=== PATIENT | female | born 1940 | race Caucasian/White ===

== ENCOUNTER 2023-12-11 07:24 | Day surgery (SDC) | payer OTHER, SELFPAY ==
[2023-12-11] MEDS: ELIQUIS 2.5 MG PO (08:00)
--- NOTE | 2023-12-11 17:43 | ITS.CL.CARDI ---
Dry Ice Machine Operator - Cardioversion
Cardioversion
Procedure Report:
Date of Procedure: 12/11/23
Procedure: Cardioversion
Indication: Symptomatic atrial fibrillation
Performing Physician: Marlena Thapa DO [facility]
Anticoagulation: Eliquis
Antiarrhythmic: Amiodarone
Technique: The patient was brought to the holding area. Signed informed consent was obtained. A time out was called and performed. The patient was anesthetized by the anesthesia service. Anticoagulation status was reviewed and appropriate. R2 pads
were placed anteriorly and posteriorly. A 200J synchronized biphasic shock restored normal sinus rhythm without significant bradycardia. There were no complications. Post cardioversion twelve-lead EKG sinus bradycardia with occasional PVCs
otherwise normal. QTc interval 465 ms.
Conclusion: Uncomplicated cardioversion from atrial fibrillation to sinus rhythm.
Recommendation: Routine post cardioversion care. Continue meterman anticoagulation. Updated patient's daughter Mile as well has her outpatient assistant grocery store manager Dr. Duran.
== END 2023-12-11 09:00 | disposition home or self-care (01) ==
LOC: CATH 07:24
PROVIDERS: ATTENDING PHYSICIAN Internal Medicine Cardiovascular Disease; FAMILY PHYSICIAN Internal Medicine; OTHER PHYSICIAN Internal Medicine Cardiovascular Disease
DX: I48.91 Unspecified atrial fibrillation (principal); I25.10 Atherosclerotic heart disease of native coronary artery without angina pectoris; I10 Essential (primary) hypertension; J44.9 Chronic obstructive pulmonary disease, unspecified; R06.02 Shortness of breath; F17.210 Nicotine dependence, cigarettes, uncomplicated; Z79.01 Long term (current) use of anticoagulants; Z79.82 Long term (current) use of aspirin
CPT/HCPCS: 92960; 93005

== ENCOUNTER → 2024-01-25 16:01 | Outpatient (REF) | payer OTHER, SELFPAY | LOC: DHCBS HW 16:01 | PROVIDERS: ATTENDING PHYSICIAN Physician Assistant Medical; FAMILY PHYSICIAN Internal Medicine | DX: I48.0 Paroxysmal atrial fibrillation (principal) | CPT/HCPCS: 93306 ==

== ENCOUNTER 2024-03-02 19:21 | Emergency (ER) | payer OTHER, SELFPAY ==
[2024-03-02 19:22] VITALS: BP 90/56; BMI 19.8
--- NOTE | 2024-03-02 20:30 | ED.GENMED ---
History of Present Illness
General
Chief Complaint: Skin Problem
Time Seen by Provider: 03/02/24 20:22
Travel History
Have you had any contact with someone who has COVID-19?: No
Do you have any symptoms of coronavirus? Fever > 100 degrees, chills, cough, shortness of breath, sore throat, loss of taste or smell, muscle aches, or headache?: No
History of Present Illness
History of Present Illness:
84-year-old female with history of A-fib, COPD, hypertension, and hyperlipidemia as well as chronic tobacco abuse and peripheral arterial disease presents to the emergency department for evaluation of left heel pain. She states that just over a
month ago she had a fall out of bed and suffered a wound to the left heel that has not improved. She has noted some discomfort to it over the past several days. She notes that she has peripheral arterial disease and has previously seen Dr. Aaron.
Denies any associated fevers or chills. Typically ambulates with walker assistance and feels as though she can ambulate however has increased pain to the foot makes this challenging
Past History
Past History
ED Past Medical History: Arrthythmia, CAD, COPD and HTN
ED Past Surgical History: None
Social History
Tobacco: Non-smoker
Alcohol: None
Review of Systems
Review of Systems
Allergies reviewed?: Yes
All Other Systems: ROS reviewed and negative except as documented in HPI and ROS
Phy Exam
Physical Exam
Physical Exam:
GEN: Thin and cachectic appearing, disheveled
HEENT: Oral mucosa moist, no scleral icterus
Cardiac: Regular rate. Left dorsalis pedis pulse is thready and monophasic by Doppler, left posterior tibialis pulse is thready and monophasic by Doppler
Lung: No respiratory distress, no tachypnea
MSK: No gross deformity or injuries
Skin: mild diffuse erythema to the left foot without swelling or tenderness, no hyperemia. There is a superficial ulceration to the left heel overlying the Achilles tendon with overlying eschar, no severe erythema or purulent discharge, minimally
tender to palpation, no crepitus
Neuro: AO x3, moves all extremities freely
Psych: Calm, cooperative
Course
Orders/Labs/Results
Orders:
Orders
03/02/24 20:29
CR Foot - Left Min 3 Views Urgent
Comment:
Reason For Exam: calcaneal ulcer
03/02/24 23:26
CRP [C-Reactive Protein] Urgent
Complete Blood Count/With Diff Urgent
Comprehensive Metabolic Panel Urgent
ESR [Erythrocyte Sed Rate] Urgent
Abnormal Lab Results
03/02/24
23:26
RBC 3.57 L 10^6/uL
(4.20-5.40)
Hgb 9.5 L g/dL
(12.0-16.0)
Hct 28.0 L %
(37.0-47.0)
MCV 78.4 L fL
(81.0-99.0)
MCH 26.6 L pg
(27.0-31.0)
RDW 18.8 H %
(11.5-14.5)
Absolute Monos (auto) 0.7 H 10^3/uL
(0.1-0.6)
Lymphocytes % 19.3 L %
(20.5-51.1)
ESR 93 H mm/hour
(0-20)
Carbon Dioxide 21 L mmol/L
(22-30)
BUN 24 H mg/dl
(7-17)
AST 41 H U/L
(14-36)
03/02/24 23:26
03/02/24 23:26
Vital Signs
Initial and Last Documented VS:
Initial Vital Signs
Temp Pulse Resp BP Pulse Ox
98.1 F 53 20 90/56 98
03/02/24 19:22 03/02/24 19:22 03/02/24 19:22 03/02/24 19:22 03/02/24 19:22
Last Documented Vital Signs
Temp Pulse Resp BP Pulse Ox
98.1 F 52 16 108/66 95
03/02/24 19:22 03/02/24 23:02 03/02/24 23:02 03/02/24 23:02 03/02/24 23:02
MDM/Problems Addressed
MDM/Problems Addressed:
Patient's wound shows no signs of active infection, x-ray without signs of osteomyelitis, reassuring inflammatory markers. Do not feel that there is any need for antibiotics. The patient ultimately would benefit from outpatient vascular surgery
evaluation given her diminished left foot pulses however there is no evidence for acute arterial occlusion. She will also benefit from outpatient wound care. Patient's family requested that we consider hospitalization for given her poor functional
status at home, I discussed this with hospitalist service however they declined admission the patient does not meet medical criteria. I did attempt to discharge the patient into the care of the daughter however the patient's daughter left and did
not answer the phone. She will be marked as discharged with anticipated disposition in the morning, will consult PT and case management for morning evaluation should the patient remain in the ER
*Critical Care Note
Total Time (30-74mins, 75-104mins- exclusive of procedures): Not Applicable
ED Attending Note
-
Portions of this chart may have been created with voice recognition software.� Occasional wrong word or��sound alike� substitutions may have occurred due to the inherent limitations of voice recognition software.
Discharge Plan
Departure
Patient Disposition: Home (Routine Discharge)
Date of Disposition: 03/03/24
Time of Disposition: 00:50
Patient with high blood pressure during this ER visit?: No
Discharge Problem:
Ulcer of left heel, Peripheral arterial disease
Instructions: Wound Care (DC)
Prescriptions:
No Action
pravastatin 40 mg Tablet
40 mg PO QPM
levothyroxine [Synthroid] 125 mcg Tablet
125 mcg PO DAILY
lisinopril 10 mg Tablet
10 mg PO HS
aripiprazole [Abilify] 5 mg Tablet
5 mg PO HS
Eliquis 2.5 mg Tablet
2.5 mg PO BID
calcium carbonate-vitamin D3 [Calcium 600 + D(3)] 600 mg-5 mcg (200 unit) Tablet
1 tab PO DAILY
ferrous sulfate [iron] 325 mg (65 mg iron) Tablet
325 mg PO DAILY
tiotropium bromide [Spiriva with HandiHaler] 18 mcg Capsule, W/Inhalation Device
1 cap INHALATION R DAILY
Centrum Silver Women 8 mg iron-400 mcg-50 mcg Tablet
1 tab PO DAILY
sertraline 100 mg tablet
100 mg PO DAILY
diltiazem HCl 240 mg Capsule,Extended Release 24 Hr
240 mg PO DAILY
diltiazem HCl 120 mg capsule,extended release 24hr
120 mg PO QPM
Referrals:
Louann Kemp MD [Family Provider] -
Activity Restrictions/Additional Instructions:
Follow up with wound care clinic as we discussed
Follow up with Dr Aaron regarding further testing of your vascular disease of your left leg
If you develop increased foot redness, swelling or pain, return to the ER
Interventions
Interventions:
*Risk Screen - Suicide Last Done: 03/02/24 19:22
*Neglect/Abuse Screening Last Done: 03/02/24 19:22
ED- Fall Risk Assessment Last Done: 03/02/24 20:31
*ED COVID-19 Vaccine History Last Done: 03/02/24 19:22
ED-Skin Assessment Last Done: 03/02/24 20:29
Discharge Date and Time
Print Language: CYPRIOT
[2024-03-02 23:02] VITALS: BP 108/66
[2024-03-02 23:36] LABS: % Basophils 0.3 % (0-2); % Eosinophils 0.6 % (0-6); % Immature Granulocytes 0.3 % (0-0.5); % Lymphocytes 19.3 % (20.5-51.1); % Monocytes 7.8 % (1.7-9.3); % Neutrophils 71.7 % (42.2-75.2); Absolute Eosinophils 0.1 10^3/uL (0-0.7); Absolute Lymphocytes 1.7 10^3/uL (1.2-3.4); Absolute Monocytes 0.7 10^3/uL (0.1-0.6); Absolute Neutrophils 6.4 10^3/uL (1.4-6.5); Hemoglobin 9.5 g/dL (12.0-16.0); Mean Corp Hgb Conc. 33.9 g/dL (33.0-37.0); Mean Corpuscular Hgb 26.6 pg (27.0-31.0); Mean Corpuscular Volume 78.4 fL (81.0-99.0); Mean Platelet Volume 9.5 fL (7.4-10.4); Nucleated Red Blood Cells % 0 %; Platelet Count 356 10^3/uL (130-400); Red Blood Cell Count 3.57 10^6/uL (4.20-5.40); Red Cell Dist. Width 18.8 % (11.5-14.5)
[2024-03-02 23:50] LABS: ALT (SGPT) 28 U/L (0-35); AST (SGOT) 41 U/L (14-36); Albumin 3.6 g/dl (3.5-5.0); Alkaline Phosphatase 105 U/L (38-126); Blood Urea Nitrogen 24 mg/dl (7-17); Calcium 9.2 mg/dl (8.4-10.2); Carbon Dioxide 21 mmol/L (22-30); Chloride 103 mmol/L (98-107); Estimated Creatinine Clearance 47 ml/min; Glucose 94 mg/dl (70-99); Potassium 3.7 mmol/L (3.5-5.1); Sodium 135 mmol/L (135-145); Total Bilirubin 0.4 mg/dl (0.2-1.3); Total Protein 6.8 g/dl (6.3-8.2); eGFR > 60.00
[2024-03-03 01:29] LABS: Erythrocyte Sed Rate 93 mm/hour (0-20)
[2024-03-03 06:51] VITALS: BP 133/72
--- NOTE | 2024-03-03 09:18 | CM ---
Addendum entered by Rolando Graham 03/03/24 10:23:
Per [facility] liaison, pt is accepted for admission today and an auth for SNF level of care requested.
[facility]
Accepting Physician: Shannan
CM requested an auth by calling [facility], spoke to patient representative Cori and based on pt's clinical provided, pt is approved for SNF level of care at [facility] for 5 initial days from today 03/03/24 till 03/07/25 with NRD 03/07/24, Auth:
[id number]. Verbal review phone: [phone]
Auth information provided to [facility] liaison and she confirmed that pt is accepted for admission today.
[facility] nursing report: [phone]
Discharge instructions fax: [phone]
D/C palnL [facility]. Daughter to transport.
Addendum entered by Rolando Graham 03/03/24 09:57:
PT evaluation noted - SNF level of care recommended.
A referral to [facility] made. Awaiting for determination.
Original Note:
CM following re: discharge planning.
CM consult to assist the pt with discharge plan.
Reviewed pt's chart, met with pt in ED and spoke to pt's daughter Mile
Pt is an 84 year old female, arrived to ED with primary concerns of weakness
Pt reports she lives alone in a split level home, 2 steps to enter, has supportive daughter Mile who lives 2 blocks away and helps as needed. Pt reports she ambulates with a walker and has been experiencing difficulties with walking in the past
week. Pt reports she was before at [facility] and she is requested to go to [facility] for a short term rehab.
PT to evaluate the pt to determine a level of care at discharge.
PCP: Louann Kemp
Pharmacy: [facility]
D/C plan: [facility] if recommended by PT. Pt will need [facility] insurance auth. Daughter Mile stated she will transport the pt to [facility].
CM to follow with discharge plan updates.
[2024-03-03 09:19] VITALS: BP 120/74
[2024-03-03 12:15] VITALS: BP 140/93
== END 2024-03-03 12:43 ==
LOC: EMR 19:21
PROVIDERS: Physician Assistant; EMERGENCY PHYSICIAN Emergency Medicine; FAMILY PHYSICIAN Internal Medicine
DX: M79.672 Pain in left foot (principal)
CPT/HCPCS: 99283; 73630; 80053; 85025; 85652; 86140

== ENCOUNTER → 2024-03-10 09:12 | Outpatient (REF) | payer OTHER, SELFPAY | LOC: RAD 09:12 | PROVIDERS: ATTENDING PHYSICIAN Registered Nurse; FAMILY PHYSICIAN Internal Medicine | DX: I77.9 Disorder of arteries and arterioles, unspecified (principal) | CPT/HCPCS: 93922; 93925 ==

== ENCOUNTER 2024-03-16 06:08 | Day surgery (SDC) | payer OTHER, SELFPAY ==
--- NOTE | 2024-03-15 15:20 | PTCARENOTE ---
ABN ECG, Anesthesia notified, states 'OK if stable' no requests received.
[2024-03-16] VITALS (20 sets, daily range): BP systolic 109–169; BP diastolic 79–110; BMI 19.7
[2024-03-16 06:51] LABS: Hematocrit 35.2 % (37.0-47.0); Hemoglobin 11.5 g/dL (12.0-16.0); Mean Corp Hgb Conc. 32.7 g/dL (33.0-37.0); Mean Corpuscular Hgb 27.4 pg (27.0-31.0); Mean Platelet Volume 9.5 fL (7.4-10.4); Platelet Count 441 10^3/uL (130-400); Red Blood Cell Count 4.19 10^6/uL (4.20-5.40); Red Cell Dist. Width 18.6 % (11.5-14.5); White Blood Cell Count 9.7 10^3/uL (4.8-10.8)
--- NOTE | 2024-03-16 06:59 | W.SUR.PREOP ---
Pre-Operative Surgical Note
-
I have examined this patient prior to the performance of the scheduled procedure.
The patient's condition is unchanged from the time of the current History and
Physical and the patient is able to undergo the scheduled procedure.
Discussed procedure at length with patient and daughter. Discussed potential scenarios/outcomes. Discussed some limitations given mulit-level disease. Risks fully discussed. She understands all and wishes to proceed.
[2024-03-16 07:02] LABS: INR 1.11; PT 14.2 Sec (11.4-14.6)
[2024-03-16 07:03] LABS: APTT 33.2 Sec (23.4-35.0)
[2024-03-16 07:08] LABS: Blood Urea Nitrogen 18 mg/dl (7-17); Calcium 9.2 mg/dl (8.4-10.2); Carbon Dioxide 22 mmol/L (22-30); Chloride 104 mmol/L (98-107); Estimated Creatinine Clearance 54 ml/min; Glucose 96 mg/dl (70-99); Potassium 4.7 mmol/L (3.5-5.1); Sodium 135 mmol/L (135-145); eGFR > 60.00
--- NOTE | 2024-03-16 09:34 | W.SUR.POST ---
Surgical Immediate Post Op
Note
Pre Op Diagnosis: PAD
Post Op Diagnosis: Same
Procedure Performed: Left lower extremity angiogram, INSIDE SALES ACCOUNT REPRESENTATIVE common iliac, external iliac, SFA, above-knee popliteal, behind knee popliteal, below-knee popliteal. Stent placement to common iliac, external iliac, SFA, and above-knee popliteal.
Primary Surgeon: Galen
Anesthesia: Local and sedation
Estimated Blood Loss: <2cc
Fluids: See anesthesia flowsheet
Drains/Shunts: None
Specimens/Cultures: None
Doppler/Duplex/Angio (Y/N): Y
Complications: None
Operative Findings: Palpable [id number]
--- NOTE | 2024-03-16 09:35 | W.PV.INTER ---
VPI Note
Pre Admission Note
Functional Status: Self Care
Ambulation: Ambulate with Assistance
Pre Op Medications
Pre Op ASA: No
Pre Op Statin: Yes
Pre Op RHINA Inhibitor/ARB: Yes
Pre Op P2y12 Antagonist: None
Pre Op Beta Blockers: No
Pre Op Chronic Anticoagulant: Apixaban
Pre Op Cilostazol: No
Post Op Medications
Post Op ASA: Yes
Post Op Statin: Yes
Post Op RHINA Inhibitor/ARB: Yes
Post Op P2y12 Antagonist: Clopidogrel
Post Op Beta Blockers: No
Post Op Chronic Anticoagulant: Apixaban
Post Op Cilostazol: No
[2024-03-16] MEDS: PLAVIX 300 MG PO (10:56)
--- NOTE | 2024-03-16 11:05 | OR.RPT ---
Operative Report
Operative Report
PROCEDURE DATE: 03/16/2024
Preoperative diagnosis:
1. Chronic limb threatening ischemia left lower extremity (severe rest pain as well as heel ulceration).
2. COPD.
3. History of coronary artery disease.
Postoperative diagnosis: Same
Procedure:
1. Duplex assisted right common femoral artery cannulation.
2. Aortogram and pelvic angiogram.
3. Left lower extremity arteriogram with third order vessel catheterization of left peroneal artery via right common femoral artery puncture.
4. Balloon angioplasty left external iliac and common iliac artery and stent placement with Zilver PTX overlapping 7 mm x 4 cm, 6 mm x 4 cm stents.
5. Recanalization of long segment occlusion left superficial femoral artery and above-knee popliteal artery with angioplasty long segment.
6. Placement of overlapping Zilver PTX stents left above-knee popliteal artery back to origin of superficial femoral artery with 6 mm x 14 cm, 6 mm x 14 cm, 6 mm x 12 cm, 6 mm x 4 cm stents.
7. Balloon angioplasty of below-knee popliteal artery with 4 mm angioplasty balloon.
8. Right femoral angiogram.
9. Supervision interpretation.
Surgeon: Galen
Returned Case Inspector: None
Complications: None
Anesthesia: Local, sedation
Fluoroscopy:
27.4 min
93 mGy
14.5 to Gy.cm2
Indications for procedure:
84-year-old female with extensive medical history including significant risk factors of CAD and COPD. Extensive peripheral arterial disease with multilevel inflow and outflow occlusive disease noted on prior CT scan imaging as well as noninvasive
arterial imaging. Now with ischemic left foot rest pain as well as ulceration. Risk/benefits/alternatives of angiography were fully discussed. Patient understood all wish to proceed.
Description of procedure:
Patient was identified, brought to the operating room. Placed on the table in the supine position. After the adequate administration of anesthesia, the patient was prepped and draped in the standard surgical fashion. A standard preoperative
timeout was undertaken and everybody was in agreement with the plan.
The right common femoral artery was accessed with a micropuncture kit under direct duplex ultrasound guidance. A 5-Luxembourger sheath was then advanced over a 0.035 inch wire, and a good's hook catheter was advanced into the abdominal aorta.
Aortogram and pelvic angiogram was obtained. Findings as follows:
Infrarenal aorta: Extensive atherosclerosis but no significant stenosis.
Right common iliac artery: Patent with moderate bulky plaque about a centimeter beyond the origin. Resulted in likely about 50% stenosis.
Right external iliac artery:Possible moderate stenosis, somewhat challenging due to overlying bowel gas to fully assess that extended from common iliac into the external iliac for about 3 to 4 cm.
Left common iliac artery:Patent with focal moderate bulky plaque that resulted in likely 60 or 70% stenosis in the midsegment of common iliac.
Left external iliac artery:Severe stenosis at the origin of the external iliac artery (string-like).
Using a floppy angled hydrophilic wire, the left common femoral artery was cannulated and the catheter was advanced with some difficulty. Left lower extremity arteriogram was obtained. Findings as follows:
Common femoral artery:Patent with moderate opacity suggesting bulky plaque, but no hourglass like stenosis. Difficult to quantify if any significant stenosis.
Profunda femoris artery:Patent with no significant stenosis
Superficial femoral artery:Flush occluded, but trickle noted on delayed imaging for about 1-2cm. Reconstituted flow in mid to distal SFA, moderately diseased. Above-knee popliteal artery more robustly reconstituted. In the distal above-knee
popliteal artery there was a focal bulky plaque that resulted in likely severe stenosis. Below-knee popliteal artery then patent. Gave rise to two-vessel runoff proximally (peroneal and anterior tibial arteries). The peroneal artery essentially
occluded in the mid calf, the anterior tibial artery was a dominant runoff vessel to the foot. However due to significant patient movement throughout the case (restless leg) as well as poor flow due to stenoses more proximally, could not exactly
see filling onto the foot as well.
At this point I then selectively cannulated the profunda femoris artery and then exchanged for a Storq wire. Up and over 6 Luxembourger sheath access was obtained into the left common iliac artery. Patient was given 4000 units of intravenous heparin. I
then used a 4 mm angioplasty balloon to balloon the severe proximal external iliac artery stenosis. Next I used a 7 mm x 4 cm Zilver PTX stent which I extended from the external iliac artery stenosis to the common iliac artery at the area of bulky
plaque (just proximal edge of the plaque). I post angioplastied this with a 6 mm angioplasty balloon distally and a 7 mm angioplasty balloon proximally. Completion angiogram demonstrated good result but at the distal edge of the stent in the
external iliac artery there was what appeared to be luminal irregularity and likely severe stenosis. I therefore then extended with an additional 6 mm x 4 cm stent which I then post angioplastied with a 6 mm balloon. Completion angiogram now
demonstrated excellent result with no residual stenosis. At this point I then reinserted the dilator for the sheath and then advanced the sheath to the left common femoral artery. Now under roadmap assisted guidance I was able to (though difficult
to do so) cannulate the left superficial femoral artery proximally. I then was able to traverse the entirety of the occlusion and then gain wire access into the popliteal artery. I was able advance my catheter and angiogram confirmed I was within
the true lumen. I therefore then advanced my catheter and wire to the below-knee popliteal artery and then the wire into the peroneal artery. Now I used a long 4 mm angioplasty balloon to angioplasty the entirety of the SFA and the proximal
above-knee popliteal artery. My initial plan was to use shockwave lithotripsy angioplasty for the distal above-knee popliteal artery stenosis. However the patient was moving tremendously in this complicated the case and I felt that this would add
time and difficulty for accuracy. Therefore I elected to primarily stent the entirety of the stenotic segments extending from the above-knee popliteal artery to the proximal superficial femoral artery using 6 mm overlapping Zilver PTX stents. I
used a 6 mm x 14 cm, 6 mm x 14 cm, 6 mm x 12 cm. These were post angioplastied with a 5 mm balloons. However, I could not pass my 5 mm balloon through the stented distal segment (distal above-knee popliteal artery bulky plaque). The stent had
deployed, but I was unable to pass the balloon out. I tried multiple times. I therefore then used a quick cross catheter which I was able to pass through it, and then exchanged for a 0.018 inch wire. I then used a 0.018 inch platform 5 mm balloon
and was able to postangioplasty that segment successfully. Completion angiogram demonstrated much improved flow now with flow through the SFA. There was however a proximal segment and the stents in the SFA with residual severe stenosis where the
stent did not fully expand. In addition distally at the bulky area of popliteal plaque, there is still some residual stenosis despite the stent having expanded. And in addition, the proximal stent was just short of the femoral bifurcation. I was
initially hesitant to stent back to the origin. (Ideally this would all be treated surgically with a femoral endarterectomy, but the patient was a high risk for surgical reconstruction as noted earlier). Therefore I then under magnification
extended the stent with a 6 mm x 4 cm Zilver PTX to include the very origin of the SFA and just sort of flare onto the profunda though not cover it. I then post angioplastied this as well as the proximal severe stenosis in the stented SFA with a 6
mm angioplasty balloon. I also post angioplastied the distal above-knee popliteal recalcitrant segment with a 6 mm balloon to full profile. I was able to profile the balloon and although sites. Completion angiogram now demonstrated good result
throughout the stented SFA and above-knee popliteal artery. However the flow and filling distally was slow. I advanced a quick cross catheter all the way down to the below-knee popliteal artery and performed imaging from there. This demonstrated
patency of the below-knee popliteal artery and anterior tibial artery all the way down to the foot but very slow filling. I noted just proximal to the catheter edge that there was a stenosis now (possible vasospasm) in the below-knee popliteal
artery. I therefore then exchanged back for a 0.035 inch wire and perform gentle angioplasty with a 4 mm balloon. Completion angiogram demonstrated now complete resolution of that stenosis and now brisk flow through into the runoff. At this point
is very satisfied. I withdrew my sheath to the right distal external iliac artery. Right femoral angiography demonstrated good puncture in the right common femoral artery. Possible plaque disease in the common femoral artery. Profunda patent.
SFA with diffuse plaque but moderate to significant stenosis focally in 1 segment in the proximal third but otherwise no severe stenosis. I elected not to image further down the leg as I use a fair amount of contrast at this point. At this point
the wires and catheters were withdrawn. The sheath was withdrawn and manual pressure was applied to the puncture site. Full hemostasis was achieved. The patient tolerated the procedure well. Upon completion she had a palpable left dorsalis pedis
pulse.
The patient tolerated procedure well.
[2024-03-16] MEDS: LOW STRENGTH ASPIRIN 81 MG PO (11:06)
[2024-03-16] MEDS: NSS 1000 IV (12:56)
== END 2024-03-16 16:00 | disposition home or self-care (01) ==
LOC: CATH 06:08
PROVIDERS: ATTENDING PHYSICIAN Surgery Vascular Surgery; FAMILY PHYSICIAN Internal Medicine
DX: I70.244 Atherosclerosis of native arteries of left leg with ulceration of heel and midfoot (principal); L97.429 Non-pressure chronic ulcer of left heel and midfoot with unspecified severity; J44.9 Chronic obstructive pulmonary disease, unspecified; I25.10 Atherosclerotic heart disease of native coronary artery without angina pectoris; Z88.1 Allergy status to other antibiotic agents; Z79.01 Long term (current) use of anticoagulants; I48.0 Paroxysmal atrial fibrillation; I10 Essential (primary) hypertension
CPT/HCPCS: 37221; 37226; 75625; 75716; 76937; 80048; 85027; 85610; 85730; 86850; 86900; 86901; C1725; C1769; C1874; C1894; Q9967

== ENCOUNTER → 2024-04-27 14:41 | Outpatient (REF) | payer OTHER, SELFPAY | LOC: RAD 14:41 | PROVIDERS: ATTENDING PHYSICIAN Surgery Vascular Surgery; FAMILY PHYSICIAN Family Medicine | DX: I73.9 Peripheral vascular disease, unspecified (principal) | CPT/HCPCS: 93922; 93925; 93978 ==

== ENCOUNTER → 2024-05-12 12:38 | Outpatient (REF) | payer OTHER, SELFPAY | LOC: WOUND 12:38 | PROVIDERS: ATTENDING PHYSICIAN Surgery; FAMILY PHYSICIAN Family Medicine | DX: L97.323 Non-pressure chronic ulcer of left ankle with necrosis of muscle (principal); I10 Essential (primary) hypertension; I73.9 Peripheral vascular disease, unspecified | CPT/HCPCS: 11043; 99203 ==

== ENCOUNTER → 2024-05-17 08:59 | Outpatient (REF) | payer OTHER, SELFPAY | LOC: WOUND 08:59 | PROVIDERS: ATTENDING PHYSICIAN Surgery | DX: L97.323 Non-pressure chronic ulcer of left ankle with necrosis of muscle (principal); I10 Essential (primary) hypertension; I73.9 Peripheral vascular disease, unspecified | CPT/HCPCS: 11043 ==

== ENCOUNTER → 2024-05-26 09:38 | Outpatient (REF) | payer OTHER, SELFPAY | LOC: WOUND 09:38 | PROVIDERS: ATTENDING PHYSICIAN Surgery; FAMILY PHYSICIAN Family Medicine | DX: L97.323 Non-pressure chronic ulcer of left ankle with necrosis of muscle (principal); I10 Essential (primary) hypertension; I73.9 Peripheral vascular disease, unspecified | CPT/HCPCS: 11043 ==

== ENCOUNTER → 2024-06-02 09:19 | Outpatient (REF) | payer OTHER, SELFPAY | LOC: WOUND 09:19 | PROVIDERS: ATTENDING PHYSICIAN Surgery; FAMILY PHYSICIAN Family Medicine | DX: L97.323 Non-pressure chronic ulcer of left ankle with necrosis of muscle (principal); I73.9 Peripheral vascular disease, unspecified | CPT/HCPCS: 11043 ==

== ENCOUNTER → 2024-06-16 09:17 | Outpatient (REF) | payer OTHER, SELFPAY | LOC: WOUND 09:17 | PROVIDERS: ATTENDING PHYSICIAN Surgery; FAMILY PHYSICIAN Family Medicine | DX: L97.323 Non-pressure chronic ulcer of left ankle with necrosis of muscle (principal); I10 Essential (primary) hypertension; I73.9 Peripheral vascular disease, unspecified | CPT/HCPCS: 11043 ==

== ENCOUNTER → 2024-06-24 14:55 | Outpatient (REF) | payer OTHER, SELFPAY | LOC: WOUND 14:55 | PROVIDERS: ATTENDING PHYSICIAN Surgery; FAMILY PHYSICIAN Family Medicine | DX: L97.323 Non-pressure chronic ulcer of left ankle with necrosis of muscle (principal); I73.9 Peripheral vascular disease, unspecified; I10 Essential (primary) hypertension; F17.200 Nicotine dependence, unspecified, uncomplicated | CPT/HCPCS: 11043 ==

== ENCOUNTER → 2024-07-07 14:07 | Outpatient (REF) | payer OTHER, SELFPAY | LOC: WOUND 14:07 | PROVIDERS: ATTENDING PHYSICIAN Surgery; FAMILY PHYSICIAN Family Medicine | DX: L97.323 Non-pressure chronic ulcer of left ankle with necrosis of muscle (principal); I73.9 Peripheral vascular disease, unspecified; I10 Essential (primary) hypertension; F17.200 Nicotine dependence, unspecified, uncomplicated | CPT/HCPCS: 11043 ==

== ENCOUNTER → 2024-07-25 09:51 | Outpatient (REF) | payer OTHER, SELFPAY | LOC: WOUND 09:51 | PROVIDERS: ATTENDING PHYSICIAN Surgery; FAMILY PHYSICIAN Family Medicine | DX: L97.323 Non-pressure chronic ulcer of left ankle with necrosis of muscle (principal); I73.9 Peripheral vascular disease, unspecified; I10 Essential (primary) hypertension; F17.200 Nicotine dependence, unspecified, uncomplicated | CPT/HCPCS: 11042 ==

== ENCOUNTER → 2024-08-15 14:49 | Outpatient (REF) | payer OTHER, SELFPAY | LOC: WOUND 14:49 | PROVIDERS: ATTENDING PHYSICIAN Surgery; FAMILY PHYSICIAN Family Medicine | DX: L97.323 Non-pressure chronic ulcer of left ankle with necrosis of muscle (principal); I73.9 Peripheral vascular disease, unspecified; F17.200 Nicotine dependence, unspecified, uncomplicated; I10 Essential (primary) hypertension | CPT/HCPCS: 11042; 11043 ==

== ENCOUNTER → 2024-08-23 11:05 | Outpatient (REF) | payer OTHER, SELFPAY | LOC: WOUND 11:05 | PROVIDERS: ATTENDING PHYSICIAN Surgery; FAMILY PHYSICIAN Family Medicine | DX: L97.323 Non-pressure chronic ulcer of left ankle with necrosis of muscle (principal); I73.9 Peripheral vascular disease, unspecified; F17.200 Nicotine dependence, unspecified, uncomplicated; I10 Essential (primary) hypertension | CPT/HCPCS: 11042 ==

== ENCOUNTER 2024-08-31 15:32 | Emergency (ER) | payer OTHER, SELFPAY ==
[2024-08-31 15:47] VITALS: BP 109/59
[2024-08-31 16:08] LABS: % Basophils 0.6 % (0-2); % Eosinophils 0.8 % (0-6); % Immature Granulocytes 0.3 % (0-0.5); % Lymphocytes 21.6 % (20.5-51.1); % Monocytes 8.9 % (1.7-9.3); % Neutrophils 67.8 % (42.2-75.2); Absolute Basophils 0.1 10^3/uL (0-0.2); Absolute Eosinophils 0.1 10^3/uL (0-0.7); Absolute Monocytes 0.8 10^3/uL (0.1-0.6); Absolute Neutrophils 6.1 10^3/uL (1.4-6.5); Hematocrit 31.7 % (37.0-47.0); Hemoglobin 10.6 g/dL (12.0-16.0); Mean Corp Hgb Conc. 33.4 g/dL (33.0-37.0); Mean Corpuscular Hgb 29.6 pg (27.0-31.0); Mean Corpuscular Volume 88.5 fL (81.0-99.0); Mean Platelet Volume 9.5 fL (7.4-10.4); Nucleated Red Blood Cells % 0 %; Platelet Count 363 10^3/uL (130-400); Red Blood Cell Count 3.58 10^6/uL (4.20-5.40); Red Cell Dist. Width 16.6 % (11.5-14.5)
[2024-08-31 16:22] LABS: ALT (SGPT) 42 U/L (0-35); AST (SGOT) 48 U/L (14-36); Albumin 3.9 g/dl (3.5-5.0); Alkaline Phosphatase 80 U/L (38-126); Blood Urea Nitrogen 15 mg/dl (7-17); Carbon Dioxide 16 mmol/L (22-30); Chloride 109 mmol/L (98-107); Glucose 96 mg/dl (70-99); Potassium 3.6 mmol/L (3.5-5.1); Sodium 140 mmol/L (135-145); Total Bilirubin 0.1 mg/dl (0.2-1.3); Total Protein 7.1 g/dl (6.3-8.2); eGFR > 60.00
--- NOTE | 2024-08-31 18:43 | ED.GENMED ---
History of Present Illness
General
Chief Complaint: DVT/Possible Blood Clot
Source: patient
Exam Limitations: none
Time Seen by Provider: 08/31/24 17:36
Nursing documentation reviewed up to this point in time: agreed with
History of Present Illness
History of Present Illness:
84-year-old female presents to the ER for evaluation of left leg swelling that started on Thursday 2 days ago. She denies any injury but reports she has been doing a lot of walking and did a lot of walking on Thursday prior to the swelling started.
Patient reports she had a femoropopliteal bypass by Dr. Aaron 03/2024.
She denies any fever chills shortness of breath. She denies any redness to the area. She is on Eliquis and Plavix and has not missed a dose.
Past History
Past History
ED Past Medical History: Arrthythmia, CAD, COPD and HTN
ED Past Surgical History: None
Social History
Tobacco: Non-smoker
Alcohol: None
Review of Systems
Review of Systems
Allergies reviewed?: Yes
All Other Systems: ROS reviewed and negative except as documented in HPI and ROS
Constitutional: Reports no symptoms; Denies fever, fatigue or chills
Respiratory: Denies trouble breathing
Musculoskeletal: Reports other (Left leg swelling)
Skin: Reports no symptoms
Neurological: Reports no symptoms
Psychiatric: Reports no symptoms
Phy Exam
General Physical Exam
General Presentation: no apparent distress
General age: appears stated age
General Skin: warm and dry
General Habitus: normal
General Mental: alert
General Hydration: appears well hydrated
Neurological Exam
Neurological Exam: alert and oriented x3
Musculoskeletal Exam
Musculoskeletal Exam: other (lle with strong pulses good color + swelling to left foot left lower leg + healing wound to posterior ankle with no erythema around wound no erythema to foot/ankle or leg )
Skin Exam
Skin Exam: normal color and warm/dry
Psychiatric Exam
Psychiatric Exam: normal mood/affect
Course
Orders/Labs/Results
Orders:
Orders
08/31/24 15:52
US Legs, Left [US Periph Venous LOWER Ext LT] Urgent
Comment:
Reason For Exam: left calf pain
08/31/24 15:57
Complete Blood Count/With Diff Urgent
Comprehensive Metabolic Panel Urgent
08/31/24 19:19
CT Abd/pelvis Angio W/wo Iv Urgent
Comment:
Reason For Exam: with venous phase for lower extremity swelling
IV Insert/Care/Rem.- Treatment PRN
Abnormal Lab Results
08/31/24
15:57
RBC 3.58 L 10^6/uL
(4.20-5.40)
Hgb 10.6 L g/dL
(12.0-16.0)
Hct 31.7 L %
(37.0-47.0)
RDW 16.6 H %
(11.5-14.5)
Absolute Monos (auto) 0.8 H 10^3/uL
(0.1-0.6)
Chloride 109 H mmol/L
(98-107)
Carbon Dioxide 16 L mmol/L
(22-30)
Total Bilirubin 0.1 L mg/dl
(0.2-1.3)
AST 48 H U/L
(14-36)
ALT 42 H U/L
(0-35)
08/31/24 15:57
08/31/24 15:57
Vital Signs
Initial and Last Documented VS:
Initial Vital Signs
Temp Pulse Resp BP Pulse Ox
98.1 F 53 20 109/59 99
08/31/24 15:47 08/31/24 15:47 08/31/24 15:47 08/31/24 15:47 08/31/24 15:47
Last Documented Vital Signs
Temp Pulse Resp BP Pulse Ox
98.1 F 53 20 111/66 99
08/31/24 15:47 08/31/24 15:47 08/31/24 15:47 08/31/24 19:39 08/31/24 15:47
Cannoneer consulted with Physician
Cannoneer consulted with physician?: Yes
Name of Physician Consulted: alonzo
MDM/Problems Addressed
MDM/Problems Addressed:
Patient is an 84-year-old female with history of peripheral arterial disease status post fem/ pop bypass March 2024 of left leg by Dr. Aaron. She presents with swelling to left lower extremity for the past 2 days. She denies any actual injury however
has been walking on it. Denies any fever chills. She is on Plavix and Eliquis. Ultrasound negative. On exam patient obvious swelling compared to the right leg she does have strong pulses foot is outsole paraffiner color good circulation. Case reviewed
with vascular surgery on-call who does recommend CTA of the abdomen and pelvis to rule out a DVT more proximal.\\
CT done : No evidence for venous thrombosis. This image was reviewed by radiology as well as vascular surgery Dr. Bartlett. will d/c with f/u by vascular /and pcp
ct angio: no aneurysm or dissection . no evidence of infection strong palpable pulses good color healing wound to posterior ankle not infected follows with wound center
*Critical Care Note
Total Time (30-74mins, 75-104mins- exclusive of procedures): Not Applicable
Patient Management
Discussion with other providers: Hold Worker (DR Bartlett )
ED Attending Note
-
Portions of this chart may have been created with voice recognition software.� Occasional wrong word or��sound alike� substitutions may have occurred due to the inherent limitations of voice recognition software.
Discharge Plan
Departure
Patient Disposition: Home (Routine Discharge)
Date of Disposition: 08/31/24
Time of Disposition: 22:40
Patient with high blood pressure during this ER visit?: No
Condition: Fair
Covid-19: Not Applicable
Discharge Problem:
Edema
Prescriptions:
No Action
levothyroxine [Synthroid] 125 mcg Tablet
125 mcg PO DAILY
lisinopril 10 mg Tablet
10 mg PO HS
aripiprazole [Abilify] 5 mg Tablet
5 mg PO HS
ferrous sulfate [iron] 325 mg (65 mg iron) Tablet
325 mg PO DAILY
tiotropium bromide [Spiriva with HandiHaler] 18 mcg Capsule, W/Inhalation Device
1 cap INHALATION R DAILY
sertraline 100 mg tablet
100 mg PO DAILY
diltiazem HCl 240 mg Capsule,Extended Release 24 Hr
240 mg PO DAILY
diltiazem HCl 120 mg capsule,extended release 24hr
120 mg PO QPM
multivitamin Tablet
1 tab PO DAILY
atorvastatin 10 mg Tablet
10 mg PO QPM
acetaminophen 650 mg Tablet
650 mg PO Q6H PRN (Reason: pain)
calcium carbonate 600 mg calcium (1,500 mg) Tablet
600 mg PO DAILY
mineral oil Enema
118 ml [place] DAILY PRN (Reason: constipation)
magnesium hydroxide [Milk of Magnesia] 400 mg/5 mL Suspension
30 ml PO DAILY PRN (Reason: constipation)
bisacodyl [Dulcolax (bisacodyl)] 10 mg Suppository
10 mg VT DAILY PRN (Reason: constipation)
Santyl 250 unit/gram Ointment
1 applic TOPICAL DAILY PRN (Reason: wound debriedement)
apixaban 2.5 mg Tablet
2.5 mg PO BID
clopidogrel 75 mg Tablet
75 mg PO DAILY Qty: 30 0RF
aspirin [Children's Aspirin] 81 mg Tablet,Chewable
81 mg PO DAILY Qty: 90 0RF
Referrals:
Yash Aaron MD [Active] -
Us,Jie A., DO [Family Provider] -
Activity Restrictions/Additional Instructions:
Try and rest and keep leg elevated as much as possible. You may continue all your medications including your blood thinners. Return if any worsening of symptoms. Follow-up with Dr. Aaron as discussed.
Interventions
Interventions:
*Risk Screen - Suicide Last Done: 08/31/24 19:21
*General Assessment Last Done: 08/31/24 15:47
*Neglect/Abuse Screening Last Done: 08/31/24 19:21
ED- Fall Risk Assessment Last Done: 08/31/24 19:21
*ED COVID-19 Vaccine History Last Done: 08/31/24 19:21
ED- Cardiac Assessment Last Done: 08/31/24 19:21
ED- Pulmonary Assessment Last Done: 08/31/24 19:21
ED-Peripheral Vascular Assessment Last Done: 08/31/24 19:21
ED-Skin Assessment Last Done: 08/31/24 19:21
Discharge Date and Time
Print Language: PASHTO
[2024-08-31 19:39] VITALS: BP 111/66
== END 2024-08-31 22:58 | disposition home or self-care (01) ==
LOC: EMR 15:32
PROVIDERS: Emergency Medicine; EMERGENCY PHYSICIAN Emergency Medicine; FAMILY PHYSICIAN Family Medicine
DX: R60.0 Localized edema (principal); M79.605 Pain in left leg; I73.9 Peripheral vascular disease, unspecified; I25.10 Atherosclerotic heart disease of native coronary artery without angina pectoris; J44.9 Chronic obstructive pulmonary disease, unspecified; I48.91 Unspecified atrial fibrillation; I10 Essential (primary) hypertension; E03.9 Hypothyroidism, unspecified; F41.9 Anxiety disorder, unspecified; F32.A Depression, unspecified; Z95.5 Presence of coronary angioplasty implant and graft; Z79.01 Long term (current) use of anticoagulants; Z79.02 Long term (current) use of antithrombotics/antiplatelets; Z88.1 Allergy status to other antibiotic agents; Z91.018 Allergy to other foods
CPT/HCPCS: 99285; 74174; 80053; 85025; 93971; Q9967

== ENCOUNTER → 2024-09-01 09:57 | Outpatient (REF) | payer OTHER, SELFPAY | LOC: WOUND 09:57 | PROVIDERS: ATTENDING PHYSICIAN Surgery; FAMILY PHYSICIAN Family Medicine | DX: L97.323 Non-pressure chronic ulcer of left ankle with necrosis of muscle (principal); I73.9 Peripheral vascular disease, unspecified; I10 Essential (primary) hypertension; F17.200 Nicotine dependence, unspecified, uncomplicated | CPT/HCPCS: 11042 ==

== ENCOUNTER → 2024-09-15 13:26 | Outpatient (REF) | payer OTHER, SELFPAY | LOC: WOUND 13:26 | PROVIDERS: ATTENDING PHYSICIAN Surgery; FAMILY PHYSICIAN Family Medicine | DX: L97.323 Non-pressure chronic ulcer of left ankle with necrosis of muscle (principal); I73.9 Peripheral vascular disease, unspecified; I10 Essential (primary) hypertension; F17.200 Nicotine dependence, unspecified, uncomplicated | CPT/HCPCS: 11042 ==

== ENCOUNTER → 2024-09-22 10:44 | Outpatient (REF) | payer OTHER, SELFPAY | LOC: RAD 10:44 | PROVIDERS: ATTENDING PHYSICIAN Registered Nurse; FAMILY PHYSICIAN Family Medicine | DX: I73.9 Peripheral vascular disease, unspecified (principal) | CPT/HCPCS: 93922; 93925; 93978 ==

== ENCOUNTER → 2024-10-06 11:01 | Outpatient (REF) | payer OTHER, SELFPAY | LOC: WOUND 11:01 | PROVIDERS: ATTENDING PHYSICIAN Surgery; FAMILY PHYSICIAN Family Medicine | DX: L97.323 Non-pressure chronic ulcer of left ankle with necrosis of muscle (principal); I73.9 Peripheral vascular disease, unspecified; I10 Essential (primary) hypertension | CPT/HCPCS: 11042 ==

== ENCOUNTER → 2024-10-18 10:26 | Outpatient (REF) | payer OTHER, SELFPAY | LOC: WOUND 10:26 | PROVIDERS: ATTENDING PHYSICIAN Surgery; FAMILY PHYSICIAN Family Medicine | DX: L97.323 Non-pressure chronic ulcer of left ankle with necrosis of muscle (principal); I73.9 Peripheral vascular disease, unspecified; I10 Essential (primary) hypertension; F17.200 Nicotine dependence, unspecified, uncomplicated | CPT/HCPCS: 97597 ==

== ENCOUNTER → 2024-11-03 10:11 | Outpatient (REF) | payer OTHER, SELFPAY | LOC: WOUND 10:11 | PROVIDERS: ATTENDING PHYSICIAN Surgery; FAMILY PHYSICIAN Family Medicine | DX: L97.323 Non-pressure chronic ulcer of left ankle with necrosis of muscle (principal); I73.9 Peripheral vascular disease, unspecified; I10 Essential (primary) hypertension; F17.200 Nicotine dependence, unspecified, uncomplicated | CPT/HCPCS: 97597 ==

== ENCOUNTER → 2024-11-17 09:58 | Outpatient (REF) | payer OTHER, SELFPAY | LOC: WOUND 09:58 | PROVIDERS: ATTENDING PHYSICIAN Surgery; FAMILY PHYSICIAN Family Medicine | DX: L97.323 Non-pressure chronic ulcer of left ankle with necrosis of muscle (principal); I73.9 Peripheral vascular disease, unspecified; I10 Essential (primary) hypertension; F17.200 Nicotine dependence, unspecified, uncomplicated | CPT/HCPCS: 11042 ==

== ENCOUNTER → 2024-12-05 10:39 | Outpatient (REF) | payer OTHER, SELFPAY | LOC: WOUND 10:39 | PROVIDERS: ATTENDING PHYSICIAN Surgery; FAMILY PHYSICIAN Family Medicine | DX: L97.323 Non-pressure chronic ulcer of left ankle with necrosis of muscle (principal); I73.9 Peripheral vascular disease, unspecified; F17.200 Nicotine dependence, unspecified, uncomplicated; I10 Essential (primary) hypertension | CPT/HCPCS: 11042 ==

== ENCOUNTER 2024-12-06 15:36 | Inpatient (IN) | payer OTHER, SELFPAY ==
[2024-12-06] VITALS (9 sets, daily range): BP systolic 97–128; BP diastolic 62–91
--- NOTE | 2024-12-06 09:34 | ED.GENMED ---
History of Present Illness
General
Chief Complaint: Abdominal Symptoms
Source: patient
Exam Limitations: none
Time Seen by Provider: 12/06/24 09:25
History of Present Illness
History of Present Illness:
84yoF with a history of atrial fibrillation, hypothyroidism, and Celiac disease presenting via EMS for evaluation of vomiting and diarrhea. Patient went out to breakfast with family members yesterday morning. She ate an egg bowl with garcia and a
piece of toast. Around 2pm yesterday afternoon, she started to have the urge to use the bathroom and started having vomiting and diarrhea. She estimates that she has vomited about 4x and had 5 episodes of diarrhea since her symptoms began. She
states 'nothing but water is coming out of my hiney.' She is also experiencing stabbing central abdominal pains. She denies any fevers, hematochezia, hematemesis, dysuria, chest pain, shortness of breath. No previous abdominal surgeries. No recent
travel, sick contacts, or recent antibiotic use.
Past History
Past History
ED Past Medical History: Arrthythmia, CAD, COPD and HTN
ED Past Surgical History: None
Social History
Tobacco: Non-smoker
Alcohol: None
Phy Exam
General Physical Exam
General Presentation: no apparent distress
General Skin: warm and dry
General Habitus: normal
General Mental: alert
General Hydration: dry mucous membranes
ENT Exam
ENT Exam: normocephalic
Cardiovascular Exam
Cardiovascular Exam: irregularly irregular
Pulmonary Exam
Pulmonary Exam: lungs clear, no respiratory distress, no rales, no crackles and no rhonchi
Gastrointestinal Exam
Gastrointestinal Exam: soft, non distended and other (Mild generalized tenderness. Abdomen soft, non-distended. No rebound or guarding. )
Neurological Exam
Neurological Exam: alert
[place] Coma Scale
Eye Opening: Spontaneous
Verbal Response: Oriented
Motor Response: Obeys Commands
GCS Total Score: 15
Skin Exam
Skin Exam: normal color and warm/dry
Psychiatric Exam
Psychiatric Exam: normal mood/affect
Course
Orders/Labs/Results
Orders:
Orders
12/06/24 09:32
0.9% Sodium Chloride 1000 ml [Nss] 1,000 ml IV BOLUS
Iohexol [Omnipaque] See Protocol PO NOW STA
12/06/24 09:33
Electrocardiogram (*1) Urgent
Reason for Study: QTc Monitoring
EKG- Treatment ONCE
12/06/24 09:39
Complete Blood Count/With Diff Urgent
Comprehensive Metabolic Panel Urgent
Lipase Urgent
Magnesium Urgent
Phosphorus Urgent
Comment: ADD ON
TSH Reflex To Free T4 Urgent
Comment: ADD ON
12/06/24 10:14
CT Abd/pel (oral only)-DH Only Urgent
Comment:
Reason For Exam: Generalized abd pain, vomiting, diarrhea
12/06/24 10:33
Lactate Level [Lactic Acid] Urgent
12/06/24 11:07
Norovirus by PCR Urgent
DEMETRA Source: Feces/Stool
Specimen Description:
Date Specimen was Collected: 12/06/24
Time Specimen was Collected: 10:48
Stool Culture Urgent
DEMETRA Source: Feces/Stool
Specimen Description:
Date Specimen was Collected: 12/06/24
Time Specimen was Collected: 10:49
12/06/24 13:52
Add On- LAB Urgent
Tests Added?: phos, tsh with free t4 reflex
12/06/24 14:39
Loperamide [Imodium] 2 mg PO NOW STA
12/06/24 14:41
Admit/Transfer Patient As Directed
Co-Sign Provider:
Level of Care: Inpatient admission
Assign to:: Telemetry
Physician / Group: pepe gerber
Diagnosis: Acute gastroenteritis, HAYLIE, hypernatremia, metabolic acidosis, hypotension
Reason for Telemetry: Arrhythmia
Date to Stop Telemetry: 12/09/24
Time to Stop Telemetry: 11:00
Reason for Hospitalization: Acute gastroenteritis, HAYLIE, hypernatremia, metabolic acidosis, hypotension
Expected length of stay greater than two midnights?: Yes
ELOS- Estimated Length of Stay in days: 3
I certify the patient meets the requirements for IP care: Yes
Code Status As Directed
Resuscitation Status: Do not resuscitate
Reached after discussion with pt or family/Healthcare POA: Yes
Based on pt advanced directive or healthcare POA form: Yes
Decision communicated with: Per patient
12/06/24 14:43
DNR Bracelet Application ONCE
12/06/24 14:45
0.9% Sodium Chloride 1000 ml [Nss] 1,000 ml IV 80 mls/hr
12/06/24 14:48
PRN Pain Medication Management As Directed
May give lesser potent ordered pain med per pt: Yes
preference::
Protocol:: Medication orders for pain may be administered in a
manner that supports deferring to patient preference
when the pt is:
- Requesting an ordered lesser potent pain medication.
Least to most potent pain medications are defined
as: acetaminophen < NSAID < tramadol < opioids
(morphine, oxycodone, hydromorphone).
- Requesting a lesser dose of the same medication IF
ORDERED.
- Requesting a less intrusive route of administration
if both routes are prescribed by the provider (PO <
IV).
12/06/24 Dinner
Full Liquids
At Your Request: Full Participation
12/06/24 16:29
Acetaminophen [Tylenol] 650 mg PO Q4HPRN PRN
Ondansetron Injectable [Zofran] 4 mg IV Q6HPRN PRN
12/06/24 16:29
Activity As Directed
Activity Level: With Assistance
Intake/ Output As Directed
Frequency: Per unit guidelines
Vital Signs As Directed
Frequency: Per unit guidelines
Weight As Directed
Frequency: Daily
Ot Eval And Treat Routine
Pt Eval And Treat Routine
Treatment: Uses walker at baseline
Activity Level: With Assistance
12/06/24 17:20
BMP [Basic Metabolic Panel] Urgent
12/06/24 18:00
Atorvastatin [Lipitor] 10 mg PO QPM
12/06/24 20:00
Apixaban [Eliquis] 2.5 mg PO BID
12/06/24 22:00
ARIPiprazole [Abilify] 5 mg PO HS
12/07/24 06:00
Complete Blood Count/With Diff IN AM
Comprehensive Metabolic Panel IN AM
Levothyroxine [Synthroid] 112 mcg PO DAILY@0600
12/07/24 08:00
Clopidogrel Bisulfate [Plavix] 75 mg PO DAILY
Ferrous Sulfate [Feosol] 325 mg PO DAILY
Multivitamin [Theragran] 1 tablet PO DAILY
Sertraline HCl [Zoloft] 100 mg PO DAILY
Tiotropium [place] 2.5 Mcg [Spiriva Respimat 2.5 Mcg] 2 puff INH R DAILY
12/07/24 12:00
Digoxin [Lanoxin] 125 mcg PO DAILY@1200
12/08/24 06:00
Complete Blood Count/With Diff IN AM
Comprehensive Metabolic Panel IN AM
12/09/24 06:00
Complete Blood Count/With Diff IN AM
Comprehensive Metabolic Panel IN AM
12/09/24 11:00
DC Protocol for Telemetry ONCE
Abnormal Lab Results
12/06/24 12/06/24
09:39 10:33
WBC 14.3 H 10^3/uL
(4.8-10.8)
MCHC 32.3 L g/dL
(33.0-37.0)
RDW 15.8 H %
(11.5-14.5)
MPV 10.5 H fL
(7.4-10.4)
Abs Immat Gran (auto) 0.1 H 10^3/uL
(0-0.05)
Absolute Neuts (auto) 13.2 H 10^3/uL
(1.4-6.5)
Absolute Lymphs (auto) 0.8 L 10^3/uL
(1.2-3.4)
Neutrophils % 92.1 H %
(42.2-75.2)
Lymphocytes % 5.3 L %
(20.5-51.1)
Sodium 148 H mmol/L
(135-145)
Chloride 114 H mmol/L
(98-107)
Carbon Dioxide 11 L* mmol/L
(22-30)
BUN 28 H mg/dl
(7-17)
Creatinine 1.9 H mg/dL
(0.6-1.0)
Glucose 132 H mg/dl
(70-99)
Lactic Acid 2.5 H mmol/L
(0.7-2.0)
Phosphorus 7.4 H mg/dl
(2.5-4.5)
ALT 39 H U/L
(0-35)
Total Protein 9.8 H g/dl
(6.3-8.2)
Albumin 5.5 H g/dl
(3.5-5.0)
12/06/24 09:39
12/06/24 09:39
Vital Signs
Initial and Last Documented VS:
Initial Vital Signs
Temp Pulse Resp BP Pulse Ox
97.6 F 105 20 128/91 95
12/06/24 09:22 12/06/24 09:22 12/06/24 09:22 12/06/24 09:22 12/06/24 09:22
Last Documented Vital Signs
Temp Pulse Resp BP Pulse Ox
97.6 F 106 20 102/77 95
12/06/24 09:22 12/06/24 16:30 12/06/24 16:30 12/06/24 16:00 12/06/24 09:22
MDM/Problems Addressed
Differential Diagnosis Includes:
84yoF here with vomiting and diarrhea since yesterday. Also c/o abd pain. Ate at a restaurant for breakfast prior to symptoms starting. HR 105, remainder of vitals are normal. She is well appearing in no distress. No signs of peritonitis on
abdominal exam. Differential diagnosis includes but is not limited to: viral illness, food poisoning, gastroenteritis, colitis, dehydration
Initial ED plan: Check abdominal labs, magnesium, stool studies, EKG, and CT abdomen. IV fluid bolus.
*EKG
Interpreted by ED Provider?: Yes
EKG Intrepretation Date: 12/06/24
Heart Rate: 104
Rate: tachycardiac
Rhythm: a-fib and PAC's
Interval: other (QTc 431)
QRS Pattern: normal QRS
Ischemia: no ischemia
*Critical Care Note
Total Time (30-74mins, 75-104mins- exclusive of procedures): Not Applicable
Update Note
Update Note:
Creatinine 1.9, up from baseline of 0.6. Bicarb is 11 and anion gap is elevated. Lactate added which is 2.5. Sodium 148. Suspect lab derangements are all 2/2 hypovolemia/GI losses. CT order switched to PO contrast only given HAYLIE. Imaging shows
enteritis but is otherwise negative for acute findings. Patient admitted for further management.
ED Attending Note
-
Portions of this chart may have been created with voice recognition software.� Occasional wrong word or��sound alike� substitutions may have occurred due to the inherent limitations of voice recognition software.
Discharge Plan
Departure
Patient Disposition: Admit
Date of Disposition: 12/06/24
Time of Disposition: 12:25
Presentation/result/management discussed w/ accepting MD/DO: Hospitalist
Discharge Problem:
Vomiting and diarrhea, Acute kidney injury, High anion gap metabolic acidosis
Interventions
Interventions:
*Risk Screen - Suicide Last Done: 12/06/24 09:22
*General Assessment Last Done: 12/06/24 09:22
*Neglect/Abuse Screening Last Done: 12/06/24 09:22
ED- Fall Risk Assessment Last Done: 12/06/24 15:19
*ED COVID-19 Vaccine History Last Done: 12/06/24 10:37
PU-Gmmipu-Ejzfxzkqnm Assessment Last Done: 12/06/24 10:37
[2024-12-06] MEDS: NSS 1000 IV ×2 (09:40→15:18)
[2024-12-06] MEDS: OMNIPAQUE 50 ML PO (09:45)
[2024-12-06 09:48] LABS: % Basophils 0.2 % (0-2); % Immature Granulocytes 0.4 % (0-0.5); % Lymphocytes 5.3 % (20.5-51.1); % Neutrophils 92.1 % (42.2-75.2); Absolute Immature Granulocytes 0.1 10^3/uL (0-0.05); Absolute Lymphocytes 0.8 10^3/uL (1.2-3.4); Absolute Monocytes 0.3 10^3/uL (0.1-0.6); Absolute Neutrophils 13.2 10^3/uL (1.4-6.5); Hematocrit 43.1 % (37.0-47.0); Hemoglobin 13.9 g/dL (12.0-16.0); Mean Corp Hgb Conc. 32.3 g/dL (33.0-37.0); Mean Corpuscular Hgb 30.1 pg (27.0-31.0); Mean Corpuscular Volume 93.3 fL (81.0-99.0); Mean Platelet Volume 10.5 fL (7.4-10.4); Nucleated Red Blood Cells % 0 %; Platelet Count 354 10^3/uL (130-400); Red Blood Cell Count 4.62 10^6/uL (4.20-5.40); Red Cell Dist. Width 15.8 % (11.5-14.5); White Blood Cell Count 14.3 10^3/uL (4.8-10.8)
[2024-12-06 10:09] LABS: ALT (SGPT) 39 U/L (0-35); AST (SGOT) 36 U/L (14-36); Albumin 5.5 g/dl (3.5-5.0); Alkaline Phosphatase 89 U/L (38-126); Blood Urea Nitrogen 28 mg/dl (7-17); Calcium 10.2 mg/dl (8.4-10.2); Carbon Dioxide 11 mmol/L (22-30); Chloride 114 mmol/L (98-107); Estimated Creatinine Clearance 16 ml/min; Glucose 132 mg/dl (70-99); Lipase 79 U/L (23-300); Magnesium 2.1 mg/dl (1.6-2.3); Potassium 5.1 mmol/L (3.5-5.1); Sodium 148 mmol/L (135-145); Total Bilirubin 0.4 mg/dl (0.2-1.3); Total Protein 9.8 g/dl (6.3-8.2); eGFR 26.04
[2024-12-06 10:57] LABS: Lactic Acid 2.5 mmol/L (0.7-2.0)
--- NOTE | 2024-12-06 13:45 | HPS.HSE ---
Addendum entered and electronically signed by Hayley Abdul DO 12/06/24 15:20:
The patient is seen and examined. I have reviewed the patient with TINSMITH HELPERSwathi, and agree with her history and physical, assessment and plan of care as per below. The patient is still having significant watery non-bloody diarrhea in the ED. No active
vomiting at this time.
VSS, AF
PE: NAD, conversant, pleasant
CV: RRR, no m/r/g
Lungs: CTA b/l, no w/r/r
Abd: Soft, nt/nd, no peritoneal signs, normal bs
Ext no c/c/e
Labs reviewed
I discussed and reviewed the assessment and agree with both assessment and plan of care with TINSMITH HELPER, Swathi, as per below.
Original Note:
Family Physician
-
Family Physician: Jie Us
Chief Complaint
-
Nausea, vomiting, diarrhea
History of Present Illness
84-year-old female from home where she lives alone in her apartment, who states yesterday 12/05/2024 she went out to breakfast with her family members had an egg bowl with garcia and piece of [place] toast that around 2 PM started having nausea, vomiting,
diarrhea watery in nature. She is also complaining of abdominal cramps prior to having diarrhea. She states she is gluten-free however did have half a piece of toast but normally does not get watery diarrhea from that. She reports taking 2 doses
of Pepto-Bismol yesterday. She denies any mucus or blood in stool, no history of diverticulosis/diverticulitis. She denies fever, chills, chest pain, palpitations, cough, shortness of breath, recent travel, sick contacts. She has past medical
history of A-fib paroxysmal multiple cardioversions last December 2023, hypothyroidism, celiac disease, COPD, HTN, PAD left leg 6 stents, right leg [address] Aaron, CAD,-2 cardiac stents approximately 70 years ago [facility], chronic ambulatory dysfunction uses walker at baseline.
Medical History
Past Medical History
Past Medical History: Reports Other
Additional Past Medical History:
Paroxysmal A-fib multiple cardioversions last December 2023
hypothyroidis
celiac disease
COPD
-Former smoker 66-year half a pack a day stopped September 2024
HTN
PAD left leg 6 stents with left toe amputation, Right leg [address] Aaron,
CAD,-2 cardiac stents approximately 70 years ago [facility]
chronic ambulatory dysfunction uses walker at baseline.
Past Surgical History: Reports Other
Additional Past Surgical History:
Left toe amputation secondary to severe PAD
Left leg [address] Aaron
Right leg [address] Aaron
CAD cardiac stents x 278 years ago [facility]
Appendectomy
Hysterectomy
[place] teeth impacted extraction
Cataract extraction bilateral with lens implants
Multiple cardioversions for A-fib
Social History
Tobacco: Smoker
Alcohol: None
Drug: None
Family History
Family History: Other (Mother A-fib age 88, father age 81 old age, 1 brother living age 81 history of CAD/[place] in his early 70s)
Allergies / Home Medications
Allergies reflects when Allergies were last updated in [facility]
Home Medications with original date entered in [facility]
Allergy/Medication List:
Allergies
Allergy/AdvReac Type Severity Reaction Status Date / Time
gluten Allergy Unknown Verified 12/06/24 09:31
tetracycline Allergy Itching Verified 12/06/24 09:31
Home Medications
aripiprazole 5 mg tablet (Abilify) 5 mg PO HS Bipolar 11/05/23
ferrous sulfate 325 mg (65 mg iron) tablet (iron) 325 mg PO DAILY Supplement 11/12/23
tiotropium bromide 18 mcg capsule with inhalation device (Spiriva with HandiHaler) 1 cap inhalation R DAILY Lung/Breathing Issues 11/12/23
diltiazem HCl 120 mg capsule,extended release 24 hr 120 mg PO QPM 03/02/24
sertraline 100 mg tablet 100 mg PO DAILY 03/02/24
apixaban 2.5 mg tablet 2.5 mg PO BID atrial fibrilation 03/16/24
atorvastatin 10 mg tablet 10 mg PO QPM 03/16/24
clopidogrel 75 mg tablet 75 mg PO DAILY #30 tabs 03/16/24
multivitamin 1 tab PO DAILY 03/16/24
digoxin 125 mcg (0.125 mg) tablet 125 mcg PO DAILY 12/06/24
levothyroxine 112 mcg tablet 112 mcg PO DAILY 12/06/24
Review of Systems
-
History Source: Patient
A 12 point ROS was completed and negative except as noted: Yes
Constitutional: Denies Fever, Fatigue or Chills
EENT: Denies Sore Throat or Runny Nose
Respiratory: Denies Cough or Trouble Breathing
Cardiac: Denies Chest Pain, Diaphoresis, Palpitations or Syncope
Abdomen/GI: Reports Abdominal Pain, Nausea, Vomiting and Diarrhea (Watery brown); Denies Constipated, Bloody Stools or Black Stools
: Denies Dysuria, Frequency, Flank Pain, Incontinence, Difficulty Voiding, Urgency, Bleeding or Dark Urine
Musculoskeletal: Denies Joint Pain or Edema
Skin: Denies Itching or Rash
Neurological: Reports Weakness; Denies Dizzy or Headache
Endocrine: Reports No Symptoms
Hematologic/Lymphatic: Reports No Symptoms
Psych: Reports Calm
Physical Exam
Vital Signs
Vital Signs
Temp Pulse Resp BP Pulse Ox
97.6 F 104 19 107/83 95
12/06/24 09:22 12/06/24 11:00 12/06/24 11:00 12/06/24 10:00 12/06/24 09:22
Physical Exam
General: Conversant; No Pain, Fever or Chills
HEENT: NormoCephalic, Anicteric, PERRLA, [place] Conjunctivae, No Ptosis, Neck Nontender and Other (Dry oral mucosa, slight black tongue likely secondary to Pepto-Bismol use); No Pharyngeal Erythema
Respiratory: Clear; No Wheezes, Rales or Rhonchi
Cardiac: S1/S2 and Regular Rhythm; No Murmur, Rub, Gallop or Peripheral Edema
Breast: Deferred by me
GI: Soft, Non Distended, Normal Bowel Sounds, Tender (Generalized) and No Hepatosplenomegaly
Rectal: Deferred by Provider
Genito-urinary: Deferred by me
Musculoskeletal: No Clubbing, No Cyanosis and No Edema
Skin: Warm and Dry; No Rash or Jaundice
Neuro: AO x 3, No Motor Deficits, Cranial Nerves Intact and No Sensory Deficits; No Slurred Speech, Facial Droop, Tremors or Sedated
Psych: Calm
Laboratory Results
-
12/06/24 09:39
12/06/24 09:39
Laboratory Results
Lactic Acid 2.5 mmol/L (0.7-2.0) H 12/06/24 10:33
Total Bilirubin 0.4 mg/dl (0.2-1.3) 12/06/24 09:39
AST 36 U/L (14-36) 12/06/24 09:39
ALT 39 U/L (0-35) H 12/06/24 09:39
Alkaline Phosphatase 89 U/L (38-126) 12/06/24 09:39
Lipase 79 U/L (23-300) 12/06/24 09:39
Data Reviewed
-
CT Scan: Report Reviewed by me
Lab Data: Labs Reviewed by me
Impression/Plan
-
Impression/plan:
Admit to telemetry
#Acute gastroenteritis likely viral versus possible bacterial
WBC 14.3 with left shift, afebrile, 107/83 > 121/76 post iv 1 liter NSS
NEg NOROVIRUS
-Follow stool WBC
-Patient took 2 doses of Pepto-Bismol yesterday
-Give single dose Imodium
-monitor bowel movements
PT/OT/case management (patient lives alone in own apartment has [employer] still drives)
CT abdomen pelvis with oral contrast only:
1. Some suspected colonic liquid stool, particularly in the distal half of the colon and rectum likely correlating with the history of diarrhea and possibly representing some enteritis. No intestinal obstruction or free air.
2 .Extensive widespread atherosclerotic vascular calcifications.
3. Possible nonobstructing upper pole left renal calculus.
#Acute hypotension secondary to volume loss from gastroenteritis
BP 107/83 > 121/76 post iv 1 liter NSS
-IV NSS 1 L given in ER, continue IV NSS 80 cc/h
-Monitor I/O
#Acute metabolic acidosis secondary to gastroenteritis N/V/D
Bicarb serum 11
Follow BMP 6 hours continue ,IV NSS 80 cc an hour
#HAYLIE due to GI losses
Creat 1.9/bun 28 - baseline 0.6
-IV NSS 1 L given in ER, continue IV NSS 80 cc/h
-Monitor intake and output
-Follow BMP
#Hypovolemic hypernatremia secondary to gastroenteritis
NA 148
Patient was given IV NSS 1 L in ER continue IV NSS 80 cc an hour
Follow BMP
# Atrial fibrillation -paroxysmal
History cardioversion 12/11/2023 A-fib to sinus rhythm successful christian of sinus rhythm then came in with paroxysmal A-fib and RVR that was symptomatic
-Hold Cardizem 120 mg due to hypotension
-Continue digoxin 125 mcg p.o. daily hold if SBP less than 110
-Continue Eliquis 2.5 mg twice daily
-Follows with [facility] cardiology Dr. DIDIER Duran
#Chronic interstitial lung disease
# November 12, 2023 right lower lobe pneumonia
# Chronic ALT elevation�unknown chronicity
AST 39
#Coronary artery disease
-Continue Eliquis 2.5 mg twice daily, Plavix 75 mg daily, atorvastatin 10 mg every afternoon
#PAD
#Status post left leg 04/11, right leg [address] Aaron
-Continue Plavix 75 mg daily
#COPD-no acute exacerbation
-Continue Spiriva inhaler
#Anxiety/depression
-Continue sertraline 100 mg daily, aripiprazole 5 mg at bedtime
#Hyperlipidemia
-Continue statin
#Hypothyroidism
-Continue levothyroxine 112 mcg p.o. daily
Check TSH with free T4 reflex
# Former smoker quit September 2024
Prior 66-year half a pack a day
DVT prophylaxis
-Continue Eliquis 2.5 mg twice daily
DNR per patient states has a living will, her daughter Mile is her emergency contact [phone]
[2024-12-06 15:10] LABS: TSH Reflex To Free T4 0.68 uIU/ml (0.47-4.68)
[2024-12-06] MEDS: IMODIUM 2 MG PO (15:13)
[2024-12-06 15:21] LABS: Phosphorus 7.4 mg/dl (2.5-4.5)
[2024-12-06 17:28] LABS: Lactic Acid 1.7 mmol/L (0.7-2.0)
[2024-12-06 17:51] LABS: Blood Urea Nitrogen 28 mg/dl (7-17); Carbon Dioxide 9 mmol/L (22-30); Chloride 109 mmol/L (98-107); Estimated Creatinine Clearance 25 ml/min; Glucose 89 mg/dl (70-99); Sodium 134 mmol/L (135-145); eGFR 45.19
--- NOTE | 2024-12-06 18:38 | PTCARENOTE ---
Pt received from ED to [facility]-2. Pt oriented to room and call pack.
[2024-12-06] MEDS: LIPITOR 10 MG PO (19:58)
[2024-12-06] MEDS: ELIQUIS 2.5 MG PO (19:58)
[2024-12-06] MEDS: ABILIFY 5 MG PO (20:12)
[2024-12-07] VITALS (8 sets, daily range): BP systolic 97–133; BP diastolic 69–84; PULSE 96–135; O2SAT 100; BMI 18.3
[2024-12-07] MEDS: NSS 1000 IV (04:26)
[2024-12-07] MEDS: SYNTHROID 112 MCG PO (04:32)
[2024-12-07 07:29] LABS: % Basophils 0.4 % (0-2); % Eosinophils 0.8 % (0-6); % Immature Granulocytes 0.2 % (0-0.5); % Lymphocytes 18.2 % (20.5-51.1); % Monocytes 6.3 % (1.7-9.3); % Neutrophils 74.1 % (42.2-75.2); Absolute Eosinophils 0.1 10^3/uL (0-0.7); Absolute Lymphocytes 1.5 10^3/uL (1.2-3.4); Absolute Monocytes 0.5 10^3/uL (0.1-0.6); Absolute Neutrophils 6.1 10^3/uL (1.4-6.5); Hematocrit 32.4 % (37.0-47.0); Hemoglobin 10.9 g/dL (12.0-16.0); Mean Corp Hgb Conc. 33.6 g/dL (33.0-37.0); Mean Corpuscular Hgb 30.2 pg (27.0-31.0); Mean Corpuscular Volume 89.8 fL (81.0-99.0); Mean Platelet Volume 10.4 fL (7.4-10.4); Nucleated Red Blood Cells % 0 %; Platelet Count 281 10^3/uL (130-400); Red Blood Cell Count 3.61 10^6/uL (4.20-5.40); Red Cell Dist. Width 15.4 % (11.5-14.5); White Blood Cell Count 8.3 10^3/uL (4.8-10.8)
[2024-12-07] MEDS: SPIRIVA RESPIMAT 2.5 MCG 2 PUFF INH (07:35)
[2024-12-07 07:49] LABS: ALT (SGPT) 30 U/L (0-35); AST (SGOT) 36 U/L (14-36); Albumin 3.6 g/dl (3.5-5.0); Alkaline Phosphatase 90 U/L (38-126); Blood Urea Nitrogen 23 mg/dl (7-17); Calcium 8.8 mg/dl (8.4-10.2); Carbon Dioxide 14 mmol/L (22-30); Chloride 112 mmol/L (98-107); Estimated Creatinine Clearance 33 ml/min; Glucose 79 mg/dl (70-99); Potassium 4.6 mmol/L (3.5-5.1); Sodium 139 mmol/L (135-145); Total Bilirubin 0.7 mg/dl (0.2-1.3); Total Protein 6.6 g/dl (6.3-8.2); eGFR > 60.00
[2024-12-07] MEDS: THERAGRAN 1 TABLET PO (08:12)
[2024-12-07] MEDS: PLAVIX 75 MG PO (08:12)
[2024-12-07] MEDS: ELIQUIS 2.5 MG PO ×2 (08:13→20:13)
[2024-12-07] MEDS: FEOSOL 325 MG PO (08:13)
[2024-12-07] MEDS: SODIUM BICARBONATE 650 MG PO ×3 (08:14→20:13)
[2024-12-07] MEDS: ZOLOFT 100 MG PO (08:14)
[2024-12-07] MEDS: LANOXIN PO (12:09)
[2024-12-07] MEDS: FLAGYL 500 MG 100 IV ×2 (12:10→20:12)
[2024-12-07] MEDS: CIPRO 400 MG 200 IV (13:23)
--- NOTE | 2024-12-07 13:50 | W.PN.HOSP.TC ---
Today's Communication/Plan
-
Add ciprofloxacin/Flagyl
f/u stool culture report
bicarb pills
Assessment / Plan
Assessment / Plan
1. Acute gastro-enteritis
-CT abdomen pelvis showing liquid stool with indirect suggestive of enteritis
-Norovirus and Cdiff neg
-Follow-up bacterial stool culture report
-Maintain on empiric ciprofloxacin and Flagyl for now.
2. Metabolic acidosis
-Combination of diarrhea and renal failure/lactic acidosis related
-Oral bicarb therapy ordered
3. Hypotension
-Secondary to volume depletion, improving
4. Acute kidney injury
-cr normalized, 0.9 today
5. Hypernatremia
-Secondary to volume depletion, resolved
6. Paroxysmal atrial fibrillation
-Maintain on digoxin/Eliquis
-Cardizem needed to be held due to soft blood pressure
-F/us with Dr Patito lozano, DCA
Chronic interstitial lung disease
Chronic ALT elevation
Coronary artery disease
PAD - h/o bilateral LE stent
COPD-no acute exacerbation
Anxiety/depression
Hyperlipidemia
Hypothyroidism
Former smoker quit September 2024
DVT prophylaxis-Continue Eliquis 2.5 mg twice daily
DNR per patient states has a living will, her daughter Mile is her emergency contact [phone]
Anticipated Discharge: 24 - 48 hours
Subjective/Interval History
-
Date of Service: December 07, 2024
Continues to have diarrhea
Denies nausea vomiting
Afebrile overnight
Objective Data
-
Labs:
Laboratory Results
12/07/24
06:58
WBC 8.3
Hgb 10.9 L D
Hct 32.4 L
Plt Count 281 D
Sodium 139
Potassium 4.6
Chloride 112 H
Carbon Dioxide 14 L*
BUN 23 H
Creatinine 0.9
Glucose 79
Calcium 8.8
Total Bilirubin 0.7
AST 36
ALT 30
Alkaline Phosphatase 90
Vital Signs:
Vital Signs
Temp Pulse Resp BP Pulse Ox
98.1 F 92 20 104/73 96
12/07/24 11:51 12/07/24 12:09 12/07/24 11:51 12/07/24 11:51 12/07/24 11:51
I&O
12/06/24 12/07/24 12/08/24
06:59 06:59 06:59
Intake Total 1440 / 1440
Balance 1440 / 1440
Review of Systems
-
Respiratory: Reports No Symptoms
Cardiac: Reports No Symptoms
Abdomen/GI: Reports Diarrhea; Denies Abdominal Pain, Nausea or Vomiting
Physical Exam
-
General: No Apparent Distress and Comfortable
HEENT: Negative Oxygen
GI: Soft, Nontender, Nondistended and Normal Bowel Sounds
Musculoskeletal: No Edema
Neuro: Awake, Alert, Oriented, No Motor Deficits and Nonfocal/Grossly Intact
Psych: Calm
--- NOTE | 2024-12-07 15:52 | CM ---
Pt seen bedside. Initial assessment completed. Admitted for nausea, vomiting, diarrhea.
Pt reports she lives alone in a studio apartment on the 8th floor. Elevator accessible.
Pt reports she has two walkers, grab bars and a shower chair in the home for support. Pt reports she is independent w/ ADLs.
Pt stated she prev was living at [facility] for 7 months. Pt stated she was at [facility] for rehab prior to going to [facility].
Pt stated she is current w/ Lina MCFADDEN. Pt stated a nurse comes to see her every 2 weeks.
Address, point of contact and insurance verified
PCP: Dr. Us
Pharmacy: [facility] [place]
Physical/occupational therapy recommending home PT at d/c. Discussed w/ pt who is agreeable.
DANNY referral to Lina [facility]ADDEN completed in [facility]
Plan: Home; DANNY Lina/[facility]
[2024-12-07] MEDS: LIPITOR 10 MG PO (17:22)
--- NOTE | 2024-12-07 18:05 | PTCARENOTE ---
patient continuing to have liquid stool/ diarrhea throughout the day. Patient tolerating regular/ gluten free diet. denies any nausea or vomiting. will continue to monitor.
[2024-12-07] MEDS: ABILIFY 5 MG PO (20:13)
[2024-12-08] VITALS (7 sets, daily range): BP systolic 95–131; BP diastolic 61–90; PULSE 102; O2SAT 100; BMI 18.6
[2024-12-08] MEDS: SYNTHROID 112 MCG PO (04:59)
[2024-12-08] MEDS: FLAGYL 500 MG 100 IV ×3 (05:00→19:51)
[2024-12-08 07:15] LABS: % Basophils 0.6 % (0-2); % Eosinophils 1.3 % (0-6); % Immature Granulocytes 0.3 % (0-0.5); % Lymphocytes 19.9 % (20.5-51.1); % Monocytes 7.9 % (1.7-9.3); Absolute Eosinophils 0.1 10^3/uL (0-0.7); Absolute Lymphocytes 1.4 10^3/uL (1.2-3.4); Absolute Monocytes 0.6 10^3/uL (0.1-0.6); Absolute Neutrophils 4.8 10^3/uL (1.4-6.5); Hematocrit 32.9 % (37.0-47.0); Hemoglobin 11.1 g/dL (12.0-16.0); Mean Corp Hgb Conc. 33.7 g/dL (33.0-37.0); Mean Corpuscular Hgb 29.9 pg (27.0-31.0); Mean Corpuscular Volume 88.7 fL (81.0-99.0); Mean Platelet Volume 10.3 fL (7.4-10.4); Nucleated Red Blood Cells % 0 %; Platelet Count 280 10^3/uL (130-400); Red Blood Cell Count 3.71 10^6/uL (4.20-5.40); Red Cell Dist. Width 15.1 % (11.5-14.5); White Blood Cell Count 6.9 10^3/uL (4.8-10.8)
[2024-12-08 07:39] LABS: ALT (SGPT) 31 U/L (0-35); AST (SGOT) 45 U/L (14-36); Alkaline Phosphatase 94 U/L (38-126); Blood Urea Nitrogen 18 mg/dl (7-17); Calcium 8.8 mg/dl (8.4-10.2); Carbon Dioxide 19 mmol/L (22-30); Chloride 113 mmol/L (98-107); Estimated Creatinine Clearance 44 ml/min; Glucose 80 mg/dl (70-99); Potassium 4.5 mmol/L (3.5-5.1); Sodium 138 mmol/L (135-145); Total Bilirubin 0.6 mg/dl (0.2-1.3); Total Protein 6.3 g/dl (6.3-8.2); eGFR > 60.00
[2024-12-08] MEDS: SPIRIVA RESPIMAT 2.5 MCG 2 PUFF INH (08:17)
--- NOTE | 2024-12-08 09:33 | PN.CDI ---
CDI
- -
CDI:
Physician Documentation Request
Admit Date: 12/06/24 15:36
Dear Doctor Kareem,
Patient admitted with acute gastroenteritis.
2/5 PN, 'Acute gastro-enteritis.... Maintain on empiric ciprofloxacin and Flagyl for now.'
On admission, WBC 14.3 and HR> 90.
Please clarify which of the following most accurately describes the status of the patient's infection:
Viral sepsis, POA
Acute gastroenteritis only
Other
Sepsis
- Systemic manifestations of infection, with 2 or more SIRS criteria which include:
- Fever >100.4 degrees F or hypothermia < 96.8 degrees F
- Leukocytosis - WBC > 12,000 or leukopenia - WBC < 4,000 or > 10% bands
- Tachycardia > 90 beats per minute
- Tachypnea - RR > 20 breaths per minute or PaCO2 , 32mmHg
Source: Merck Manual 2013
- Indicate the known or suspected organism
- Indicate the known or suspected underlying infection, such as acute gastroenteritis
Localized Infection Only, Without Systemic Illness
- indicate the site/source, such as acute gastroenteritis
Other
Use of terms such as suspected, likely, concern for, or probable (associated with a specific diagnosis that is being evaluated, monitored, or treated as if it exists) are acceptable and can be coded in the inpatient setting, when documented at the
time of discharge.
Thank you,
Rianna SMALLSN,RN,CCDS
CDI Specialist
Available via tiger text
Please use your independent medical judgment in providing your response.
[2024-12-08] MEDS: SODIUM BICARBONATE 650 MG PO (09:37)
[2024-12-08] MEDS: ELIQUIS 2.5 MG PO ×2 (09:37→19:51)
[2024-12-08] MEDS: THERAGRAN 1 TABLET PO (09:37)
[2024-12-08] MEDS: FEOSOL 325 MG PO (09:37)
[2024-12-08] MEDS: ZOLOFT 100 MG PO (09:37)
[2024-12-08] MEDS: PLAVIX 75 MG PO (09:37)
--- NOTE | 2024-12-08 09:57 | PN.CDI ---
CDI
- -
CDI:
Physician Documentation Request
Admit Date: 12/06/24 15:36
Dear Doctor Kareem,
Patient admitted with acute gastroenteritis.
Please review the following and provide your response in the progress notes.
Clinical Indicators: 12/07/2023
Height: 5 '1'
Weight: 97 lb 1 oz
BMI: 18.3
Please provide an associated diagnosis related to the abnormal BMI, such as:
Underweight
Cachectic
Anorexia
BMI is not significant
Other
BMI < or = to 19
Underweight
Weight Loss
Cachectic
Anorexia
Use of terms such as suspected, likely, concern for, or probable (associated with a specific diagnosis that is being evaluated, monitored, or treated as if it exists) are acceptable and can be coded in the inpatient setting, when documented at the
time of discharge.
Thank you,
Rianna PILLAI,RN,CCDS
CDI Specialist
Available via [place] text
Please use your independent medical judgment in providing your response.
[2024-12-08] MEDS: CARDIZEM 30 MG PO (12:20)
[2024-12-08] MEDS: LANOXIN 125 MCG PO (12:21)
--- NOTE | 2024-12-08 12:55 | W.PN.HOSP.TC ---
Today's Communication/Plan
-
continue abx
f/u labs
pt/ot
possible d/c tomorrow
Assessment / Plan
Assessment / Plan
1. Acute gastro-enteritis - Only
-CT abdomen pelvis showing liquid stool with indirect suggestive of enteritis
-Norovirus and C-diff neg
-Blood stool culture neg.
-Maintain on empiric ciprofloxacin and Flagyl for now.
2. Metabolic acidosis - improving
-Combination of diarrhea and renal failure/lactic acidosis related
-Oral bicarb therapy ordered
3. Hypotension
-Secondary to volume depletion, improving
4. Acute kidney injury -resolved
-cr normalized
5. Hypernatremia - resolved
-Secondary to volume depletion, resolved
6. Paroxysmal atrial fibrillation
-Maintain on digoxin/Eliquis
-Cardizem restarted with holding parameter
-F/us with Dr Patito lozano, DCA
Underweight
Chronic interstitial lung disease
Chronic ALT elevation
Coronary artery disease
PAD - h/o bilateral LE stent
COPD-no acute exacerbation
Anxiety/depression
Hyperlipidemia
Hypothyroidism
Former smoker quit September 2024
DVT prophylaxis-Continue Eliquis 2.5 mg twice daily
DNR per patient states has a living will, her daughter Mile is her emergency contact [phone]
Anticipated Discharge: Within 24 hours
Subjective/Interval History
-
Date of Service: December 08, 2024
Patient feeling improved although still have some diarrhea
Denies abdominal pain/nausea/vomiting/fever
No other reported new problem
Objective Data
-
Labs:
Laboratory Results
12/08/24
06:55
WBC 6.9
Hgb 11.1 L
Hct 32.9 L
Plt Count 280
Sodium 138
Potassium 4.5
Chloride 113 H
Carbon Dioxide 19 L
BUN 18 H
Creatinine 0.7
Glucose 80
Calcium 8.8
Total Bilirubin 0.6
AST 45 H
ALT 31
Alkaline Phosphatase 94
Vital Signs:
Vital Signs
Temp Pulse Resp BP Pulse Ox
97.7 F 93 16 114/72 100
12/08/24 11:07 12/08/24 12:21 12/08/24 11:07 12/08/24 12:20 12/08/24 11:07
I&O
12/07/24 12/08/24 12/09/24
06:59 06:59 06:59
Intake Total 2520 / 2520
Balance 2520 / 2520
Review of Systems
-
Respiratory: Reports No Symptoms
Cardiac: Reports No Symptoms
Abdomen/GI: Reports No Symptoms
Physical Exam
-
General: No Apparent Distress and Comfortable
HEENT: Negative Oxygen
GI: Soft, Nontender and Nondistended
Musculoskeletal: No Edema
Neuro: Awake, Alert, Oriented, No Motor Deficits and Nonfocal/Grossly Intact
Psych: Calm
[2024-12-08] MEDS: CIPRO 400 MG 200 IV ×3 (14:32→23:14)
[2024-12-08] MEDS: CARDIZEM CD 120 MG PO (16:50)
[2024-12-08] MEDS: LIPITOR 10 MG PO (16:50)
[2024-12-08] MEDS: ABILIFY 5 MG PO (19:51)
[2024-12-09] VITALS (8 sets, daily range): BP systolic 85–117; BP diastolic 56–77; PULSE 105; BMI 18.6
[2024-12-09] MEDS: SYNTHROID 112 MCG PO (05:09)
[2024-12-09] MEDS: FLAGYL 500 MG 100 IV ×3 (05:09→20:28)
[2024-12-09] MEDS: SPIRIVA RESPIMAT 2.5 MCG 2 PUFF INH (08:03)
[2024-12-09 08:31] LABS: % Basophils 0.6 % (0-2); % Eosinophils 1.5 % (0-6); % Immature Granulocytes 0.2 % (0-0.5); % Lymphocytes 24.4 % (20.5-51.1); % Monocytes 10.3 % (1.7-9.3); Absolute Eosinophils 0.1 10^3/uL (0-0.7); Absolute Lymphocytes 1.3 10^3/uL (1.2-3.4); Absolute Monocytes 0.6 10^3/uL (0.1-0.6); Absolute Neutrophils 3.4 10^3/uL (1.4-6.5); Hematocrit 31.4 % (37.0-47.0); Hemoglobin 10.7 g/dL (12.0-16.0); Mean Corp Hgb Conc. 34.1 g/dL (33.0-37.0); Mean Corpuscular Hgb 29.8 pg (27.0-31.0); Mean Corpuscular Volume 87.5 fL (81.0-99.0); Mean Platelet Volume 10.7 fL (7.4-10.4); Nucleated Red Blood Cells % 0 %; Platelet Count 277 10^3/uL (130-400); Red Blood Cell Count 3.59 10^6/uL (4.20-5.40); Red Cell Dist. Width 15.1 % (11.5-14.5); White Blood Cell Count 5.4 10^3/uL (4.8-10.8)
[2024-12-09 09:24] LABS: ALT (SGPT) 26 U/L (0-35); AST (SGOT) 37 U/L (14-36); Albumin 3.1 g/dl (3.5-5.0); Alkaline Phosphatase 86 U/L (38-126); Blood Urea Nitrogen 10 mg/dl (7-17); Calcium 8.6 mg/dl (8.4-10.2); Carbon Dioxide 16 mmol/L (22-30); Chloride 109 mmol/L (98-107); Estimated Creatinine Clearance 51 ml/min; Glucose 82 mg/dl (70-99); Potassium 3.8 mmol/L (3.5-5.1); Sodium 137 mmol/L (135-145); Total Bilirubin 0.7 mg/dl (0.2-1.3); eGFR > 60.00
[2024-12-09] MEDS: ZOLOFT 100 MG PO (09:54)
[2024-12-09] MEDS: FEOSOL 325 MG PO (09:54)
[2024-12-09] MEDS: ELIQUIS 2.5 MG PO ×2 (09:54→20:26)
[2024-12-09] MEDS: PLAVIX 75 MG PO (09:54)
[2024-12-09] MEDS: THERAGRAN 1 TABLET PO (09:54)
[2024-12-09] MEDS: SODIUM BICARBONATE 1300 MG PO ×3 (12:20→21:21)
[2024-12-09] MEDS: CIPRO 400 MG 200 IV ×2 (12:35→23:23)
[2024-12-09] MEDS: LANOXIN 125 MCG PO (12:35)
--- NOTE | 2024-12-09 14:18 | W.PN.HOSP.TC ---
Today's Communication/Plan
-
continue abx
monitor overnight
possible d/c to Home tomorrow
Assessment / Plan
Assessment / Plan
1. Acute gastro-enteritis - Only
-CT abdomen pelvis showing liquid stool with indirect suggestive of enteritis
-Norovirus and C-diff neg
-Blood stool culture neg.
-Maintain on empiric ciprofloxacin and Flagyl for now.
2. Metabolic acidosis - improving
-Combination of diarrhea and renal failure/lactic acidosis related
-Oral bicarb therapy ordered
3. Hypotension - Improved
-Secondary to volume depletion, improving
4. Acute kidney injury -resolved
-cr normalized
5. Hypernatremia - resolved
-Secondary to volume depletion, resolved
6. Paroxysmal atrial fibrillation
-Maintain on digoxin/Eliquis
-Cardizem restarted with holding parameter
-F/us with Dr Patito lozano, DCA
Underweight
Chronic interstitial lung disease
Chronic ALT elevation
Coronary artery disease
PAD - h/o bilateral LE stent
COPD-no acute exacerbation
Anxiety/depression
Hyperlipidemia
Hypothyroidism
Former smoker quit September 2024
DVT prophylaxis-Continue Eliquis 2.5 mg twice daily
DNR per patient states has a living will, her daughter Mile is her emergency contact [phone]
Anticipated Discharge: Within 24 hours
Subjective/Interval History
-
Date of Service: December 09, 2024
Continues to have some diarrhea subjectively better
Denies abdominal pain/nausea/vomiting
Appetite is coming back as well
No reported chest discomfort/palpitation
Objective Data
-
Labs:
Laboratory Results
12/09/24
06:48
WBC 5.4
Hgb 10.7 L
Hct 31.4 L
Plt Count 277
Sodium 137
Potassium 3.8
Chloride 109 H
Carbon Dioxide 16 L
BUN 10
Creatinine 0.6
Glucose 82
Calcium 8.6
Total Bilirubin 0.7
AST 37 H
ALT 26
Alkaline Phosphatase 86
Vital Signs:
Vital Signs
Temp Pulse Resp BP Pulse Ox
98.4 F 86 18 100/60 94
12/09/24 11:02 12/09/24 12:35 12/09/24 11:02 12/09/24 12:30 12/09/24 11:02
I&O
12/08/24 12/09/24 12/10/24
06:59 06:59 06:59
Intake Total 2520 / 2520 720 / 720
Balance 2520 / 2520 720 / 720
Review of Systems
-
Respiratory: Reports No Symptoms
Cardiac: Reports No Symptoms
Abdomen/GI: Reports Diarrhea; Denies Nausea or Vomiting
Physical Exam
-
General: No Apparent Distress and Comfortable
HEENT: Negative Oxygen
GI: Soft, Nontender and Nondistended
Musculoskeletal: No Edema
Neuro: Awake, Alert, Oriented, No Motor Deficits and Nonfocal/Grossly Intact
Psych: Calm
[2024-12-09] MEDS: CARDIZEM CD 120 MG PO (17:50)
[2024-12-09] MEDS: LIPITOR 10 MG PO (17:50)
[2024-12-09] MEDS: FLUSH (NSS) 2 FLUSH IV (20:31)
[2024-12-09] MEDS: ABILIFY 5 MG PO (21:20)
--- NOTE | 2024-12-09 23:15 | PTCARENOTE ---
Pt's blood pressure manually was 85/60, asymptomatic, pt. noted she is usually low when lying in bed for awhile, notified GAIL Harper, pt. to ring call pack before getting OOB.
[2024-12-10] MEDS: FLAGYL 500 MG 100 IV ×2 (03:52→12:30)
[2024-12-10] MEDS: FLUSH (NSS) 2 FLUSH IV (03:53)
[2024-12-10] MEDS: SYNTHROID 112 MCG PO (05:07)
[2024-12-10 06:00] VITALS: BMI 18.8
[2024-12-10 07:00] VITALS: BP 88/59
[2024-12-10] MEDS: SODIUM BICARBONATE 1300 MG PO ×2 (09:06→16:59)
[2024-12-10] MEDS: PLAVIX 75 MG PO (09:06)
[2024-12-10] MEDS: FEOSOL 325 MG PO (09:07)
[2024-12-10] MEDS: THERAGRAN 1 TABLET PO (09:07)
[2024-12-10] MEDS: ZOLOFT 100 MG PO (09:07)
[2024-12-10] MEDS: ELIQUIS 2.5 MG PO (09:07)
[2024-12-10] MEDS: SPIRIVA RESPIMAT 2.5 MCG 2 PUFF INH (09:13)
[2024-12-10 11:01] LABS: Blood Urea Nitrogen 10 mg/dl (7-17); Calcium 7.9 mg/dl (8.4-10.2); Carbon Dioxide 24 mmol/L (22-30); Chloride 108 mmol/L (98-107); Estimated Creatinine Clearance 44 ml/min; Glucose 64 mg/dl (70-99); Potassium 3.2 mmol/L (3.5-5.1); Sodium 139 mmol/L (135-145); eGFR > 60.00
[2024-12-10] MEDS: LANOXIN 125 MCG PO (12:40)
--- NOTE | 2024-12-10 13:10 | CM ---
Chart reviewed and plan is to home with [facility]
[phone]
[2024-12-10] MEDS: CIPRO 400 MG 200 IV (14:20)
[2024-12-10 15:00] VITALS: BP 104/64
--- NOTE | 2024-12-10 15:30 | W.PN.HOSP.TC ---
Today's Communication/Plan
-
d/c home
Assessment / Plan
Assessment / Plan
1. Acute gastro-enteritis - Only
-CT abdomen pelvis showing liquid stool with indirect suggestive of enteritis
-Norovirus and C-diff neg
-Blood stool culture neg.
-Maintain on empiric ciprofloxacin and Flagyl for now.
2. Metabolic acidosis - Resolved
-Combination of diarrhea and renal failure/lactic acidosis related
-Oral bicarb therapy ordered
3. Hypotension - Improved
-Secondary to volume depletion, improving
4. Acute kidney injury -resolved
-cr normalized
5. Hypernatremia - resolved
-Secondary to volume depletion, resolved
6. Paroxysmal atrial fibrillation
-Maintain on digoxin/Eliquis
-Cardizem restarted with holding parameter
-F/us with Dr Patito lozano, DCA
7. hypokalemia
-replace with 20 meq
Underweight
Chronic interstitial lung disease
Chronic ALT elevation
Coronary artery disease
PAD - h/o bilateral LE stent
COPD-no acute exacerbation
Anxiety/depression
Hyperlipidemia
Hypothyroidism
Former smoker quit September 2024
DVT prophylaxis-Continue Eliquis 2.5 mg twice daily
DNR per patient states has a living will, her daughter Mile is her emergency contact [phone]
More than 30 minutes spent in discharge including
Final examination of the patient
Summarizing hospital stay
Instructions for continuing care to all relevant caregivers
Preparation of discharge records, prescriptions, and referral forms
Total time spent (in minutes): 39 mins
Anticipated Discharge: Today
Subjective/Interval History
-
Date of Service: December 10, 2024
diarrhea improved
afebrile in night
denies abd pain/ n /v
Objective Data
-
Labs:
Laboratory Results
12/10/24
10:40
Sodium 139
Potassium 3.2 L
Chloride 108 H
Carbon Dioxide 24
BUN 10
Creatinine 0.7
Glucose 64 L
Calcium 7.9 L
Vital Signs:
Vital Signs
Temp Pulse Resp BP Pulse Ox
97.9 F 93 16 88/59 97
12/10/24 07:00 12/10/24 12:40 12/10/24 09:15 12/10/24 07:00 12/10/24 09:15
I&O
12/09/24 12/10/24 12/11/24
06:59 06:59 06:59
Intake Total 720 / 720 1520 / 1520
Balance 720 / 720 1520 / 1520
Review of Systems
-
Respiratory: Reports No Symptoms
Cardiac: Reports No Symptoms
Abdomen/GI: Reports No Symptoms
Physical Exam
-
General: No Apparent Distress and Comfortable
HEENT: Negative Oxygen
GI: Soft, Nontender and Nondistended
Musculoskeletal: No Edema
Neuro: Awake, Alert, Oriented, No Motor Deficits and Nonfocal/Grossly Intact
Psych: Calm
[2024-12-10] MEDS: KCL 20 MEQ PO (16:59)
--- NOTE | 2024-12-10 17:14 | PTCARENOTE ---
Pt dc paperwork reviewed with her and daughter. IV removed, all belongings from room. Pt escorted via w/c to car with daughter.
--- NOTE | 2024-12-10 17:24 | W.DCSUMMARY ---
Discharge Summary
Discharge Data
Date of Admission: 12/06/24
Date of Discharge: 12/10/24
-
Pending Results: No
Hospital Course
Discharging Physician : Dr João Serna
Disposition : To home
Primary care physician : Dr Jie Miller
Principal Discharge diagnosis :
Acute gastroenteritis
Metabolic acidosis
Acute kidney injury
Hypotension
Hypernatremia
Hypokalemia
Chronic Discharge diagnosis :
Paroxysmal atrial fibrillation
Chronic interstitial lung disease
Chronic transaminitis
Coronary artery disease
Peripheral vascular disease
History of bilateral lower extremity stents
Chronic obstructive pulmonary disease
Anxiety/depression
Hyperlipidemia
Hypothyroidism
Former smoker
Hospital Course :
Patient is a 84-year-old female with above-mentioned past medical history came to ER with new onset of strength diarrhea and nausea and vomiting. Patient was out having dinner with family and noted to having symptoms the next day. CT abdomen
pelvis in ER showing increased liquid stool suggestive of enteritis. Norovirus and C. difficile check was negative. Blood stool culture also reported to be negative. Patient started on empiric antibiotic. Associated with diarrhea patient had
metabolic acidosis for which patient required bicarb therapy. Patient also had hypotension/HAYLIE/hypernatremia due to volume depletion which improved with IV hydration. Post medical stabilization patient was discharged home at this point.
Important imaging findings :
None
Procedure findings :
None
Discharge Plan
-
Patient Disposition: Home with Home Care
Discharge Diagnosis/Procedures: Gastro-enteritis, Metabolic acidosis
Condition: Fair
Diet: Regular
Activity: As tolerated
Driving Restrictions: No driving for 24 hours
Bathing Restrictions: OK to Shower
Referrals:
Jie Us DO [Family Provider] - in one week
Prescriptions:
New
ciprofloxacin HCl 500 mg tablet
500 mg PO BID Qty: 6 0RF
metronidazole 500 mg tablet
500 mg PO Q8H Qty: 9 0RF
Continued
aripiprazole [Abilify] 5 mg Tablet
5 mg PO HS
ferrous sulfate [iron] 325 mg (65 mg iron) Tablet
325 mg PO DAILY
tiotropium bromide [Spiriva with HandiHaler] 18 mcg Capsule, W/Inhalation Device
1 cap INHALATION R DAILY
sertraline 100 mg tablet
100 mg PO DAILY
diltiazem HCl 120 mg capsule,extended release 24hr
120 mg PO QPM
multivitamin Tablet
1 tab PO DAILY
atorvastatin 10 mg Tablet
10 mg PO QPM
apixaban 2.5 mg Tablet
2.5 mg PO BID
clopidogrel 75 mg Tablet
75 mg PO DAILY Qty: 30 0RF
digoxin 125 mcg (0.125 mg) tablet
125 mcg PO DAILY
levothyroxine 112 mcg tablet
112 mcg PO DAILY
Discharge Orders:
Discharge Patient (As Directed); Ordered 12/10/24
Ordered By: João Serna
Discharge Date and Time
Print Language: GREENLANDIC
== END 2024-12-10 17:34 | disposition home health service (06) | DRG 683 ==
LOC: 4 WEST ACU 15:36
PROVIDERS: Clinical Nurse Specialist Family Health; Physician Assistant; ADMITTING PHYSICIAN Internal Medicine; ATTENDING PHYSICIAN Hospitalist; EMERGENCY PHYSICIAN Emergency Medicine; FAMILY PHYSICIAN Family Medicine
DX: N17.9 Acute kidney failure, unspecified (principal); E87.0 Hyperosmolality and hypernatremia; E87.21 Acute metabolic acidosis; J84.9 Interstitial pulmonary disease, unspecified; Z68.1 Body mass index [BMI] 19.9 or less, adult; K52.9 Noninfective gastroenteritis and colitis, unspecified; I95.89 Other hypotension; E87.6 Hypokalemia; I48.0 Paroxysmal atrial fibrillation; I25.10 Atherosclerotic heart disease of native coronary artery without angina pectoris; J44.9 Chronic obstructive pulmonary disease, unspecified; F41.9 Anxiety disorder, unspecified; F32.A Depression, unspecified; E78.5 Hyperlipidemia, unspecified; E03.9 Hypothyroidism, unspecified; Z87.891 Personal history of nicotine dependence; Z79.01 Long term (current) use of anticoagulants; Z79.890 Hormone replacement therapy; K90.0 Celiac disease; I10 Essential (primary) hypertension; Z95.5 Presence of coronary angioplasty implant and graft; Z96.1 Presence of intraocular lens; Z88.1 Allergy status to other antibiotic agents; Z79.02 Long term (current) use of antithrombotics/antiplatelets; E86.1 Hypovolemia; Z79.899 Other long term (current) drug therapy; Z66 Do not resuscitate; Z90.710 Acquired absence of both cervix and uterus; R63.6 Underweight
CPT/HCPCS: 74176; 80048; 80053; 83605; 83690; 83735; 84100; 84443; 85025; 87045; 87046; 87324; 87427; 87449; 87798; 93005; 94640; 96360; 97162; 97165; 97530; 99285

== ENCOUNTER → 2025-01-12 10:20 | Outpatient (REF) | payer OTHER, SELFPAY | LOC: WOUND 10:20 | PROVIDERS: ATTENDING PHYSICIAN Surgery; FAMILY PHYSICIAN Family Medicine | DX: L97.323 Non-pressure chronic ulcer of left ankle with necrosis of muscle (principal); I73.9 Peripheral vascular disease, unspecified; F17.200 Nicotine dependence, unspecified, uncomplicated; I10 Essential (primary) hypertension | CPT/HCPCS: 11042 ==

== ENCOUNTER → 2025-02-09 10:35 | Outpatient (REF) | payer OTHER, SELFPAY | LOC: WOUND 10:35 | PROVIDERS: ATTENDING PHYSICIAN Surgery; FAMILY PHYSICIAN Family Medicine | DX: L97.323 Non-pressure chronic ulcer of left ankle with necrosis of muscle (principal); I73.9 Peripheral vascular disease, unspecified; I10 Essential (primary) hypertension; F17.200 Nicotine dependence, unspecified, uncomplicated | CPT/HCPCS: 11042 ==

== ENCOUNTER → 2025-02-16 10:24 | Outpatient (REF) | payer OTHER, SELFPAY | LOC: WOUND 10:24 | PROVIDERS: ATTENDING PHYSICIAN Surgery; FAMILY PHYSICIAN Family Medicine | DX: L97.323 Non-pressure chronic ulcer of left ankle with necrosis of muscle (principal); I73.9 Peripheral vascular disease, unspecified; F17.200 Nicotine dependence, unspecified, uncomplicated; I10 Essential (primary) hypertension | CPT/HCPCS: 11042 ==

== ENCOUNTER → 2025-02-21 14:47 | Outpatient (REF) | payer OTHER, SELFPAY | LOC: WDC 14:47 | PROVIDERS: ATTENDING PHYSICIAN Family Medicine | DX: Z12.31 Encounter for screening mammogram for malignant neoplasm of breast (principal) | CPT/HCPCS: 77063; 77067 ==

== ENCOUNTER → 2025-03-02 10:33 | Outpatient (REF) | payer OTHER, SELFPAY | LOC: WOUND 10:33 | PROVIDERS: ATTENDING PHYSICIAN Surgery; FAMILY PHYSICIAN Family Medicine | DX: L97.323 Non-pressure chronic ulcer of left ankle with necrosis of muscle (principal); L97.529 Non-pressure chronic ulcer of other part of left foot with unspecified severity; I73.9 Peripheral vascular disease, unspecified; I10 Essential (primary) hypertension; F17.200 Nicotine dependence, unspecified, uncomplicated | CPT/HCPCS: 99214 ==

== ENCOUNTER → 2025-03-07 10:38 | Outpatient (REF) | payer OTHER, SELFPAY | LOC: RAD 10:38 | PROVIDERS: ATTENDING PHYSICIAN Surgery Vascular Surgery | DX: I73.9 Peripheral vascular disease, unspecified (principal) | CPT/HCPCS: 93922; 93925 ==

== ENCOUNTER 2025-03-16 07:58 | Day surgery (SDC) | payer OTHER, SELFPAY ==
[2025-03-16] VITALS (24 sets, daily range): BP systolic 114–144; BP diastolic 74–96; BMI 18.9
[2025-03-16 08:48] LABS: Hematocrit 36.3 % (37.0-47.0); Mean Corp Hgb Conc. 33.1 g/dL (33.0-37.0); Mean Corpuscular Hgb 29.4 pg (27.0-31.0); Mean Platelet Volume 10.8 fL (7.4-10.4); Platelet Count 326 10^3/uL (130-400); Red Blood Cell Count 4.08 10^6/uL (4.20-5.40); White Blood Cell Count 6.3 10^3/uL (4.8-10.8)
[2025-03-16] MEDS: NSS 135 IV (08:55)
--- NOTE | 2025-03-16 08:55 | W.PN.UPDATE ---
Update Note
Progress Note Update
Discussed findings of left lower extremity nonhealing wound as well as ultrasound findings of occluded stents. Discussed with her angiography as a recommendation for limb salvage in the setting of a nonhealing wound in the lower extremity with
arterial insufficiency. Discussed procedure of arteriogram again with her. Discussed potential outcomes to include successful revascularization, need for staged surgical bypass, nonreconstructable distal obliterative disease. Discussed in that
latter setting risk of persistent limb loss. Discussed risks of procedure including but not limited to bleeding, arterial injury/acute or worsening limb ischemia, renal failure. Discussed also limited viability of long segment stent such as this.
She understands all wishes to proceed. Left lower extremity arteriogram, possible angioplasty/stent.
--- NOTE | 2025-03-16 08:56 | W.SUR.PREOP ---
Pre-Operative Surgical Note
-
I have examined this patient prior to the performance of the scheduled procedure.
The patient's condition is unchanged from the time of the current History and
Physical and the patient is able to undergo the scheduled procedure.
[2025-03-16 08:58] LABS: INR 1.01; PT 13.6 Sec (11.4-14.6)
[2025-03-16 08:59] LABS: APTT 27.9 Sec (23.4-35.0)
[2025-03-16 09:45] LABS: Blood Urea Nitrogen 26 mg/dl (7-17); Calcium 9.3 mg/dl (8.4-10.2); Carbon Dioxide 19 mmol/L (22-30); Chloride 112 mmol/L (98-107); Estimated Creatinine Clearance 51 ml/min; Glucose 99 mg/dl (70-99); Potassium 3.7 mmol/L (3.5-5.1); Sodium 144 mmol/L (135-145); eGFR > 60.00
--- NOTE | 2025-03-16 10:56 | W.SUR.POST ---
Surgical Immediate Post Op
Note
Pre Op Diagnosis: PAD
Post Op Diagnosis: Same
Procedure Performed: Left lower extremity arteriogram, drug-coated balloon and standard balloon angioplasty of in-stent restenosis SFA/popliteal artery
Primary Surgeon: Yash Aaron M.D.
Anesthesia: Local and sedation
Estimated Blood Loss: Less than 2 cc
Fluids: See anesthesia flowsheet
Drains/Shunts: None
Specimens/Cultures: none
Doppler/Duplex/Angio (Y/N): Y
Complications: none
Operative Findings: In-stent restenosis
--- NOTE | 2025-03-16 12:26 | OR.RPT ---
Operative Report
Operative Report
PROCEDURE DATE: 03/16/2025
Preoperative diagnosis:
1. Severe peripheral arterial disease status post prior angioplasty/stenting left iliac and SFA/popliteal with extensive SFA/popliteal stent placement.
2. Chronic limb threatening ischemia with SFA/popliteal artery stent occlusion.
Postoperative diagnosis: Same
Procedure:
1. Duplex assisted right common femoral artery cannulation.
2. Aortogram and pelvic angiogram.
3. Left lower extremity arteriogram with third order vessel catheterization of left popliteal artery via right common femoral artery puncture.
4. Balloon angioplasty with standard 6 mm angioplasty balloon, as well as 5 mm drug-coated balloon (LetsVenture Lutonix) left SFA/popliteal in-stent occlusion.
5. Placement of self-expanding Cook Zilver PTX 6 mm x 4 cm proximal SFA stent.
6 Right femoral angiogram.
7 Supervision and interpretation.
Surgeon: Galen
Drawer In Hand: None
Complications: None
Anesthesia: Local, sedation
Fluoroscopy:
14.2 min
34 mGy
6.30 gy.cm2
Indications for procedure:
Nonhealing left lower extremity wound. Ultrasound demonstrated occlusion of prior left SFA/popliteal stents. Risk/benefits/alternatives of angiography fully discussed. Patient understood all wished to proceed
Description of procedure:
Patient was identified, brought to the operating room. Placed on the table in the supine position. After the adequate administration of anesthesia, the patient was prepped and draped in the standard surgical fashion. A standard preoperative
timeout was undertaken and everybody was in agreement with the plan.
The right common femoral artery was accessed with a micropuncture kit under direct duplex ultrasound guidance. A 5 Faroese sheath was then advanced over a 0.035 inch wire, and a good's hook catheter was advanced into the abdominal aorta.
Aortogram and pelvic angiogram was obtained. Findings as follows:
Infrarenal aorta and bilateral common and external iliac arteries were patent with no severe stenoses. There was eccentric plaque throughout these vessels. Left-sided common iliac and external iliac artery stents were patent. No evidence of
significant in-stent restenosis.
Using a floppy angled hydrophilic wire, the left common femoral artery was cannulated and the catheter was advanced. Left lower extremity arteriogram was obtained. Findings as follows:
Common femoral artery: Patent with no significant stenosis.
Profunda femoris artery: Patent with focal origin moderate to high-grade stenosis.
Superficial femoral artery: The most proximal portion of the stent for less than 1 cm was patent and then complete occlusion of the SFA stents. On delayed imaging reconstitution of popliteal artery stents noted. Note patient movement made imaging
somewhat difficult. The remainder of the popliteal artery was patent below the knee.
Anterior tibial artery: Patent single-vessel runoff with no significant stenosis. Relatively weak feeling in the foot itself. But limited visualization due to patient movement.
Tibial peroneal trunk: Patent but very diminutive in size.
Peroneal artery: Patent proximally and then occluded. Very diminutive in size.
Posterior tibial artery: Chronically occluded.
At this point I selectively cannulated the left profunda femoris artery and then exchanged for a Storq wire and an up and over 6 Faroese sheath. The patient was given 4000's of intravenous heparin. I then used a flopping of hydrophilic wire and a
CXI catheter and was finally able to traverse the occlusion in the entirety of the SFA stents. I difficulty initially getting my wire through the top/most proximal stent. There was some hold-up in this region. However once I got through this, the
wires passed much better. Although still somewhat difficult. I was able to get my CXI catheter to track. Once I was beyond the stent in the popliteal artery, angiogram confirmed I was in the true lumen. Now I exchanged back for a Storq wire into
the peroneal artery. I then performed balloon angioplasty of the in-stent restenosis using a 5 mm x 220 mm Bard Lutonix and a second 5mm x 150mm Bard Lutonix balloon, both with prolonged 2-minute inflations. Completion angiogram demonstrated now
patent flow through the SFA and popliteal stents. There was still some areas of residual stenoses. Especially in the proximal SFA where my wire had had trouble getting through. I therefore then used a 6 mm standard angioplasty balloon to balloon
the entirety of the stented SFA and popliteal again. Completion angiogram demonstrated slight improvement but still that proximal SFA stenosis was severe. Therefore I then realigned that with an additional stent. I used a Zouxiu Zilver PTX 6 mm x 4
cm self-expanding stent. I then post angioplastied this with a 6 mm balloon. Completion angiogram now demonstrated good result with no residual stenosis at that juncture. Patent flow into the runoff. At this point I was satisfied. I did not
feel there is any great additional endovascular options. I did not feel that lining with covered stents would be ideal with only a single-vessel runoff functionally. At this point I withdrew my sheath to the right external iliac artery. Right
femoral angiogram demonstrated good puncture in the right common femoral artery. Therefore we exchanged for a short 6 Faroese sheath, and the patient was taken to the recovery room where the sheath was withdrawn and manual pressure was applied.
Hemostasis was fully achieved. The patient tolerated procedure well. She had a dopplerable DP signal in the left foot upon completion.
The patient tolerated procedure well.
[2025-03-16] MEDS: NSS 1000 IV (12:43)
--- NOTE | 2025-03-16 12:51 | SUR.OPER ---
Pt recd post angioplasty from PACU. alert and oriented . States pain is now a 2-3/10 from a 5/10. Descibes as burning and also has pins and needles. Comfortable . Daughter updated . Plavix given
[2025-03-16] MEDS: PLAVIX 75 MG PO (12:58)
== END 2025-03-16 17:00 | disposition home or self-care (01) ==
LOC: CATH 07:58
PROVIDERS: ATTENDING PHYSICIAN Surgery Vascular Surgery; FAMILY PHYSICIAN Family Medicine; OTHER PHYSICIAN Internal Medicine Cardiovascular Disease; PRIMARYCARE PHYSICIAN Family Medicine
DX: I70.243 Atherosclerosis of native arteries of left leg with ulceration of ankle (principal); L97.329 Non-pressure chronic ulcer of left ankle with unspecified severity; Z79.899 Other long term (current) drug therapy; Z79.02 Long term (current) use of antithrombotics/antiplatelets; Z79.01 Long term (current) use of anticoagulants; J44.9 Chronic obstructive pulmonary disease, unspecified; I10 Essential (primary) hypertension; I48.0 Paroxysmal atrial fibrillation; R91.8 Other nonspecific abnormal finding of lung field
CPT/HCPCS: 37226; 75625; 75710; 80048; 85027; 85610; 85730; 86850; 86900; 86901; C1725; C1769; C1874; C1887; C1894; C2623; Q9967

== ENCOUNTER → 2025-03-23 09:43 | Outpatient (REF) | payer OTHER, SELFPAY | LOC: WOUND 09:43 | PROVIDERS: ATTENDING PHYSICIAN Surgery; FAMILY PHYSICIAN Family Medicine | DX: L97.323 Non-pressure chronic ulcer of left ankle with necrosis of muscle (principal); L97.529 Non-pressure chronic ulcer of other part of left foot with unspecified severity; I73.9 Peripheral vascular disease, unspecified; I10 Essential (primary) hypertension; F17.200 Nicotine dependence, unspecified, uncomplicated | CPT/HCPCS: 11042 ==

== ENCOUNTER → 2025-04-06 10:40 | Outpatient (REF) | payer OTHER, SELFPAY | LOC: WOUND 10:40 | PROVIDERS: ATTENDING PHYSICIAN Surgery; FAMILY PHYSICIAN Family Medicine | DX: L97.323 Non-pressure chronic ulcer of left ankle with necrosis of muscle (principal); L97.529 Non-pressure chronic ulcer of other part of left foot with unspecified severity; I73.9 Peripheral vascular disease, unspecified; I10 Essential (primary) hypertension; F17.200 Nicotine dependence, unspecified, uncomplicated | CPT/HCPCS: 99213 ==

== ENCOUNTER 2025-04-08 00:10 | Inpatient (IN) | payer OTHER, SELFPAY ==
[2025-04-07] VITALS (11 sets, daily range): BP systolic 116–158; BP diastolic 81–105; BMI 18.1
[2025-04-07 20:16] LABS: % Basophils 0.2 % (0-2); % Immature Granulocytes 0.4 % (0-0.5); % Lymphocytes 4.8 % (20.5-51.1); % Monocytes 3.4 % (1.7-9.3); % Neutrophils 91.2 % (42.2-75.2); Absolute Immature Granulocytes 0.1 10^3/uL (0-0.05); Absolute Lymphocytes 0.6 10^3/uL (1.2-3.4); Absolute Monocytes 0.4 10^3/uL (0.1-0.6); Absolute Neutrophils 10.8 10^3/uL (1.4-6.5); Hematocrit 35.3 % (37.0-47.0); Hemoglobin 11.6 g/dL (12.0-16.0); Mean Corp Hgb Conc. 32.9 g/dL (33.0-37.0); Mean Corpuscular Hgb 28.7 pg (27.0-31.0); Mean Corpuscular Volume 87.4 fL (81.0-99.0); Mean Platelet Volume 10.7 fL (7.4-10.4); Nucleated Red Blood Cells % 0 %; Platelet Count 336 10^3/uL (130-400); Red Blood Cell Count 4.04 10^6/uL (4.20-5.40); Red Cell Dist. Width 14.9 % (11.5-14.5); White Blood Cell Count 11.9 10^3/uL (4.8-10.8)
[2025-04-07 20:30] LABS: AST (SGOT) 41 U/L (14-36); Albumin 4.8 g/dl (3.5-5.0); Alkaline Phosphatase 69 U/L (38-126); Blood Urea Nitrogen 29 mg/dl (7-17); Calcium 10.3 mg/dl (8.4-10.2); Carbon Dioxide 16 mmol/L (22-30); Chloride 111 mmol/L (98-107); Creatine Phosphokinase 835 U/L (30-135); Estimated Creatinine Clearance 42 ml/min; Glucose 137 mg/dl (70-99); Potassium 3.8 mmol/L (3.5-5.1); Sodium 146 mmol/L (135-145); Total Bilirubin 0.6 mg/dl (0.2-1.3); Total Protein 8.8 g/dl (6.3-8.2); eGFR > 60.00
--- NOTE | 2025-04-07 20:35 | ED.GENMED ---
History of Present Illness
General
Chief Complaint: Fall
Source: patient and ambulance crew
Exam Limitations: none
Time Seen by Provider: 04/07/25 19:49
Nursing documentation reviewed up to this point in time: agreed with
History of Present Illness
History of Present Illness:
Patient is an 85-year-old female who was trying to go the bathroom around 1 AM states that she rolled on her left shoulder and heard and felt a pop and then slid on the floor. She has not been able to get off the floor since then. She was found
by a neighbor who was scheduled to stop by to see her. She complains of left shoulder pain. She denies any headache nausea vomiting. She is on blood thinners Eliquis and Plavix. She does live alone. She did not have any of her medicines today.
Patient recently had left lower extremity arteriogram balloon angioplasty of in-stent restenosis March [address] Kim[address]
Past History
Past History
ED Past Medical History: Arrthythmia, CAD, COPD and HTN
ED Past Surgical History: None
Social History
Tobacco: Non-smoker
Alcohol: None
Review of Systems
Review of Systems
Allergies reviewed?: Yes
All Other Systems: ROS reviewed and negative except as documented in HPI and ROS
Constitutional: Reports no symptoms; Denies fever, fatigue or chills
Respiratory: Reports no symptoms
Cardiac: Reports no symptoms
ABD/GI: Reports no symptoms
Musculoskeletal: Reports other (left shoulder pain)
Skin: Reports no symptoms
Neurological: Reports no symptoms
Psychiatric: Reports no symptoms
Phy Exam
General Physical Exam
General Presentation: no apparent distress
General age: appears stated age
General Skin: warm and dry
General Habitus: elderly
General Mental: alert
General Hydration: appears well hydrated
Cardiovascular Exam
Cardiovascular Exam: no murmur and irregularly irregular
Pulmonary Exam
Pulmonary Exam: lungs clear and no respiratory distress
Neurological Exam
Neurological Exam: alert and oriented x3
Musculoskeletal Exam
Musculoskeletal Exam: other (+ ecchymosis to left shoulder + tenderness to palpation; right lower extremity with pulses by Doppler left lower extremity unable to get pulses by Doppler posterior wound to left ankle; )
Skin Exam
Skin Exam: normal color and warm/dry
Psychiatric Exam
Psychiatric Exam: normal mood/affect
Course
Orders/Labs/Results
Orders:
Orders
04/07/25 19:55
CT Head W/o Iv Contrast Urgent
Comment:
Reason For Exam: trauma
04/07/25 19:56
CT Cervical Spine W/o Iv Contr Urgent
Comment:
Reason For Exam: trauma
Shoulder, Left, Trauma CR [CR Shoulder, Trauma - Left] Stat
Comment:
Reason For Exam: trauma
04/07/25 19:59
Cardiac Monitoring- Treatment ONCE
IV Insert/Care/Rem.- Treatment PRN
04/07/25 20:06
CPK [Creatine Phosphokinase] Urgent
Complete Blood Count/With Diff Urgent
Comprehensive Metabolic Panel Urgent
Digoxin Urgent
Comment: ADD ON
TSH Reflex To Free T4 Urgent
Comment: ADD ON
04/07/25 20:35
0.9% Sodium Chloride 500 ml [Nss] 500 ml IV BOLUS
04/07/25 20:37
Electrocardiogram (*1) Stat
Reason for Study: Other
Other Reason for Exam: chest pain
Cardiac Monitoring- Treatment ONCE
EKG- Treatment ONCE
04/07/25 20:45
Chest [CR Chest - 2 Views ] Urgent
Comment:
Reason For Exam: fall
04/07/25 22:03
Add On- LAB Urgent
Tests Added?: digoxin
UA Reflex to Culture [Urinalysis Reflex To Culture] Urgent
04/07/25 22:12
0.9% Sodium Chloride 500 ml [Nss] 500 ml IV BOLUS
Diltiazem HCl [Cardizem] 5 mg IV NOW STA
04/07/25 22:15
Diltiazem 125 mg/125 ml Nss [Cardizem] 125 mg in 125 ml IV PER PROTOCOL
Initial dose in mg/hr, then titrate:: 5
Titrate to keep:: Heart rate 80-100 bpm
Titrate by mg/hr:: 5 mg/hr
Frequency of titrations (minutes):: 15
Maximum dose in mg/hr:: 15
04/07/25 22:32
Apixaban [Eliquis] 2.5 mg PO NOW STA
04/07/25 22:57
Add On- LAB Urgent
Tests Added?: tsh with freee t4 reflex
Abnormal Lab Results
04/07/25
20:06
WBC 11.9 H 10^3/uL
(4.8-10.8)
RBC 4.04 L 10^6/uL
(4.20-5.40)
Hgb 11.6 L g/dL
(12.0-16.0)
Hct 35.3 L %
(37.0-47.0)
MCHC 32.9 L g/dL
(33.0-37.0)
RDW 14.9 H %
(11.5-14.5)
MPV 10.7 H fL
(7.4-10.4)
Abs Immat Gran (auto) 0.1 H 10^3/uL
(0-0.05)
Absolute Neuts (auto) 10.8 H 10^3/uL
(1.4-6.5)
Absolute Lymphs (auto) 0.6 L 10^3/uL
(1.2-3.4)
Neutrophils % 91.2 H %
(42.2-75.2)
Lymphocytes % 4.8 L %
(20.5-51.1)
Sodium 146 H mmol/L
(135-145)
Chloride 111 H mmol/L
(98-107)
Carbon Dioxide 16 L mmol/L
(22-30)
BUN 29 H mg/dl
(7-17)
Glucose 137 H mg/dl
(70-99)
Calcium 10.3 H mg/dl
(8.4-10.2)
AST 41 H U/L
(14-36)
Creatine Kinase 835 H U/L
(30-135)
Total Protein 8.8 H g/dl
(6.3-8.2)
04/07/25 20:06
04/07/25 20:06
Vital Signs
Initial and Last Documented VS:
Initial Vital Signs
Temp Pulse Resp BP Pulse Ox
98.2 F 113 27 158/105 96
04/07/25 19:50 04/07/25 19:50 04/07/25 19:50 04/07/25 19:50 04/07/25 19:50
Last Documented Vital Signs
Temp Pulse Resp BP Pulse Ox
98.2 F 131 26 139/92 99
04/07/25 19:50 04/07/25 22:34 04/07/25 20:15 04/07/25 22:34 04/07/25 20:06
Manager Field consulted with Physician
Manager Field consulted with physician?: Yes
Name of Physician Consulted: Georgina
MDM/Problems Addressed
Differential Diagnosis Includes:
Not limited to rhabdomyolysis dehydration shoulder fracture versus contusion
MDM/Problems Addressed:
Patient is 85-year-old female presented to the ER for evaluation. Patient currently rolled onto her shoulder around 1 AM felt pain in her shoulder set out of bed and was unable to get herself off of the floor since. She was found by neighbor
brought by EMS. Patient does have a history of A-fib is on Plavix and Eliquis has a history of arterial disease and recently had angioplasty of a previous occluded stent March 16. She did not take her meds today she denies hitting her head CT head
and cervical spine were done and negative. Left shoulder on exam has ecchymosis and tenderness strong distal pulses normal sensation there is a fracture of the surgical neck of the left proximal humerus. Ortho made aware. I will follow further
thank you
Right lower extremity with pulses by Doppler however I am unable to get Doppler pulses of left lower extremity. She has good sensation and movement of this foot however case was reviewed with vascular surgery on-call Dr Wills who feels the
patient may have ABIs tomorrow. Patient with mild rhabdo CPK 835 with a normal creatinine of 0.7. Patient was ordered normal saline bolus.
Patient also with rapid A-fib has not taken medicines today was given Cardizem bolus and drip.
*Radiology
Radiology exam reviewed: radiology read reviewed
*Pulse Oximetry
Patient hypoxic: no
*EKG
Interpreted by ED Provider?: Yes
Interpretation: abnormal
Heart Rate: 113
Rate: tachycardiac
Rhythm: a-fib
*Critical Care Note
Total Time (30-74mins, 75-104mins- exclusive of procedures): Not Applicable
Data Reviewed
Review of Other/Old Records Reveals: Operative Reports
Source: patient, family and ambulance crew
Patient Management
Discussion with other providers: Cloth Hand (vascular )
Escalation/DeEscalation of care consider admission/obs:
Dr Wills vascular and ortho DR Lora made aware of shoulder fx
ED Attending Note
-
Portions of this chart may have been created with voice recognition software.� Occasional wrong word or��sound alike� substitutions may have occurred due to the inherent limitations of voice recognition software.
Discharge Plan
Departure
Patient Disposition: Admit
Date of Disposition: 04/07/25
Time of Disposition: 22:41
Admit to: Telemetry
Admit to doctor: hospitalist
Presentation/result/management discussed w/ accepting MD/DO: Hospitalist
Patient with high blood pressure during this ER visit?: Yes
Condition: Fair
Covid-19: Not Applicable
Discharge Problem:
Atrial fibrillation, rapid, Rhabdomyolysis, Closed fracture of shoulder
Prescriptions:
No Action
aripiprazole [Abilify] 5 mg Tablet
5 mg PO HS
ferrous sulfate [iron] 325 mg (65 mg iron) Tablet
325 mg PO DAILY
sertraline 100 mg tablet
100 mg PO DAILY
diltiazem HCl 120 mg capsule,extended release 24hr
120 mg PO QPM
multivitamin Tablet
1 tab PO DAILY
atorvastatin 10 mg Tablet
40 mg PO QPM
apixaban 2.5 mg Tablet
2.5 mg PO BID
clopidogrel 75 mg Tablet
75 mg PO DAILY Qty: 30 0RF
digoxin 125 mcg (0.125 mg) tablet
125 mcg PO DAILY
levothyroxine 112 mcg tablet
112 mcg PO DAILY
midodrine 5 mg Tablet
5 mg PO TID
Santyl 250 unit/gram Ointment
1 applic TOPICAL DAILY
Prolia 60 mg/mL Syringe
60 mg SC [id number]
Patient Comments:
pt is behind
calcium carbonate-vitamin D3 600 mg-5 mcg (200 unit) Tablet
1 tab PO DAILY
tiotropium bromide 18 mcg Capsule, W/Inhalation Device
1 cap INHALATION DAILY
Referrals:
UNKNOWN - PT DOES,NOT KNOW [Unknown Provider]
Interventions
Interventions:
*Risk Screen - Suicide Last Done: 04/07/25 19:50
*General Assessment Last Done: 04/07/25 19:50
*Neglect/Abuse Screening Last Done: 04/07/25 19:50
*ED- Fall Risk Assessment Last Done: 04/07/25 19:50
*ED COVID-19 Vaccine History Last Done: 04/07/25 19:50
ED-Musculoskeletal Assessment Last Done: 04/07/25 20:10
ED- Neurological Assessment Last Done: 04/07/25 20:10
ED-Skin Assessment Last Done: 04/07/25 20:10
Discharge Date and Time
Print Language: AUSTRIAN
[2025-04-07 21:00] LABS: ALT (SGPT) 30 U/L (0-35)
[2025-04-07] MEDS: NSS 500 IV ×2 (21:08→22:33)
[2025-04-07] MEDS: CARDIZEM 5 MG IV (22:34)
[2025-04-07] MEDS: CARDIZEM 125 IV (22:39)
[2025-04-07] MEDS: ELIQUIS 2.5 MG PO (22:51)
--- NOTE | 2025-04-07 22:55 | HPS.HSE ---
Family Physician
-
Family Physician: Jie Us
Chief Complaint
-
Following for left arm pain
History of Present Illness
85-year-old female who was trying to go to the bathroom at 1 AM states she believes she must of fell out of bed onto her left shoulder and felt a pop and slid on the floor she has not been able to get up off the floor since then. She has told the
nurse multiple different stories 1 being on the sofa 1 attempting to get out of the bed. She was found by a neighbor who stop by to see her. She comes to the ER complaining of left shoulder pain. She complains of cramping in her lower legs
however she does have restless leg syndrome she states. She has a ongoing left Achilles wound for the past year states recently the scab came off its currently open again but very dry she follows with Dr. uBrch from wound care. There is no
current drainage or erythema. She denies headache, neck pain, head injury, chest pain, palpitations, cough, shortness of breath, abdominal pain, nausea, vomiting, diarrhea, urinary symptoms. She states she did not take any of her medications today
she is on Eliquis for A-fib and Plavix for PAD with multiple stents. She also states she had a recent left lower arteriogram balloon angioplasty of in-stent restenosis March [address] Aaron. In the ER she was noted to be in rapid A-fib however she did
not take her medications today.
She has past medical history of A-fib paroxysmal multiple cardioversions last December 2023, hypothyroidism, celiac disease, COPD, HTN, PAD left leg 6 stents, right leg [address] Aaron, CAD,-2 cardiac stents approximately 70 years ago
[facility], chronic ambulatory dysfunction uses walker at baseline.
Medical History
Past Medical History
Past Medical History: Reports Other
Additional Past Medical History:
Paroxysmal A-fib multiple cardioversions last December 2023
hypothyroidism
celiac disease
COPD
-Former smoker 66-year half a pack a day stopped September 2024
HTN
PAD left leg 6 stents with left toe amputation, Right leg [address] Aaron,
CAD,-2 cardiac stents approximately 70 years ago [facility]
chronic ambulatory dysfunction uses walker at baseline.
Past Surgical History: Reports Other
Additional Past Surgical History:
Left toe amputation secondary to severe PAD
Left leg [address] Aaron
Right leg [address] Aaron
CAD cardiac stents x 2 7- 8 years ago [facility]
Appendectomy
Hysterectomy
[place] teeth impacted extraction
Cataract extraction bilateral with lens implants
Multiple cardioversions for A-fib
Social History
Tobacco: Smoker
Alcohol: None
Drug: None
Personal: Single
Living: Alone
Family History
Family History: Other (Mother A-fib age 88, father age 81 old age, 1 brother living age 81 history of CAD/PA in his early 70s)
Allergies / Home Medications
Allergies reflects when Allergies were last updated in [facility].
Home Medications with original date entered in [facility]
Allergy/Medication List:
Allergies
Allergy/AdvReac Type Severity Reaction Status Date / Time
cephalexin (From Keflex) Allergy diarrhea Verified 04/07/25 19:50
gluten Allergy Unknown Verified 04/07/25 19:50
tetracycline Allergy Itching Verified 04/07/25 19:50
Home Medications
aripiprazole 5 mg tablet (Abilify) 5 mg PO HS Bipolar 11/05/23
ferrous sulfate 325 mg (65 mg iron) tablet (iron) 325 mg PO DAILY Supplement 11/12/23
diltiazem HCl 120 mg capsule,extended release 24 hr 120 mg PO QPM Blood Pressure 03/02/24
sertraline 100 mg tablet 100 mg PO DAILY Depression 03/02/24
apixaban 2.5 mg tablet 2.5 mg PO BID atrial fibrilation 03/16/24
atorvastatin 10 mg tablet 40 mg PO QPM High Cholesterol 03/16/24
clopidogrel 75 mg tablet 75 mg PO DAILY #30 tabs 03/16/24
multivitamin 1 tab PO DAILY Supplement 03/16/24
digoxin 125 mcg (0.125 mg) tablet 125 mcg PO DAILY Heart Failure 12/06/24
levothyroxine 112 mcg tablet 112 mcg PO DAILY Thyroid 12/06/24
collagenase clostridium histo. 250 unit/gram topical ointment (Santyl) 1 applic topical DAILY 03/14/25
denosumab 60 mg/mL subcutaneous syringe (Prolia) 60 mg SC [id number] 03/14/25
midodrine 5 mg tablet 5 mg PO TID 03/14/25
calcium 600 mg (as carbonate)-vitamin D3 5 mcg (200 unit) tablet 1 tab PO DAILY 03/16/25
tiotropium bromide 18 mcg capsule with inhalation device 1 cap inhalation DAILY 03/16/25
Review of Systems
-
History Source: Patient and Other (Neighbor at bedside)
A 12 point ROS was completed and negative except as noted: Yes
Constitutional: Reports Fatigue; Denies Fever
EENT: Reports Other (Dry mouth); Denies Sore Throat
Respiratory: Denies Cough or Trouble Breathing
Cardiac: Denies Chest Pain, Diaphoresis, Palpitations or Syncope
Abdomen/GI: Denies Abdominal Pain, Nausea, Vomiting, Diarrhea, Constipated, Bloody Stools or Black Stools
: Denies Dysuria, Frequency, Flank Pain, Incontinence, Difficulty Voiding or Urgency
Musculoskeletal: Reports Joint Pain (Left shoulder), Joint Swelling (Left shoulder) and Other (Left shoulder limited range of motion secondary to left humeral head fracture)
Skin: Denies Itching or Rash
Neurological: Reports Weakness (Generalized) and Other (Cramping bilateral lower legs); Denies Dizzy or Headache
Endocrine: Denies No Symptoms
Hematologic/Lymphatic: Denies No Symptoms
Psych: Reports Calm
Physical Exam
Vital Signs
Vital Signs
Temp Pulse Resp BP Pulse Ox
98.2 F 131 26 139/92 99
04/07/25 19:50 04/07/25 22:34 04/07/25 20:15 04/07/25 22:34 04/07/25 20:06
Physical Exam
General: Comfortable and Conversant; No Slurred Speech
HEENT: NormoCephalic, Anicteric, Moist mucous membranes, PERRLA, [place] Conjunctivae, No Ptosis and Neck Nontender; No Pharyngeal Erythema
Cardiac: S1/S2 and Irregular Rhythm (Rapid A-fib 133 bpm); No Murmur, Rub, Gallop or Peripheral Edema
GI: Soft, Non Tender, Non Distended, Normal Bowel Sounds and No Hepatosplenomegaly
Genito-urinary: Deferred by me
Musculoskeletal: No Clubbing, No Cyanosis, No Edema and Other (Left shoulder limited range of motion secondary to left humeral head fracture)
Skin: Warm, Dry and Ulcers (Stage II dry ulceration left Achilles currently open has been present x 1 year); No Rash
Neuro: AO x 3 (However changes her story several times), Nonfocal/grossly intact, Cranial Nerves Intact, No Sensory Deficits and Other (Left shoulder limited range of motion secondary to left humeral head fracture); No DTR's Intact & Symmetrical,
Slurred Speech, Facial Droop, Tremors or Sedated
Psych: Calm
Laboratory Results
-
04/07/25 20:06
04/07/25 20:06
Laboratory Results
Total Bilirubin 0.6 mg/dl (0.2-1.3) 04/07/25 20:06
AST 41 U/L (14-36) H 04/07/25 20:06
ALT 30 U/L (0-35) 04/07/25 20:06
Alkaline Phosphatase 69 U/L (38-126) 04/07/25 20:06
Data Reviewed
-
Lab Data: Labs Reviewed by me
Impression/Plan
-
Impression/plan:
Admit to IMU
#Mechanical fall with left proximal humerus fracture surgical neck
-Sling
-Ice
-Tylenol, tramadol moderate pain-
-Consult Ortho Dr. Mendez made aware by ER
X-ray left shoulder: Acute fracture surgical neck of the left proximal humerus with comminution and mild displacement no dislocation
CXR: No acute cardiopulmonary process
CT cervical spine: No evidence for abnormality of the cervical spine chronic biapical pleural-parenchymal scarring and mild paraseptal emphysema
CT head: No acute intracranial abnormality
#Acute rhabdomyolysis�mild from prolonged floor lying/fall
Creatinine kinase 835
-IV NSS 1 L given in ER
-Will continue IV NSS 60 cc an hour
Monitor CPK
# Rapid A-fib atrial fibrillation/history-Paroxysmal A-fib
-Patient did not take rate control meds today or Eliquis due to fall
#History cardioversion 12/11/2023 A-fib to sinus rhythm successful evangelical of sinus rhythm then came in with paroxysmal A-fib and RVR that was symptomatic
-IV Cardizem drip
-Continue digoxin 125 mcg p.o. daily hold if SBP less than 110
-Continue Eliquis 2.5 mg twice daily
- Consult [facility] cardiology patient typically follows with DIDIER Duran
- Resume diltiazem 120 mg every afternoon tomorrow
Hx hypotension
continue midodrine 5 mg 3 times daily
#Chronic interstitial lung disease
# November 12, 2023 right lower lobe pneumonia
# Chronic ALT elevation�unknown chronicity
AST 41 near baseline
- Follow CMP
#Coronary artery disease
-Continue Eliquis 2.5 mg twice daily, Plavix 75 mg daily, atorvastatin 10 mg every afternoon
#PAD
#Status post left leg 04/11, right leg [address] Aaron
-Continue Plavix 75 mg daily
#COPD-no acute exacerbation
-Continue Spiriva inhaler
#Anxiety/depression
-Continue sertraline 100 mg daily, aripiprazole 5 mg at bedtime
#Hyperlipidemia
-Continue statin
#Hypothyroidism
-Continue levothyroxine 112 mcg p.o. daily
-Check TSH with free T4 reflex
#Depression/bipolar
Continue Zoloft 100 mg daily, Abilify 5 mg at bedtime
# Former smoker quit September 2024
Prior 66-year half a pack a day
Hx gastroenteritis causing hypotension metabolic acidosis and HAYLIE December 2024
DVT prophylaxis
-Continue Eliquis 2.5 mg twice daily
DNR per patient states has a living will, her daughter Mile is her emergency contact [phone]
--- NOTE | 2025-04-07 23:05 | W.PN.UPDATE ---
Update Note
Progress Note Update
This note serves as an addendum to the H&P by presidential support specialist GISELA Swathi OSCAR
HPI
85F HX Prx AF, chr Eliquis and Plavix, HX cardioversion, PAD, CAD, hypertension, COPD pw fall on the Lt shouder, from the bed, onto the floor. Neighbor found her and called EMS.
- Patient denies hitting head
- Noted fast AF at ER. ER started on Cardizem bolus and gtt.
- HX previous occluded lle stent 03/16. Good sensation foot cooler to touch and unable to get pulses by doppler. - ER d/w vascular interior design consultant who suggested ABIs can be done in the morning
- HX on healing wound to posterior left ankle
- no fever wbc
Vital Signs
Temp Pulse Resp BP Pulse Ox
98.2 F 131 26 139/92 99
04/07/25 19:50 04/07/25 22:34 04/07/25 20:15 04/07/25 22:34 04/07/25 20:06
PE
Gen: Awake and alert
HEENT: atraumatic head
Neck: supple , non tender
Lungs: CTA
Cor: irregularly irregular
Abdomen: soft NT NG NRT
KITCHEN STEWARD/STEWARDESS: alert and oriented x3
MS:+ ecchymosis to left shoulder + tenderness to palpation; right lower extremity with pulses by Doppler left lower extremity unable to get pulses by Doppler posterior wound to left ankle; )
Psych: Nl mood and affect
Laboratory Tests
03/16/25 04/07/25
08:16 20:06
WBC 6.3 11.9 H
Hgb 11.6 L
Plt Count 336
Sodium 144 146 H
Chloride 112 H 111 H
Carbon Dioxide 19 L 16 L
BUN 26 H 29 H
Creatinine 0.5 L 0.7
eGFR > 60.00 > 60.00
Glucose 137 H
Calcium 10.3 H
AST 41 H
ALT 30
Creatine Kinase 835 H
Total Protein 8.8 H
CXR: No acute cardiopulmonary process.
Lt shoulder XR:
- Acute fracture of the surgical neck of the left proximal humerus with comminution and mild displacement. No dislocation.
CT Cervical Spine W/o Iv Contr
- No CT evidence for an acute posttraumatic abnormality of the cervical spine.
Last hospitalist admission: 12/06/24 - 12/10/24
Principal Discharge diagnosis :
Acute gastroenteritis
Metabolic acidosis
Acute kidney injury
Hypotension
Hypernatremia
Hypokalemia
ASSESSMENT & PLAN
Paroxysmal AF with FVR
- check Dig level , till them hold Digoxin
- c/w Diltiazem gtt
- c/w [employer] Eliquis
- [facility] card consult
Fall complicated by acute Fx. surgical neck of the Lt. proximal humerus with comminution and mild displacement.
- arm sling
- Acute Fx pain control protocol
- Orth consult
Mild Rhabdo due to fall with prolonged lying on the floor
Mildly elevated AST is muscular origin due to fall
- s/p 1 L NS
- c/w IV NS 60/H
- Trend CPK nad AST
HX established ASCVD ( PAD and CAD)
HX previous occluded Lt Gavin stent 03/16.
HX bilateral lower extremity stents
Good sensation foot cooler to touch and unable to get pulses by doppler.
- ER d/w vascular interior design consultant who suggested ABIs can be done in the morning
- c/w Plavix and Eliquis
- Vascular consulted
HX CAD
- on Plavix and Statin
HLD
- on Atorvastatin
Hypothyroid
- check TSH
- on LT4
Chr conditions
Chronic interstitial lung disease
COPD HX
Anxiety/depression on chr Sertraline
Former smoker
DVT Px: on Eliquis
DNR
IMU
[2025-04-07 23:44] LABS: TSH Reflex To Free T4 < 0.02 uIU/ml (0.47-4.68)
[2025-04-07 23:47] LABS: Magnesium 1.7 mg/dl (1.6-2.3)
[2025-04-07 23:59] LABS: Digoxin < 0.4 ng/ml (0.8-2.0)
[2025-04-08] VITALS (31 sets, daily range): BP systolic 84–160; BP diastolic 55–103; BMI 18.0
[2025-04-08 00:13] LABS: Free T4 1.85 ng/dl (0.78-2.19)
[2025-04-08] MEDS: FLEXERIL 5 MG PO (00:17)
[2025-04-08] MEDS: ULTRAM 50 MG PO ×3 (02:15→23:17)
[2025-04-08] MEDS: NSS 1000 IV ×2 (02:16→16:59)
[2025-04-08 03:47] LABS: % Basophils 0.1 % (0-2); % Eosinophils 0.1 % (0-6); % Immature Granulocytes 0.3 % (0-0.5); % Lymphocytes 11.8 % (20.5-51.1); % Monocytes 8.9 % (1.7-9.3); % Neutrophils 78.8 % (42.2-75.2); Absolute Lymphocytes 1.2 10^3/uL (1.2-3.4); Absolute Monocytes 0.9 10^3/uL (0.1-0.6); Absolute Neutrophils 7.7 10^3/uL (1.4-6.5); Hematocrit 27.9 % (37.0-47.0); Hemoglobin 9.3 g/dL (12.0-16.0); Mean Corp Hgb Conc. 33.3 g/dL (33.0-37.0); Mean Corpuscular Hgb 28.4 pg (27.0-31.0); Mean Corpuscular Volume 85.1 fL (81.0-99.0); Mean Platelet Volume 9.9 fL (7.4-10.4); Nucleated Red Blood Cells % 0 %; Platelet Count 259 10^3/uL (130-400); Red Blood Cell Count 3.28 10^6/uL (4.20-5.40); Red Cell Dist. Width 14.6 % (11.5-14.5); White Blood Cell Count 9.8 10^3/uL (4.8-10.8)
[2025-04-08 04:06] LABS: ALT (SGPT) 22 U/L (0-35); AST (SGOT) 50 U/L (14-36); Albumin 3.6 g/dl (3.5-5.0); Alkaline Phosphatase 65 U/L (38-126); Blood Urea Nitrogen 23 mg/dl (7-17); Calcium 9.2 mg/dl (8.4-10.2); Carbon Dioxide 20 mmol/L (22-30); Chloride 113 mmol/L (98-107); Estimated Creatinine Clearance 48 ml/min; Glucose 111 mg/dl (70-99); Potassium 3.4 mmol/L (3.5-5.1); Sodium 141 mmol/L (135-145); Total Bilirubin 0.5 mg/dl (0.2-1.3); Total Protein 6.8 g/dl (6.3-8.2); eGFR > 60.00
[2025-04-08 04:17] LABS: Total CK 2577 U/L (30-135)
--- NOTE | 2025-04-08 04:28 | PTCARENOTE ---
Pt received as admission to [facility]. [facility]. Restless d/t to pain. Anxious and forgetful at times. Received on Cardizem gtt 15ml/hr. HR 80's-100's in Afib. Afebrile. RR 21-31 in no acute distress. POX RA 97%. Lungs clear. Admits 7/10 pain to left
shoulder d/t fracture. Also admits to 8/10 pain to stage 2 to left Achilles. LE's elevated on pillow. Medicated with Ultram with good relief. Pt ordered left arm sling will have to be ordered from [facility]. Left upper arm with linear purple bruise.
Decreased ROM to left arm for obvious reason. No pulse with doppler to left dorsalis. + pulse with doppler to right dorsalis. Left LE cool to touch. Right LE warm. Pt has full sensation to LE's. Rest of assessment as documented. Oriented to room and
surroundings. Call pack within reach. Will continue to monitor.
[2025-04-08 04:40] LABS: CKMB 27.8 ng/ml (0.0-3.4)
[2025-04-08] MEDS: SYNTHROID 112 MCG PO (05:22)
--- NOTE | 2025-04-08 07:10 | PTCARENOTE ---
Pt without void since arriving to floor from ED. Unable to void. Bladder scanned for 509. Straight cathed x 1 for 600mls. Urine sample sent to lab as ordered. At the same time HR into the 60's Afib and rate holding in the 60's. Cardizem gtt stopped
and this time and day shift RN made aware. Pt resting comfortably at this time.
[2025-04-08 07:19] LABS: Urine Albumin 2+ (Neg - Trace); Urine Bilirubin Negative (Negative); Urine Character Clear (Clear); Urine Color Yellow; Urine Glucose Negative (Negative); Urine Ketone Negative (Negative); Urine Leukocyte Negative (Negative); Urine Nitrite Negative (Negative); Urine Occult Blood 4+ (Negative); Urine Urobilinogen Negative (Neg - 1+)
[2025-04-08 07:35] LABS: Urine Bacteria Few (Negative); Urine Squamous Cell 0-2 /LPF (Few); Urine White Cell 0-2 /HPF (0-5)
[2025-04-08] MEDS: SPIRIVA RESPIMAT 2.5 MCG 2 PUFF INH (08:03)
--- NOTE | 2025-04-08 08:47 | CON.CAR ---
Addendum entered and electronically signed by Anand Moran MD 04/08/25 10:47:
I saw and examined the patient.
The Speech And Language Clinician's note was reviewed and I agree with the note.
Comment: GEN: No distress, awake, Ox3
HEENT: supple, anicteric, mmm
LUNGS: CTA, no wheezes/rales
CV: Irreg, S1/S2, 1/6 syst LSB, no gallop
ABD: soft, BS+, NT/ND
EXT: L UE ecchymosis
NEURO: Gross non-focal
SKIN: No rash
Plan:
85-year-old female with past medical history of permanent atrial fibrillation, coronary artery disease, peripheral vascular disease, hypertension, hyperlipidemia and COPD who presents with a mechanical fall and 10 hours of time laying on the floor.
She was found to have a left proximal humerus fracture and an elevated total CK of 2500. Her ventricular rates were elevated upon arrival.
She has a history of permanent atrial fibrillation. Okay to continue IV Cardizem for now. Will further titrate oral Cardizem to 120 mg twice daily. Continue digoxin. Digoxin level normal.
Hold Eliquis with possible surgery upcoming with humerus fracture
Total CK 2500 likely due to laying on the floor. Continue gentle hydration and trend total CK. Will need to follow for signs of heart failure. Currently euvolemic.
Continue medical therapy for coronary artery disease. Continue atorvastatin. Will hold Plavix and add aspirin 81 mg daily in anticipation of possible surgery.
EKG with A-fib with modestly elevated rates and nonspecific T wave abnormalities
Original Note:
Consultation
Consultation Request
Date/Time Consultation Requested: 04/07/2025
Date/Time Consultation Performed: 04/08/2025
Requesting Provider: Dr. Simons
Performing Provider: Lesia Miranda PA-C for Dr. Moran
Reason for Consultation: A-fib with rapid ventricular response
Medical History
-
History of Present Illness:
Susu is an 85-year-old female with past medical history of permanent atrial fibrillation on chronic anticoagulation with Eliquis, CAD, peripheral vascular disease with recent left iliac and SFA stenting 03/16/2025, hypertension, hyperlipidemia,
hypothyroidism, COPD, and PVCs who presented to ER 04/07/2025 with mechanical fall getting out of bed when she missed stepped landing on left shoulder. She reports she was laying on the floor for about 10 hours. She was found by a caregiver on
the floor. She denied hitting her head. She denied having chest pain, shortness of breath, dizziness or lightheadedness prior to fall. On arrival to emergency department patient was found to be in atrial fibrillation with rapid ventricular
response. She was started on diltiazem bolus with drip. Patient was found to have acute fracture of left proximal humerus for which orthopedics has been consulted. Found to have elevated total creatinine kinase of 2577. TSH less than 0.02 with
compensated free T4 1.85. Digoxin less than 0.4
At time of this evaluation patient in rate controlled atrial fibrillation and is currently off diltiazem drip. She denies any cardiac symptoms including chest pain, shortness of breath, dizziness or lightheadedness. She continues to have left
shoulder pain.
PMH:
Permanent atrial fibrillation
s/p cardioversion 11/05/2023
Chronic Eliquis anticoagulation
CAD
s/p LCx PCI 2018
Peripheral vascular disease
status post prior angioplasty/stenting left iliac and SFA/popliteal with extensive SFA/popliteal stent placement 03/16/2025
Status post stenting of bilateral SFA/iliac arteries
Hypertension
Hyperlipidemia
Hypothyroidism
COPD
PVCs
Past Medical History
Past Medical History: Other (In HPI)
Past Surgical History: Cardiac (PCI of LCx 2018) and Other (Left toe amputation 01/19/2023, bilateral lower extremity iliac/SFA stents)
Social History
Tobacco: Smoker
Alcohol: None
Drug: None
Personal:
Living: Alone
Employment: Retired
Family History
Family History: CAD
Allergies / Home Medications
Allergy/AdvReac Type Severity Reaction Status Date / Time
cephalexin (From Keflex) Allergy diarrhea Verified 04/07/25 19:50
gluten Allergy Unknown Verified 04/07/25 19:50
tetracycline Allergy Itching Verified 04/07/25 19:50
�Medication �Instructions �Recorded �Confirmed �Type
aripiprazole 5 mg tablet (Abilify) 5 mg PO HS Bipolar 11/05/23 04/07/25 History
ferrous sulfate 325 mg (65 mg 325 mg PO DAILY Supplement 11/12/23 04/07/25 History
iron) tablet (iron)
diltiazem HCl 120 mg 120 mg PO QPM Blood Pressure 03/02/24 04/07/25 History
capsule,extended release 24 hr
sertraline 100 mg tablet 100 mg PO DAILY Depression 03/02/24 04/07/25 History
apixaban 2.5 mg tablet 2.5 mg PO BID atrial fibrilation 03/16/24 04/07/25 History
atorvastatin 10 mg tablet 40 mg PO QPM High Cholesterol 03/16/24 04/07/25 History
clopidogrel 75 mg tablet 75 mg PO DAILY #30 tabs 03/16/24 04/07/25 Rx
multivitamin 1 tab PO DAILY Supplement 03/16/24 04/07/25 History
digoxin 125 mcg (0.125 mg) tablet 125 mcg PO DAILY Heart Failure 12/06/24 04/07/25 History
levothyroxine 112 mcg tablet 112 mcg PO DAILY Thyroid 12/06/24 04/07/25 History
collagenase clostridium histo. 250 1 applic topical DAILY 03/14/25 04/07/25 History
unit/gram topical ointment (Santyl)
denosumab 60 mg/mL subcutaneous 60 mg SC [id number] 03/14/25 04/07/25 History
syringe (Prolia)
midodrine 5 mg tablet 5 mg PO TID 03/14/25 04/07/25 History
calcium 600 mg (as 1 tab PO DAILY 03/16/25 04/07/25 History
carbonate)-vitamin D3 5 mcg (200
unit) tablet
tiotropium bromide 18 mcg capsule 1 cap inhalation DAILY 03/16/25 04/07/25 History
with inhalation device
Review of Systems
-
History Source: Patient
All other systems: Negative unless noted
Physical Exam
Vital Signs
Temp Pulse Resp BP Pulse Ox
97.5 F 68 16 103/72 98
04/08/25 07:45 04/08/25 08:06 04/08/25 08:06 04/08/25 07:00 04/08/25 08:06
GEN: No distress, awake, Ox3, lying in bed
HEENT: supple, anicteric, mmm
LUNGS: Faint crackles at left base anteriorly otherwise CTA, no wheezes/rales
CV: Irregularly irregular, rate controlled S1/S2, 1/6 syst LSB murmur, no rub or gallop
ABD: soft, BS+, NT/ND
EXT: No edema, clubbing or cyanosis. Right shoulder moderate amount of ecchymosis
NEURO: Gross non-focal
SKIN: No rash, warm, dry, pink
Lab Results
04/08/25 03:25
04/08/25 03:25
Impression / Plan
-
PCP: Alea REYNOLDS
Cardiology: Dr. Melchor Duran
Impression:
Presented 04/07/2025 with mechanical fall
Left humeral fracture
Rhabdomyolysis secondary to fall with prolonged lying on floor
Mildly abnormal AST
A-fib with rapid ventricular response
Hyperthyroid, TSH less than 0.02
Permanent atrial fibrillation
s/p cardioversion 11/05/2023
Chronic Eliquis anticoagulation
CAD
s/p LCx PCI 2018
Peripheral vascular disease
status post prior angioplasty/stenting left iliac and SFA/popliteal with extensive SFA/popliteal stent placement 03/16/2025
Status post stenting of bilateral SFA/iliac arteries
Hypertension
Hyperlipidemia
Hypothyroidism
COPD
PVCs
Echo 01/25/2024: EF 50 to 55%. Moderate TR with PAP 35 to 38 mmHg. Patent PFO with [id number] flow/shunt
CHON 04/11/2021([facility] study): Low normal EF, right to left shunt with agitated saline consistent with PFO, no evidence of thrombus in LARA, trace MR
Plan:
-Presented 04/07/2025 with mechanical fall resulting in left humeral fracture and rhabdomyolysis secondary to prolonged lying on floor. Also noted to be in atrial fibrillation with rapid ventricular response
-Patient with known permanent atrial fibrillation with plan for rate control with digoxin as outpatient.
-Was found to be in rapid ventricular response on arrival likely secondary to acute rhabdomyolysis from fall. Heart rates have improved with hydration and diltiazem drip.
-Weaned off diltiazem drip 04/08/2025.
-Continue digoxin, level less than 0.4 and oral diltiazem 120 mg daily
-TSH less than 0.02, compensated free T4 1.85. Defer adjustment in Synthroid to primary service
-Continue Eliquis 2.5 mg twice a day and less surgery is needed for shoulder fracture
- 2 g drop of hemoglobin overnight likely due to volume resuscitation with ongoing IV fluids secondary to rhabdomyolysis
-Continue Plavix and statin secondary to recent iliac/SFA stent on 03/16/2025 and known coronary disease
-Continue midodrine 5 mg 3 times daily for history of orthostatic hypotension
-Left humeral fracture secondary to mechanical fall. Orthopedics has been consulted
Data Reviewed
-
EKG: Report Reviewed by me, Discussed with Physician, Discussed with Nurse and Discussed with Patient
Radiology: Report Reviewed by me, Discussed with Physician, Discussed with Nurse and Discussed with Patient
Labs: Labs Reviewed by me, Discussed with Physician, Discussed with Nurse and Discussed with Patient
Old Records: Reviewed
[2025-04-08] MEDS: ProAmatine 5 MG PO ×3 (08:50→16:58)
[2025-04-08] MEDS: OSCAL 500 + D 500 MG PO (08:50)
[2025-04-08] MEDS: ZOLOFT 100 MG PO (08:50)
[2025-04-08] MEDS: ELIQUIS 2.5 MG PO (08:50)
[2025-04-08] MEDS: PLAVIX 75 MG PO (08:50)
[2025-04-08] MEDS: FEOSOL 325 MG PO (08:50)
[2025-04-08] MEDS: LANOXIN 125 MCG PO (08:51)
[2025-04-08] MEDS: THERAGRAN 1 TABLET PO (08:51)
[2025-04-08] MEDS: KCL 40 MEQ PO (10:40)
--- NOTE | 2025-04-08 12:04 | W.PN.HOSP.TC ---
Today's Communication/Plan
-
Monitor vitals
See plan
Gentle hydration
Ortho to see
Continue with Cardizem
Restart Eliquis and Plavix if okay with orthopedics and cardiology
Assessment / Plan
Assessment / Plan
General: Comfortable and Conversant
HEENT: NormoCephalic, Anicteric, Moist mucous membranes
Cardiac: S1/S2 and Irregular Rhythm; No Murmur
GI: Soft, Non Tender, Non Distended, Normal Bowel Sounds
Musculoskeletal: No Edema and Other (Left shoulder limited range of motion secondary to left humeral head fracture)
Neuro: AO x 3
Psych: Calm
Mechanical fall with left proximal humerus fracture surgical neck
-Sling
-Ice
-Tylenol, tramadol moderate pain-
-Consult Ortho Dr. Mendez made aware by ER.
X-ray left shoulder: Acute fracture surgical neck of the left proximal humerus with comminution and mild displacement no dislocation
CXR: No acute cardiopulmonary process
CT cervical spine: No evidence for abnormality of the cervical spine chronic biapical pleural-parenchymal scarring and mild paraseptal emphysema
CT head: No acute intracranial abnormality
#Acute rhabdomyolysis�mild from prolonged floor lying/fall
monitor CK
cw IVF
# Rapid A-fib atrial fibrillation/history-Paroxysmal A-fib
-Patient did not take rate control meds today or Eliquis due to fall
#History cardioversion 12/11/2023 A-fib to sinus rhythm successful confucianism of sinus rhythm then came in with paroxysmal A-fib and RVR that was symptomatic
-IV Cardizem drip with wean
-Continue digoxin 125 mcg p.o. daily hold if SBP less than 110
-hold Eliquis 2.5 mg twice daily in case needs surgery
cardiology following
- Resume diltiazem PO
#PAD
#Status post left leg 04/11, right leg [address] Aaron
-on Plavix 75 mg daily
vascular consulted
Hx hypotension
continue midodrine 5 mg 3 times daily
#Chronic interstitial lung disease
# November 12, 2023 right lower lobe pneumonia
# Chronic ALT elevation�unknown chronicity
- Follow CMP
#Coronary artery disease
-hold Eliquis 2.5 mg twice daily, Plavix 75 mg daily in anticipation of surgery
Continue statin
#COPD-no acute exacerbation
-Continue Spiriva inhaler
#Anxiety/depression
-Continue sertraline 100 mg daily, aripiprazole 5 mg at bedtime
#Hyperlipidemia
-Continue statin
#Hypothyroidism
-Continue levothyroxine 112 mcg p.o. daily
#Depression/bipolar
Continue Zoloft, Abilify
# Former smoker quit September 2024
Prior 66-year half a pack a day
Hx gastroenteritis causing hypotension metabolic acidosis and HAYLIE December 2024
DVT prophylaxis
-eliquis
DNR per patient states has a living will, her daughter Mile is her emergency contact [phone]
I spent a total of 52 minutes with the patient or on the floor. More than 50% of this time involved counseling and coordination of care.
Anticipated Discharge: > 48 hours
Subjective/Interval History
-
Date of Service: April 08, 2025
denies nausea
Objective Data
-
Labs:
Laboratory Results
04/08/25
03:25
WBC 9.8
Hgb 9.3 L
Hct 27.9 L
Plt Count 259 D
Sodium 141
Potassium 3.4 L
Chloride 113 H
Carbon Dioxide 20 L
BUN 23 H
Creatinine 0.4 L
Glucose 111 H
Calcium 9.2
Total Bilirubin 0.5
AST 50 H
ALT 22
Alkaline Phosphatase 65
Vital Signs:
Vital Signs
Temp Pulse Resp BP Pulse Ox
97.5 F 65 16 109/74 95
04/08/25 07:45 04/08/25 08:51 04/08/25 08:06 04/08/25 08:50 04/08/25 11:28
I&O
04/07/25 04/08/25 04/09/25
06:59 06:59 06:59
Intake Total 575 / 575
Output Total 600 / 600
Balance -
--- NOTE | 2025-04-08 14:23 | CON.ORTHO ---
Consultation
-
Date/Time Consultation Requested: 04/07/2025
Date/Time Consultation Performed: 04/08/2025
Requesting Provider: GAIL Pak
Performing Provider: Rajwinder Redding PA-C, for Dr. Jacinto Mendez
Reason for Consultation: Left shoulder proximal humerus fracture
Consultation - Orthopedics
History
HPI: Susu is an 85-year-old female who presented to [facility] after sustaining a fall in her bathroom at 1 AM the night before last. She reports she landed on her left shoulder and feeling a pop and extreme pain at that time. Per chart
review, she was down on the floor for quite some time and was admitted for rhabdomyolysis. A sling has been ordered since her admission to the hospital, but she has not received this on the floor as of my examination. She reports pain isolated to
her shoulder, but any motion of her elbow also exacerbates her symptoms. She denies any numbness or tingling of her left upper extremity. She denies any prior issues with her left shoulder.
Past medical history: Significant for atrial fibrillation, hypothyroidism, celiac disease, COPD, hypertension, PAD left leg with sick stents, right leg PAD with 5 stents, CKD with cardiac stents.
Past surgical history: Multiple stents and bilateral legs, left toe amputation, cardiac stents, appendectomy, hysterectomy, wisdom teeth extraction, cataract, cardioversions for atrial fibrillation.
Social history: Current tobacco smoker. Denies alcohol use. Lives alone at home.
Family history: Noncontributory.
Review of systems: All systems reviewed and negative except for those mentioned in HPI.
Allergies / Home Medications
Allergy/AdvReac Type Severity Reaction Status Date / Time
cephalexin (From Keflex) Allergy diarrhea Verified 04/07/25 19:50
gluten Allergy Unknown Verified 04/07/25 19:50
tetracycline Allergy Itching Verified 04/07/25 19:50
�Medication �Instructions �Recorded
aripiprazole 5 mg tablet (Abilify) 5 mg PO HS Bipolar 11/05/23
ferrous sulfate 325 mg (65 mg 325 mg PO DAILY Supplement 11/12/23
iron) tablet (iron)
diltiazem HCl 120 mg 120 mg PO QPM Blood Pressure 03/02/24
capsule,extended release 24 hr
sertraline 100 mg tablet 100 mg PO DAILY Depression 03/02/24
apixaban 2.5 mg tablet 2.5 mg PO BID atrial fibrilation 03/16/24
atorvastatin 10 mg tablet 40 mg PO QPM High Cholesterol 03/16/24
clopidogrel 75 mg tablet 75 mg PO DAILY #30 tabs 03/16/24
multivitamin 1 tab PO DAILY Supplement 03/16/24
digoxin 125 mcg (0.125 mg) tablet 125 mcg PO DAILY Heart Failure 12/06/24
levothyroxine 112 mcg tablet 112 mcg PO DAILY Thyroid 12/06/24
collagenase clostridium histo. 250 1 applic topical DAILY 03/14/25
unit/gram topical ointment (Santyl)
denosumab 60 mg/mL subcutaneous 60 mg SC [id number] 03/14/25
syringe (Prolia)
midodrine 5 mg tablet 5 mg PO TID 03/14/25
calcium 600 mg (as 1 tab PO DAILY 03/16/25
carbonate)-vitamin D3 5 mcg (200
unit) tablet
tiotropium bromide 18 mcg capsule 1 cap inhalation DAILY 03/16/25
with inhalation device
Vital Signs / Lab Results
Temp Pulse Resp BP Pulse Ox
97.7 F 74 16 116/83 95
04/08/25 12:17 04/08/25 12:57 04/08/25 08:06 04/08/25 12:57 04/08/25 11:28
04/08/25 03:25
04/08/25 03:25
Physical examination:
General: No acute distress at rest. AAO x 3.
HEENT: Atraumatic, normocephalic, neck supple.
Lungs: Nonlabored breathing on room air.
Left shoulder: Moderate ecchymosis about anterior shoulder with associated swelling. Range of motion of shoulder not tested due to known fracture. Limited range of motion of elbow secondary to pain elicited in her shoulder. Full range of motion
of wrist and hand without discomfort. Neurovascular intact distally.
Radiographic studies:
X-rays of the left shoulder from [facility] shows evidence of an acute fracture of the surgical neck of the left proximal humerus with comminution and mild displacement. No dislocation.
Assessment / Plan
Assessment: Left shoulder proximal humerus fracture, minimally displaced.
Plan: Susu sustained a minimally displaced fracture of her left proximal humerus during her fall. Fortunately, this is amenable to nonsurgical invention with full-time immobilization in a sling. A sling has been ordered and [employer] has been
contacted to get this to the patient on the floor. RN will place this upon receipt. She should wear the sling full-time during the day, removing it only for dressing, showering, and performing gentle range of motion of her elbow, wrist, and hand.
She should avoid any range of motion of her left shoulder as well as any weightbearing or lifting with her left upper extremity until further notice. We discussed that she will likely be immobilized in a sling for ultimately 6 weeks. I would like
to see her back in our outpatient office in 1 to 2 weeks for repeat x-rays. We discussed the possibility of fracture displacement, which could potentially necessitate surgical intervention in the future. She may work with PT/OT while inpatient to
help her accommodate her nonweightbearing status on her left upper extremity. We will sign off on her from an orthopedic standpoint for now and she will follow-up with as outpatient. All questions were answered and patient in agreement with
treatment recommendations.
[2025-04-08] MEDS: LIPITOR 40 MG PO (17:00)
[2025-04-08] MEDS: ELIQUIS PO (19:51)
[2025-04-08] MEDS: CARDIZEM CD 120 MG PO (19:54)
[2025-04-08] MEDS: ABILIFY 5 MG PO (22:02)
--- NOTE | 2025-04-08 23:49 | PTCARENOTE ---
Pt resting comfortably in bed. AAOx3. Can be forgetful. Denies pain to left shoulder unless she moves arm. Admits to 8/10 pain to left ankle. Medicated with Ultram as ordered. IVF's infusing as ordered. VSS. Afebrile. Afib on CM rate 80's-low 100's.
POX RA 92%. Voided x 2 for 550ml yellow urine for shift so far. Left arm immobilizer in place. Left ankle dressing off at beginning of shift d/t pt constantly moving about in bed. Wound care completed. Rest of assessment as documented. Maintained on
Q2hr turns. Call pack remains within reach. Will continue to monitor.
[2025-04-09] VITALS (26 sets, daily range): BP systolic 83–146; BP diastolic 54–114; PULSE 106; BMI 18.1
[2025-04-09 03:45] LABS: % Basophils 0.3 % (0-2); % Eosinophils 0.7 % (0-6); % Immature Granulocytes 0.2 % (0-0.5); % Lymphocytes 16.9 % (20.5-51.1); % Monocytes 6.7 % (1.7-9.3); % Neutrophils 75.2 % (42.2-75.2); Absolute Eosinophils 0.1 10^3/uL (0-0.7); Absolute Lymphocytes 1.5 10^3/uL (1.2-3.4); Absolute Monocytes 0.6 10^3/uL (0.1-0.6); Absolute Neutrophils 6.5 10^3/uL (1.4-6.5); Hematocrit 27.1 % (37.0-47.0); Hemoglobin 9.1 g/dL (12.0-16.0); Mean Corp Hgb Conc. 33.6 g/dL (33.0-37.0); Mean Corpuscular Hgb 28.5 pg (27.0-31.0); Mean Platelet Volume 10.5 fL (7.4-10.4); Nucleated Red Blood Cells % 0 %; Platelet Count 269 10^3/uL (130-400); Red Blood Cell Count 3.19 10^6/uL (4.20-5.40); Red Cell Dist. Width 14.6 % (11.5-14.5); White Blood Cell Count 8.7 10^3/uL (4.8-10.8)
[2025-04-09 04:18] LABS: ALT (SGPT) 25 U/L (0-35); AST (SGOT) 63 U/L (14-36); Albumin 3.3 g/dl (3.5-5.0); Alkaline Phosphatase 73 U/L (38-126); Blood Urea Nitrogen 15 mg/dl (7-17); Calcium 8.9 mg/dl (8.4-10.2); Carbon Dioxide 20 mmol/L (22-30); Chloride 110 mmol/L (98-107); Estimated Creatinine Clearance 49 ml/min; Glucose 90 mg/dl (70-99); Potassium 4.1 mmol/L (3.5-5.1); Sodium 135 mmol/L (135-145); Total Bilirubin 0.8 mg/dl (0.2-1.3); Total CK 1236 U/L (30-135); Total Protein 6.3 g/dl (6.3-8.2); eGFR > 60.00
[2025-04-09 04:47] LABS: CKMB 13.7 ng/ml (0.0-3.4)
[2025-04-09] MEDS: SYNTHROID 112 MCG PO (05:29)
[2025-04-09] MEDS: ULTRAM 50 MG PO ×2 (05:29→16:04)
[2025-04-09] MEDS: SPIRIVA RESPIMAT 2.5 MCG 2 PUFF INH (07:48)
--- NOTE | 2025-04-09 08:25 | W.PN.CARDCBS ---
Today's Communication / Plan
-
Plan is conservative treatment for humerus fracture
Continue digoxin and higher dose of diltiazem for permanent A-fib. Ventricular rates are improved
Continue Eliquis/Plavix
Total CK is improving with likely low level rhabdomyolysis. Watch for signs of volume overload.
Continue midodrine for orthostasis
Impression / Plan
-
PCP: Alea REYNOLDS
Cardiology: Dr. Melchor Duran
Impression:
Presented 04/07/2025 with mechanical fall
Left humeral fracture
Rhabdomyolysis secondary to fall with prolonged lying on floor
Mildly abnormal AST
A-fib with rapid ventricular response
Hyperthyroid, TSH less than 0.02
Permanent atrial fibrillation
s/p cardioversion 11/05/2023
Chronic Eliquis anticoagulation
CAD
s/p LCx PCI 2018
Peripheral vascular disease
status post prior angioplasty/stenting left iliac and SFA/popliteal with extensive SFA/popliteal stent placement 03/16/2025
Status post stenting of bilateral SFA/iliac arteries
Hypertension
Hyperlipidemia
Hypothyroidism
COPD
PVCs
Echo 01/25/2024: EF 50 to 55%. Moderate TR with PAP 35 to 38 mmHg. Patent PFO with [id number] flow/shunt
CHON 04/11/2021([facility] study): Low normal EF, right to left shunt with agitated saline consistent with PFO, no evidence of thrombus in LARA, trace MR
Plan:
-Presented 04/07/2025 with mechanical fall resulting in left humeral fracture and rhabdomyolysis secondary to prolonged lying on floor. Also noted to be in atrial fibrillation with rapid ventricular response
-Patient with known permanent atrial fibrillation with plan for rate control with digoxin as outpatient.
-Heart rates overall improved. Continue digoxin and higher dose of diltiazem 120 mg twice daily
-Plan for humeral fracture is conservative therapy. No plans for surgery.
-TSH less than 0.02, compensated free T4 1.85. Defer adjustment in Synthroid to primary service
-Continue Eliquis 2.5 mg twice a day
-Hemoglobin overall stable at 9.1. Continue to follow
-Continue Plavix and statin secondary to recent iliac/SFA stent on 03/16/2025 and known coronary disease
-Continue midodrine 5 mg 3 times daily for history of orthostatic hypotension
- Total CK down to 1200. Remains on gentle hydration. Will need to watch for signs of CHF. May need dose of Lasix in a.m.
Progress Note - [employer]
Subjective
Date of Service: April 09, 2025
Still some arm pain but overall improving. No plans for surgery
Objective
Labs:
04/09/25 03:16
04/09/25 03:16
Labs
Hgb 9.1 g/dL (12.0-16.0) L 04/09/25 03:16
Hct 27.1 % (37.0-47.0) L 04/09/25 03:16
Plt Count 269 10^3/uL (130-400) 04/09/25 03:16
Sodium 135 mmol/L (135-145) 04/09/25 03:16
Potassium 4.1 mmol/L (3.5-5.1) 04/09/25 03:16
BUN 15 mg/dl (7-17) 04/09/25 03:16
Creatinine 0.4 mg/dL (0.6-1.0) L 04/09/25 03:16
Glucose 90 mg/dl (70-99) 04/09/25 03:16
Digoxin < 0.4 ng/ml (0.8-2.0) L 04/07/25 20:06
Vital Signs and I&O:
Vital Signs
Temp Pulse Resp BP Pulse Ox
97.9 F 97 20 135/90 95
04/09/25 08:02 04/09/25 07:50 04/09/25 07:50 04/09/25 06:00 04/09/25 07:50
Vital Signs
Temp Pulse Resp BP Pulse Ox
97.9 F 97 20 135/90 95
04/09/25 08:02 04/09/25 07:50 04/09/25 07:50 04/09/25 06:00 04/09/25 07:50
Intake & Output
04/07/25 04/08/25 04/09/25 04/10/25
06:59 06:59 06:59 06:59
Intake Total 575 / 575 820 / 820
Output Total 600 / 600 800 / 800
Balance - / -
Physical Exam
Physical Exam
GEN: No distress, awake, Ox3
HEENT: supple, anicteric, mmm
LUNGS: CTA, no wheezes/rales
CV: Irreg, S1/S2, 1/6 syst LSB, no murmur
ABD: soft, BS+, NT/ND
EXT: Left arm in sling with ecchymosis
NEURO: Gross non-focal
SKIN: No rash
[2025-04-09] MEDS: LANOXIN 125 MCG PO (08:58)
[2025-04-09] MEDS: ZOLOFT 100 MG PO (08:59)
[2025-04-09] MEDS: ProAmatine PO (09:00)
[2025-04-09] MEDS: CARDIZEM CD 120 MG PO ×2 (09:01→19:23)
[2025-04-09] MEDS: THERAGRAN 1 TABLET PO (09:01)
[2025-04-09] MEDS: OSCAL 500 + D 500 MG PO (09:01)
[2025-04-09] MEDS: ELIQUIS 2.5 MG PO ×2 (09:02→19:23)
[2025-04-09] MEDS: FEOSOL 325 MG PO (09:02)
[2025-04-09] MEDS: PLAVIX 75 MG PO (09:02)
[2025-04-09] MEDS: TYLENOL 650 MG PO (09:06)
--- NOTE | 2025-04-09 12:20 | W.PN.HOSP.TC ---
Today's Communication/Plan
-
Monitor vital signs see plan
Continue with Eliquis, Plavix
Continue Cardizem, digoxin
Nonop management for now per orthopedics
Transfer out of IMU
Monitor CK
Ultrasound lower extremity with BRYANT
Assessment / Plan
Assessment / Plan
General: Comfortable and Conversant
HEENT: NormoCephalic, Anicteric, Moist mucous membranes
Cardiac: S1/S2 and Irregular Rhythm; No Murmur
GI: Soft, Non Tender, Non Distended, Normal Bowel Sounds
Musculoskeletal: No Edema and Other (Left shoulder limited range of motion secondary to left humeral head fracture)
Neuro: AO x 3
Psych: Calm
Mechanical fall with left proximal humerus fracture surgical neck
-Sling
likely be immobilized in a sling for ultimately 6 weeks. ortho like to see her back in our outpatient office in 1 to 2 weeks for repeat x-rays.
-Ice
-Tylenol, tramadol moderate pain-
Orthopedic follow, nonsurgical management per Ortho
X-ray left shoulder: Acute fracture surgical neck of the left proximal humerus with comminution and mild displacement no dislocation
CXR: No acute cardiopulmonary process
CT cervical spine: No evidence for abnormality of the cervical spine chronic biapical pleural-parenchymal scarring and mild paraseptal emphysema
CT head: No acute intracranial abnormality
#Acute rhabdomyolysis�mild from prolonged floor lying/fall
monitor CK
DC further IVF and monitor, CK improving
# Rapid A-fib atrial fibrillation/history-Paroxysmal A-fib
-Patient did not take rate control meds today or Eliquis due to fall
#History cardioversion 12/11/2023 A-fib to sinus rhythm successful yazidi of sinus rhythm then came in with paroxysmal A-fib and RVR that was symptomatic
Off IV Cardizem
-Continue digoxin 125 mcg p.o. daily hold if SBP less than 110
Eliquis restarted
cardiology following
- Resumed diltiazem PO
#PAD
#Status post left leg 04/11, right leg [address] Aaron
-on Plavix 75 mg daily
vascular consulted
BRYANT ordered
Hx hypotension
continue midodrine 5 mg 3 times daily
#Chronic interstitial lung disease
# November 12, 2023 right lower lobe pneumonia
# Chronic ALT elevation�unknown chronicity
- Follow CMP
#Coronary artery disease
-hold Eliquis 2.5 mg twice daily, Plavix 75 mg daily in anticipation of surgery
Continue statin
#COPD-no acute exacerbation
-Continue Spiriva inhaler
#Anxiety/depression
-Continue sertraline 100 mg daily, aripiprazole 5 mg at bedtime
#Hyperlipidemia
-Continue statin
#Hypothyroidism
-Continue levothyroxine 112 mcg p.o. daily
#Depression/bipolar
Continue Zoloft, Abilify
# Former smoker quit September 2024
Prior 68-year half a pack a day
Hx gastroenteritis causing hypotension metabolic acidosis and HAYLIE December 2024
DVT prophylaxis
-eliquis
DNR per patient states has a living will, her daughter Mile is her emergency contact [phone]
PT/OT; appears need SNF
I spent a total of 52 minutes with the patient or on the floor. More than 50% of this time involved counseling and coordination of care.
Anticipated Discharge: 24 - 48 hours
Subjective/Interval History
-
Date of Service: April 09, 2025
Denies nausea
Objective Data
-
Labs:
Laboratory Results
04/09/25
03:16
WBC 8.7
Hgb 9.1 L
Hct 27.1 L
Plt Count 269
Sodium 135
Potassium 4.1
Chloride 110 H
Carbon Dioxide 20 L
BUN 15
Creatinine 0.4 L
Glucose 90
Calcium 8.9
Total Bilirubin 0.8
AST 63 H
ALT 25
Alkaline Phosphatase 73
Vital Signs:
Vital Signs
Temp Pulse Resp BP Pulse Ox
97.8 F 95 20 146/102 95
04/09/25 11:31 04/09/25 08:58 04/09/25 07:50 04/09/25 09:01 04/09/25 07:50
I&O
04/08/25 04/09/25 04/10/25
06:59 06:59 06:59
Intake Total 575 / 575 820 / 820
Output Total 600 / 600 800 / 800 200 / 200
Balance -25 / -25 20 / 20 -200 / -200
[2025-04-09] MEDS: ProAmatine 5 MG PO ×2 (13:02→16:05)
[2025-04-09] MEDS: LIPITOR 40 MG PO (18:01)
[2025-04-09] MEDS: ABILIFY 5 MG PO (19:23)
--- NOTE | 2025-04-09 20:31 | PTCARENOTE ---
Patient transferred to [facility]. Belongings sent with patient.
[2025-04-10] VITALS (8 sets, daily range): BP systolic 101–144; BP diastolic 60–86; PULSE 65–67; O2SAT 96–97; BMI 18.0
[2025-04-10] MEDS: SYNTHROID 112 MCG PO (05:23)
[2025-04-10] MEDS: TYLENOL 650 MG PO ×2 (06:31→17:24)
[2025-04-10 06:55] LABS: % Basophils 0.3 % (0-2); % Eosinophils 0.9 % (0-6); % Immature Granulocytes 0.3 % (0-0.5); % Lymphocytes 11.9 % (20.5-51.1); % Monocytes 6.3 % (1.7-9.3); % Neutrophils 80.3 % (42.2-75.2); Absolute Eosinophils 0.1 10^3/uL (0-0.7); Absolute Lymphocytes 1.2 10^3/uL (1.2-3.4); Absolute Monocytes 0.6 10^3/uL (0.1-0.6); Absolute Neutrophils 8.2 10^3/uL (1.4-6.5); Hematocrit 27.3 % (37.0-47.0); Hemoglobin 9.1 g/dL (12.0-16.0); Mean Corp Hgb Conc. 33.3 g/dL (33.0-37.0); Mean Corpuscular Hgb 28.5 pg (27.0-31.0); Mean Corpuscular Volume 85.6 fL (81.0-99.0); Mean Platelet Volume 10.2 fL (7.4-10.4); Nucleated Red Blood Cells % 0 %; Platelet Count 284 10^3/uL (130-400); Red Blood Cell Count 3.19 10^6/uL (4.20-5.40); Red Cell Dist. Width 14.4 % (11.5-14.5); White Blood Cell Count 10.2 10^3/uL (4.8-10.8)
[2025-04-10 07:23] LABS: ALT (SGPT) 24 U/L (0-35); AST (SGOT) 46 U/L (14-36); Albumin 3.3 g/dl (3.5-5.0); Alkaline Phosphatase 74 U/L (38-126); Blood Urea Nitrogen 18 mg/dl (7-17); Calcium 8.8 mg/dl (8.4-10.2); Carbon Dioxide 19 mmol/L (22-30); Chloride 107 mmol/L (98-107); Estimated Creatinine Clearance 48 ml/min; Glucose 83 mg/dl (70-99); Sodium 133 mmol/L (135-145); Total CK 412 U/L (30-135); Total Protein 6.3 g/dl (6.3-8.2); eGFR > 60.00
--- NOTE | 2025-04-10 07:32 | W.PN.HOSP.TC ---
Addendum entered and electronically signed by Sharath Cain DO 04/10/25 14:23:
CDI:
Stage II left ankle pressure injury, POA
Underweight
Traumatic rhabdomyolysis
Original Note:
Today's Communication/Plan
-
;/
Assessment / Plan
Assessment / Plan
Assessment/plan
#Left shoulder proximal humerus fracture, minimally displaced secondary to mechanical fall
-X-ray of left shoulder 04/10- Acute fracture of the surgical neck of the left proximal humerus with comminution and mild displacement. No dislocation
-Ortho input appreciated
-Nonsurgical invention with full-time immobilization in a sling for ultimately 6 weeks.
-Follow-up with Ortho outpatient in 2 weeks for repeat x-ray
-PT/OT
-Pain control with Tylenol/tramadol
#Permanent atrial fibrillation with RVR
-s/p cardioversion 11/05/2023
-Continue digoxin and higher dose of diltiazem 120 mg twice daily
-Anticoagulation with Eliquis
-Cardiology following
#Rhabdomyolysis secondary to fall
-CK on presentation to 2577
-Improved with IV fluids
-DC further IVF and monitor, CK improving
#Left foot tissue loss and pain
#Peripheral vascular disease
-s/p angioplasty/stenting left iliac and SFA/popliteal with extensive SFA/popliteal stent placement 03/16/2025
-s/p stenting of bilateral SFA/iliac arteries
-Continue on Plavix, statin
-vascular consulted, pending evaluation
-BRYANT ordered, pending
#CAD s/p LCx PCI 2018
- Continue Plavix, statin
#History of orthostatic hypotension
-Continue midodrine 5 mg 3 times daily
#Chronic interstitial lung disease
#Chronic transaminitis
-Unknown chronicity
-Monitor LFTs
#COPD
-no acute exacerbation
-Continue Spiriva inhaler
#Depression and bipolar disorder
-Continue home sertraline and Abilify
#Hyperlipidemia
-Continue statin
#Hypothyroidism
-Continue levothyroxine 112 mcg p.o. daily
#Former smoker quit September 2024
-Prior 68-year half a pack a day
CODE STATUS DNR
DVT prophylaxis Eliquis
Disposition; SNF
Anticipated Discharge: 24 - 48 hours
Subjective/Interval History
-
Patient seen and examined at bedside. Denies acute complaints of chest pain, shortness of breath. Denies palpitation
Objective Data
-
Labs:
Laboratory Results
04/10/25
06:10
WBC 10.2
Hgb 9.1 L
Hct 27.3 L
Plt Count 284
Sodium 133 L
Potassium 4.0
Chloride 107
Carbon Dioxide 19 L
BUN 18 H
Creatinine 0.4 L
Glucose 83
Calcium 8.8
Total Bilirubin 1.0
AST 46 H
ALT 24
Alkaline Phosphatase 74
Vital Signs:
Vital Signs
Temp Pulse Resp BP Pulse Ox
98.2 F 77 18 110/60 97
04/10/25 04:00 04/10/25 04:00 04/10/25 04:00 04/10/25 04:27 04/10/25 04:00
I&O
04/09/25 04/10/25 04/11/25
06:59 06:59 06:59
Intake Total 820 / 820 240 / 240
Output Total 800 / 800 300 / 300
Balance 20 / 20 -60 / -60
Review of Systems
-
All other systems: Reviewed and negative (Except as documented)
Physical Exam
-
General: No Apparent Distress, Comfortable and Conversant
HEENT: Normocephalic
Respiratory: Clear to Auscultation; Negative Wheezes, Rales or Rhonchi
Cardiac: S1/S2 and Irregular Rhythm
GI: Soft, Nontender, Nondistended and Normal Bowel Sounds
Musculoskeletal: No Edema and Other (Moderate ecchymosis on skin surface of anterior shoulder. Limited range of motion of elbow due to pain.)
Neuro: Awake, Alert, Oriented and AO x 3
Psych: Calm
[2025-04-10] MEDS: SPIRIVA RESPIMAT 2.5 MCG 2 PUFF INH (07:51)
[2025-04-10 07:53] LABS: CKMB 5.8 ng/ml (0.0-3.4)
[2025-04-10] MEDS: THERAGRAN 1 TABLET PO (08:38)
[2025-04-10] MEDS: LANOXIN 125 MCG PO (08:39)
[2025-04-10] MEDS: CARDIZEM CD 120 MG PO ×2 (08:39→21:02)
[2025-04-10] MEDS: ELIQUIS 2.5 MG PO ×2 (08:41→21:02)
[2025-04-10] MEDS: FEOSOL 325 MG PO (08:41)
[2025-04-10] MEDS: OSCAL 500 + D 500 MG PO (08:42)
[2025-04-10] MEDS: PLAVIX 75 MG PO (08:42)
[2025-04-10] MEDS: ProAmatine 5 MG PO ×3 (08:42→17:23)
[2025-04-10] MEDS: ZOLOFT 100 MG PO (08:42)
--- NOTE | 2025-04-10 09:18 | CON.VAS ---
Consultation
Consultation Request
Date/Time Consultation Performed: 04/10/25 7330
Requesting Provider: Hospitalist
Performing Provider: Rae Latham, MARGARET-C for Yash Aaron M.D.
Reason for Consultation: Left lower extremity wound
Medical History
-
Chief Complaint: Mechanical fall
History of Present Illness:
This is a 85 year old female who is s/p left lower extremity angiogram with balloon angioplasty and stent placement, see vascular surgical history below, on 03/16/[address] Yash Aaron M.D. for peripheral arterial disease and left foot digit tissue
loss. She presented to ED on 04/07/2025 for reports of fall at 1 AM in bathroom which resulted in left proximal humerus fracture and patient was noted to be in rapid A-fib upon arrival to ED. Vascular surgery has been consulted as patient recently
underwent angiogram with intervention for tissue loss. Patient notes intermittent discomfort to left foot but otherwise offers no complaints regarding left lower extremity. Denies worsening in chronic wound.
Vascular surgical history:
03/16/24- Aortogram and pelvic angiogram, left lower extremity arteriogram with third order vessel catheterization of left peroneal artery via right common femoral artery puncture, balloon angioplasty left external iliac and common iliac artery and
stent placement with Zilver PTX overlapping 7 mm x 4 cm, 6 mm x 4 cm stents, recanalization of long segment occlusion left superficial femoral artery and above-knee popliteal artery with angioplasty long segment, placement of overlapping Zilver PTX
stents left above-knee popliteal artery back to origin of superficial femoral artery with 6 mm x 14 cm, 6 mm x 14 cm, 6 mm x 12 cm, 6 mm x 4 cm stents, balloon angioplasty of below-knee popliteal artery with 4 mm angioplasty balloon, right femoral
angiogram Yash Aaron MD
03/16/25- Aortogram and pelvic angiogram, left lower extremity arteriogram with third order vessel catheterization of left popliteal artery via right common femoral artery puncture, balloon angioplasty with standard 6 mm angioplasty balloon, as well
as 5 mm drug-coated balloon (Bard Lutonix) left SFA/popliteal in-stent occlusion, placement of self-expanding Cook Zilver PTX 6 mm x 4 cm proximal SFA stent, right femoral angiogram Yash Aaron MD
Past Medical History
Past Medical History: Arrhythmias (Atrial fibrillation), CAD, COPD, HTN, Hypothyroidism and Other (PAD)
Past Surgical History: Appendectomy, Cardiac (Cardiac catheterization with PCI), Gynecological (Hysterectomy) and Other (Left digit amputation, left lower extremity angiogram with intervention, right lower extremity angiogram with intervention,
wisdom teeth extraction, cataract surgery, cardioversion)
Social History
Tobacco: Former Smoker
Allergies / Home Medications
Allergy/AdvReac Type Severity Reaction Status Date / Time
cephalexin (From Keflex) Allergy diarrhea Verified 04/07/25 19:50
gluten Allergy Unknown Verified 04/07/25 19:50
tetracycline Allergy Itching Verified 04/07/25 19:50
�Medication �Instructions �Recorded �Confirmed �Type
aripiprazole 5 mg tablet (Abilify) 5 mg PO HS Bipolar 11/05/23 04/07/25 History
ferrous sulfate 325 mg (65 mg 325 mg PO DAILY Supplement 11/12/23 04/07/25 History
iron) tablet (iron)
diltiazem HCl 120 mg 120 mg PO QPM Blood Pressure 03/02/24 04/07/25 History
capsule,extended release 24 hr
sertraline 100 mg tablet 100 mg PO DAILY Depression 03/02/24 04/07/25 History
apixaban 2.5 mg tablet 2.5 mg PO BID atrial fibrilation 03/16/24 04/07/25 History
atorvastatin 10 mg tablet 40 mg PO QPM High Cholesterol 03/16/24 04/07/25 History
clopidogrel 75 mg tablet 75 mg PO DAILY #30 tabs 03/16/24 04/07/25 Rx
multivitamin 1 tab PO DAILY Supplement 03/16/24 04/07/25 History
digoxin 125 mcg (0.125 mg) tablet 125 mcg PO DAILY Heart Failure 12/06/24 04/07/25 History
levothyroxine 112 mcg tablet 112 mcg PO DAILY Thyroid 12/06/24 04/07/25 History
collagenase clostridium histo. 250 1 applic topical DAILY 03/14/25 04/07/25 History
unit/gram topical ointment (Santyl)
denosumab 60 mg/mL subcutaneous 60 mg SC [id number] 03/14/25 04/07/25 History
syringe (Prolia)
midodrine 5 mg tablet 5 mg PO TID 03/14/25 04/07/25 History
calcium 600 mg (as 1 tab PO DAILY 03/16/25 04/07/25 History
carbonate)-vitamin D3 5 mcg (200
unit) tablet
tiotropium bromide 18 mcg capsule 1 cap inhalation DAILY 03/16/25 04/07/25 History
with inhalation device
Review of Systems
-
History Source: Patient
Constitutional: Reports No Symptoms
EENT: Reports No Symptoms
Respiratory: Reports No Symptoms
Cardiac: Reports No Symptoms
Abdomen/GI: Reports No Symptoms
: Reports No Symptoms
Musculoskeletal: Reports Other (fall to left arm)
Skin: Reports Other (left foot hallux chronic wound )
Physical Exam
Vital Signs
Temp Pulse Resp BP Pulse Ox
98.3 F 77 16 108/69 95
04/10/25 07:35 04/10/25 08:42 04/10/25 07:50 04/10/25 08:42 04/10/25 07:50
Lab Results
04/10/25 06:10
04/10/25 06:10
Physical Exam
General: No Apparent Distress
HEENT: Normocephalic, Anicteric and Atraumatic
Respiratory: Non Labored Respirations
Cardiac: Negative JVD
GI: Soft, Non Tender and Non Distended
Musculoskeletal: Other (ecchymosis and mild swelling to left arm)
Skin: Warm and Other (small dry wound to left foot digit )
Neuro: Awake and Alert
Pulses: Left Dorsalis Pedis: Doppler (weak doppler signal)
Assessment / Plan
-
Assessment: 85-year-old female status post mechanical fall resulting in left humerus fracture with past medical history of peripheral arterial disease and left foot tissue loss status post angio with intervention.
Plan:
Recommend duplex to assess patency of stents, pt with slightly weaker Doppler signal; this may represent recurrent stenosis or occlusion. Will await ultrasound results to determine surgical plan. Potentially could further workup as outpatient but
lets await the ultrasound and see.
--- NOTE | 2025-04-10 09:22 | W.PN.CARDCBS ---
Addendum entered and electronically signed by Melchor Duran MD 04/10/25 11:34:
Pleasant 85-year-old woman well-known to me with permanent atrial fibrillation, CAD and prior PCI, admitted with humeral fracture following fall and with mild rhabdomyolysis
PMH/PSH: Permanent atrial fibrillation, orthostasis, left circumflex PCI 2018, PAD with stenting of left iliac and SFA with recent popliteal stent placements, hypertension, hyperlipidemia, hypothyroidism, COPD, PVCs, depression, anxiety, left toe
amputation
Outpatient medications: Reviewed
Current medications: Apixaban 2.5 mg twice daily, Abilify 5 mg at bedtime, atorvastatin 40 mg at bedtime, clopidogrel 75 mg daily, digoxin 125 mcg daily, iron, levothyroxine 112 mcg daily, midodrine 5 mg 3 times daily, sertraline, Spiriva, diltiazem
ER 120 mg twice daily, had been once daily as outpatient
Ongoing tobacco abuse
108/69, pulse 77, resp rate 16, afebrile, weight is 43.15 kg, which is stable, relatively frail, temporal wasting, pleasant, lungs clear, regular rate and rhythm, no obvious murmurs,
Hemoglobin is 9.1, had been 11.6 on admission, BUN/creatinine are 18 and 0.4 potassium is 4, sodium is 133, peak CPK was 2577, proBNP troponin not measured, digoxin was less than 0.4 on admission
ECG on admission was atrial fibrillation with left axis, cannot exclude prior inferior posterior NC
Impression:
Per Lesia Miranda as noted below. Reviewed in detail by me. Agree, unless otherwise specified below
Plan:
Overall she is stable from the standpoint of atrial fibrillation and underlying CAD AD. Her ventricular response had been somewhat rapid, is now better with an increase in diltiazem.
Her orthostasis is controlled on midodrine.
For her PAD, she remains on Eliquis and Plavix.
Strongly advised that she do her best with regards to smoking cessation.
No evidence of HAYLIE from rhabdomyolysis. No evidence of heart failure on exam
Arterial ultrasound is pending. Some concern regarding most recent lower extremity intervention, Dr. Aaron is following.
Okay to proceed with discharge planning.
We have arranged for outpatient cardiac follow-up. Will sign off, please call if questions
Recommended cardiac medications at discharge:
Apixaban 2.5 mg twice daily
Atorvastatin 40 mg at bedtime
Clopidogrel 75 mg a day
Digoxin 125 mcg daily
Diltiazem CD100 20 mg twice daily (was previously once daily)
Midodrine 5 mg 3 times daily
Original Note:
Today's Communication / Plan
-
Continue digoxin and increased dose of diltiazem, heart rates reasonably controlled
Continue Eliquis/Plavix
Continue midodrine for orthostasis
Lower extremity arterial Doppler pending
Outpatient cardiology follow-up has been arranged
Impression / Plan
-
PCP: Alea REYNOLDS
Cardiology: Dr. Melchor Duran
Impression:
Presented 04/07/2025 with mechanical fall
Left humeral fracture
Rhabdomyolysis secondary to fall with prolonged lying on floor
Mildly abnormal AST
A-fib with rapid ventricular response
Hyperthyroid, TSH less than 0.02
Permanent atrial fibrillation
s/p cardioversion 11/05/2023
Chronic Eliquis anticoagulation
CAD
s/p LCx PCI 2018
Peripheral vascular disease
status post prior angioplasty/stenting left iliac and SFA/popliteal with extensive SFA/popliteal stent placement 03/16/2025
Status post stenting of bilateral SFA/iliac arteries
Hypertension
Hyperlipidemia
Hypothyroidism
COPD
PVCs
Echo 01/25/2024: EF 50 to 55%. Moderate TR with PAP 35 to 38 mmHg. Patent PFO with [id number] flow/shunt
CHON 04/11/2021([facility] study): Low normal EF, right to left shunt with agitated saline consistent with PFO, no evidence of thrombus in LARA, trace MR
Plan:
-Presented 04/07/2025 with mechanical fall resulting in left humeral fracture and rhabdomyolysis secondary to prolonged lying on floor. Also noted to be in atrial fibrillation with rapid ventricular response
-Plan for humeral fracture is conservative therapy. No plans for surgery.
-Patient with known permanent atrial fibrillation. Heart rates overall improved. Continue digoxin and higher dose of diltiazem 120 mg twice daily
-TSH less than 0.02, compensated free T4 1.85. Defer adjustment in Synthroid to primary service
-Continue Eliquis 2.5 mg twice a day
-Hemoglobin overall stable at 9.1. Continue to follow
-Continue Plavix and statin secondary to recent iliac/SFA stent on 03/16/2025 and known coronary disease. Lower extremity arterial Doppler pending
-Continue midodrine 5 mg 3 times daily for history of orthostatic hypotension
-Total CK peak 2577, now down to 412. Now hyponatremic with sodium of 133. Likely due to volume resuscitation. Weight has remained stable and no evidence of acute volume overload on exam. Would hold on diuresis at this point.
- Patient does note some dysuria. Consider checking UA
History of Present Illness 04/08/2025:
Susu is an 85-year-old female with past medical history of permanent atrial fibrillation on chronic anticoagulation with Eliquis, CAD, peripheral vascular disease with recent left iliac and SFA stenting 03/16/2025, hypertension, hyperlipidemia,
hypothyroidism, COPD, and PVCs who presented to ER 04/07/2025 with mechanical fall getting out of bed when she missed stepped landing on left shoulder. She reports she was laying on the floor for about 10 hours. She was found by a caregiver on
the floor. She denied hitting her head. She denied having chest pain, shortness of breath, dizziness or lightheadedness prior to fall. On arrival to emergency department patient was found to be in atrial fibrillation with rapid ventricular
response. She was started on diltiazem bolus with drip. Patient was found to have acute fracture of left proximal humerus for which orthopedics has been consulted. Found to have elevated total creatinine kinase of 2577. TSH less than 0.02 with
compensated free T4 1.85. Digoxin less than 0.4
At time of this evaluation patient in rate controlled atrial fibrillation and is currently off diltiazem drip. She denies any cardiac symptoms including chest pain, shortness of breath, dizziness or lightheadedness. She continues to have left
shoulder pain
Progress Note - Leadership Program Associate
Subjective
Date of Service: April 10, 2025
Patient seen and examined. Patient reports she is feeling well. Still having left shoulder pain. She does note some dysuria and frequent urination at night.
Objective
Labs:
04/10/25 06:10
04/10/25 06:10
Labs
Hgb 9.1 g/dL (12.0-16.0) L 04/10/25 06:10
Hct 27.3 % (37.0-47.0) L 04/10/25 06:10
Plt Count 284 10^3/uL (130-400) 04/10/25 06:10
Sodium 133 mmol/L (135-145) L 04/10/25 06:10
Potassium 4.0 mmol/L (3.5-5.1) 04/10/25 06:10
BUN 18 mg/dl (7-17) H 04/10/25 06:10
Creatinine 0.4 mg/dL (0.6-1.0) L 04/10/25 06:10
Glucose 83 mg/dl (70-99) 04/10/25 06:10
Digoxin < 0.4 ng/ml (0.8-2.0) L 04/07/25 20:06
Vital Signs and I&O:
Vital Signs
Temp Pulse Resp BP Pulse Ox
98.3 F 77 16 108/69 95
04/10/25 07:35 04/10/25 08:42 04/10/25 07:50 04/10/25 08:42 04/10/25 07:50
Vital Signs
Temp Pulse Resp BP Pulse Ox
98.3 F 77 16 108/69 95
04/10/25 07:35 04/10/25 08:42 04/10/25 07:50 04/10/25 08:42 04/10/25 07:50
Intake & Output
04/08/25 04/09/25 04/10/25 04/11/25
06:59 06:59 06:59 06:59
Intake Total 575 / 575 820 / 820 240 / 240
Output Total 600 / 600 800 / 800 300 / 300
Balance -25 / -25 20 / 20 -60 / -60
Physical Exam
Physical Exam
GEN: No distress, awake, Ox3, thin female
HEENT: supple, anicteric, mmm
LUNGS: CTA, no wheezes/rales
CV: Irreg, S1/S2, 1/6 syst LSB murmur
ABD: soft, BS+, NT/ND
EXT: Left arm in sling with left shoulder and upper arm ecchymosis
NEURO: Gross non-focal
SKIN: No rash, warm, dry, pink
--- NOTE | 2025-04-10 10:09 | W.PN.UPDATE ---
Update Note
Progress Note Update
Known to me status post recent left lower extremity intervention for recurrent stenosis and left foot tissue loss. Here after fall. Asked to evaluate. Patient notes continued left foot pain. Seems somewhat intermittent. On exam her left foot is
warm and reasonably colored. No obvious rubor. Stable small left fifth toe lesion. Weak dopplerable DP signal. Plan/recommend duplex to assess patency of stents. Slightly weaker Doppler signal. May have recurrent stenosis or occlusion.
Heavily diseased vessels during angiography noted. Suboptimal overall for repeated endovascular interventions. However her age and risk factors make her higher risk for surgical revascularization. Await ultrasound. Regardless may not need
anything urgently in terms of peripheral arterial disease. Potentially could further workup as outpatient but lets await the ultrasound and see.
--- NOTE | 2025-04-10 11:57 | CM ---
Patient seen at bedside
IA completed
Lives alone at [address], elevator access
PLOF: independent with walker
DME: Chris shower chair, grab bars
[facility] past
Denies insecurities
PT/OT to eval
PCP: Jie Us
Pharmacy: [facility]
PLAN: await PT/OT gloria, PHYLLIS to cont to follow for needs
--- NOTE | 2025-04-10 14:02 | PN.CDI ---
CDI
- -
CDI:
Physician Documentation Request
Admit Date: 04/08/25 00:10
Dear Doctor,
Please review the following and provide your response in the progress notes.
Clinical Indicators:
- 04/07 ER Physician - patient fell on floor and unable to get up
- 04/10 PN 'Rhabdomyolysis secondary to fall with prolonged downtime'
- Elevated creatine kinase
- 3L IVF given
Please further specify the rhabdomyolysis
Traumatic rhabdomyolysis
Non-traumatic rhabdomyolysis
Other (please specify)
Use of terms such as suspected, likely, concern for, or probable (associated with a specific diagnosis that is being evaluated, monitored, or treated as if it exists) are acceptable and can be coded in the inpatient setting, when documented at the
time of discharge.
Thank you,
Rashawn Sheriff RN
CDI Specialist
Please use your independent medical judgment in providing your response.
--- NOTE | 2025-04-10 14:11 | PN.CDI ---
CDI
- -
CDI:
Physician Documentation Request
Admit Date: 04/08/25 00:10
Dear Doctor,
Please review the following and provide your response in the progress notes.
Clinical Indicators:
Height: 5'1
Weight: 95lbs
BMI: 18.0
Other Clinical Notes: Property [employer] Casualty Insurance Agent note indicates underweight
If possible, please provide an associated diagnosis related to the abnormal BMI, such as:
Underweight
Cachectic
Other (please specify)
Use of terms such as suspected, likely, concern for, or probable (associated with a specific diagnosis that is being evaluated, monitored, or treated as if it exists) are acceptable and can be coded in the inpatient setting, when documented at the
time of discharge.
Thank you,
Rashawn Sheriff RN
CDI Specialist
Please use your independent medical judgment in providing your response.
--- NOTE | 2025-04-10 14:13 | PN.CDI ---
CDI
- -
CDI:
Physician Documentation Request
Admit Date: 04/08/25 00:10
Dear Doctor,
Please review the following and provide your response in the progress notes.
Clinical Indicators:
- RN skin assessments indicate Stage 2 left ankle pressure injury, POA
Physician documentation of the type and location of wounds is required for compliant documentation. Based on the above clinical findings and your assessment, please provide the following in your progress note:
1. Location of the ulcer/wound, including laterality.
2. Type (etiology) of ulcer/wound:
- Diabetic ulcer
- Arterial (ischemic) ulcer
- Traumatic wound
- Venous stasis ulcer
- Pressure (decubitus) ulcer
- Other
Use of terms such as suspected, likely, concern for, or probable (associated with a specific diagnosis that is being evaluated, monitored, or treated as if it exists) are acceptable and can be coded in the inpatient setting, when documented at the
time of discharge.
Thank you,
Rashawn Sheriff RN
CDI Specialist
Please use your independent medical judgment in providing your response.
*Source: National Pressure Ulcer Advisory Panel (NPUAP)
[2025-04-10] MEDS: LIPITOR 40 MG PO (17:24)
[2025-04-10] MEDS: ABILIFY 5 MG PO (21:02)
[2025-04-11] VITALS (8 sets, daily range): BP systolic 118–146; BP diastolic 69–81; PULSE 55–75; O2SAT 97–98; BMI 17.4
[2025-04-11] MEDS: SYNTHROID 112 MCG PO (06:06)
[2025-04-11 06:52] LABS: % Basophils 0.3 % (0-2); % Eosinophils 0.1 % (0-6); % Immature Granulocytes 0.4 % (0-0.5); % Lymphocytes 10.5 % (20.5-51.1); % Monocytes 5.5 % (1.7-9.3); % Neutrophils 83.2 % (42.2-75.2); Absolute Lymphocytes 1.2 10^3/uL (1.2-3.4); Absolute Monocytes 0.6 10^3/uL (0.1-0.6); Absolute Neutrophils 9.1 10^3/uL (1.4-6.5); Hematocrit 29.2 % (37.0-47.0); Hemoglobin 10.2 g/dL (12.0-16.0); Mean Corp Hgb Conc. 34.9 g/dL (33.0-37.0); Mean Corpuscular Hgb 29.2 pg (27.0-31.0); Mean Corpuscular Volume 83.7 fL (81.0-99.0); Mean Platelet Volume 10.2 fL (7.4-10.4); Nucleated Red Blood Cells % 0 %; Platelet Count 317 10^3/uL (130-400); Red Blood Cell Count 3.49 10^6/uL (4.20-5.40); Red Cell Dist. Width 14.5 % (11.5-14.5); White Blood Cell Count 10.9 10^3/uL (4.8-10.8)
--- NOTE | 2025-04-11 07:05 | W.PN.HOSP.TC ---
Today's Communication/Plan
-
Hold Eliquis
Heparin bridge
N.p.o. at midnight
Assessment / Plan
Assessment / Plan
Assessment/plan
#Left shoulder proximal humerus fracture, minimally displaced secondary to mechanical fall
-X-ray of left shoulder 04/10- Acute fracture of the surgical neck of the left proximal humerus with comminution and mild displacement. No dislocation
-Ortho input appreciated
-Nonsurgical invention with full-time immobilization in a sling for ultimately 6 weeks.
-Follow-up with Ortho outpatient in 2 weeks for repeat x-ray
-PT/OT
-Pain control with Tylenol/tramadol
#Permanent atrial fibrillation with RVR
-s/p cardioversion 11/05/2023
-Continue digoxin and higher dose of diltiazem 120 mg twice daily
-Anticoagulation with Eliquis(currently on hold). Bridge to heparin for procedure.
-Cardiology following
#Traumatic rhabdomyolysis secondary to fall
-CK on presentation to 2577
-Improved with IV fluids
-DC further IVF and monitor, CK improving
#Left foot tissue loss and pain
#Peripheral vascular disease
-s/p angioplasty/stenting left iliac and SFA/popliteal with extensive SFA/popliteal stent placement 03/16/2025
-s/p stenting of bilateral SFA/iliac arteries
-Continue on Plavix, statin
-vascular input appreciated
-BRYANT 04/10�
RIGHT LOWER EXTREMITY: BRYANT moderately reduced at 0.56 (prior 0.69). TBI severely reduced at 0.27 (prior 0.42). Arterial duplex examination reveals monophasic waveforms in the common femoral artery and profunda femoral artery suggesting the
presence of iliac inflow disease. There is a transition to monophasic waveforms throughout the superficial femoral artery and popliteal artery which may suggest the presence of arterial disease at this location. Monophasic continuous Doppler
waveforms are demonstrated in the posterior tibial artery and dorsalis pedis artery. Posterior tibial artery is heavily diseased and may be occluded proximally.
LEFT LOWER EXTREMITY: BRYANT severely reduced at 0.35 (prior 0.67). TBI severely reduced at 0.19 (prior 0.17). Arterial duplex examination reveals monophasic waveforms in the common femoral artery and profunda femoral artery suggesting the presence
of iliac inflow disease. There is a significant velocity elevation in the proximal profunda femoral artery at 691 cm/s suggesting a greater than 75% stenosis at this location. The left superficial femoral artery is occluded. Reconstitution of the
popliteal artery is identified with monophasic waveforms. The posterior tibial artery is occluded.
-Scheduled for bypass tomorrow as stents are occluded
-Ultrasound and CT angio ordered, pending
- N.p.o. at midnight
#CAD s/p LCx PCI 2018
- Continue Plavix, statin
#History of orthostatic hypotension
-Continue midodrine 5 mg 3 times daily
#Chronic interstitial lung disease
#Chronic transaminitis
-Unknown chronicity
-Monitor LFTs
#COPD
-no acute exacerbation
-Continue Spiriva inhaler
#Depression and bipolar disorder
-Continue home sertraline and Abilify
#Hyperlipidemia
-Continue statin
#Hypothyroidism
-Continue levothyroxine 112 mcg p.o. daily
#Former smoker quit September 2024
-Prior 68-year half a pack a day
#Stage II left ankle pressure injury, POA
#Underweight
CODE STATUS DNR
DVT prophylaxis; Heparin
Spoke with patient's daughter (Mile) at length. Give updates regarding patient's care, procedure for tomorrow.
Anticipated Discharge: > 48 hours
Subjective/Interval History
-
Patient seen and examined at bedside. Denies acute complaints. Scheduled for imaging studies. Currently being wheeled down for imaging studies
Objective Data
-
Labs:
Laboratory Results
04/11/25
06:27
WBC 10.9 H
Hgb 10.2 L
Hct 29.2 L
Plt Count 317
Sodium Pending
Potassium Pending
Chloride Pending
Carbon Dioxide Pending
BUN Pending
Creatinine Pending
Glucose Pending
Calcium Pending
Total Bilirubin Pending
AST Pending
ALT Pending
Alkaline Phosphatase Pending
Vital Signs:
Vital Signs
Temp Pulse Resp BP Pulse Ox
97.6 F 77 16 125/73 99
04/11/25 03:17 04/11/25 03:17 04/11/25 03:17 04/11/25 03:17 04/11/25 03:17
I&O
04/10/25 04/11/25 04/12/25
06:59 06:59 06:59
Intake Total 240 / 240 360 / 360
Output Total 300 / 300
Balance -60 / -60 360 / 360
Review of Systems
-
All other systems: Reviewed and negative (Except as documented)
Physical Exam
-
General: No Apparent Distress, Comfortable and Conversant
HEENT: Normocephalic
Respiratory: Clear to Auscultation; Negative Wheezes, Rales or Rhonchi
Cardiac: S1/S2 and Irregular Rhythm
GI: Soft, Nontender, Nondistended and Normal Bowel Sounds
Musculoskeletal: No Edema and Other (Moderate ecchymosis on skin surface of anterior shoulder. Limited range of motion of elbow due to pain.)
Skin: Other (Dry wound left foot)
Neuro: Awake, Alert, Oriented and AO x 3
Psych: Calm
[2025-04-11 07:29] LABS: ALT (SGPT) 26 U/L (0-35); AST (SGOT) 50 U/L (14-36); Albumin 3.7 g/dl (3.5-5.0); Alkaline Phosphatase 92 U/L (38-126); Blood Urea Nitrogen 13 mg/dl (7-17); Calcium 9.1 mg/dl (8.4-10.2); Carbon Dioxide 20 mmol/L (22-30); Chloride 107 mmol/L (98-107); Estimated Creatinine Clearance 47 ml/min; Glucose 103 mg/dl (70-99); Potassium 4.3 mmol/L (3.5-5.1); Sodium 135 mmol/L (135-145); Total Bilirubin 1.1 mg/dl (0.2-1.3); Total CK 277 U/L (30-135); eGFR > 60.00
[2025-04-11 07:54] LABS: CKMB 5.2 ng/ml (0.0-3.4)
[2025-04-11] MEDS: SPIRIVA RESPIMAT 2.5 MCG 2 PUFF INH (07:55)
[2025-04-11] MEDS: THERAGRAN 1 TABLET PO (08:26)
[2025-04-11] MEDS: PLAVIX 75 MG PO (08:26)
[2025-04-11] MEDS: ProAmatine 5 MG PO ×3 (08:28→17:23)
[2025-04-11] MEDS: LANOXIN 125 MCG PO (08:28)
[2025-04-11] MEDS: ELIQUIS 2.5 MG PO (08:28)
[2025-04-11] MEDS: OSCAL 500 + D 500 MG PO (08:29)
[2025-04-11] MEDS: ZOLOFT 100 MG PO (08:29)
[2025-04-11] MEDS: FEOSOL 325 MG PO (08:29)
[2025-04-11] MEDS: CARDIZEM CD 120 MG PO ×2 (08:29→20:58)
[2025-04-11] MEDS: TYLENOL 650 MG PO (08:31)
--- NOTE | 2025-04-11 08:52 | W.PN.VS ---
Addendum entered and electronically signed by GAIL Velazquez 04/11/25 11:58:
Left heel wound
Original Note:
Today's Communication / Plan
-
See below.
Assessment/Plan
-
Assessment: 85-year-old female admitted after recent fall with left humerus fracture, subsequently mentioned ongoing left foot pain/heel tissue loss prompting vascular consultation with ultrasound demonstrating occlusion of recently placed left
SFA/popliteal stents
Plan:
Given reports of rest pain and tissue loss patient requires urgent revascularization will tentatively plan for OR tomorrow (04/12/2025), final surgical plan pending results of CT angio abdomen/pelvis and ultrasound vein mapping, relayed plan to
hospitalist and cardiology.
Subjective Data
-
Date of Service: April 11, 2025
Patient seen and examined at bedside, does endorse tissue loss of left heel and intermittent pain which is described as likely rest pain. Denies nausea, vomiting, fever, chills.
Objective Data
-
Vital Signs
Temp Pulse Resp BP Pulse Ox
98.1 F 87 16 125/72 99
04/11/25 07:00 04/11/25 07:00 04/11/25 07:00 04/11/25 07:00 04/11/25 07:00
Intake and Output
04/10/25 04/11/25 04/12/25
06:59 06:59 06:59
Intake Total 240 / 240 360 / 360
Output Total 300 / 300
Balance -60 / -60 360 / 360
Intake:
Oral fluids 240 / 240 360 / 360
Output:
Urine, Voided 300 / 300
Other:
Number of approximated SMALL 2
amounts of urine
Number of approximated MODERATE 2
amounts of urine
How many times incontinent 1
SMALL amount urine
How many times incontinent 1 5
SATURATED amount urine
Lab Results
04/11/25 06:27
04/11/25 06:
Calcium 9.1 mg/dl (8.4-10.2) 04/11/25 06:
Magnesium 1.7 mg/dl (1.6-2.3) 04/07/25 20:06
Total Bilirubin 1.1 mg/dl (0.2-1.3) 04/11/25:
AST 50 U/L (14-36) H 04/11/25:
ALT 26 U/L (0-35) 04/11/25 06:
Alkaline Phosphatase 92 U/L (38-126) 04/11/25 06:
Total Protein 7.0 g/dl (6.3-8.2) 04/11/25 06:
Albumin 3.7 g/dl (3.5-5.0) 04/11/25 06:
Physical Exam
-
No apparent distress, resting bed comfortably
No tachycardia
No dyspnea on room air
Left heel wound, see picture below, non-malodorous, dry, no evidence of purulent drainage
--- NOTE | 2025-04-11 11:01 | CM ---
Patient seen at bedside
PT rec SNF
options reviewed
Referrals in for [facility]
Will need to obtain ins auth
PLAN: SNF, pending bed availability, when stable, will need ins auth
[2025-04-11 12:07] LABS: APTT 36.6 Sec (23.4-35.0)
[2025-04-11] MEDS: HEPARIN 25000 UNITS/250 ML IV (12:21)
[2025-04-11] MEDS: LIPITOR 40 MG PO (17:23)
[2025-04-11 19:17] LABS: APTT > 200 Sec (23.4-35.0)
[2025-04-11] MEDS: ABILIFY 5 MG PO (20:58)
[2025-04-11 22:00] LABS: APTT 59.5 Sec (23.4-35.0)
--- NOTE | 2025-04-11 23:11 | W.PN.UPDATE ---
Addendum entered and electronically signed by GAIL Truong 04/12/25 05:48:
4:30 PTT result 40.7. Increase heparin gtt by 200 units (+2 mls/hr), from 800 units to 1,000 units. Repeat PTT in 6 hours, as per protocol.
Original Note:
Update Note
Progress Note Update
~ 19:30 PTT resulted >200, supratherapeutic. Heparin gtt held for 2 hours, @ 21:30 repeated PTT w/result 59.5. At 22:30, restarted heparin gtt at 800 units/8 mls/hr, next PTT due 4:30 on 04/12/25.
[2025-04-12] VITALS (29 sets, daily range): BP systolic 121–163; BP diastolic 62–96; BMI 17.5
[2025-04-12 05:07] LABS: Hematocrit 30.5 % (37.0-47.0); Hemoglobin 10.4 g/dL (12.0-16.0); Mean Corp Hgb Conc. 34.1 g/dL (33.0-37.0); Mean Corpuscular Hgb 28.9 pg (27.0-31.0); Mean Corpuscular Volume 84.7 fL (81.0-99.0); Mean Platelet Volume 9.8 fL (7.4-10.4); Platelet Count 330 10^3/uL (130-400); Red Cell Dist. Width 14.6 % (11.5-14.5); White Blood Cell Count 9.3 10^3/uL (4.8-10.8)
[2025-04-12 05:16] LABS: INR 1.23; PT 15.7 Sec (11.4-14.6)
[2025-04-12 05:17] LABS: APTT 40.7 Sec (23.4-35.0)
[2025-04-12 05:21] LABS: Blood Urea Nitrogen 9 mg/dl (7-17); Calcium 8.9 mg/dl (8.4-10.2); Carbon Dioxide 24 mmol/L (22-30); Chloride 105 mmol/L (98-107); Estimated Creatinine Clearance 47 ml/min; Glucose 97 mg/dl (70-99); Potassium 3.6 mmol/L (3.5-5.1); Sodium 138 mmol/L (135-145); eGFR > 60.00
[2025-04-12] MEDS: SYNTHROID PO (06:47)
--- NOTE | 2025-04-12 07:07 | PTCARENOTE ---
PTT >200 at 0715, CLEARING TUB WORKER notified. hep gtt help for 2 hours and repeat PTT 59.5. Gtt restarted at 8ml/hr.
PTT 40.7, CLEARING TUB WORKER notified. gtt increased to 10ml/hr. PTT ordered for 1140. Passed on to dayshift RN.
--- NOTE | 2025-04-12 07:22 | W.PN.HOSP.TC ---
Today's Communication/Plan
-
OR today
Assessment / Plan
Assessment / Plan
Assessment/plan
#Left shoulder proximal humerus fracture, minimally displaced secondary to mechanical fall
-X-ray of left shoulder 04/10- Acute fracture of the surgical neck of the left proximal humerus with comminution and mild displacement. No dislocation
-Ortho input appreciated
-Nonsurgical invention with full-time immobilization in a sling for ultimately 6 weeks.
-Follow-up with Ortho outpatient in 2 weeks for repeat x-ray
-PT/OT
-Pain control with Tylenol/tramadol
#Permanent atrial fibrillation with RVR
-s/p cardioversion 11/05/2023
-Continue digoxin and higher dose of diltiazem 120 mg twice daily
-Anticoagulation with Eliquis(currently on hold). Bridge to heparin for procedure.
-Cardiology following
#Traumatic rhabdomyolysis secondary to fall
-CK on presentation to 2577
-Improved with IV fluids
-DC further IVF and monitor, CK improving
#Bilateral PAD of the LLE with occluded LLE stents
#Left foot tissue loss and pain
#Peripheral vascular disease
-s/p angioplasty/stenting left iliac and SFA/popliteal with extensive SFA/popliteal stent placement 03/16/2025
-s/p stenting of bilateral SFA/iliac arteries
-Continue on Plavix, statin
-vascular input appreciated
-BRYANT 04/10�
RIGHT LOWER EXTREMITY: BRYANT moderately reduced at 0.56 (prior 0.69). TBI severely reduced at 0.27 (prior 0.42). Arterial duplex examination reveals monophasic waveforms in the common femoral artery and profunda femoral artery suggesting the
presence of iliac inflow disease. There is a transition to monophasic waveforms throughout the superficial femoral artery and popliteal artery which may suggest the presence of arterial disease at this location. Monophasic continuous Doppler
waveforms are demonstrated in the posterior tibial artery and dorsalis pedis artery. Posterior tibial artery is heavily diseased and may be occluded proximally.
LEFT LOWER EXTREMITY: BRYANT severely reduced at 0.35 (prior 0.67). TBI severely reduced at 0.19 (prior 0.17). Arterial duplex examination reveals monophasic waveforms in the common femoral artery and profunda femoral artery suggesting the presence
of iliac inflow disease. There is a significant velocity elevation in the proximal profunda femoral artery at 691 cm/s suggesting a greater than 75% stenosis at this location. The left superficial femoral artery is occluded. Reconstitution of the
popliteal artery is identified with monophasic waveforms. The posterior tibial artery is occluded.
-Scheduled for bypass today as stents are occluded
#CAD s/p LCx PCI 2018
- Continue Plavix, statin
#History of orthostatic hypotension
-Continue midodrine 5 mg 3 times daily
#Chronic interstitial lung disease
#Chronic transaminitis
-Unknown chronicity
-Monitor LFTs
#COPD
-no acute exacerbation
-Continue Spiriva inhaler
#Depression and bipolar disorder
-Continue home sertraline and Abilify
#Hyperlipidemia
-Continue statin
#Hypothyroidism
-Continue levothyroxine 112 mcg p.o. daily
#Former smoker quit September 2024
-Prior 66-year half a pack a day
#Stage II left ankle pressure injury, POA
#Underweight
CODE STATUS DNR
DVT prophylaxis; Heparin
Spoke with patient's daughter (Mile) at bedside today.
Anticipated Discharge: > 48 hours
Subjective/Interval History
-
Patient seen and examined at bedside today. She denies acute complaints. She states left shoulder still hurts but improving daily.
Objective Data
-
Labs:
Laboratory Results
04/11/25 04/12/25 04/12/25
21:41 04:54 04:54
WBC 9.3
Hgb 10.4 L
Hct 30.5 L
Plt Count 330
PT 15.7 H
INR 1.23
APTT 59.5 H Cancelled 40.7 H
Sodium 138
Potassium 3.6
Chloride 105
Carbon Dioxide 24
BUN 9
Creatinine 0.4 L
Glucose 97
Calcium 8.9
04/12/25
11:40
WBC
Hgb
Hct
Plt Count
PT
INR
APTT Pending
Sodium
Potassium
Chloride
Carbon Dioxide
BUN
Creatinine
Glucose
Calcium
Vital Signs:
Vital Signs
Temp Pulse Resp BP Pulse Ox
98.6 F 76 18 136/62 99
04/12/25 03:05 04/12/25 03:05 04/12/25 03:05 04/12/25 03:05 04/12/25 03:05
I&O
04/11/25 04/12/25 04/13/25
06:59 06:59 06:59
Intake Total 360 / 360 600 / 600
Balance 360 / 360 600 / 600
Review of Systems
-
All other systems: Reviewed and negative (Except as documented)
Physical Exam
-
General: No Apparent Distress, Comfortable and Conversant
HEENT: Normocephalic
Respiratory: Clear to Auscultation; Negative Wheezes, Rales or Rhonchi
Cardiac: S1/S2 and Irregular Rhythm
GI: Soft, Nontender, Nondistended and Normal Bowel Sounds
Musculoskeletal: No Edema and Other (Moderate ecchymosis on skin surface of anterior shoulder. Limited range of motion of elbow due to pain.)
Skin: Other ( wound left foot)
Neuro: Awake, Alert, Oriented and AO x 3
Psych: Calm
[2025-04-12] MEDS: SPIRIVA RESPIMAT 2.5 MCG 2 PUFF INH (07:35)
[2025-04-12] MEDS: FEOSOL PO (07:42)
[2025-04-12] MEDS: ZOLOFT PO (07:42)
[2025-04-12] MEDS: CARDIZEM CD PO (07:42)
[2025-04-12] MEDS: THERAGRAN PO (07:42)
[2025-04-12] MEDS: OSCAL 500 + D PO (07:42)
[2025-04-12] MEDS: ProAmatine PO ×3 (07:42→18:53)
[2025-04-12] MEDS: PLAVIX PO (07:42)
[2025-04-12] MEDS: LANOXIN PO (07:42)
[2025-04-12] MEDS: BACTROBAN 2% OINTMENT 1 APPLIC NASAL (09:54)
[2025-04-12] MEDS: PERIDEX 0.12% ORAL RINSE 15 ML PO (09:54)
[2025-04-12 11:38] LABS: APTT 30.7 Sec (23.4-35.0)
--- NOTE | 2025-04-12 12:01 | CM ---
Patient seen at bedside with daughter Mile
OR today for vascular surgery
[facility]erals [place] [facility] for SNF
PLAN: SNF, when medically stable, CM to continue to follow
[2025-04-12] MEDS: VANCOCIN 200 IV (12:47)
--- NOTE | 2025-04-12 14:17 | W.PN.CARDCBS ---
Today's Communication / Plan
-
She remains stable from a cardiac standpoint for urgent peripheral vascular surgery. She is at least moderate risk due to her comorbidities, her age and need for urgent surgery to protect her LE.
Recent echo with preserved EF
Remains in rate controlled aFib.
Cont Cardizem and Digoxin, monitor Dig levels
Eliquis on hold in anticipation of OR and was on IV Heparin
Cont Midodrine for hx orthostasis
For her PAD, she has been on Eliquis and Plavix.
She appears euvolemic
Will cont to follow perioperatively
Impression / Plan
-
PCP: Alea REYNOLDS
Cardiology: Dr. Melchor Duran
Impression:
Presented 04/07/2025 with mechanical fall
Left humeral fracture
Rhabdomyolysis secondary to fall with prolonged lying on floor
Mildly abnormal AST
A-fib with rapid ventricular response
Hyperthyroid, TSH less than 0.02
Permanent atrial fibrillation
s/p cardioversion 11/05/2023
Chronic Eliquis anticoagulation
CAD
s/p LCx PCI 2018
Peripheral vascular disease
status post prior angioplasty/stenting left iliac and SFA/popliteal with extensive SFA/popliteal stent placement 03/16/2025
Status post stenting of bilateral SFA/iliac arteries
Hypertension
Hyperlipidemia
Hypothyroidism
COPD
PVCs
Echo 01/25/2024: EF 50 to 55%. Moderate TR with PAP 35 to 38 mmHg. Patent PFO with [id number] flow/shunt
CHON 04/11/2021([facility] study): Low normal EF, right to left shunt with agitated saline consistent with PFO, no evidence of thrombus in LARA, trace MR
Plan:
-Presented 04/07/2025 with mechanical fall resulting in left humeral fracture and rhabdomyolysis secondary to prolonged lying on floor. Also noted to be in atrial fibrillation with rapid ventricular response
She remains stable from a cardiac standpoint for urgent peripheral vascular surgery. She is at least moderate risk due to her comorbidities, her age and need for urgent surgery to protect her LE.
Recent echo with preserved EF
Remains in rate controlled aFib.
Cont Cardizem and Digoxin, monitor Dig levels
Eliquis on hold in anticipation of OR and was on IV Heparin
Cont Midodrine for hx orthostasis
For her PAD, she has been on Eliquis and Plavix.
Smoking cessation has been advised.
She appears euvolemic
Conservative tx for left humerus fracture
Will cont to follow perioperatively
Discussed with family at bedside.
History of Present Illness 04/08/2025:
Susu is an 85-year-old female with past medical history of permanent atrial fibrillation on chronic anticoagulation with Eliquis, CAD, peripheral vascular disease with recent left iliac and SFA stenting 03/16/2025, hypertension, hyperlipidemia,
hypothyroidism, COPD, and PVCs who presented to ER 04/07/2025 with mechanical fall getting out of bed when she missed stepped landing on left shoulder. She reports she was laying on the floor for about 10 hours. She was found by a caregiver on
the floor. She denied hitting her head. She denied having chest pain, shortness of breath, dizziness or lightheadedness prior to fall. On arrival to emergency department patient was found to be in atrial fibrillation with rapid ventricular
response. She was started on diltiazem bolus with drip. Patient was found to have acute fracture of left proximal humerus for which orthopedics has been consulted. Found to have elevated total creatinine kinase of 2577. TSH less than 0.02 with
compensated free T4 1.85. Digoxin less than 0.4
At time of this evaluation patient in rate controlled atrial fibrillation and is currently off diltiazem drip. She denies any cardiac symptoms including chest pain, shortness of breath, dizziness or lightheadedness. She continues to have left
shoulder pain
Progress Note - Toeing Stockings
Subjective
Date of Service: April 12, 2025
Pt seen and examined. No complaints. No chest pain or shortness of breath.
Objective
Labs:
04/12/25 04:54
04/12/25 04:54
Labs
Hgb 10.4 g/dL (12.0-16.0) L 04/12/25 04:54
Hct 30.5 % (37.0-47.0) L 04/12/25 04:54
Plt Count 330 10^3/uL (130-400) 04/12/25 04:54
PT 15.7 Sec (11.4-14.6) H 04/12/25 04:54
INR 1.23 04/12/25 04:54
APTT 30.7 Sec (23.4-35.0) 04/12/25 11:15
Sodium 138 mmol/L (135-145) 04/12/25 04:54
Potassium 3.6 mmol/L (3.5-5.1) 04/12/25 04:54
BUN 9 mg/dl (7-17) 04/12/25 04:54
Creatinine 0.4 mg/dL (0.6-1.0) L 04/12/25 04:54
Glucose 97 mg/dl (70-99) 04/12/25 04:54
Digoxin < 0.4 ng/ml (0.8-2.0) L 04/07/25 20:06
Vital Signs and I&O:
Vital Signs
Temp Pulse Resp BP Pulse Ox
98.6 F 87 20 128/87 98
04/12/25 11:30 04/12/25 12:53 04/12/25 12:53 04/12/25 12:53 04/12/25 12:53
Vital Signs
Temp Pulse Resp BP Pulse Ox
98.6 F 87 20 128/87 98
04/12/25 11:30 04/12/25 12:53 04/12/25 12:53 04/12/25 12:53 04/12/25 12:53
Intake & Output
04/10/25 04/11/25 04/12/25 04/13/25
06:59 06:59 06:59 06:59
Intake Total 240 / 240 360 / 360 600 / 600
Output Total 300 / 300
Balance -60 / -60 360 / 360 600 / 600
Physical Exam
Physical Exam
General: No acute distress, AAOX3
Neck: Negative JVD
Heart: Iregularly irregular, Negative S3 positive S1/S2, Negative S4, No murmur
Lungs: CTA b/l, negative wheezes/rales/rhonchi
Abd: Positive BS, NT/ND, neg rebound/rigidity/guarding
Ext: Negative cyanosis/clubbing/edema
Neuro: nonfocal
--- NOTE | 2025-04-12 16:05 | W.SUR.POST ---
Surgical Immediate Post Op
Note
Pre Op Diagnosis: PAD
Post Op Diagnosis: same
Procedure Performed: Left femoral and profunda endarterectomy and LLE profunda to below knee popliteal artery bypass with Propaten graft
Primary Surgeon: Galen
Assist: Yeison REYNOLDS
Anesthesia: General
Estimated Blood Loss: 30 cc
Fluids: See anesthesia flow sheet
Drains/Shunts: none
Specimens/Cultures: left femoral plaque
Doppler/Duplex/Angio (Y/N): Y
Complications: none
Operative Findings: Excellent DP doppler signal
--- NOTE | 2025-04-12 16:57 | OR.RPT ---
Operative Report
Operative Report
PROCEDURE DATE: 04/12/2025
Preoperative diagnosis:
1. Chronic limb threatening ischemia left lower extremity
2. Significant peripheral arterial disease status post extensive left lower extremity angioplasty stenting, and subsequent repeat angioplasty with stent, and now occlusion of entirety of stents.
Postoperative diagnosis: Same
Procedure:
1. Left distal common femoral and profunda femoral endarterectomy.
2. Left femoral to below the knee popliteal artery bypass with 6 mm ringed Propaten graft.
Surgeon: Galen
Grade School Teacher: MARGARET Latham, required for all aspects of procedure including assistance with traction/countertraction, following of suture line, assistance with closure.
Complications: None
Anesthesia: General
Indications for procedure:
Chronic limb threatening ischemia. History of extensive stents. Repeat angioplasty for occluded stents. Short order repeat occlusion with persistent/worsened chronic limb threatening ischemia. Now brought for bypass. Risk/benefits/alternatives
all extensively discussed with the patient and her family. Discussed that also based on her tissue loss in the Achilles area, no guarantee for limb salvage with even a successful bypass. Vein conduit appeared too small on preoperative imaging.
Discussed possible use of prosthetic conduit. Patient and her family understood all wished to proceed.
Description of procedure:
Patient was identified brought to the operating room placed on the table in supine position. After the adequate administration of anesthesia she was prepped and draped in the standard surgical fashion. A standard preoperative timeout was
undertaken and everybody was in agreement the plan. Following the induction of anesthesia, I did interrogate the left greater saphenous vein with a duplex in the operating room. I did confirm that it was marginal proximally and then in the mid to
distal thigh became too small to use. Therefore I felt that this was not a reasonable conduit. Given her age and overall risk factors therefore I felt proceeding with prosthetic bypass would be of benefit.
Longitudinal incision was made in the left groin that was carried through skin subcutaneous tissue. (Electrocautery was used to dissect through the subcutaneous tissue). Any lymphatic tissue was ligated between silk ties and then divided. I then
identified the common femoral artery as it emerged from underneath the inguinal ligament. I noted on CT scan imaging that there was a high bifurcation. Therefore I encountered very quickly the superficial femoral artery and occluded stents that I
could palpate. Now I traced back to the origin of the profunda which came off more lateral than posterior. This was consistent with the CT scan findings. I now dissected the profunda down to the first branch point. It was softer to palpation
here. I therefore then carefully circumferentially dissected both branches including the main branch, and passed Vesseloops around them. Now I dissected the proximal common femoral artery. It was softer to palpation. There was some posterior
plaque I could palpate, and I knew based on CT scan imaging that there would be plaque extensively posteriorly extending up but the lumen and pulsation was reasonable here. I dissected underneath the inguinal ligament just to be sure and it was
softer here in the distal external iliac artery so I circumferentially dissected here and passed a vessel loop around it.
Now I made a longitudinal incision in the medial proximal calf about 1 fingerbreadth inferior to the tibia. Patient's habitus was that of minimal subcutaneous tissue. Therefore I dissected through what ever subcutaneous tissue there was and then
through the crural fascia layer. The gastrocnemius muscle was reflected posteriorly and in the loose areolar tissue I was able to identify the popliteal vein and the popliteal artery. The artery was small but noted to be soft. I passed the vessel
loop around it proximally and distally after careful circumferential dissection. Now I used a Annette tunneler to create a subsartorial tunnel between the 2 incision sites. I then tunneled a 6 mm ringed [place] Propaten graft. Once I did this I gave
the patient 4008 symmetries heparin. I now placed a profunda clamp on the distal profunda. I tightened Vesseloops on other branches that I isolated. I then placed a Derra clamp on the very distal external iliac artery. The main 11 blade on the
common femoral artery and extended using a Edgar scissor onto the profunda. There was quite moderate plaque as well as the SFA stent and that just extended into the common femoral little bit. However the origin of the profunda had a significant
mount of plaque as well. I therefore then had to use a Brewster to create an endarterectomy plane and endarterectomized plaque out of the origin of the profunda and the distal common femoral artery. Distally on the profunda I was able to further out
to a reasonable endpoint. Approximately there was a little bit of posterior intimal thickening still but I was able to cut that intima flush in the common femoral artery. However in order to gain better visualization I needed to move my clamp
cephalad. I therefore then had to dissect cephalad to the circumflex iliac branches and then move my Derra clamp there. Now I was able to see better my endpoint on the common femoral artery. I was satisfied with this. I then grasped the stent so
that I could vinicio a little bit of the stent and associated thrombus/intimal debris out of the origin of the SFA. I did this successfully. I now had a good sewing edge on the SFA. Any fine debris were removed with fine forceps. I was happy with
the proximal and distal endpoints. A couple tacking sutures were placed on the posterior plaque on the proximal endpoint (common femoral artery). Once I did this I then created a long bevel on my 6 mm graft. Then sewed an end-to-side anastomosis
between the graft and the common femoral/profunda artery, and with the long bevel used to this graft as a patch essentially. (To perform a patch angioplasty). This was done with a running [place] CV 6 suture. I completed and tied down my suture
line. I then backbled the red devil vessels through the graft and then clamped the graft and then released flow through the red devil system. There is excellent pulsatile flow now in the common femoral and profunda artery. Confirmed with Doppler signal.
At this point I placed a graft clamped proximally on the graft. I then reexposed the below the knee popliteal artery. Double looped vessel loop was tightened distally and a bulldog clamp was placed proximally on the popliteal artery. 11 blade was
used to make an arteriotomy which is extended with the Edgar scissor. I then removed the distal rings on the graft and trimmed and beveled the graft. I then sewed an end-to-side anastomosis between the graft and the popliteal artery below the knee
with a running [place] CV 6 suture. Prior to completing and tying down my suture line I backbled the red devil arteries and flushed out the graft. I then completed and tied down my suture line. Next I released flow in the red devil system and the graft by
releasing my graft clamp. There is excellent pulsatile flow into the popliteal artery below the knee. Doppler signal confirmed an excellent graft augmented Doppler signal. There is a dorsalis pedis signal on the foot as well and a weak pulsation
on the foot at the dorsalis pedis as well. At this point is very satisfied.
All incision sites were irrigated. Hemostasis was meticulously achieved. Protamine was given to reverse the heparin. Incision sites were then closed with layers of Vicryl suture (2-0 Vicryl followed by 3-0 Vicryl followed by 4-0 Monocryl
subcuticular running stitch). Dressings were applied. All sponge, needle, instrument counts were correct at the end of the case. The patient tolerated procedure well. She was transported to the recovery room in stable condition.
[2025-04-12] MEDS: DILAUDID 0.25 MG IV (17:28)
[2025-04-12 17:45] LABS: INR 1.26; PT 16.3 Sec (11.4-14.6)
[2025-04-12] MEDS: NSS 1000 IV (17:59)
[2025-04-12] MEDS: MORPHINE SULFATE 1 MG IV ×2 (18:03→18:14)
[2025-04-12] MEDS: DILAUDID 0.5 MG IV (18:53)
[2025-04-12 18:55] LABS: Hematocrit 28.8 % (37.0-47.0); Hemoglobin 9.5 g/dL (12.0-16.0); Mean Corpuscular Hgb 28.3 pg (27.0-31.0); Mean Corpuscular Volume 85.7 fL (81.0-99.0); Mean Platelet Volume 9.4 fL (7.4-10.4); Platelet Count 305 10^3/uL (130-400); Red Blood Cell Count 3.36 10^6/uL (4.20-5.40); Red Cell Dist. Width 15.2 % (11.5-14.5); White Blood Cell Count 16.2 10^3/uL (4.8-10.8)
--- NOTE | 2025-04-12 19:05 | SUR.PHASEI ---
pacu addendum - received from OR with report of palpable DP left foot, pulse fleeting, foot cold and mottled. warm blankets on feet, labs drawn and sent, medicated for groin pain and some discomfort in left shoulder. Shoulder pain relieved and
able to sleep after pain meds with groin. with warming of lower extremities can now consistently obtain doppler DP and sometimes palpable Left foot red mottled - minimal sensation in foot. Maintain 10l/m face mask per SSI. sling on left arm, pain
with movement.
[2025-04-12] MEDS: LIPITOR PO (19:12)
[2025-04-12 19:25] LABS: Blood Urea Nitrogen 11 mg/dl (7-17); Calcium 7.7 mg/dl (8.4-10.2); Carbon Dioxide 20 mmol/L (22-30); Chloride 107 mmol/L (98-107); Estimated Creatinine Clearance 47 ml/min; Glucose 116 mg/dl (70-99); Potassium 3.7 mmol/L (3.5-5.1); Sodium 134 mmol/L (135-145); eGFR > 60.00
--- NOTE | 2025-04-12 19:35 | PTCARENOTE ---
Pt received to ICU bed 3364 from PACU at 1830. Pt AAOx3. Afib on monitor. SpO2 98-100% on simple mask. Left groin aquacell and left calf torey wrap C/D/I. +doppler PTs and DPs. Left foot red and warm. Sacral foam and left heel foam dressings
intact.
--- NOTE | 2025-04-12 20:00 | PTCARENOTE ---
rec`d at 1900. pulse checks done with previous shift RN. Pt AAOx3. drowsy post sx but awakens to verbal stimuli. prn pain meds given. Afib on monitor. SpO2 98-100% w/ 2 L NC. Left groin aquacell and left calf torey wrap C/D/I. +doppler PTs and
DPs. Left foot red and warm w/ silicone boarder foam. soria. PIVS flushed and patent. NS @ 80 continued. Asked Rae REYNOLDS if pt needs to restart heparin gtt. She said no, that will be restarted the following AM. call pack in reach, safe
environment maintained. family at bedside.
[2025-04-12] MEDS: CARDIZEM CD 120 MG PO (20:16)
[2025-04-12] MEDS: ROXICODONE 5 MG PO (21:55)
[2025-04-12] MEDS: ABILIFY 5 MG PO (21:55)
[2025-04-13] VITALS (43 sets, daily range): BP systolic 96–138; BP diastolic 54–92; PULSE 63; O2SAT 99; BMI 17.5
--- NOTE | 2025-04-13 01:00 | PTCARENOTE ---
pain covered with prn pain meds. doppler pulses continued. call pack in reach.
[2025-04-13] MEDS: DILAUDID 0.5 MG IV ×4 (01:02→19:56)
[2025-04-13 04:01] LABS: Hematocrit 25.2 % (37.0-47.0); Hemoglobin 8.5 g/dL (12.0-16.0); Mean Corp Hgb Conc. 33.7 g/dL (33.0-37.0); Mean Platelet Volume 10.1 fL (7.4-10.4); Platelet Count 314 10^3/uL (130-400); Red Blood Cell Count 2.93 10^6/uL (4.20-5.40); White Blood Cell Count 11.9 10^3/uL (4.8-10.8)
[2025-04-13] MEDS: NSS 1000 IV (04:10)
[2025-04-13 04:21] LABS: Blood Urea Nitrogen 13 mg/dl (7-17); Calcium 7.2 mg/dl (8.4-10.2); Carbon Dioxide 21 mmol/L (22-30); Chloride 109 mmol/L (98-107); Estimated Creatinine Clearance 47 ml/min; Glucose 86 mg/dl (70-99); Magnesium 1.6 mg/dl (1.6-2.3); Phosphorus 3.7 mg/dl (2.5-4.5); Potassium 4.1 mmol/L (3.5-5.1); Sodium 135 mmol/L (135-145); eGFR > 60.00
[2025-04-13 04:38] LABS: APTT > 200 Sec (23.4-35.0); INR > 8.0; PT > 100 Sec (11.4-14.6)
[2025-04-13] MEDS: SYNTHROID 112 MCG PO (05:30)
[2025-04-13 06:08] LABS: INR 1.19; PT 15.7 Sec (11.4-14.6)
[2025-04-13 06:09] LABS: APTT 31.1 Sec (23.4-35.0)
--- NOTE | 2025-04-13 07:29 | W.PN.HOSP.TC ---
Today's Communication/Plan
-
;/
Assessment / Plan
Assessment / Plan
Assessment/plan
#Bilateral PAD of the LLE with occluded LLE stents s/p Bypass 04/12
#Left foot tissue loss and pain
#Peripheral vascular disease
-s/p Left distal common femoral and profunda femoral endarterectomy. Left femoral to below the knee popliteal artery bypass with 6 mm ringed Propaten graft 04/12
-s/p angioplasty/stenting left iliac and SFA/popliteal with extensive SFA/popliteal stent placement 03/16/2025
-Continue on Plavix, statin
-vascular input appreciated, Resume Eliquis Tomorrow.
-BRYANT 04/10�
RIGHT LOWER EXTREMITY: BRYANT moderately reduced at 0.56 (prior 0.69). TBI severely reduced at 0.27 (prior 0.42). Arterial duplex examination reveals monophasic waveforms in the common femoral artery and profunda femoral artery suggesting the
presence of iliac inflow disease. There is a transition to monophasic waveforms throughout the superficial femoral artery and popliteal artery which may suggest the presence of arterial disease at this location. Monophasic continuous Doppler
waveforms are demonstrated in the posterior tibial artery and dorsalis pedis artery. Posterior tibial artery is heavily diseased and may be occluded proximally.
LEFT LOWER EXTREMITY: BRYANT severely reduced at 0.35 (prior 0.67). TBI severely reduced at 0.19 (prior 0.17). Arterial duplex examination reveals monophasic waveforms in the common femoral artery and profunda femoral artery suggesting the presence
of iliac inflow disease. There is a significant velocity elevation in the proximal profunda femoral artery at 691 cm/s suggesting a greater than 75% stenosis at this location. The left superficial femoral artery is occluded. Reconstitution of the
popliteal artery is identified with monophasic waveforms. The posterior tibial artery is occluded.
#Left shoulder proximal humerus fracture, minimally displaced secondary to mechanical fall
-X-ray of left shoulder 04/10- Acute fracture of the surgical neck of the left proximal humerus with comminution and mild displacement. No dislocation
-Ortho input appreciated
-Nonsurgical invention with full-time immobilization in a sling for ultimately 6 weeks.
-Follow-up with Ortho outpatient in 2 weeks for repeat x-ray
-PT/OT
-Pain control with Tylenol/tramadol
#Permanent atrial fibrillation with RVR
-s/p cardioversion 11/05/2023
-Continue digoxin and higher dose of diltiazem 120 mg twice daily
-Anticoagulation with Eliquis(currently on hold). resume tomorrow
-Cardiology following
#Traumatic rhabdomyolysis secondary to fall
-CK on presentation to 2577
-Improved with IV fluids
-DC further IVF and monitor, CK improving
#CAD s/p LCx PCI 2018
- Continue Plavix, statin
#History of orthostatic hypotension
-Continue midodrine 5 mg 3 times daily
#Chronic interstitial lung disease
#Chronic transaminitis
-Unknown chronicity
-Monitor LFTs
#COPD
-no acute exacerbation
-Continue Spiriva inhaler
#Depression and bipolar disorder
-Continue home sertraline and Abilify
#Hyperlipidemia
-Continue statin
#Hypothyroidism
-Continue levothyroxine 112 mcg p.o. daily
#Former smoker quit September 2024
-Prior 68-year half a pack a day
#Stage II left ankle pressure injury, POA
#Underweight
CODE STATUS DNR
DVT prophylaxis; Heparin (on hold)
Anticipated Discharge: 24 - 48 hours
Subjective/Interval History
-
Patient seen and examined at bedside. In no acute distress. Comfortable. Denies chest pain, shortness of breath.
Objective Data
-
Labs:
Laboratory Results
04/13/25 04/13/25
03:40 05:52
WBC 11.9 H
Hgb 8.5 L
Hct 25.2 L
Plt Count 314
PT > 100 H 15.7 H
INR > 8.0 H* D 1.19 D
APTT > 200 H* 31.1
Sodium 135
Potassium 4.1
Chloride 109 H
Carbon Dioxide 21 L
BUN 13
Creatinine 0.5 L
Glucose 86
Calcium 7.2 L
Vital Signs:
Vital Signs
Temp Pulse Resp BP Pulse Ox
98.8 F 89 17 129/80 100
04/13/25 03:02 04/13/25 06:00 04/13/25 06:00 04/13/25 06:00 04/13/25 06:00
I&O
04/12/25 04/13/25 04/14/25
06:59 06:59 06:59
Intake Total 600 / 600 1075 / 1075
Output Total 660 / 660
Balance 600 / 600 415 / 415
Review of Systems
-
All other systems: Reviewed and negative (Except as documented)
Physical Exam
-
General: No Apparent Distress, Comfortable and Conversant
HEENT: Normocephalic
Respiratory: Clear to Auscultation; Negative Wheezes, Rales or Rhonchi
Cardiac: S1/S2 and Irregular Rhythm
GI: Soft, Nontender, Nondistended and Normal Bowel Sounds
Musculoskeletal: No Edema and Other (Moderate ecchymosis on skin surface of anterior shoulder. Limited range of motion of elbow due to pain.)
Skin: Other
Neuro: Awake, Alert, Oriented and AO x 3
Psych: Calm
--- NOTE | 2025-04-13 07:37 | W.PN.VS ---
Today's Communication / Plan
-
Seen and assessed at bedside with Dr. Aaron
Assessment/Plan
-
Assessment: POD 1 Left distal common femoral and profunda femoral endarterectomy. Left femoral to below the knee popliteal artery bypass with 6 mm ringed Propaten graft.
Plan:
DC IV fluids
DC Pérez
Out of bed to chair, progressed ambulation later today
Resume Eliquis tomorrow
Continue ICU today
Continue Rod wrap today
Subjective Data
-
Date of Service: April 13, 2025
Patient seen at bedside this a.m. with Dr. Aaron. Patient offers no complaints at this time. No events overnight.
Objective Data
-
Vital Signs
Temp Pulse Resp BP Pulse Ox
98.8 F 89 17 129/80 100
04/13/25 03:02 04/13/25 06:00 04/13/25 06:00 04/13/25 06:00 04/13/25 06:00
Intake and Output
04/12/25 04/13/25 04/14/25
06:59 06:59 06:59
Intake Total 600 / 600 1075 / 1075
Output Total 660 / 660
Balance 600 / 600 415 / 415
Intake:
Oral fluids 600 / 600 50 / 50
IV fluids (Total) 0 / 0 1025 / 1025
Nss 1,000 ml @ 80 mls/hr IV . 900 / 900
[id number] IGOR Rx#:[id number]
normosol 125 / 125
IV piggybacks 0 / 0
Output:
Urine, Pérez 660 / 660
Other:
Number of approximated SMALL 3
amounts of urine
Number of approximated MODERATE 1 2
amounts of urine
How many times incontinent 1
MODERATE amount urine
How many times incontinent 5
SATURATED amount urine
Lab Results
04/13/25 03:40
04/13/25 03:40
Calcium 7.2 mg/dl (8.4-10.2) L 04/13/25 03:40
Phosphorus 3.7 mg/dl (2.5-4.5) 04/13/25 03:40
Magnesium 1.6 mg/dl (1.6-2.3) 04/13/25 03:40
Total Bilirubin 1.1 mg/dl (0.2-1.3) 04/11/25 06:27
AST 50 U/L (14-36) H 04/11/25 06:27
ALT 26 U/L (0-35) 04/11/25 06:27
Alkaline Phosphatase 92 U/L (38-126) 04/11/25 06:27
Total Protein 7.0 g/dl (6.3-8.2) 04/11/25 06:27
Albumin 3.7 g/dl (3.5-5.0) 04/11/25 06:27
Physical Exam
-
AAO x 3
No tachypnea on room air
No tachycardia
Abdomen soft
Groin site clean, dry, intact, soft, flat
Lower leg dressing clean, dry, intact, soft, flat
Rod wrap dry
Foot warm and pink with palpable pulse
--- NOTE | 2025-04-13 08:00 | PTCARENOTE ---
Received pt @ change of shift. Pt. drowsy, awakens to verbal stim, Ox3, c/o mod surg pain in L groin and medicated w prn- see MAR. Q1H LLE neurovascular checks maintained- see flow sheet. Afib/flutter on montior. Spo2 99% on 2LNC. +BS, abd
soft/nt. Tolerating diet. Pérez in place draining jeremiah urine. L groin aquacell c/d/i; L calf RHINA wrapped and pt. tolerating wrap. #20 R FA w NSS @ 80mL/hr. L Shoulder soft sling in place. Pt. instructed on how to report care concerns and call
pack placed w in reach.
[2025-04-13] MEDS: OSCAL 500 + D 500 MG PO (08:07)
[2025-04-13] MEDS: THERAGRAN 1 TABLET PO (08:07)
[2025-04-13] MEDS: LANOXIN 125 MCG PO (08:07)
[2025-04-13] MEDS: FEOSOL 325 MG PO (08:07)
[2025-04-13] MEDS: ROXICODONE 5 MG PO ×2 (08:07→22:54)
[2025-04-13] MEDS: ProAmatine 5 MG PO ×3 (08:08→17:29)
[2025-04-13] MEDS: CARDIZEM CD 120 MG PO ×2 (08:08→19:53)
[2025-04-13] MEDS: ZOLOFT 100 MG PO (08:08)
[2025-04-13] MEDS: PLAVIX 75 MG PO (08:11)
--- NOTE | 2025-04-13 08:24 | CON.INTV ---
Consultation
Consultation Request
Date/Time Consultation Requested: 04/12/2025 - 1550
Date/Time Consultation Performed: 04/13/2025 - 821
Requesting Provider: GAIL Wallace
Performing Provider: Dr. Davis
Reason for Consultation: s/p LLE bypass
Medical History
-
Chief Complaint: Weakness/unable to get up from floor
History of Present Illness:
85-year-old female former tobacco smoker with a past medical history of hypertension, hyperlipidemia, PAD, chronic left foot/ankle ulcer, CAD, paroxysmal A-fib on Eliquis, history of PVCs, celiac disease, history of COPD, pulmonary nodules,
depression, osteoporosis and hypothyroidism who presents with weakness. Patient is a poor historian. She reportedly slid off the couch onto the floor on 04/07/2025. She rolled onto the left side and heard a pop from her left shoulder. She told the
admitting hospitalist that she fell out of bed onto her left shoulder and that is when she felt a pop on her left shoulder. She was unable to get up off the floor and a neighbor found her and EMS was called, and she was brought here to for
further evaluation. She denies hitting her head. She was noted to be in A-fib with RVR in the ER with heart rate in the 120�130s, and she was initially afebrile to 98.2 �F, respiratory rate 22-26 breaths/min, initial BP 158/105 and she was
saturating 96% on room air. Initial labs showed mild leukocytosis to 11.9, Hb 11.6, sodium 146, serum bicarbonate level 16, calcium level 10.3, CK8 35, and TSH undetectable with free T4 1.85. Initial imaging showed no acute intracranial
abnormality on CT head, CT cervical spine showed no acute posttraumatic abnormality, and left shoulder XR showed an acute fracture of the surgical neck of the left proximal humerus with comminution and mild displacement. Initial CXR showed no acute
cardiopulmonary process. In the ER she was given a push of Cardizem 5 mg, started on Cardizem drip, given 500 cc bolus of NS 0.8% and also given Eliquis. She was admitted to the IMU for further care. While on the floor she developed
stinging/cramping discomfort in her left lower extremity with reduced pulses appreciated. Vascular surgery consulted. Peripheral arterial US on 04/10/2025 showed severely reduced BRYANT on the left lower extremity at 0.35, with moderately reduced BRYANT
on the right at 0.56. ELiquis changed to a heparin drip on 04/11. On 04/12, patient brought to the OR for a left femoral and profunda endarterectomy and left lower extremity profundus to below knee popliteal artery bypass. EBL was 30 cc, and there
were no complications. Patient was transferred to the ICU postoperatively for further care and quality assurance inspector services consulted for additional management/recommendations.
Patient was seen and evaluated this morning. Current heart rate 94, BP 123/83 and saturating 100% on RA. She is sitting in the chair no acute distress. She continues to have left-sided foot pain which is chronic for her and is not worsening. She
currently denies chest pain, GONZALEZ, nausea, fevers or chills.
PMHx: Hypertension, hyperlipidemia, tobacco use, PAD, chronic left foot/ankle ulcer, CAD s/p stents x 2, paroxysmal A-fib on Eliquis with multiple cardioversions, history of PVCs, celiac disease, pulmonary nodules, history of COPD, hypothyroidism,
depression, osteoporosis, restless leg syndrome, chronic ambulatory dysfunction, ?dementia
PSHx: Left toe amputation, hysterectomy, balloon angioplasty of left external iliac and common iliac artery and stent placement (03/16/2024), multiple stents due to PAD, coronary artery stents x 2, wisdom teeth extraction, cataract surgery,
appendectomy
Past Medical History
Past Medical History: Other (Above as per HPI)
Past Surgical History: Other (Above as per HPI)
Social History
Tobacco: Former Smoker (0.25-0.5 PPD, quit September 2024)
Alcohol: None
Drug: None
Personal: Single
Living: Alone
Family History
Family History: CAD (Mother + brother), Cancer (Sibling: Throat + breast cancer) and Other (Sibling: A-fib)
Allergies / Home Medications
Allergies
Allergy/AdvReac Type Severity Reaction Status Date / Time
cephalexin (From Keflex) Allergy diarrhea Verified 04/07/25 19:50
gluten Allergy diarrhea Verified 04/12/25 16:02
tetracycline Allergy Itching-'it Verified 04/12/25 16:02
gives me
white
itchy
spots'
Home Medications
�Medication �Instructions �Recorded �Confirmed �Last Taken �Type
aripiprazole 5 mg tablet (Abilify) 5 mg PO HS Bipolar 11/05/23 04/07/25 03/15/25 20:00 History
5 mg
ferrous sulfate 325 mg (65 mg 325 mg PO DAILY Supplement 11/12/23 04/07/25 03/15/25 History
iron) tablet (iron) 325 mg
diltiazem HCl 120 mg 120 mg PO QPM Blood Pressure 03/02/24 04/07/25 03/15/25 20:00 History
capsule,extended release 24 hr 120 mg
sertraline 100 mg tablet 100 mg PO DAILY Depression 03/02/24 04/07/25 03/16/25 07:00 History
100 mg
apixaban 2.5 mg tablet 2.5 mg PO BID atrial fibrilation 03/16/24 04/07/25 03/13/25 History
2.5mg
atorvastatin 10 mg tablet 20 mg PO QPM High Cholesterol 03/16/24 04/12/25 03/15/25 History
10 mg
clopidogrel 75 mg tablet 75 mg PO DAILY #30 tabs 03/16/24 04/07/25 12/05/24 Rx
multivitamin 1 tab PO DAILY Supplement 03/16/24 04/07/25 03/15/25 08:00 History
1 tab
digoxin 125 mcg (0.125 mg) tablet 125 mcg PO DAILY Heart Failure 12/06/24 04/07/25 03/15/25 20:00 History
0.125mg
levothyroxine 112 mcg tablet 112 mcg PO DAILY Thyroid 12/06/24 04/07/25 03/15/25 08:00 History
112 mcg
collagenase clostridium histo. 250 1 applic topical DAILY Skin Issues 03/14/25 04/07/25 03/16/25 07:00 History
unit/gram topical ointment (Santyl)
denosumab 60 mg/mL subcutaneous 60 mg SC [id number] Osteoporosis 03/14/25 04/07/25 10/11/24 History
syringe (Prolia)
midodrine 5 mg tablet 5 mg PO TID Hypotension 03/14/25 04/07/25 03/15/25 20:00 History
5 mg
calcium 600 mg (as 1 tab PO DAILY Supplement 03/16/25 04/07/25 03/15/25 20:00 History
carbonate)-vitamin D3 5 mcg (200 1 tab
unit) tablet
tiotropium bromide 18 mcg capsule 1 cap inhalation DAILY 03/16/25 04/07/25 03/15/25 20:00 History
with inhalation device Lung/Breathing Issues 1
Review of Systems
-
History Source: Patient
All other systems: Negative unless noted
Vitals / Labs / Diagnostic Testing
Vital Signs
Temp Pulse Resp BP Pulse Ox
98.2 F 94 18 115/68 99
04/13/25 07:00 04/13/25 08:30 04/13/25 08:30 04/13/25 08:30 04/13/25 08:32
Lab Data
04/13/25 03:40
04/13/25 03:40
Laboratory Results
04/12/25 04/12/25 04/13/25
11:15 17:28 03:40
PT 16.3 H > 100 H
INR 1.26 > 8.0 H* D
APTT 30.7 33.0 > 200 H*
04/13/25
05:52
PT 15.7 H
INR 1.19 D
APTT 31.1
Diagnostic Testing:
Physical Exam
-
HEENT: Normocephalic and Anicteric
Cardiovascular: Irregular Rhythm (Irregularly irregular), Peripheral Edema (negative) and Other (Normal rate)
Respiratory: Wheeze (negative), Rales (Bibasilar), Rhonchi (negative) and Non-Labored Respirations
GI: Soft, Non Distended, Non Tender and Normal Bowel Sounds
Neurology: Awake, Alert and Tremors (negative)
Skin: Warm, Dry and Other (Sling involving left shoulder)
General: Respiratory Distress (negative), Comfortable, Fever (negative) and Chills (negative)
Assessment
-
Assessment: 85-year-old female former tobacco smoker with a past medical history of hypertension, hyperlipidemia, PAD, chronic left foot/ankle ulcer, CAD, paroxysmal A-fib on Eliquis, history of PVCs, celiac disease, history of COPD, pulmonary
nodules, depression, osteoporosis and hypothyroidism who presents with weakness. Patient is a poor historian. She reportedly slid off the couch onto the floor on 04/07/2025. She rolled onto the left side and heard a pop from her left shoulder. She
told the admitting hospitalist that she fell out of bed onto her left shoulder and that is when she felt a pop on her left shoulder. She was unable to get up off the floor and a neighbor found her and EMS was called, and she was brought here to
for further evaluation. She denies hitting her head. She was noted to be in A-fib with RVR in the ER with heart rate in the 120�130s, and she was initially afebrile to 98.2 �F, respiratory rate 22-26 breaths/min, initial BP 158/105 and she was
saturating 96% on room air. Initial labs showed mild leukocytosis to 11.9, Hb 11.6, sodium 146, serum bicarbonate level 16, calcium level 10.3, CK8 35, and TSH undetectable with free T4 1.85. Initial imaging showed no acute intracranial
abnormality on CT head, CT cervical spine showed no acute posttraumatic abnormality, and left shoulder XR showed an acute fracture of the surgical neck of the left proximal humerus with comminution and mild displacement. Initial CXR showed no acute
cardiopulmonary process. In the ER she was given a push of Cardizem 5 mg, started on Cardizem drip, given 500 cc bolus of NS 0.8% and also given Eliquis. She was admitted to the IMU for further care. While on the floor she developed
stinging/cramping discomfort in her left lower extremity with reduced pulses appreciated. Vascular surgery consulted. Peripheral arterial US on 04/10/2025 showed severely reduced BRYANT on the left lower extremity at 0.35, with moderately reduced BRYANT
on the right at 0.56. ELiquis changed to a heparin drip on 04/11. On 04/12, patient brought to the OR for a left femoral and profunda endarterectomy and left lower extremity profundus to below knee popliteal artery bypass. EBL was 30 cc, and there
were no complications. Patient was transferred to the ICU postoperatively for further care and quality assurance inspector services consulted for additional management/recommendations.
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
hypothyroidism, depression, osteoporosis, restless leg syndrome, chronic ambulatory dysfunction, ?dementia
Impression:
#Chronic left lower extremity limb threatening ischemia with significant PAD s/p stenting/angioplasty with subsequent repeat angioplasty/stent now with occlusion of entirety of stents s/p left distal common femoral and profundo-femoral
endarterectomy with left femoral to below the knee popliteal artery bypass (POD#1)
#Acute respiratory failure with hypoxia
#Leukocytosis (likely reactive)
#Fall with acute left proximal humerus fracture with comminution and mild displacement with no dislocation
#Rhabdomyolysis due to fall with inability to get up off from floor (total CK peaked at 2577 on 04/08/2025)
#Acute on chronic anemia
#Hypothyroidism on supplemental levothyroxine now with undetectable TSH with free T4: 1.85 (via TFTs on 04/07/2025)
#Hx of COPD with paraseptal emphysema (seen on CT cervical spine 04/07/2025)
#Former tobacco smoker
Plan:
Postoperative surgical intensive care unit monitoring
Supplemental oxygen as needed to maintain SpO2 88-95%
prn nebulized bronchodilators - not currently bronchospastic
She follows with airport ramp supervisor, Dr. Olson in [place]. He is retiring (soon) hence the patient is in need of a new airport ramp supervisor. Our office information will be left for her so she can see us for continued care. She said she last saw him
about 1 year ago
She takes spiriva at home and this should be continued while hospitalized
Incentive spirometry encouraged 10x per hour for at least 4 hrs a day
Aspiration precautions
Orthopedic surgery consulted earlier this admission and recommended her to remain in sling for 6 weeks. They signed off and will follow her as an outpatient
Continue PT/OT
Pain control
Given that her TSH initially was undetectable at <0.02 with a normal free T4 at 125, this is consistent with subclinical hyperthyroidism. Her current levothyroxine dose may need to be adjusted. Given that she was under great stress at the time,
TSH may be reduced for that reason. I will recheck TSH + free T4 again tomorrow and if TSH remains undetectable then would reduce her LT4 dose
Neuro and vascular checks per protocol
Maintain MAP>65
Replete electrolytes with K>4, Mg>2
Maintain euglycemia with goal BG 140-180
Vascular surgery following-correspondence and operative notes reviewed
Transfuse blood products as needed to keep Hb>7g/dL, and plt>50k (given post-operative status)
DVT prophylaxis: SCDs; holding eliquis until tomorrow per vascular surgery
Early nutrition
Early mobilization
Code status: DNR/DNI
Continue ICU level of care with q1hr neurovascular checks.
Critical care statement: A total of 41 minutes of critical care time was provided for this patient today. This includes management of unstable vital signs, evaluation of the patient at bedside, reviewing the patient's pertinent medical records
including radiographs, microbiology, laboratory evaluations, and discussion with primary team, consultants, pharmacy, nutrition, physical therapy, case management, charge nurse, critical care nursing, and respiratory therapy.
Data:
CXR 04/13/2025: No evidence of active cardiopulmonary disease.
CTA abdominal aorta with runoff 04/11/2025:
1. LEFT LOWER EXTREMITY: Left external iliac artery stent is patent, less than 50% stenosis. Left SFA is stented along its length, and is occluded along its length. Left distal popliteal artery is reconstituted via branches of the profunda femoris
artery, and a small in size. Left posterior tibial artery is occluded near its origin.
2. RIGHT LOWER EXTREMITY: Multifocal 50-75% stenoses within the right external iliac artery, and right SFA. Heavily calcified plaque within the right popliteal artery, associated with greater than 75% stenosis. Single-vessel runoff to the right foot
via the anterior tibial artery.
Left shoulder XR 04/07/2025: Acute fracture of the surgical neck of the left proximal humerus with comminution and mild displacement. No dislocation.
Transthoracic echocardiogram 01/25/2024:
1. Normal left ventricular size and wall thickness with low normal or mild
globally reduced systolic function, EF 50-55%
2. Mitral annular calcification, thickened mitral leaflets, trace mitral
regurgitation and dilated left atrium
3. Aortic sclerosis without stenosis or regurgitation
4. Normal right heart with moderate tricuspid regurgitation and pulmonary
artery systolic pressure 35-38 mmHg
A transesophageal echo at [facility] in 2020 showed low normal systolic
function with evidence of a right to left shunt consistent with patent foramen
ovale. The patient will be called and told that heart muscle function is
overall preserved and there is no significant valve abnormality.
[2025-04-13] MEDS: SPIRIVA RESPIMAT 2.5 MCG 2 PUFF INH (08:26)
--- NOTE | 2025-04-13 10:49 | W.PN.CARDCBS ---
Today's Communication / Plan
-
Stable cardiac status
restart Eliquis tomorrow
Impression / Plan
-
PCP: Alea REYNOLDS
Cardiology: Dr. Melchor Duran
Impression:
Presented 04/07/2025 with mechanical fall
Left humeral fracture
Rhabdomyolysis secondary to fall with prolonged lying on floor
Mildly abnormal AST
A-fib with rapid ventricular response
Hyperthyroid, TSH less than 0.02
Permanent atrial fibrillation
s/p cardioversion 11/05/2023
Chronic Eliquis anticoagulation
CAD
s/p LCx PCI 2018
Peripheral vascular disease
status post prior angioplasty/stenting left iliac and SFA/popliteal with extensive SFA/popliteal stent placement 03/16/2025
Status post stenting of bilateral SFA/iliac arteries
Hypertension
Hyperlipidemia
Hypothyroidism
COPD
PVCs
Echo 01/25/2024: EF 50 to 55%. Moderate TR with PAP 35 to 38 mmHg. Patent PFO with [id number] flow/shunt
CHON 04/11/2021([facility] study): Low normal EF, right to left shunt with agitated saline consistent with PFO, no evidence of thrombus in LARA, trace MR
Plan:
She seems stable postop day 1 following common femoral and profunda endarterectomy with left femoropopliteal bypass with prosthetic material.
No evidence of of heart failure on exam at present.
She has a ventricular response to atrial fibrillation that is controlled on digoxin and higher dose Cardizem. Her dig level was good.
Her left lower extremity is warm.
Okay to restart Eliquis tomorrow, 2.5 mg twice daily
Her humeral fracture is being managed conservatively.
We will continue to follow
History of Present Illness 04/08/2025:
Susu is an 85-year-old female with past medical history of permanent atrial fibrillation on chronic anticoagulation with Eliquis, CAD, peripheral vascular disease with recent left iliac and SFA stenting 03/16/2025, hypertension, hyperlipidemia,
hypothyroidism, COPD, and PVCs who presented to ER 04/07/2025 with mechanical fall getting out of bed when she missed stepped landing on left shoulder. She reports she was laying on the floor for about 10 hours. She was found by a caregiver on
the floor. She denied hitting her head. She denied having chest pain, shortness of breath, dizziness or lightheadedness prior to fall. On arrival to emergency department patient was found to be in atrial fibrillation with rapid ventricular
response. She was started on diltiazem bolus with drip. Patient was found to have acute fracture of left proximal humerus for which orthopedics has been consulted. Found to have elevated total creatinine kinase of 2577. TSH less than 0.02 with
compensated free T4 1.85. Digoxin less than 0.4
At time of this evaluation patient in rate controlled atrial fibrillation and is currently off diltiazem drip. She denies any cardiac symptoms including chest pain, shortness of breath, dizziness or lightheadedness. She continues to have left
shoulder pain
Progress Note - Press Helper
Subjective
Pleasant 85-year-old woman well-known to me with permanent atrial fibrillation, CAD and prior PCI, admitted with humeral fracture following fall and with mild rhabdomyolysis, developed limb threatening ischemia while in hospital underwent left
femoropopliteal with common femoral and profunda endarterectomy on 04/12/25
PMH/PSH: Permanent atrial fibrillation, orthostasis, left circumflex PCI 2018, PAD with stenting of left iliac and SFA with recent popliteal stent placements, hypertension, hyperlipidemia, hypothyroidism, COPD, PVCs, depression, anxiety, left toe
amputation
Outpatient medications: Reviewed
Ongoing tobacco use
Current meds: Abilify 5 mg at bedtime, clopidogrel 75 mg a day, digoxin 125 mcg daily, iron, levothyroxine, midodrine 5 3 times daily, sertraline 100 mg a day, Spiriva, diltiazem CD1 120 mg twice daily and atorvastatin 40 mg daily,
115/68, pulse 94, respirations 18, afebrile, weight is 42 kg, frail, brother at bedside, humeral fracture, some crackles in the lungs, irregular rate and rhythm, JVD okay, no obvious murmurs, left foot is viable, pulse diminished incisions are
intact, abdomen benign
Hemoglobin is 8.5, had been 9.5 BUN/creatinine are 13 and 0.5, potassium is 4.1
Chest x-ray today: Cardiomegaly, flat diaphragms, mild vascular congestion
ECG today atrial fibrillation, nonspecific ST and T wave changes, left axis, nonspecific T wave inversion new
Objective
Labs:
04/13/25 03:40
04/13/25 03:40
Labs
Hgb 8.5 g/dL (12.0-16.0) L 04/13/25 03:40
Hct 25.2 % (37.0-47.0) L 04/13/25 03:40
Plt Count 314 10^3/uL (130-400) 04/13/25 03:40
PT 15.7 Sec (11.4-14.6) H 04/13/25 05:52
INR 1.19 D 04/13/25 05:52
APTT 31.1 Sec (23.4-35.0) 04/13/25 05:52
Sodium 135 mmol/L (135-145) 04/13/25 03:40
Potassium 4.1 mmol/L (3.5-5.1) 04/13/25 03:40
BUN 13 mg/dl (7-17) 04/13/25 03:40
Creatinine 0.5 mg/dL (0.6-1.0) L 04/13/25 03:40
Glucose 86 mg/dl (70-99) 04/13/25 03:40
Digoxin < 0.4 ng/ml (0.8-2.0) L 04/07/25 20:06
Vital Signs and I&O:
Vital Signs
Temp Pulse Resp BP Pulse Ox
36.8 C 94 18 115/68 99
04/13/25 07:00 04/13/25 08:30 04/13/25 08:30 04/13/25 08:30 04/13/25 08:32
Vital Signs
Temp Pulse Resp BP Pulse Ox
36.8 C 94 18 115/68 99
04/13/25 07:00 04/13/25 08:30 04/13/25 08:30 04/13/25 08:30 04/13/25 08:32
Intake & Output
04/11/25 04/12/25 04/13/25 04/14/25
07:59 07:59 07:59 07:59
Intake Total 360 / 360 600 / 600 1515 / 1595 440 / 440
Output Total 685 / 710 75 / 75
Balance 360 / 360 600 / 600 830 / 885 365 / 365
Physical Exam
Physical Exam
See above
--- NOTE | 2025-04-13 11:30 | PTCARENOTE ---
Pérez catheter removed @ 0900; pt. DTV @ 1500. Pt. assisted x2 to stand/pivot into chair. Tolerating chair position. Poor appetite. @ 1100 pulse check; Doppler signal location noted to be changed from previous assessments from near toes to
closer to ankle. Vascular team made aware of pulse location change. Dr. Aaron and GAIL's came to bedside to assess patient; verified pulse location towards ankle is where they have been obtaining. Q 1H neurovascular checks maintained- see flow sheet.
Remains in chair with family @ bedside. Call sirena pineda in reach.
[2025-04-13] MEDS: HEPARIN 25000 UNITS/250 ML IV (12:17)
--- NOTE | 2025-04-13 13:47 | CM ---
DC IV fluids and soria. Discharge POC: SNF. [facility] accepted. Need Insurance auth.
[2025-04-13] MEDS: LIPITOR 40 MG PO (17:29)
[2025-04-13 18:49] LABS: APTT 44.9 Sec (23.4-35.0)
[2025-04-13] MEDS: ABILIFY 5 MG PO (20:43)
--- NOTE | 2025-04-13 23:25 | PTCARENOTE ---
Pt AAOx3. prn pain meds given. Afib on monitor. RA POX 94%. Left groin aquacell and left calf torey wrap C/D/I. +doppler PTs and DPs. q4h vascular checks. Left foot red and warm w/ posterior silicone boarder foam. pt incontinent of urine at
times. PIVS flushed and patent.heparin gtt continued at 500/ 5cc. call pack in reach, safe environment maintained. family at bedside.
[2025-04-14] VITALS (23 sets, daily range): BP systolic 91–124; BP diastolic 57–74; PULSE 72–78; O2SAT 96; BMI 18.7
--- NOTE | 2025-04-14 01:00 | PTCARENOTE ---
pt reassessed/ no changes in pt assessment. pt incontinent of urine x1. full bed change.
[2025-04-14 05:38] LABS: Hematocrit 27.2 % (37.0-47.0); Mean Corp Hgb Conc. 33.1 g/dL (33.0-37.0); Mean Corpuscular Hgb 28.7 pg (27.0-31.0); Mean Corpuscular Volume 86.6 fL (81.0-99.0); Platelet Count 305 10^3/uL (130-400); Red Blood Cell Count 3.14 10^6/uL (4.20-5.40); Red Cell Dist. Width 15.3 % (11.5-14.5); White Blood Cell Count 10.9 10^3/uL (4.8-10.8)
[2025-04-14 05:46] LABS: APTT 37.6 Sec (23.4-35.0)
[2025-04-14] MEDS: SYNTHROID 112 MCG PO (06:08)
[2025-04-14 06:14] LABS: Blood Urea Nitrogen 20 mg/dl (7-17); Carbon Dioxide 24 mmol/L (22-30); Chloride 103 mmol/L (98-107); Estimated Creatinine Clearance 50 ml/min; Glucose 100 mg/dl (70-99); Magnesium 1.7 mg/dl (1.6-2.3); Potassium 4.2 mmol/L (3.5-5.1); Sodium 132 mmol/L (135-145); eGFR > 60.00
[2025-04-14 06:39] LABS: TSH Reflex To Free T4 < 0.02 uIU/ml (0.47-4.68)
[2025-04-14 07:08] LABS: Free T4 2.99 ng/dl (0.78-2.19)
--- NOTE | 2025-04-14 07:10 | W.PN.HOSP.TC ---
Today's Communication/Plan
-
;/
Assessment / Plan
Assessment / Plan
Assessment/plan
#Bilateral PAD of the LLE with occluded LLE stents s/p Bypass 04/12
#Left foot tissue loss and pain
#Peripheral vascular disease
-s/p Left distal common femoral and profunda femoral endarterectomy. Left femoral to below the knee popliteal artery bypass with 6 mm ringed Propaten graft 04/12
-s/p angioplasty/stenting left iliac and SFA/popliteal with extensive SFA/popliteal stent placement 03/16/2025
-Continue on Plavix, statin
-vascular input appreciated, Resume Eliquis Today.
#Left shoulder proximal humerus fracture, minimally displaced secondary to mechanical fall
-X-ray of left shoulder 04/10- Acute fracture of the surgical neck of the left proximal humerus with comminution and mild displacement. No dislocation
-Ortho input appreciated
-Nonsurgical invention with full-time immobilization in a sling for ultimately 6 weeks.
-Follow-up with Ortho outpatient in 2 weeks for repeat x-ray
-PT/OT-recommend skilled rehab
-Pain control with Tylenol/tramadol
#Permanent atrial fibrillation with RVR
-s/p cardioversion 11/05/2023
-Continue digoxin and higher dose of diltiazem 120 mg twice daily
-Anticoagulation with Eliquis
-Cardiology following
#Traumatic rhabdomyolysis secondary to fall
-CK on presentation to 2577
-Improved with IV fluids
-DC further IVF and monitor, CK improving
#CAD s/p LCx PCI 2018
- Continue Plavix, statin
#History of orthostatic hypotension
-Continue midodrine 5 mg 3 times daily
#Chronic interstitial lung disease
#Chronic transaminitis
-Unknown chronicity
-Monitor LFTs
#COPD
-no acute exacerbation
-Continue Spiriva inhaler
#Depression and bipolar disorder
-Continue home sertraline and Abilify
#Hyperlipidemia
-Continue statin
#Hypothyroidism
-Continue levothyroxine 112 mcg p.o. daily
#Former smoker quit September 2024
-Prior 66-year half a pack a day
#Stage II left ankle pressure injury, POA
#Underweight
CODE STATUS DNR
DVT prophylaxis; Eliquis
Anticipated Discharge: 24 - 48 hours
Subjective/Interval History
-
Patient seen and examined at bedside
Objective Data
-
Labs:
Laboratory Results
04/14/25
05:15
WBC 10.9 H
Hgb 9.0 L
Hct 27.2 L
Plt Count 305
APTT 37.6 H
Sodium 132 L
Potassium 4.2
Chloride 103
Carbon Dioxide 24
BUN 20 H
Creatinine 0.5 L
Glucose 100 H
Calcium 8.0 L
Vital Signs:
Vital Signs
Temp Pulse Resp BP Pulse Ox
98.4 F 72 13 112/60 100
04/14/25 04:01 04/14/25 05:00 04/14/25 05:00 04/14/25 05:00 04/14/25 04:00
I&O
04/13/25 04/14/25 04/15/25
06:59 06:59 06:59
Intake Total 1075 / 1515 1635 / 1635
Output Total 660 / 685 500 / 500
Balance 415 / 830 1135 / 1135
Review of Systems
-
All other systems: Reviewed and negative (Except as documented)
Physical Exam
-
General: No Apparent Distress, Comfortable and Conversant
HEENT: Normocephalic
Respiratory: Clear to Auscultation; Negative Wheezes, Rales or Rhonchi
Cardiac: S1/S2 and Irregular Rhythm
GI: Soft, Nontender, Nondistended and Normal Bowel Sounds
Musculoskeletal: No Edema and Other (Moderate ecchymosis on skin surface of anterior shoulder. Limited range of motion of elbow due to pain.)
Skin: Other
Neuro: Awake, Alert, Oriented and AO x 3
Psych: Calm
[2025-04-14] MEDS: SPIRIVA RESPIMAT 2.5 MCG 2 PUFF INH (07:16)
--- NOTE | 2025-04-14 07:30 | PTCARENOTE ---
Received patient in sleep, arousable to voice, A&Ox4, on RA, Afib in 60s, BP stable, Doppler pulses in B/L LE, Heparin @500 units/hr infusing, GI/ WNL.
Surgical dressings Aquacel in Left Groin and in Left calf intact. Noted small drainage and smell from Left Heel/Achilles chronic wound, dressing changed.
[2025-04-14] MEDS: DILAUDID 0.5 MG IV ×2 (07:47→13:46)
--- NOTE | 2025-04-14 07:49 | W.PN.VS ---
Addendum entered and electronically signed by Pancho Pérez III, MD 04/14/25 08:59:
This patient was seen and examined in collaboration with GAIL Wallace. I agree with the history and physical exam as well as the assessment and plan.
Signed:
Pancho Pérez III, MD
Vascular Surgery
[facility]
Original Note:
Today's Communication / Plan
-
Seen and assessed with Dr. Pérez
Assessment/Plan
-
Assessment: POD 2 Left distal common femoral and profunda femoral endarterectomy. Left femoral to below the knee popliteal artery bypass with 6 mm ringed Propaten graft.
Plan:
PT/OT
Progression to ambulation
Transition to Eliquis today
Transfer to telemetry
Subjective Data
-
Date of Service: April 14, 2025
Patient seen bedside same Dr. Pérez. Patient offers no complaint at this time. No evidence overnight. All dressings dry.
Objective Data
-
Vital Signs
Temp Pulse Resp BP Pulse Ox
98.8 F 72 13 112/60 100
04/14/25 07:20 04/14/25 05:00 04/14/25 05:00 04/14/25 05:00 04/14/25 04:00
Intake and Output
04/13/25 04/14/25 04/15/25
06:59 06:59 06:59
Intake Total 1075 / 1515 1635 / 1635
Output Total 660 / 685 500 / 500
Balance 415 / 830 1135 / 1135
Intake:
Oral fluids 50 / 410 1420 / 1420
IV fluids (Total) 1025 / 1105 215 / 215
Nss 1,000 ml @ 80 mls/hr IV . 900 / 980 160 / 160
[id number] IGOR Rx#:[id number]
heparin 55 / 55
normosol 125 / 125
Output:
Urine, Pérez 660 / 685 100 / 100
Urine, Voided 400 / 400
Other:
Number of approximated SMALL 3
amounts of urine
Number of approximated MODERATE 2
amounts of urine
How many times incontinent 1
SATURATED amount urine
Lab Results
04/14/25 05:15
04/14/25 05:15
Calcium 8.0 mg/dl (8.4-10.2) L 04/14/25 05:15
Phosphorus 3.0 mg/dl (2.5-4.5) 04/14/25 05:15
Magnesium 1.7 mg/dl (1.6-2.3) 04/14/25 05:15
Total Bilirubin 1.1 mg/dl (0.2-1.3) 04/11/25 06:27
AST 50 U/L (14-36) H 04/11/25 06:27
ALT 26 U/L (0-35) 04/11/25 06:27
Alkaline Phosphatase 92 U/L (38-126) 04/11/25 06:27
Total Protein 7.0 g/dl (6.3-8.2) 04/11/25 06:27
Albumin 3.7 g/dl (3.5-5.0) 04/11/25 06:27
Physical Exam
-
AAO x 3
No tachypnea on room air
No tachycardia
Abdomen soft
Groin site clean, dry, intact, soft, flat
Lower leg dressing clean, dry, intact, soft, flat
Foot warm and pink with palpable pulse
[2025-04-14] MEDS: OSCAL 500 + D 500 MG PO (08:20)
[2025-04-14] MEDS: CARDIZEM CD 120 MG PO ×2 (08:20→20:43)
[2025-04-14] MEDS: PLAVIX 75 MG PO (08:20)
[2025-04-14] MEDS: ZOLOFT 100 MG PO (08:20)
[2025-04-14] MEDS: ELIQUIS 2.5 MG PO ×2 (08:20→20:39)
[2025-04-14] MEDS: FEOSOL 325 MG PO (08:21)
[2025-04-14] MEDS: ProAmatine 5 MG PO ×3 (08:21→18:27)
[2025-04-14] MEDS: LANOXIN 125 MCG PO (08:21)
[2025-04-14] MEDS: THERAGRAN 1 TABLET PO (08:21)
--- NOTE | 2025-04-14 08:28 | W.PN.INTV ---
Today's Communication / Plan
Recommendations
Up OOB as tolerated
Pain control
Continue Spiriva with prn albuterol
Eliquis resumed this morning per vascular surgery
Continue Plavix
Lower dose of levothyroxine given that her TSH remains undetectable with free T4 now increasing; repeat TFTs as an outpatient
She follows with evaluation manager, Dr. Olson in [place], [place]. He is retiring (soon) hence the patient is in need of a new evaluation manager. Our office information will be left for her so she can see us for continued care. She said she last saw him
about 1 year ago
Patient is stable for downgrade out of ICU to telemetry. No additional recommendations at this time. Head Of Product/Pulmonary service will now sign off. Please reconsult if there are any additional questions/concerns, or if patient's respiratory
status deteriorates.
Assessment
-
Assessment: 85-year-old female former tobacco smoker with a past medical history of hypertension, hyperlipidemia, PAD, chronic left foot/ankle ulcer, CAD, paroxysmal A-fib on Eliquis, history of PVCs, celiac disease, history of COPD, pulmonary
nodules, depression, osteoporosis and hypothyroidism who presents with weakness. Patient is a poor historian. She reportedly slid off the couch onto the floor on 04/07/2025. She rolled onto the left side and heard a pop from her left shoulder. She
told the admitting hospitalist that she fell out of bed onto her left shoulder and that is when she felt a pop on her left shoulder. She was unable to get up off the floor and a neighbor found her and EMS was called, and she was brought here to
for further evaluation. She denies hitting her head. She was noted to be in A-fib with RVR in the ER with heart rate in the 120�130s, and she was initially afebrile to 98.2 �F, respiratory rate 22-26 breaths/min, initial BP 158/105 and she was
saturating 96% on room air. Initial labs showed mild leukocytosis to 11.9, Hb 11.6, sodium 146, serum bicarbonate level 16, calcium level 10.3, CK8 35, and TSH undetectable with free T4 1.85. Initial imaging showed no acute intracranial
abnormality on CT head, CT cervical spine showed no acute posttraumatic abnormality, and left shoulder XR showed an acute fracture of the surgical neck of the left proximal humerus with comminution and mild displacement. Initial CXR showed no acute
cardiopulmonary process. In the ER she was given a push of Cardizem 5 mg, started on Cardizem drip, given 500 cc bolus of NS 0.8% and also given Eliquis. She was admitted to the IMU for further care. While on the floor she developed
stinging/cramping discomfort in her left lower extremity with reduced pulses appreciated. Vascular surgery consulted. Peripheral arterial US on 04/10/2025 showed severely reduced BRYANT on the left lower extremity at 0.35, with moderately reduced BRYANT
on the right at 0.56. ELiquis changed to a heparin drip on 04/11. On 04/12, patient brought to the OR for a left femoral and profunda endarterectomy and left lower extremity profundus to below knee popliteal artery bypass. EBL was 30 cc, and there
were no complications. Patient was transferred to the ICU postoperatively for further care and beader services consulted for additional management/recommendations.
Chronic conditions CURTAIN DRIER: Hypertension, hyperlipidemia, tobacco use, PAD, chronic left foot/ankle ulcer, CAD s/p stents x 2, paroxysmal A-fib on Eliquis with multiple cardioversions, history of PVCs, celiac disease, pulmonary nodules, history of COPD,
hypothyroidism, depression, osteoporosis, restless leg syndrome, chronic ambulatory dysfunction, ?dementia
Impression:
#Chronic left lower extremity limb threatening ischemia with significant PAD s/p stenting/angioplasty with subsequent repeat angioplasty/stent now with occlusion of entirety of stents s/p left distal common femoral and profundo-femoral
endarterectomy with left femoral to below the knee popliteal artery bypass (POD#2)
#Acute respiratory failure with hypoxia - now off oxygen and breathing comfortably on room air
#Leukocytosis (likely reactive)
#Fall with acute left proximal humerus fracture with comminution and mild displacement with no dislocation
#Rhabdomyolysis due to fall with inability to get up off from floor (total CK peaked at 2577 on 04/08/2025)
#Acute on chronic anemia
#Hypothyroidism on supplemental levothyroxine now with undetectable TSH with free T4: 1.85 (via TFTs on 04/07/2025)
#Hx of COPD with paraseptal emphysema (seen on CT cervical spine 04/07/2025)
#Former tobacco smoker
Plan:
Postoperative surgical intensive care unit monitoring
Supplemental oxygen as needed to maintain SpO2 88-95%
prn nebulized bronchodilators - not currently bronchospastic
She follows with evaluation manager, Dr. Olson in [place]. He is retiring (soon) hence the patient is in need of a new evaluation manager. Our office information will be left for her so she can see us for continued care. She said she last saw him
about 1 year ago
She takes spiriva at home and this should be continued while hospitalized with prn albuterol
Incentive spirometry encouraged 10x per hour for at least 4 hrs a day
Aspiration precautions
Orthopedic surgery consulted earlier this admission and recommended her to remain in sling for 6 weeks. They signed off and will follow her as an outpatient
Continue PT/OT
Pain control
Given that her TSH initially was undetectable at <0.02 with a normal free T4 at 125, this is consistent with subclinical hyperthyroidism. Her current levothyroxine dose should need to be lowered given that I repeated TFTs this AM and her TSH
remained undetectable and now her free T4 is increased to 2.99. Her TFTs should be again followed as an outpatient and levothyroxine dose adjusted if needed, defer to PCP versus endocrinology.
Neuro and vascular checks per protocol
Maintain MAP>65
Replete electrolytes with K>4, Mg>2
Maintain euglycemia with goal BG 140-180
Vascular surgery following-correspondence and operative notes reviewed
Transfuse blood products as needed to keep Hb>7g/dL, and plt>50k (given post-operative status)
DVT prophylaxis: Eliquis resumed this morning per vascular surgery
Early nutrition
Early mobilization
Code status: DNR/DNI
Patient is stable for downgrade out of ICU to telemetry. No additional recommendations at this time. Head Of Product/Pulmonary service will now sign off. Thank you for allowing us to be involved in the care of this patient. Please reconsult if there
are any additional questions/concerns, or if patient's respiratory status deteriorates.
Data:
CXR 04/13/2025: No evidence of active cardiopulmonary disease.
CTA abdominal aorta with runoff 04/11/2025:
1. LEFT LOWER EXTREMITY: Left external iliac artery stent is patent, less than 50% stenosis. Left SFA is stented along its length, and is occluded along its length. Left distal popliteal artery is reconstituted via branches of the profunda femoris
artery, and a small in size. Left posterior tibial artery is occluded near its origin.
2. RIGHT LOWER EXTREMITY: Multifocal 50-75% stenoses within the right external iliac artery, and right SFA. Heavily calcified plaque within the right popliteal artery, associated with greater than 75% stenosis. Single-vessel runoff to the right foot
via the anterior tibial artery.
Left shoulder XR 04/07/2025: Acute fracture of the surgical neck of the left proximal humerus with comminution and mild displacement. No dislocation.
Transthoracic echocardiogram 01/25/2024:
1. Normal left ventricular size and wall thickness with low normal or mild
globally reduced systolic function, EF 50-55%
2. Mitral annular calcification, thickened mitral leaflets, trace mitral
regurgitation and dilated left atrium
3. Aortic sclerosis without stenosis or regurgitation
4. Normal right heart with moderate tricuspid regurgitation and pulmonary
artery systolic pressure 35-38 mmHg
A transesophageal echo at [facility] in 2020 showed low normal systolic
function with evidence of a right to left shunt consistent with patent foramen
ovale. The patient will be called and told that heart muscle function is
overall preserved and there is no significant valve abnormality.
Total time spent today was 57 minutes for this encounter. Time includes reviewing laboratory test/imaging results, reviewing pertinent medical records, obtaining and reviewing medical history, performing an appropriate exam, ordering medications,
tests and procedures. Time also includes documentation of this encounter, coordinating patient care and communicating with other healthcare professionals. Total time does not include separately billed tests performed on this date of service.
Subjective Dataa
Subjective Data
Date of Service:
Date of Service: April 14, 2025
Chief Complaint: Head Of Product Follow Up
Subjective:
Patient seen and evaluated today at bedside. She is doing well, no acute events reported overnight. She currently denies SOB, chest pain, nausea, fevers or chills.
Review of Systems
General: Other (Negative unless mentioned above)
Objective Data
Data Reviewed
Vital Signs / I&O / Oxygen:
Vital Signs
Temp Pulse Resp BP Pulse Ox
98.8 F 93 17 124/74 96
04/14/25 07:20 04/14/25 08:21 04/14/25 08:00 04/14/25 08:21 04/14/25 07:50
Intake and Output
04/13/25 04/14/25 04/15/25
06:59 06:59 06:59
Intake Total 1075 / 1515 1635 / 1640 5 / 5
Output Total 660 / 685 500 / 500
Balance 415 / 830 1135 / 1140 5 / 5
SaO2 96
Nasal Cannula flow liters per 2
minute
Physical Exam
General: Respiratory Distress (negative), Comfortable, Chills (negative) and Sweats (negative)
HEENT: Normocephalic and Anicteric
Cardiovascular: Irregular Rhythm (Irregularly irregular) and Peripheral Edema (negative)
Respiratory: Wheeze (negative), Crackles (Bibasilar) and Rhonchi
GI: Soft, Non Distended, Non Tender and Normal Bowel Sounds
Neurology: Awake, Alert and Tremors (negative)
Skin: Warm, Dry, Cyanosis (negative), Jaundice (negative) and Other (Sling involving left shoulder)
Labs/Micro/Reports
Lab Data
04/14/25 05:15
04/14/25 05:15
Laboratory Results
04/13/25 04/13/25 04/14/25
17:40 18:32 05:15
APTT Cancelled 44.9 H 37.6 H
[2025-04-14] MEDS: ROXICODONE 5 MG PO ×2 (11:49→19:04)
--- NOTE | 2025-04-14 12:00 | PTCARENOTE ---
Reassessed the patient, resting in recliner, complained pain in left leg surgical sites, PRN pain med given.
--- NOTE | 2025-04-14 12:29 | W.PN.CARDCBS ---
Today's Communication / Plan
-
Stable cardiology status
Sign off
Impression / Plan
-
PCP: Alea REYNOLDS
Cardiology: Dr. Melchor Duran
Impression:
Presented 04/07/2025 with mechanical fall
Left humeral fracture
Rhabdomyolysis secondary to fall with prolonged lying on floor
Mildly abnormal AST
A-fib with rapid ventricular response
Hyperthyroid, TSH less than 0.02
Permanent atrial fibrillation
s/p cardioversion 11/05/2023
Chronic Eliquis anticoagulation
CAD
s/p LCx PCI 2018
Peripheral vascular disease
status post prior angioplasty/stenting left iliac and SFA/popliteal with extensive SFA/popliteal stent placement 03/16/2025
Status post stenting of bilateral SFA/iliac arteries
Hypertension
Hyperlipidemia
Hypothyroidism
COPD
PVCs
Echo 01/25/2024: EF 50 to 55%. Moderate TR with PAP 35 to 38 mmHg. Patent PFO with osff-no-dgumx flow/shunt
CHON 04/11/2021([facility] study): Low normal EF, right to left shunt with agitated saline consistent with PFO, no evidence of thrombus in LARA, trace MR
Plan:
Stable cardiology status
Remains in rate controlled atrial fibrillation
Eliquis has been restarted
Will sign off, call with questions
History of Present Illness 04/08/2025:
Susu is an 85-year-old female with past medical history of permanent atrial fibrillation on chronic anticoagulation with Eliquis, CAD, peripheral vascular disease with recent left iliac and SFA stenting 03/16/2025, hypertension, hyperlipidemia,
hypothyroidism, COPD, and PVCs who presented to ER 04/07/2025 with mechanical fall getting out of bed when she missed stepped landing on left shoulder. She reports she was laying on the floor for about 10 hours. She was found by a caregiver on
the floor. She denied hitting her head. She denied having chest pain, shortness of breath, dizziness or lightheadedness prior to fall. On arrival to emergency department patient was found to be in atrial fibrillation with rapid ventricular
response. She was started on diltiazem bolus with drip. Patient was found to have acute fracture of left proximal humerus for which orthopedics has been consulted. Found to have elevated total creatinine kinase of 2577. TSH less than 0.02 with
compensated free T4 1.85. Digoxin less than 0.4
At time of this evaluation patient in rate controlled atrial fibrillation and is currently off diltiazem drip. She denies any cardiac symptoms including chest pain, shortness of breath, dizziness or lightheadedness. She continues to have left
shoulder pain
Progress Note - Service Control Operator
Subjective
Date of Service: April 14, 2025
No complaints
Objective
Labs:
04/14/25 05:15
04/14/25 05:15
Labs
Hgb 9.0 g/dL (12.0-16.0) L 04/14/25 05:15
Hct 27.2 % (37.0-47.0) L 04/14/25 05:15
Plt Count 305 10^3/uL (130-400) 04/14/25 05:15
PT 15.7 Sec (11.4-14.6) H 04/13/25 05:52
INR 1.19 D 04/13/25 05:52
APTT 37.6 Sec (23.4-35.0) H 04/14/25 05:15
Sodium 132 mmol/L (135-145) L 04/14/25 05:15
Potassium 4.2 mmol/L (3.5-5.1) 04/14/25 05:15
BUN 20 mg/dl (7-17) H 04/14/25 05:15
Creatinine 0.5 mg/dL (0.6-1.0) L 04/14/25 05:15
Glucose 100 mg/dl (70-99) H 04/14/25 05:15
Digoxin < 0.4 ng/ml (0.8-2.0) L 04/07/25 20:06
Vital Signs and I&O:
Vital Signs
Temp Pulse Resp BP Pulse Ox
99 F 71 17 111/62 96
04/14/25 12:00 04/14/25 11:49 04/14/25 08:00 04/14/25 11:49 04/14/25 07:50
Vital Signs
Temp Pulse Resp BP Pulse Ox
99 F 71 17 111/62 96
04/14/25 12:00 04/14/25 11:49 04/14/25 08:00 04/14/25 11:49 04/14/25 07:50
Intake & Output
04/12/25 04/13/25 04/14/25 04/15/25
06:59 06:59 06:59 06:59
Intake Total 600 / 600 1075 / 1515 1635 / 1640 5 / 5
Output Total 660 / 685 500 / 500 200 / 200
Balance 600 / 600 415 / 830 1135 / 1140 -195 / -195
Physical Exam
Physical Exam
General: Well developed, well nourished in NAD.
Neck: Supple, no JVD, HJR, carotids +2 B/L, no bruits bilaterally.
Heart: Non displaced PMI, irregular, no murmurs, No S3, S4, no rubs.
Lungs: Scattered rhonchi
Extremities: No clubbing, cyanosis or edema bilaterally.
Neuro: Grossly nonfocal, awake, alert and oriented x3.
--- NOTE | 2025-04-14 13:38 | PTCARENOTE ---
Addendum entered by Monica Narvaez RN 04/14/25 13:58:
Left posterior ankle wound noted, DSG C/D/I, per pt wound is chronic and she has been following with the wound center for the last year. WOCN consult noted.
Original Note:
Pt arrived to 2S via wheelchair, stand pivot to bed with assistance from NSG staff. Telemetry applied. LLE DSGs C/D/I. LUE NWB, maintained in sling. + doppler PT and DP pulses B/L. Bed locked and in the lowest position, safety maintained. Pt
instructed to ring for assistance with ambulation, verbalized understanding. Oriented to room and call pack.
[2025-04-14] MEDS: SENOKOT-S 1 TABLET PO (13:48)
--- NOTE | 2025-04-14 13:50 | CM ---
Addendum entered by Karan Waite 04/14/25 14:05:
Transport forms completed and at Nursing Station. IMM done.
Original Note:
Plan for discharge to [facility] on 04/15/25. Insurance auth obtained. Auth# [id number]. Level 1 approved for 5 days-04/15/25 through to and including 04/19/25. LCD 04/19/25 and NRD 04/19/25. Call updates to . , patient,
daughter and Kal notified.
Call Alea at [facility] @[phone].
Nurse to Nurse report # [phone]
--- NOTE | 2025-04-14 16:32 | WOUNDNOTE ---
Wound Care Instructions Left Achilles- Clean gently with normal saline. Apply Xeroform gauze and cover with ABD and agustín. Change daily and PRN drainage
Follow up at wound care center call for an appointment.
--- NOTE | 2025-04-14 16:34 | WOUNDNOTE ---
[facility] RN NOTE: Reviewed chart and met with patient. Patient is s/p 2 Left distal common femoral and profunda femoral endarterectomy. Left femoral to below the knee popliteal artery bypass with 6 mm ringed Propaten graft. Today she was transferred to
[facility]. [facility] RN consult received for left Achilles chronic wound. Patient was previously seen at [facility] for this chronic wound. Pictures of wound sent to Dr. Cain [facility]. At time of assessment wound is open with sanguinous drainage. Patient
reports pain and was medicated for pain by MALIA Anderson prior to assessment. Local wound care provided as ordered. Confirmed use of fiber filled boots with MARGARET Bautista. Will add order for static air overlay as patient has a BMI <18 and has impaired
mobility and pain. MALIA Anderson given update. Orders confirmed with Hospitalist. Will continue to follow during in-patient stay.
--- NOTE | 2025-04-14 17:48 | WOUNDNOTE ---
LEFT Achilles heel wound
[2025-04-14] MEDS: LIPITOR 40 MG PO (18:28)
[2025-04-14] MEDS: ABILIFY 5 MG PO (21:34)
[2025-04-14] MEDS: TYLENOL 650 MG PO (21:42)
[2025-04-15] MEDS: ROXICODONE 5 MG PO ×3 (01:48→12:44)
[2025-04-15] MEDS: SYNTHROID 88 MCG PO (05:54)
[2025-04-15 06:32] LABS: Hematocrit 23.5 % (37.0-47.0); Hemoglobin 7.9 g/dL (12.0-16.0); Mean Corp Hgb Conc. 33.6 g/dL (33.0-37.0); Mean Corpuscular Hgb 28.6 pg (27.0-31.0); Mean Corpuscular Volume 85.1 fL (81.0-99.0); Mean Platelet Volume 9.8 fL (7.4-10.4); Platelet Count 311 10^3/uL (130-400); Red Blood Cell Count 2.76 10^6/uL (4.20-5.40); Red Cell Dist. Width 14.8 % (11.5-14.5); White Blood Cell Count 9.6 10^3/uL (4.8-10.8)
--- NOTE | 2025-04-15 06:53 | W.PN.VS ---
Today's Communication / Plan
-
stat left leg duplex
Assessment/Plan
-
Assessment: POD 3 Left distal common femoral and profunda femoral endarterectomy. Left femoral to below the knee popliteal artery bypass with 6 mm ringed Propaten graft.
Plan:
Sp signal weaker than previously reports
no idalia and foot warm
will check stat duplex and anatoliy to eval
cont eliquis
npo until we clarify status of graft
Subjective Data
-
Date of Service: April 15, 2025
No complaints this am
does report some wound discomfort
Objective Data
-
Vital Signs
Temp Pulse Resp BP Pulse Ox
99.3 F 96 17 116/67 96
04/14/25 23:30 04/14/25 23:30 04/14/25 23:30 04/14/25 23:30 04/14/25 23:30
Intake and Output
04/13/25 04/14/25 04/15/25
06:59 06:59 06:59
Intake Total 1075 / 1515 1635 / 1640 533 / 533
Output Total 660 / 685 500 / 500 200 / 200
Balance 415 / 830 1135 / 1140 333 / 333
Intake:
Oral fluids 50 / 410 1420 / 1420 528 / 528
IV fluids (Total) 1025 / 1105 215 / 220 5 / 5
Nss 1,000 ml @ 80 mls/hr IV . 900 / 980 160 / 160
[id number] IGOR Rx#:[id number]
heparin 55 / 60 5 / 5
normosol 125 / 125
Output:
Urine, Pérez 660 / 685 100 / 100
Urine, Voided 400 / 400 200 / 200
Other:
Number of approximated SMALL 3 2
amounts of urine
Number of approximated MODERATE 2 1
amounts of urine
How many times incontinent 2
MODERATE amount urine
How many times incontinent 1 1
SATURATED amount urine
Lab Results
04/15/25 05:44
Calcium 8.0 mg/dl (8.4-10.2) L 04/14/25 05:15
Phosphorus 3.0 mg/dl (2.5-4.5) 04/14/25 05:15
Magnesium 1.7 mg/dl (1.6-2.3) 04/14/25 05:15
Total Bilirubin 1.1 mg/dl (0.2-1.3) 04/11/25 06:27
AST 50 U/L (14-36) H 04/11/25 06:27
ALT 26 U/L (0-35) 04/11/25 06:27
Alkaline Phosphatase 92 U/L (38-126) 04/11/25 06:27
Total Protein 7.0 g/dl (6.3-8.2) 04/11/25 06:27
Albumin 3.7 g/dl (3.5-5.0) 04/11/25 06:27
Physical Exam
-
rrr
ctab
dressings intact
excellent pop signal
monophasic weak dp signal
[2025-04-15 07:00] VITALS: BP 131/80
[2025-04-15 07:01] LABS: Blood Urea Nitrogen 20 mg/dl (7-17); Carbon Dioxide 23 mmol/L (22-30); Chloride 105 mmol/L (98-107); Estimated Creatinine Clearance 50 ml/min; Glucose 100 mg/dl (70-99); Magnesium 1.6 mg/dl (1.6-2.3); Potassium 3.6 mmol/L (3.5-5.1); Sodium 132 mmol/L (135-145); eGFR > 60.00
[2025-04-15] MEDS: SPIRIVA RESPIMAT 2.5 MCG 2 PUFF INH (08:12)
--- NOTE | 2025-04-15 08:24 | W.PN.HOSP.TC ---
Today's Communication/Plan
-
Continue DOAC/Plavix/statin
Serial vascular checks of the LE
Trend CBC
Check UA and culture
Assessment / Plan
Assessment / Plan
#Acute occlusion of LLE vascular stents s/p bypass with graft occlusion
#S/p left femoropopliteal bypass and endarterectomy
#PAD of BLLE with stent x 9
-Presented after a fall, found to have occlusion of LLE stents on initial arterial US with BRYANT
-POD 3 -- left distal common femoral and profundofemoral endarterectomy and femoropopliteal bypass
-Home regimen included statin, Plavix, as well as Eliquis for her AF
-S/p IV heparin drip, has since been transition back to Eliquis
-Arterial US today shows occluded graft, foot remains perfused
-Continue high intensity statin, Eliquis, Plavix
-Continue vascular checks of the LLE
-No plans for additional intervention per vascular
#Permanent AF with RVR
#Hypothyroidism with overtreatment
-Presented in RVR likely related to pain/fall as well as hyperthyroid state
-Labs initially with undetectable TSH, elevated free T4; reduced home levothyroxine to 88 mcg
-Home diltiazem 120 mg ER increased to twice daily, started on digoxin; remains on home Eliquis
-Heart rate has since normalized, remains in rate controlled AF
-Continue to monitor on telemetry while here
-Will need repeat TSH in 4 to 6 weeks as OP
#Dysuria
-Concern for CAUTI
-Complains of some dysuria that started yesterday, no leukocytosis or fever today
-She did have a Pérez catheter placed while here for intensive urine monitoring postoperatively
-Order urinalysis with reflex culture; monitor CBC and temperature curve
-Consider empiric dose of IV ceftriaxone
#Left proximal humerus fracture
-Traumatic secondary to fall in context of underlying osteoporosis
-Minimal displacement, s/p sling that was placed upon arrival
-Orthopedics evaluated, no plan for surgical management
-Continue to maintain LUE sling and plan for OP follow-up with orthopedics
-Will need repeat x-ray in 1 to 1.5 weeks
#Traumatic rhabdomyolysis secondary to fall
-Resolved with IVF, no HAYLIE
#CAD s/p LCx PCI x 2
-No association with cardiomyopathy or systolic dysfunction
-Home regimen includes high intensity statin, diltiazem, Plavix, DOAC for AF
-Has not had any signs or symptoms of ACS here
#Interstitial lung disease
#COPD without exacerbation
-No recent PFTs to review, no recent lung CT in system
-Home regimen includes tiotropium inhaler daily, not on LABA or ICS
-Remains comfortably on room air without adventitious sounds on exam
-Monitor on RA with SpO2 goal >90%
#Orthostatic hypotension
-Unclear etiology, no known autonomic dysfunction
-Home regimen includes midodrine 5 mg 3 times daily
-Added hold parameters for midodrine to avoid hypertension
#Celiac's disease
-Gluten-free diet ordered, no signs of celiac flare at this time
#Postoperative blood loss anemia
#Chronic multifactorial anemia
-Multifactorial with chronic disease state and iron deficiency; Home meds include ferrous sulfate
-Hemoglobin here has downtrended; baseline near 9, most recently 7.9
-No signs of significant hemorrhaging at this time
-Continue iron and trend CBC on home Eliquis
#Osteoporosis
-Home regimen includes Prolia every 6-month
#Bipolar disorder
-Remains on home Abilify regimen
#Tobacco use
-Patient states she has stopped smoking, purse was filled with cigarette butts
-Encouraged absolute cessation
#Moderate protein calorie malnutrition
-BMI 18.7, albumin however 3.7 when checked on 04/11
-Start Ensure with meals, consider calorie counts
#Stage II left ankle pressure injury, POA
-Wound care consulted, monitor for signs of superimposed infection
Diet: Gluten-free, low-cholesterol, Ensure twice daily
DVT prophylaxis: Home Eliquis
CODE STATUS: DNR
Disposition: SNF
Anticipated Discharge: 24 - 48 hours
Subjective/Interval History
-
Date of Service: April 15, 2025
Seen and examined at the bedside. No acute events reported overnight. AFVSS this morning
Hemoglobin down trended from 9-7.9. No leukocytosis today. BMP stable
She does complain of dysuria today, started yesterday. Denies any fevers or abdomen pain. States her leg feels well, appears well-perfused
Objective Data
-
Labs:
Laboratory Results
04/15/25
05:44
WBC 9.6
Hgb 7.9 L
Hct 23.5 L
Plt Count 311
Sodium 132 L
Potassium 3.6
Chloride 105
Carbon Dioxide 23
BUN 20 H
Creatinine 0.5 L
Glucose 100 H
Calcium 8.0 L
Vital Signs:
Vital Signs
Temp Pulse Resp BP Pulse Ox
98.2 F 76 16 131/80 97
04/15/25 07:00 04/15/25 08:19 04/15/25 08:19 04/15/25 07:00 04/15/25 08:19
I&O
04/14/25 04/15/25 04/16/25
06:59 06:59 06:59
Intake Total 1635 / 1640 533 / 533
Output Total 500 / 500 200 / 200
Balance 1135 / 1140 333 / 333
Review of Systems
-
History Source: Patient
All other systems: Reviewed and negative
Physical Exam
-
General: Well Developed, No Apparent Distress, Appears Chronically Ill and Other (Thin and frail)
HEENT: Normocephalic, Atraumatic, Moist Mucous Membranes and Anicteric
Respiratory: Clear to Auscultation and Non Labored Respirations; Negative Accessory Resp Muscle Use
Cardiac: S1/S2 and Irregular Rhythm; Negative Murmur, Rub, JVD or Tachycardic
GI: Soft, Nontender, Nondistended and Normal Bowel Sounds
Musculoskeletal: No Clubbing, No Cyanosis, No Edema and Other (Reduced DP pulse of LLE; cap refill <3s; no pallor or cyanosis)
Skin: Warm and Dry; Negative Rash
Neuro: AO x 3 and Nonfocal/Grossly Intact; Negative Tremors
Psych: Calm
Data Reviewed
-
Labs: Labs Reviewed by me, Discussed with Physician (Vascular surgery) and Discussed with Patient
[2025-04-15] MEDS: LANOXIN 125 MCG PO (08:50)
[2025-04-15] MEDS: OSCAL 500 + D 500 MG PO (08:51)
[2025-04-15] MEDS: THERAGRAN 1 TABLET PO (08:51)
[2025-04-15] MEDS: CARDIZEM CD 120 MG PO (08:53)
[2025-04-15] MEDS: ProAmatine 5 MG PO ×3 (08:53→17:11)
[2025-04-15] MEDS: PLAVIX 75 MG PO (08:53)
[2025-04-15] MEDS: ELIQUIS 2.5 MG PO (08:53)
[2025-04-15] MEDS: ZOLOFT 100 MG PO (08:53)
[2025-04-15] MEDS: FEOSOL 325 MG PO (08:53)
[2025-04-15 11:00] VITALS: BP 116/71
[2025-04-15 13:04] LABS: Urine Albumin 3+ (Neg - Trace); Urine Bilirubin Negative (Negative); Urine Character Cloudy (Clear); Urine Color Yellow; Urine Glucose Negative (Negative); Urine Ketone Negative (Negative); Urine Leukocyte 3+ (Negative); Urine Nitrite Positive (Negative); Urine Occult Blood 4+ (Negative); Urine Specific Gravity 1.015 (<1.030); Urine Urobilinogen Negative (Neg - 1+)
[2025-04-15 13:20] LABS: Urine White Cell >100 /HPF (0-5)
[2025-04-15 15:00] VITALS: BP 110/64
[2025-04-15] MEDS: STERILE WATER FOR INJECTION 10 ML IV (15:49)
[2025-04-15] MEDS: ROCEPHIN 1000 MG IV (15:50)
--- NOTE | 2025-04-15 16:05 | CM ---
CM following re: discharge planning.
Reviewed pt's chart, met with pt and pot's brother Campbell Hickey at bedside.
According to pt is medically stable to be discharged today. Both pt and her brother are aware, expressed her agreement with discharge. IMM reviewed yesterday and a copy is on the chart.
Per CM note, pt is accepted by [facility] for admission today. CM left a message to [facility] communications director.
Insurance auth obtained yesterday. Auth# [id number]. Level 1 approved for 5 days-04/15/25 through to and including 04/19/25. LCD 04/19/25 and NRD 04/19/25. Call updates to
[facility] nursing report # [phone]
Discharge instruction
[facility] to arrange ambulance BLS. PMNC completed and is on chart.
D/C plan: [facility] today.
--- NOTE | 2025-04-15 16:32 | W.DCSUMMARY ---
Discharge Summary
Discharge Data
Date of Admission: 04/08/25
Date of Discharge: 04/15/25
Total time spent discharging patient (in min): 36
-
Pending Results: No
Hospital Course
Discharging Physician :� Sharath Cain DO
Disposition :���SNF
Principal Discharge diagnosis :�
PAD with obstructed LLE stents
S/p left femoral endarterectomy and femoropopliteal bypass
Occluded left femoropopliteal bypass
Hyperthyroid state from excess levothyroxine
Atrial fibrillation with RVR
Left humerus fracture
Chronic Discharge diagnosis :�
CAD s/p PCI x 2
PAD s/p BL LE stents x 9
Permanent AF on Eliquis
COPD/ILD
Hypothyroidism
Celiac's disease
Orthostasis on midodrine
Chronic anemia (AOCD + DAQUAN)
Osteoporosis
Former tobacco use
Hospital Course :�
85-year-old female that presented to the hospital following mechanical fall onto her left shoulder. Initial x-ray showed signs of minimally displaced proximal humerus fracture. Was evaluated by orthopedics who recommended conservative therapy with
nonweightbearing to LUE, recommendation to maintain sling with repeat x-ray in office with orthopedics in 2 weeks. Also found to have RVR with her permanent atrial fibrillation. She was started on digoxin 0.125 mg daily and her home diltiazem 120
mg ER was increased to twice daily from once daily. Subsequently achieved rate controlled atrial fibrillation. Complained of pain in her left lower extremity described as cramping. Upon examination had reduced pulses. Arterial ultrasound showed
occluded stents to her left lower extremity. Was evaluated by vascular surgery who ultimately recommended surgical intervention. Was taken to the OR on 04/12/2025 for left femoral endarterectomy and left femoropopliteal bypass. Treated with IV
heparin drip perioperatively which was transition back to her home Eliquis postoperatively. Developed reduced left lower extremity pulses and repeat ultrasound showed occluded left femoropopliteal graft. Vascular surgery recommended no further
intervention as her foot remained with signs of good perfusion and she symptomatically was improved from admission. Late in hospitalization she developed dysuria. Did have Pérez catheter temporarily placed perioperatively. Urinalysis consistent
with UTI. Was given 1 dose of IV ceftriaxone and discharged with cefdinir 300 mg every 12 hours to complete 5 total days of antibiotics.
Consultants :
Orthopedist: Jacinto Mendez MD
Cardiology: Anand Moran MD
Vascular surgery: Yash Aaron MD
Pulmonology: Morgna Davis MD
Important imaging findings :�
Left shoulder x-ray, 3 views (04/07/2025)
FINDINGS/IMPRESSION: Acute fracture of the surgical neck of the left proximal humerus with comminution and mild displacement. No dislocation.
Arterial US LLE with BRYANT (04/10/2025)
RIGHT LOWER EXTREMITY: BRYANT moderately reduced at 0.56 (prior 0.69). TBI severely reduced at 0.27 (prior 0.42). Arterial duplex examination reveals monophasic waveforms in the common femoral artery and profunda femoral artery suggesting the
presence of iliac inflow disease. There is a transition to monophasic waveforms throughout the superficial femoral artery and popliteal artery which may suggest the presence of arterial disease at this location. Monophasic continuous Doppler
waveforms are demonstrated in the posterior tibial artery and dorsalis pedis artery. Posterior tibial artery is heavily diseased and may be occluded proximally.
LEFT LOWER EXTREMITY: BRYANT severely reduced at 0.35 (prior 0.67). TBI severely reduced at 0.19 (prior 0.17). Arterial duplex examination reveals monophasic waveforms in the common femoral artery and profunda femoral artery suggesting the presence
of iliac inflow disease. There is a significant velocity elevation in the proximal profunda femoral artery at 691 cm/s suggesting a greater than 75% stenosis at this location. The left superficial femoral artery is occluded. Reconstitution of the
popliteal artery is identified with monophasic waveforms. The posterior tibial artery is occluded.
CTA abdominal aorta with venous runoff (04/11/2025)
1. LEFT LOWER EXTREMITY: Left external iliac artery stent is patent, less than 50% stenosis. Left SFA is stented along its length, and is occluded along its length. Left distal popliteal artery is reconstituted via branches of the profunda femoris
artery, and a small in size. Left posterior tibial artery is occluded near its origin.
2. RIGHT LOWER EXTREMITY: Multifocal 50-75% stenoses within the right external iliac artery, and right SFA. Heavily calcified plaque within the right popliteal artery, associated with greater than 75% stenosis. Single-vessel runoff to the right foot
via the anterior tibial artery.
Arterial US LLE with BRYANT (04/15/2025)
IMPRESSION: Left ankle-brachial index of 0.34, previously 0.35. No identifiable posterior tibial Doppler waveform. No phasicity of left digital PPG waveform. Monophasic waveform in the common femoral artery consistent with inflow disease. Occlusion
of the femoral to popliteal bypass graft.
Procedure findings :�
Vascular procedure (04/12/2025): no surgical findings to report
1. Left distal common femoral and profunda femoral endarterectomy.
2. Left femoral to below the knee popliteal artery bypass with 6 mm ringed Propaten graft.
Follow-up :
-PCP in 1 to 2 weeks, repeat TSH in 4 to 6 weeks
-Orthopedist in 1 week with repeat left humerus x-ray
-Vascular surgery on 04/27/2025
-Cardiology on 05/09/2025
-Pulmonology in 4 to 6 weeks
Discharge Plan
-
Patient Disposition: Senior Living/SNF
Discharge Diagnosis/Procedures: Obstructed left lower extremity stents S/p endarterectomy and femoropopliteal bypass
Peripheral arterial disease
Chronic anemia
Urinary tract infection
Hypothyroidism with hyperthyroid state from excess levothyroxine
Atrial fibrillation with RVR
Left proximal humerus fracture
CAUTI
Condition: Good
Diet: As tolerated
Activity: No strenuous activity
Additional Activity: Nonweightbearing to LUE, maintain sling
Driving Restrictions: No driving for 2 weeks
Bathing Restrictions: OK to Shower
Blood Work: Check CBC, BMP, magnesium 5 days after discharge from hospital
Needs repeat TSH 4 to 6 weeks after discharge
Others Tests: Xray of LUE/humerus in 1 week at follow-up appointment with orthopedics
PFTs with pulmonology
Other Services: PT
Activity Restrictions/Additional Instructions:
Follow up:
After discharge schedule follow-up appointment with family doctor, to be seen in office within 1 to 2 weeks of discharge from hospital
Follow-up in office with cardiology on 05/09/2025 at 1:20 PM
Follow-up with vascular surgery in office on 04/27/2025 at 1 PM
Follow-up with orthopedist in office within 1 week of discharge for repeat x-ray
Schedule follow-up appointment with pulmonology, should be seen in the office within 4 to 6-weeks. New referral for pulmonology provided as your current billet recorder is retiring soon
Instructions: Angioplasty and stents for peripheral artery disease
Stand Alone Forms: Vascular Surg Discharge Instr
Referrals:
Lesia Miranda PA-C [Specified Professional Personl, Cardiology] - 05/09/25 1:20 pm
Referral Note: You have cardiology follow-up with Lesia Miranda PA-C on May 09 at 1:20 PM in [address] in the [place]. If you are unable to make this appointment please call [phone] to reschedule
Morgan Davis MD [Active, Pulmonary Medicine] - in four to six weeks
Referral Note: full PFT on day of office visit
Jacinto Mendez MD [Active, Orthopedics] - in one week
Jie Us DO [Family Provider, Family Practice]
Dary Green CRNP [Specified Professional Personl, Vascular Surgery] - 04/27/25 1:00 pm
Referral Note: Vascular office follow up
Additional Discharge Medication Instructions: Continue cefdinir 300 mg every 12 hours for 4 more days after discharge
Increase atorvastatin from 20 mg to 40 mg every evening
Increase diltiazem ER from 120 mg every morning to twice daily
Decrease levothyroxine from 112 mcg to 88 mcg daily
Continue tiotropium inhalation daily with albuterol inhalation as needed every 4 hours for wheezing or shortness of breath
Continue with Tylenol 1 g every 6 hours as needed for pain
Prescriptions:
New
atorvastatin 40 mg Tablet
40 mg PO QPM 30 Days Qty: 30 0RF
diltiazem HCl 120 mg Capsule,Extended Release 24hr
120 mg PO BID 30 Days Qty: 60 0RF
levothyroxine 112 mcg Tablet
88 mcg PO DAILY @ 0600 30 Days Qty: 24 0RF
albuterol sulfate 1.25 mg/3 mL Solution For Nebulization
1.25 mg inhalation R Q4HPRN PRN (Reason: SOB/wheezing) Qty: 75 0RF
cefdinir 300 mg capsule
300 mg PO Q12H 4 Days Qty: 8 0RF
Continued
aripiprazole [Abilify] 5 mg Tablet
5 mg PO HS
ferrous sulfate [iron] 325 mg (65 mg iron) Tablet
325 mg PO DAILY
sertraline 100 mg tablet
100 mg PO DAILY
multivitamin Tablet
1 tab PO DAILY
apixaban 2.5 mg Tablet
2.5 mg PO BID
clopidogrel 75 mg Tablet
75 mg PO DAILY Qty: 30 0RF
digoxin 125 mcg (0.125 mg) tablet
125 mcg PO DAILY
midodrine 5 mg Tablet
5 mg PO TID
Santyl 250 unit/gram Ointment
1 applic TOPICAL DAILY
Prolia 60 mg/mL Syringe
60 mg SC [id number]
Patient Comments:
pt is behind
calcium carbonate-vitamin D3 600 mg-5 mcg (200 unit) Tablet
1 tab PO DAILY
tiotropium bromide 18 mcg Capsule, W/Inhalation Device
1 cap INHALATION DAILY
Discontinued
diltiazem HCl 120 mg capsule,extended release 24hr
120 mg PO QPM
atorvastatin 10 mg Tablet
20 mg PO QPM
levothyroxine 112 mcg tablet
112 mcg PO DAILY
Discharge Orders:
Discharge Patient (As Directed); Ordered 04/15/25
Ordered By: Sharath Cain
Discharge Date and Time
Print Language: CITIZEN OF [place]
[2025-04-15] MEDS: LIPITOR 40 MG PO (17:11)
== END 2025-04-15 18:05 | DRG 253 ==
LOC: 2 SOUTH 00:10
PROVIDERS: Clinical Nurse Specialist Family Health; Nurse Practitioner; Nurse Practitioner Acute Care; Nurse Practitioner Family; Nurse Practitioner Primary Care; Student in an Organized Health Care Education/Training Program; Surgery Vascular Surgery; ADMITTING PHYSICIAN Internal Medicine; ATTENDING PHYSICIAN Internal Medicine; CONSULT PHYSICIAN Internal Medicine Critical Care Medicine; CONSULT PHYSICIAN Orthopaedic Surgery; EMERGENCY PHYSICIAN Emergency Medicine; FAMILY PHYSICIAN Family Medicine; OTHER PHYSICIAN Internal Medicine Cardiovascular Disease; OTHER PHYSICIAN Nurse Practitioner
PROC: 04CL0ZZ Extirpation of Matter from Left Femoral Artery, Open Approach (ICD-10-PCS; 2025-04-12)
PROC: 041L0JM Bypass Left Femoral Artery to Peroneal Artery with Synthetic Substitute, Open Approach (ICD-10-PCS; 2025-04-12)
DX: I70.202 Unspecified atherosclerosis of native arteries of extremities, left leg (principal); D62 Acute posthemorrhagic anemia; S42.212A Unspecified displaced fracture of surgical neck of left humerus, initial encounter for closed fracture; T83.518A Infection and inflammatory reaction due to other urinary catheter, initial encounter; N39.0 Urinary tract infection, site not specified; I48.21 Permanent atrial fibrillation; J84.9 Interstitial pulmonary disease, unspecified; F03.93 Unspecified dementia, unspecified severity, with mood disturbance; F03.94 Unspecified dementia, unspecified severity, with anxiety; E44.0 Moderate protein-calorie malnutrition; Z68.1 Body mass index [BMI] 19.9 or less, adult; T79.6XXA Traumatic ischemia of muscle, initial encounter; W06.XXXA Fall from bed, initial encounter; L89.522 Pressure ulcer of left ankle, stage 2; I25.10 Atherosclerotic heart disease of native coronary artery without angina pectoris; J43.8 Other emphysema; E03.9 Hypothyroidism, unspecified; N18.9 Chronic kidney disease, unspecified; Z95.5 Presence of coronary angioplasty implant and graft; I12.9 Hypertensive chronic kidney disease with stage 1 through stage 4 chronic kidney disease, or unspecified chronic kidney disease; F17.200 Nicotine dependence, unspecified, uncomplicated; Z88.1 Allergy status to other antibiotic agents; F32.A Depression, unspecified; E78.00 Pure hypercholesterolemia, unspecified; E05.90 Thyrotoxicosis, unspecified without thyrotoxic crisis or storm; T38.1X5A Adverse effect of thyroid hormones and substitutes, initial encounter; Y84.6 Urinary catheterization as the cause of abnormal reaction of the patient, or of later complication, without mention of misadventure at the time of the procedure; D63.1 Anemia in chronic kidney disease; Z66 Do not resuscitate; G25.81 Restless legs syndrome; Z79.01 Long term (current) use of anticoagulants; Z79.02 Long term (current) use of antithrombotics/antiplatelets; Z79.890 Hormone replacement therapy; Z79.899 Other long term (current) drug therapy; Z82.49 Family history of ischemic heart disease and other diseases of the circulatory system; Z90.710 Acquired absence of both cervix and uterus; Z96.1 Presence of intraocular lens
CPT/HCPCS: 88304; 88311; 35656; 70450; 71045; 71046; 72125; 73030; 75635; 80048; 80053; 80162; 81003; 81015; 82550; 82553; 83735; 84100; 84439; 84443; 85025; 85027; 85610; 85730; 86850; 86900; 86901; 87077; 87086; 87186; 93005; 93922; 93925; 93970; 94640; 96361; 96365; 96366; 97116; 97163; 97167; 97168; 97530; 97535; 99285; Q9967

== ENCOUNTER → 2025-05-15 11:02 | Outpatient (REF) | payer OTHER, SELFPAY ==
[2025-05-15 12:13] LABS: TSH 0.10 uIU/ml (0.47-4.68)
== END ==
LOC: OLABWHC 11:02
PROVIDERS: ATTENDING PHYSICIAN Family Medicine
DX: F32.9 Major depressive disorder, single episode, unspecified (principal); I10 Essential (primary) hypertension; E46 Unspecified protein-calorie malnutrition
CPT/HCPCS: 36415; 84439; 84443

== ENCOUNTER → 2025-05-16 11:10 | Outpatient (REF) | payer OTHER, SELFPAY ==
[2025-05-16 11:56] LABS: Hematocrit 31.0 % (37.0-47.0); Hemoglobin 10.0 g/dL (12.0-16.0); Mean Corp Hgb Conc. 32.3 g/dL (33.0-37.0); Mean Corpuscular Volume 87.3 fL (81.0-99.0); Platelet Count 379 10^3/uL (130-400); Red Cell Dist. Width 17.2 % (11.5-14.5)
[2025-05-16 12:39] LABS: Blood Urea Nitrogen 22 mg/dl (7-17); Calcium 9.0 mg/dl (8.4-10.2); Carbon Dioxide 21 mmol/L (22-30); Chloride 113 mmol/L (98-107); Glucose 87 mg/dl (70-99); Magnesium 1.7 mg/dl (1.6-2.3); Potassium 3.9 mmol/L (3.5-5.1); Sodium 142 mmol/L (135-145); eGFR > 60.00
== END ==
LOC: OLABWHC 11:10
PROVIDERS: ATTENDING PHYSICIAN Family Medicine
DX: I10 Essential (primary) hypertension (principal); E46 Unspecified protein-calorie malnutrition
CPT/HCPCS: 36415; 80048; 83735; 85027

== ENCOUNTER → 2025-05-17 10:06 | Outpatient (REF) | payer OTHER, SELFPAY ==
[2025-05-17 10:48] LABS: Urine Character Slightly Cloudy (Clear)
[2025-05-17 11:16] LABS: Urine Red Blood Cell 0-2 /HPF (0-2); Urine White Cell >100 /HPF (0-5)
== END ==
LOC: OLABWHC 10:06
PROVIDERS: ATTENDING PHYSICIAN Family Medicine
DX: N39.0 Urinary tract infection, site not specified (principal)
CPT/HCPCS: 81003; 81015; 87077; 87086; 87186

== ENCOUNTER → 2025-06-20 14:31 | Outpatient (REF) | payer OTHER, SELFPAY | LOC: WOUND 14:31 | PROVIDERS: ATTENDING PHYSICIAN Surgery; FAMILY PHYSICIAN Family Medicine | DX: L97.323 Non-pressure chronic ulcer of left ankle with necrosis of muscle (principal); I70.244 Atherosclerosis of native arteries of left leg with ulceration of heel and midfoot; I70.245 Atherosclerosis of native arteries of left leg with ulceration of other part of foot; I10 Essential (primary) hypertension | CPT/HCPCS: 99213 ==

== ENCOUNTER 2025-06-29 08:25 | Day surgery (SDC) | payer OTHER, SELFPAY ==
[2025-06-29] VITALS (21 sets, daily range): BP systolic 94–148; BP diastolic 62–87; BMI 18.9
[2025-06-29 08:50] LABS: Hematocrit 35.6 % (37.0-47.0); Hemoglobin 11.5 g/dL (12.0-16.0); Mean Corp Hgb Conc. 32.3 g/dL (33.0-37.0); Mean Corpuscular Volume 85.2 fL (81.0-99.0); Platelet Count 377 10^3/uL (130-400); Red Cell Dist. Width 17.7 % (11.5-14.5)
[2025-06-29 09:04] LABS: APTT 31.6 Sec (23.4-35.0); INR 0.99; PT 13.6 Sec (11.4-14.6)
[2025-06-29] MEDS: NSS 500 IV (09:10)
[2025-06-29 09:31] LABS: Blood Urea Nitrogen 16 mg/dl (7-17); Calcium 9.9 mg/dl (8.4-10.2); Carbon Dioxide 25 mmol/L (22-30); Glucose 113 mg/dl (70-99); Potassium 4.5 mmol/L (3.5-5.1); Sodium 140 mmol/L (135-145)
[2025-06-29 09:42] LABS: Chloride 105 mmol/L (98-107); Estimated Creatinine Clearance 51 ml/min; eGFR > 60.00
--- NOTE | 2025-06-29 11:14 | W.SUR.POST ---
Surgical Immediate Post Op
Note
Pre Op Diagnosis: PAD
Post Op Diagnosis: PAD
Procedure Performed: Diagnostic arteriogram
Primary Surgeon: Galen
Anesthesia: local and sedation
Estimated Blood Loss: <2cc
Fluids: See anesthesia flow sheet
Drains/Shunts: none
Specimens/Cultures: none
Doppler/Duplex/Angio (Y/N): Y
Complications: none
Operative Findings: No endorevasc options
--- NOTE | 2025-06-29 11:51 | OR.RPT ---
Operative Report
Operative Report
PROCEDURE DATE: 06/29/2025
Preoperative diagnosis:
1. Chronic limb threatening ischemia left lower extremity
2. History of extensive left lower extremity SFA/popliteal artery angioplasty/stenting, failed.
3. History of left femoral to popliteal artery bypass, failed.
Postoperative diagnosis: Same
Procedure:
1. Duplex assisted cannulation of right common femoral artery.
2. Aortogram and pelvic angiogram.
3. Diagnostic left lower extremity arteriogram.
4. Right femoral angiogram.
5. Supervision and interpretation.
Surgeon: Aaron
Captain Waiter/Waitress: None
Complications: None
Anesthesia: Local, sedation
Fluoroscopy:
3.9 min
90 mGy
4.99 gy.cm2
Indications for procedure:
Chronic limb threatening ischemia left lower extremity with left foot tissue loss. Nonhealing. Failed prior interventions as noted above. Extensive peripheral arterial disease with severe plaque disease throughout aorta/iliac/lower extremity
arteries. Risk/benefits/alternatives of diagnostic angiography, possible intervention if needed were fully discussed. Patient understood all wish to proceed.
Description of procedure:
Patient was identified, brought to the operating room. Placed on the table in the supine position. After the adequate administration of anesthesia, the patient was prepped and draped in the standard surgical fashion. A standard preoperative
timeout was undertaken and everybody was in agreement with the plan.
The right common femoral artery was accessed with a micropuncture kit under direct duplex ultrasound guidance. A 5 [place] sheath was then advanced over a 0.035 inch wire, and a good's hook catheter was advanced into the abdominal aorta.
Aortogram and pelvic angiogram was obtained. Findings as follows:
Infrarenal aorta: Patent with no significant stenosis, but severe eccentric calcified plaque noted.
Left common iliac artery: Patent left common iliac artery extending into external iliac artery stents. No in-stent restenosis. Extensive calcified plaque throughout the iliac system eccentrically noted.
Left external iliac artery: As above patent with no significant stenosis, but significant eccentric calcified plaque.
Right common iliac artery: Patent with mild to moderate proximal stenosis. Diffuse eccentric calcified plaque throughout the iliac system.
Right external iliac artery: Patent with diffuse significant calcified plaque, diffusely moderately stenotic, but severe stenosis in the mid to distal distal external iliac artery more focally.
Using a floppy angled hydrophilic wire, the left common femoral artery was cannulated and the catheter was advanced. Left lower extremity arteriogram was obtained. Findings as follows:
Common femoral artery: Patent common femoral/patched endarterectomy site and profundoplasty site. The origin of the bypass graft could be seen, but was chronically occluded.
Profunda femoris artery: Patent with no significant stenosis. Widely patent profundoplasty.
Superficial femoral artery: The origin was patent (prior endarterectomized), but all the stents and the entirety of the SFA otherwise was occluded.
Popliteal artery: Chronically occluded with reconstitution of the behind the knee popliteal artery segment. Diffusely diseased in that segment though.
Anterior tibial artery: Patent, no definitive significant stenosis. Appears to be the dominant runoff vessel to the foot. Crossed the ankle to become the dorsalis pedis artery.
Tibial peroneal trunk: Severely diffusely stenotic, near occluded.
Peroneal artery: Patent/reconstituted via collaterals. Patent to the level of the ankle where it gave some collaterals but relatively poor collateralization to the foot.
Posterior tibial artery: Chronically occluded.
At this point satisfied with my diagnostic imaging, and given that I did not feel that there is any worthwhile endovascular intervention (I felt that trying to recanalize the occluded stents would be futile given their prior failure, and given
chronic thrombus in the stents and risk of embolization), I then withdrew my catheter to the iliac system to confirm patency of the iliac system without any significant stenoses. I confirmed that. I then withdrew my catheters and wires. Right
femoral angiogram demonstrated good puncture in the right common femoral artery but severely diseased distal right external iliac artery and significantly diseased/plaque laden common femoral artery. The patient was transported in stable condition
to the recovery room. She tolerated the procedure well. The sheath will be withdrawn in the recovery room and manual pressure applied to the puncture site.
[2025-06-29] MEDS: PLAVIX 75 MG PO (12:10)
[2025-06-29] MEDS: NSS 1000 IV (12:30)
== END 2025-06-29 17:45 | disposition home or self-care (01) ==
LOC: CATH 08:25
PROVIDERS: ATTENDING PHYSICIAN Surgery Vascular Surgery; OTHER PHYSICIAN Internal Medicine Cardiovascular Disease; PRIMARYCARE PHYSICIAN Family Medicine
DX: I70.222 Atherosclerosis of native arteries of extremities with rest pain, left leg (principal); Z95.820 Peripheral vascular angioplasty status with implants and grafts; I10 Essential (primary) hypertension; J44.9 Chronic obstructive pulmonary disease, unspecified; I25.10 Atherosclerotic heart disease of native coronary artery without angina pectoris; Z95.5 Presence of coronary angioplasty implant and graft; I48.0 Paroxysmal atrial fibrillation; Z79.890 Hormone replacement therapy; Z79.02 Long term (current) use of antithrombotics/antiplatelets
CPT/HCPCS: 36246; 75710; 75625; 80048; 85027; 85610; 85730; 86850; 86900; 86901; C1769; C1894; Q9967

== ENCOUNTER 2025-07-03 03:58 | Inpatient (IN) | payer OTHER, SELFPAY ==
[2025-07-03] VITALS (29 sets, daily range): BP systolic 88–181; BP diastolic 55–114; BMI 16.7; BMI 17.7
--- NOTE | 2025-07-03 01:15 | EDRN ---
Spoke with Dr. Cox about patient and the findings in patient's foot, she reviewed patient's chart and gave verbal orders for labs and will reach out to vascular
[2025-07-03 01:24] LABS: Hematocrit 28.2 % (37.0-47.0); Hemoglobin 9.3 g/dL (12.0-16.0); Mean Corp Hgb Conc. 33.0 g/dL (33.0-37.0); Mean Corpuscular Volume 83.4 fL (81.0-99.0); Nucleated Red Blood Cells % 0 %; Platelet Count 324 10^3/uL (130-400); Red Cell Dist. Width 17.6 % (11.5-14.5)
[2025-07-03 01:49] LABS: ALT (SGPT) 37 U/L (0-35); AST (SGOT) 48 U/L (14-36); Albumin 4.1 g/dl (3.5-5.0); Alkaline Phosphatase 81 U/L (38-126); Blood Urea Nitrogen 19 mg/dl (7-17); Calcium 9.2 mg/dl (8.4-10.2); Carbon Dioxide 20 mmol/L (22-30); Chloride 105 mmol/L (98-107); Estimated Creatinine Clearance 45 ml/min; Glucose 178 mg/dl (70-99); Potassium 4.0 mmol/L (3.5-5.1); Sodium 135 mmol/L (135-145); Total Protein 7.5 g/dl (6.3-8.2); eGFR > 60.00
--- NOTE | 2025-07-03 02:11 | ED.GENMED ---
History of Present Illness
General
Chief Complaint: Numbness
Source: patient and previous radiology exam (Angiogram bilateral lower extremities performed June 29, Dr. Aaron.)
Exam Limitations: none
Time Seen by Provider: 07/03/25 01:06
Nursing documentation reviewed up to this point in time: agreed with
History of Present Illness
History of Present Illness:
The patient is an 85-year-old female with a history of poor circulation in the leg who presents with a severe cramp-like pain and cold sensation originating in the left groin and extending down the entire leg. The patient reports the onset was
sudden, lasting for approximately 12 minutes before seeking help. She noted that the toes appeared blue, which was not usual for her as her toes and feet are generally warm. The pain was described as 'it was like hard as a rock.' suggesting a severe
and intense discomfort. Since then, the pain has subsided and the patient describes the foot as just 'a little bit achy' but 'not bad' now. The coloration of the toes has since returned to pink, although there is still slight bluishness noted. She
has history of severe peripheral vascular disease with history of extensive left lower extremity SFA/popliteal artery angioplasty/stenting which has since failed. She underwent diagnostic arteriogram bilateral lower extremities June 29, performed
by Dr. Aaron. Noted to have extensive arterial vascular disease left lower extremity not amenable to angioplasty. The plan is for bypass surgery in the near future.
Procedure performed due to nonhealing wounds left posterior ankle and history of chronic limb threatening ischemia of left lower extremity.
She denies abdominal nor back pain. No chest pain or cough no shortness of breath. She has not had a fever. Currently pain-free.
Past History
Past History
ED Past Medical History: Arrthythmia (Atrial fibrillation), CAD, COPD, HTN and Other (Severe peripheral vascular disease. Chronic wound left ankle/left foot.)
ED Past Surgical History: Appendectomy, Cardiac (PTCA with stent 2019), Gynecological (Hysterectomy), Orthopedic (Right toe amputation 2022) and Other (Multiple angioplasty procedures bilateral lower extremities.)
Social History
Tobacco: Non-smoker
Alcohol: None
Drug: None
Personal:
Living: alone
Employment: Retired
Family History
Family History: Other (Noncontributory)
Phy Exam
Physical Exam
Physical Exam:
GENERAL: 85-year-old woman appears her stated age, small build, she is bright and alert, pleasant, easily communicative and in no acute distress.
EYE: anicteric
NECK: Supple, nontender, no meningismus, no significant adenopathy.
ENT: oral mucosa is moist. No rhinorrhea
CARDIAC: Regular rate and rhythm. no murmur.
LUNGS: Clear breath sounds bilaterally, no acute respiratory distress, no wheezes/rales/rhonchi
ABDOMEN: Soft, nondistended, without focal tenderness, no r/g, no cvat. normoactive BS.
NEUROLOGICAL: Alert and oriented x3, no focal neuro deficits.
SKIN: Warm and dry, normal color, good turgor.
MUSCULOSKELETAL: The left foot is mildly cool to touch with minimal mottling of the toes. Gross sensation is intact. No palpable tenderness. Absence of dorsalis pedis as well as posterior tibial pulses on the left. There is a chronic appearing
ulcerated wound left posterior heel. Small dry ulcer left lateral small toe. Chronic appearing absence of toenail left second toe. right second toe is surgically absent. Dorsalis pedis pulse is palpable right foot.
PSYCH: Normal and appropriate interaction.
Course
Orders/Labs/Results
Orders:
Orders
07/03/25 01:14
CBC/With Diff [Complete Blood Count/With Diff] Urgent
Comprehensive Metabolic Panel Urgent
07/03/25 02:07
CT Abd Aorta Angio W/ Run Off Urgent
Reason For Exam: acute severe LLE pain, cold
Abnormal Lab Results
07/03/25
01:14
RBC 3.38 L 10^6/uL
(4.20-5.40)
Hgb 9.3 L g/dL
(12.0-16.0)
Hct 28.2 L %
(37.0-47.0)
RDW 17.6 H %
(11.5-14.5)
Absolute Neuts (auto) 7.2 H 10^3/uL
(1.4-6.5)
Neutrophils % 77.2 H %
(42.2-75.2)
Lymphocytes % 14.6 L %
(20.5-51.1)
Carbon Dioxide 20 L mmol/L
(22-30)
BUN 19 H mg/dl
(7-17)
Creatinine 0.5 L mg/dL
(0.6-1.0)
Glucose 178 H mg/dl
(70-99)
AST 48 H U/L
(14-36)
ALT 37 H U/L
(0-35)
07/03/25 01:14
07/03/25 01:14
Vital Signs
Initial and Last Documented VS:
Initial Vital Signs
Temp Pulse Resp BP Pulse Ox
97.5 F 91 22 181/114 100
07/03/25 00:15 07/03/25 00:15 07/03/25 00:15 07/03/25 00:15 07/03/25 00:15
Last Documented Vital Signs
Temp Pulse Resp BP Pulse Ox
97.5 F 74 23 165/98 97
07/03/25 00:15 07/03/25 02:15 07/03/25 02:15 07/03/25 02:00 07/03/25 02:15
MDM/Problems Addressed
Differential Diagnosis Includes:
The Differential Diagnosis includes, in no particular order and is not limited to:
1. Peripheral Artery Disease
2. Acute Arterial Occlusion
3. Deep Vein Thrombosis
4. Intermittent Claudication
5. Chronic Venous Insufficiency
6. Raynaud�s Phenomenon
7. Diabetic Neuropathy
8. Spinal Stenosis
9. Peripheral Neuropathy
10. Musculoskeletal Pain
MDM/Problems Addressed:
- Acute: Severe cramp and leg pain with suspicion of clot, cold sensation, and transient toe discoloration.
- Chronic: Poor circulation in the leg.
Significant concern for acute ischemia left lower extremity.
Case discussed with vascular surgery. Recommend stat CTA abdomen pelvis with runoff.
Patient noted to be moderately hypertensive initially, blood pressure improving.
Chronic conditions affecting care: Arrhythmia and Other (Severe peripheral vascular disease)
*Radiology
Radiology exam reviewed: radiology read reviewed
*Pulse Oximetry
SaO2: 98
Oxygen Mode of Delivery: Room air
Patient hypoxic: no
*Critical Care Note
Total Time (30-74mins, 75-104mins- exclusive of procedures): 30
comment:
Critical care statement: A total of 30 minutes of critical care time was provided for this patient. This includes management of unstable vital signs, evaluation of the patient at bedside, reviewing the patient's pertinent medical records, discussion
with consultants, review of old EKGs and review of pertinent medical records. This time with separate from time utilized to perform the aforementioned documented procedures
Update Note
Update Note:
03:05
CT angiogram shows acute clot within profunda as per vascular surgeon. He requests IV heparin and will be in to take the patient to the OR.
ED Attending Note
-
Portions of this chart may have been created with voice recognition software.� Occasional wrong word or��sound alike� substitutions may have occurred due to the inherent limitations of voice recognition software.
Discharge Plan
Departure
Patient Disposition: Admit
Date of Disposition: 07/03/25
Time of Disposition: 03:07
Admit to: OR
Admit to doctor: Dionna
Presentation/result/management discussed w/ accepting MD/DO: Hospitalist
Condition: Serious
Discharge Problem:
Acute arterial occlusion left leg
Prescriptions:
No Action
aripiprazole [Abilify] 5 mg Tablet
5 mg PO HS
sertraline 100 mg tablet
100 mg PO DAILY
multivitamin Tablet
1 tab PO DAILY
apixaban 2.5 mg Tablet
2.5 mg PO BID
clopidogrel 75 mg Tablet
75 mg PO DAILY Qty: 30 0RF
digoxin 125 mcg (0.125 mg) tablet
125 mcg PO DAILY
midodrine 5 mg Tablet
5 mg PO TID PRN (Reason: Hypotension)
Patient Comments:
Hold if SBP> 110
Santyl 250 unit/gram Ointment
1 applic TOPICAL DAILY
calcium carbonate-vitamin D3 600 mg-5 mcg (200 unit) Tablet
1 tab PO DAILY
tiotropium bromide 18 mcg Capsule, W/Inhalation Device
1 cap INHALATION DAILY PRN (Reason: Lung/Breathing Issues)
Patient Comments:
Unsure of dose
atorvastatin 40 mg Tablet
40 mg PO QPM 30 Days Qty: 30 0RF
diltiazem HCl 120 mg Capsule,Extended Release 24hr
120 mg PO BID 30 Days Qty: 60 0RF
levothyroxine 112 mcg tablet
112 mcg PO DAILY @ 0600
acetaminophen 325 mg Tablet
650 mg PO Q6H PRN (Reason: pain)
albuterol sulfate 1.25 mg/3 mL Solution For Nebulization
1.25 mg INHALATION QID PRN (Reason: sob)
mirtazapine 7.5 mg Tablet
7.5 mg PO HS
Prolia 60 mg/mL Syringe
60 mg SC [id number]
Incruse Ellipta 62.5 mcg/actuation Blister With Device
1 inh INHALATION DAILY
Referrals:
UNKNOWN - PT DOES,NOT KNOW [Family Provider]
Interventions
Interventions:
*Risk Screen - Suicide Last Done: 07/03/25 00:15
*General Assessment Last Done: 07/03/25 00:15
*Neglect/Abuse Screening Last Done: 07/03/25 00:15
*ED COVID-19 Vaccine History Last Done: 07/03/25 00:22
ED- Neurological Assessment Last Done: 07/03/25 01:28
Discharge Date and Time
Print Language: BELARUSIAN
--- NOTE | 2025-07-03 02:23 | EDRN ---
Patient placed on bed sneed to urinate and pulled up in bed, call pack in reach, will continue to monitor.
[2025-07-03] MEDS: HEPARIN 3200 UNITS IV (03:07)
--- NOTE | 2025-07-03 03:24 | EDRN ---
Dr. westfall updated patient on plan, waiting on OR team to come in at this time, patient placed on bed sneed to urinate again, call pack in reach.
--- NOTE | 2025-07-03 03:32 | EDRN ---
Dr. Shen at bedside working on admission.
--- NOTE | 2025-07-03 03:35 | HPS.HSE ---
Family Physician
-
Family Physician: NOT KNOW UNKNOWN - PT DOES
Chief Complaint
-
Left leg pain and numbness
History of Present Illness
This is a 84-year-old female who has past medical history significant for severe peripheral arterial disease status post multiple vascular stents in both the right and left lower extremity, atrial fibrillation on Eliquis, hypothyroid, orthostatic
hypotension, presents to the emergency department with acute onset of left lower extremity pain.
Patient has a nonhealing left heel wound. She was thought to have critical limb ischemia few weeks ago and had investigative angiogram of the left lower extremity. She had multiple occluded stents that were not recanalized given the prior failure
and giving chronic thrombus in the stents with risk of embolization.
Today she woke up from sleep with pain that was radiating from the left groin down to her left leg. Then she felt her leg become cold. She also felt that the leg became numb.
On arrival in the emergency department, she was febrile, blood pressure was 150/100 with a pulse of 86 and she was satting 90% on room air. CBC was 24 prior and unremarkable. Electrolyte BUN/creatinine were stable with a creatinine of 0.5. She
had a CT angio of the abdomen which showed a new clot in the profunda on the left.
Medical History
Past Medical History
Past Medical History: Reports Other
Additional Past Medical History:
Paroxysmal A-fib multiple cardioversions last December 2023
hypothyroidism
celiac disease
COPD
-Former smoker 66-year half a pack a day stopped September 2024
HTN
PAD left leg 6 stents with left toe amputation, Right leg [address] Aaron,
CAD,-2 cardiac stents approximately 70 years ago [facility]
chronic ambulatory dysfunction uses walker at baseline.
Past Surgical History: Reports Other
Additional Past Surgical History:
Left toe amputation secondary to severe PAD
Left leg [address] Aaron
Right leg [address] Aaron
CAD cardiac stents x 2 7- 8 years ago [facility]
Appendectomy
Hysterectomy
[place] teeth impacted extraction
Cataract extraction bilateral with lens implants
Multiple cardioversions for A-fib
Social History
Tobacco: Smoker
Alcohol: None
Drug: None
Personal: Single
Living: Alone
Family History
Family History: Other (Mother A-fib age 88, father age 81 old age, 1 brother living age 81 history of CAD/MD in his early 70s)
Allergies / Home Medications
Allergies reflects when Allergies were last updated in [employer].
Home Medications with original date entered in [employer]
Allergy/Medication List:
Allergies
Allergy/AdvReac Type Severity Reaction Status Date / Time
cephalexin (From Keflex) Allergy diarrhea Verified 04/07/25 19:50
gluten Allergy Unknown Verified 04/07/25 19:50
tetracycline Allergy Itching Verified 04/07/25 19:50
Home Medications
aripiprazole 5 mg tablet (Abilify) 5 mg PO HS Bipolar 11/05/23
ferrous sulfate 325 mg (65 mg iron) tablet (iron) 325 mg PO DAILY Supplement 11/12/23
diltiazem HCl 120 mg capsule,extended release 24 hr 120 mg PO QPM Blood Pressure 03/02/24
sertraline 100 mg tablet 100 mg PO DAILY Depression 03/02/24
apixaban 2.5 mg tablet 2.5 mg PO BID atrial fibrilation 03/16/24
atorvastatin 10 mg tablet 40 mg PO QPM High Cholesterol 03/16/24
clopidogrel 75 mg tablet 75 mg PO DAILY #30 tabs 03/16/24
multivitamin 1 tab PO DAILY Supplement 03/16/24
digoxin 125 mcg (0.125 mg) tablet 125 mcg PO DAILY Heart Failure 12/06/24
levothyroxine 112 mcg tablet 112 mcg PO DAILY Thyroid 12/06/24
collagenase clostridium histo. 250 unit/gram topical ointment (Santyl) 1 applic topical DAILY 03/14/25
denosumab 60 mg/mL subcutaneous syringe (Prolia) 60 mg SC [id number] 03/14/25
midodrine 5 mg tablet 5 mg PO TID 03/14/25
calcium 600 mg (as carbonate)-vitamin D3 5 mcg (200 unit) tablet 1 tab PO DAILY 03/16/25
tiotropium bromide 18 mcg capsule with inhalation device 1 cap inhalation DAILY 03/16/25
Review of Systems
-
History Source: Patient and Other (Neighbor at bedside)
A 12 point ROS was completed and negative except as noted: Yes
Constitutional: Reports Fatigue; Denies Fever
EENT: Reports Other (Dry mouth); Denies Sore Throat
Respiratory: Denies Cough or Trouble Breathing
Cardiac: Denies Chest Pain, Diaphoresis, Palpitations or Syncope
Abdomen/GI: Denies Abdominal Pain, Nausea, Vomiting, Diarrhea, Constipated, Bloody Stools or Black Stools
: Denies Dysuria, Frequency, Flank Pain, Incontinence, Difficulty Voiding or Urgency
Musculoskeletal: Reports Other (left lower extremity pain, numbness)
Skin: Denies Itching or Rash
Neurological: Reports Weakness (Generalized) and Other (Cramping bilateral lower legs); Denies Dizzy or Headache
Endocrine: Denies No Symptoms
Hematologic/Lymphatic: Denies No Symptoms
Psych: Reports Calm
Physical Exam
Vital Signs
Vital Signs
Temp Pulse Resp BP Pulse Ox
97.5 F 86 23 156/104 98
07/03/25 00:15 07/03/25 03:15 07/03/25 03:15 07/03/25 03:00 07/03/25 03:15
Physical Exam
General: Comfortable and Conversant; No Slurred Speech
HEENT: NormoCephalic, Anicteric, Moist mucous membranes, PERRLA, [place] Conjunctivae, No Ptosis and Neck Nontender; No Pharyngeal Erythema
Cardiac: S1/S2 and Irregular Rhythm (Rapid A-fib 133 bpm); No Murmur, Rub, Gallop or Peripheral Edema
GI: Soft, Non Tender, Non Distended, Normal Bowel Sounds and No Hepatosplenomegaly
Genito-urinary: Deferred by me
Musculoskeletal: No Clubbing, No Cyanosis, No Edema and Other (non-palpable or dopplable DP pulse on the left)
Skin: Warm, Dry and Ulcers (left Achilles currently open has been present x 1 year); No Rash
Neuro: AO x 3 (However changes her story several times), Nonfocal/grossly intact, Cranial Nerves Intact, No Sensory Deficits and Other (Left shoulder limited range of motion secondary to left humeral head fracture); No DTR's Intact & Symmetrical,
Slurred Speech, Facial Droop, Tremors or Sedated
Psych: Calm
Laboratory Results
-
07/03/25 01:14
07/03/25 01:14
Laboratory Results
Total Bilirubin 0.5 mg/dl (0.2-1.3) 07/03/25 01:14
AST 48 U/L (14-36) H 07/03/25 01:14
ALT 37 U/L (0-35) H 07/03/25 01:14
Alkaline Phosphatase 81 U/L (38-126) 07/03/25 01:14
Data Reviewed
-
CT Scan: Report Reviewed by me
Lab Data: Labs Reviewed by me
Old Records: Reviewed
Impression/Plan
-
IMPRESSION:
85 y.o female with h/o PAD, AFIB, hypothyroid, COPD coming to ED after develpment of numbness, pain and pallor in the left lower extremity. CT showing new L profunda thrombus not seen 3 days ago.
PLAN:
PAD/Limb ischemia - New thrombus in L profunda requiring acute intervention
- admit to icu
- heparin gtt started
- npo for now
- pain control
- trend lactate
- holding eliquis
- continue plavix/statin
- wound care consult
- vascular surgery consulted. Patient going to or for intervention
AFIB
- on heparin gtt
- continue diltiazem, digoxin
Hypothyroid
- Continue synthroid
COPD - stable
- continue incruse elipta
- prn nebs
--- NOTE | 2025-07-03 03:55 | W.PN.VS ---
Today's Communication / Plan
-
for or for bypass
hep
Assessment/Plan
-
ischemic left leg
CTA reviewed - occluded profunda origin
reconsrtituted at
discussed need for revasc. Will do thrombectomy and possible bypass
risk of limb loss
hep given to patinet
icu post op
discussed with hospitalist and ER
Subjective Data
-
Date of Service: July 03, 2025
Patient presents to the er with severe pain in her left leg and foot
been going on for several hours
history of extenisve PVD and non healing wounds on left foot
multiple toe amps previously
multiple vasc interventions previously on left leg including bypass and stents
recent diagnostic agram with plan per patinet for a bypass
Objective Data
-
Vital Signs
Temp Pulse Resp BP Pulse Ox
97.5 F 86 23 156/104 98
07/03/25 00:15 07/03/25 03:15 07/03/25 03:15 07/03/25 03:00 07/03/25 03:15
Intake and Output
07/01/25 07/02/25 07/03/25
06:59 06:59 06:59
Output Total 550 / 550
Balance -550 / -550
Output:
Urine, Voided 550 / 550
Lab Results
07/03/25 01:14
07/03/25 01:14
Calcium 9.2 mg/dl (8.4-10.2) 07/03/25 01:14
Total Bilirubin 0.5 mg/dl (0.2-1.3) 07/03/25 01:14
AST 48 U/L (14-36) H 07/03/25 01:14
ALT 37 U/L (0-35) H 07/03/25 01:14
Alkaline Phosphatase 81 U/L (38-126) 07/03/25 01:14
Total Protein 7.5 g/dl (6.3-8.2) 07/03/25 01:14
Albumin 4.1 g/dl (3.5-5.0) 07/03/25 01:14
Physical Exam
-
+ femoral pulse on left
no infrainguinal pulses or signals
left foot cool to touch
--- NOTE | 2025-07-03 05:00 | CON.VAS ---
Consultation
Consultation Request
Date/Time Consultation Performed: 07/03/2025 at 3:35 AM
Performing Provider: Ariella
Reason for Consultation: Ischemic left leg
Medical History
-
Chief Complaint: Left lower extremity pain
History of Present Illness:
85-year-old female with past medical history significant for severe PAD, A-fib on Eliquis, hypothyroidism, orthostatic hypotension, COPD, former smoker, hypertension, CAD with stents, multiple lower extremity stents by Dr. Aaron. Admitted to the
emergency room on 07/03/2025 for severe left leg and foot pain that had been ongoing for several hours. Patient has an extensive vascular history with 6 stents to both lower extremities, multiple toe amputations, and left lower extremity bypass.
CTA reviewed -occluded profunda at origin, reconstitutes at AT
Discussed need for revascularization with thrombectomy and a possible bypass.
Past Medical History
Past Medical History: Other (PAD, A-fib on Eliquis, hypothyroidism, orthostatic hypotension, COPD, celiac disease, hypertension, former smoker)
Past Surgical History: Other (See above)
Social History
Tobacco: Former Smoker (Heavy)
Alcohol: None
Drug: None
Personal: Single
Living: Alone
Family History
Family History: Reviewed & Not Pertinent
Allergies / Home Medications
Allergy/AdvReac Type Severity Reaction Status Date / Time
cephalexin (From Keflex) Allergy diarrhea Verified 06/29/25 09:03
gluten Allergy diarrhea Verified 06/29/25 09:03
tetracycline Allergy Itching-'it Verified 06/29/25 09:03
gives me
white
itchy
spots'
�Medication �Instructions �Recorded �Confirmed �Type
aripiprazole 5 mg tablet (Abilify) 5 mg PO HS Bipolar 11/05/23 06/29/25 History
sertraline 100 mg tablet 100 mg PO DAILY Depression 03/02/24 06/29/25 History
apixaban 2.5 mg tablet 2.5 mg PO BID atrial fibrilation 03/16/24 06/29/25 History
Held on 06/29/25.
Instructions: Resume on
06/30/25.
clopidogrel 75 mg tablet 75 mg PO DAILY #30 tabs 03/16/24 06/29/25 Rx
multivitamin 1 tab PO DAILY Supplement 03/16/24 06/29/25 History
digoxin 125 mcg (0.125 mg) tablet 125 mcg PO DAILY Heart Failure 12/06/24 06/29/25 History
collagenase clostridium histo. 250 1 applic topical DAILY Left Heel 03/14/25 06/29/25 History
unit/gram topical ointment (Santyl) Wound
midodrine 5 mg tablet 5 mg PO TID PRN Hypotension 03/14/25 06/29/25 History
calcium 600 mg (as 1 tab PO DAILY Supplement 03/16/25 06/29/25 History
carbonate)-vitamin D3 5 mcg (200
unit) tablet
tiotropium bromide 18 mcg capsule 1 cap inhalation DAILY PRN 03/16/25 06/29/25 History
with inhalation device Lung/Breathing Issues
atorvastatin 40 mg tablet 40 mg PO QPM High cholesterol 1 04/15/25 06/29/25 Rx
month #30 tabs
diltiazem HCl 120 mg 120 mg PO BID Arrhythmia 1 month 04/15/25 06/29/25 Rx
capsule,extended release 24 hr #60 caps
levothyroxine 112 mcg tablet 112 mcg PO DAILY @ 0600 Thyroid 06/26/25 06/29/25 History
acetaminophen 325 mg tablet 650 mg PO Q6H PRN pain 06/29/25 06/29/25 History
albuterol sulfate 1.25 mg/3 mL 1.25 mg inhalation QID PRN sob 06/29/25 06/29/25 History
solution for nebulization
denosumab 60 mg/mL subcutaneous 60 mg SC [id number] BONE 06/29/25 06/29/25 History
syringe (Prolia)
mirtazapine 7.5 mg tablet 7.5 mg PO HS Mental Health/Anxiety 06/29/25 06/29/25 History
umeclidinium 62.5 mcg/actuation 1 inh inhalation DAILY 06/29/25 06/29/25 History
blister powder for inhalation Lung/Breathing Issues
(Incruse Ellipta)
Review of Systems
-
History Source: Patient
All other systems: Negative unless noted
Vascular: Reports Leg Pain / Claudication
Skin: Reports Other (Cool left foot)
Physical Exam
Vital Signs
Temp Pulse Resp BP Pulse Ox
98.4 F 72 27 120/74 98
07/04/25 10:55 07/04/25 11:00 07/04/25 11:00 07/04/25 11:00 07/04/25 11:00
Lab Results
07/04/25 03:49
Physical Exam
General: Pain
HEENT: Normocephalic and Atraumatic
Respiratory: Non Labored Respirations
Cardiac: Negative JVD
GI: Soft and Non Tender
Skin: Other (Left foot cold to touch)
Neuro: Awake, Alert and Oriented
Psych: Calm
Pulses: Left Femoral: +2, Left Dorsalis Pedis: Doppler (No signal) and Left Posterior Tibial: Doppler (No signal)
Assessment / Plan
-
85-year-old female here with left lower extremity pain, CTA shows occluded profunda
Plan:
Heparin drip
N.p.o.
Operating room for bypass
Data Reviewed
-
CT Scan: Discussed with Patient
[2025-07-03 06:48] LABS: ACT-LR - POC 189 Seconds (116-155)
--- NOTE | 2025-07-03 08:39 | W.IMMPOSTOP ---
Surgical Immed Post Op Note
-
Primary Surgeon: fidencio
Assisting Surgeon: None
Pre-op Diagnosis: ischemic Left leg
Post-op Diagnosis: same
Procedure Performed: Left profunda thrombectomy
Left Profunda to AT bypass with spliced transposed GSV
Bilateral GSV harvest
Anesthesia Type: Get
Specimen / Cultures: thrombus
Estimated Blood Loss: 250 ml
Complications: none
Operative Findings: DP/AT signal and graft pulse
[2025-07-03] MEDS: SUBLIMAZE 50 MCG IV (09:18)
[2025-07-03] MEDS: SUBLIMAZE 25 MCG IV (09:37)
[2025-07-03 10:15] LABS: Glucose - Point of Care 192 mg/dl (70-99)
--- NOTE | 2025-07-03 10:26 | CON.INTV ---
Consultation
Consultation Request
Date/Time Consultation Requested: 07/03/25
Date/Time Consultation Performed: 07/03/25
Performing Provider: Tom
Reason for Consultation: Vasc Postop
Medical History
-
History of Present Illness:
Patient is a 85 year old F with extensive PAD history, recently admitted for elective vascular procedure on 06/29/25 presenting with acute onset of left lower extremity pain. CT angio of the abdomen which showed a new clot in the profunda on the
left. She underwent emergent intervention on 07/03/25 and admitted to ICU for further postop care.
Past Medical History
Past Medical History: Other (see list below)
Social History
Tobacco: Non-smoker
Alcohol: None
Drug: None
Family History
Family History: Reviewed & Not Pertinent
Allergies / Home Medications
Allergies
Allergy/AdvReac Type Severity Reaction Status Date / Time
cephalexin (From Keflex) Allergy diarrhea Verified 06/29/25 09:03
gluten Allergy diarrhea Verified 06/29/25 09:03
tetracycline Allergy Itching-'it Verified 06/29/25 09:03
gives me
white
itchy
spots'
Home Medications
�Medication �Instructions �Recorded �Confirmed �Last Taken �Type
aripiprazole 5 mg tablet (Abilify) 5 mg PO HS Bipolar 11/05/23 06/29/25 06/28/25 18:00 History
sertraline 100 mg tablet 100 mg PO DAILY Depression 03/02/24 06/29/25 06/29/25 07:30 History
apixaban 2.5 mg tablet 2.5 mg PO BID atrial fibrilation 03/16/24 06/29/25 06/27/25 18:00 History
Held on 06/29/25.
Instructions: Resume on
06/30/25.
clopidogrel 75 mg tablet 75 mg PO DAILY #30 tabs 03/16/24 06/29/25 06/28/25 07:30 Rx
multivitamin 1 tab PO DAILY Supplement 03/16/24 06/29/25 06/29/25 07:30 History
digoxin 125 mcg (0.125 mg) tablet 125 mcg PO DAILY Heart Failure 12/06/24 06/29/25 06/29/25 07:30 History
collagenase clostridium histo. 250 1 applic topical DAILY Left Heel 03/14/25 06/29/25 06/28/25 14:00 History
unit/gram topical ointment (Santyl) Wound
midodrine 5 mg tablet 5 mg PO TID PRN Hypotension 03/14/25 06/29/25 3 Days Ago History
~06/26/25
calcium 600 mg (as 1 tab PO DAILY Supplement 03/16/25 06/29/25 06/29/25 07:30 History
carbonate)-vitamin D3 5 mcg (200
unit) tablet
tiotropium bromide 18 mcg capsule 1 cap inhalation DAILY PRN 03/16/25 06/29/25 03/15/25 20:00 History
with inhalation device Lung/Breathing Issues 1
atorvastatin 40 mg tablet 40 mg PO QPM High cholesterol 1 04/15/25 06/29/25 06/28/25 18:00 Rx
month #30 tabs
diltiazem HCl 120 mg 120 mg PO BID Arrhythmia 1 month 04/15/25 06/29/25 06/29/25 07:30 Rx
capsule,extended release 24 hr #60 caps
levothyroxine 112 mcg tablet 112 mcg PO DAILY @ 0600 Hormonal 06/26/25 06/29/25 06/29/25 07:30 History
agent
acetaminophen 325 mg tablet 650 mg PO Q6H PRN pain 06/29/25 06/29/25 06/28/25 13:30 History
albuterol sulfate 1.25 mg/3 mL 1.25 mg inhalation QID PRN sob 06/29/25 06/29/25 Unknown History
solution for nebulization
denosumab 60 mg/mL subcutaneous 60 mg SC [id number] 06/29/25 06/29/25 7 Months Ago History
syringe (Prolia) ~11/29/24
mirtazapine 7.5 mg tablet 7.5 mg PO HS 06/29/25 06/29/25 06/28/25 18:00 History
umeclidinium 62.5 mcg/actuation 1 inh inhalation DAILY 06/29/25 06/29/25 06/29/25 07:30 History
blister powder for inhalation
(Incruse Ellipta)
Review of Systems
-
History Source: Patient
All other systems: Negative unless noted
Vitals / Labs / Diagnostic Testing
Vital Signs
Temp Pulse Resp BP Pulse Ox
98.3 F 109 17 116/76 97
07/03/25 09:55 07/03/25 10:04 07/03/25 10:04 07/03/25 09:55 07/03/25 10:04
Lab Data
07/03/25 01:14
07/03/25 01:14
Diagnostic Testing:
Physical Exam
-
HEENT: Normocephalic, Anicteric and Moist Mucous Membranes
Cardiovascular: S1/S2 and Regular Rhythm
Respiratory: Clear and Non-Labored Respirations
GI: Soft, Non Distended and Non Tender
Neurology: Awake, Alert, Oriented and No Motor Deficits
Skin: Warm, Dry and Good Color
General: Comfortable and Other (NAD)
Assessment
-
Patient is a 85 year old F with extensive PAD history, recently admitted for elective vascular procedure on 06/29/25 presenting with acute onset of left lower extremity pain. CT angio of the abdomen which showed a new clot in the profunda on the
left. She underwent emergent intervention on 07/03/25 and admitted to ICU for further postop care 07/03/25.
Chronic left lower extremity limb threatening ischemia with significant PAD s/p Left profunda thrombectomy/Left Profunda to AT bypass with spliced transposed GSV/Bilateral GSV harvest 07/03/25
s/p Left femoral and profunda endarterectomy and LLE profunda to below knee popliteal artery bypass with Propaten graft 04/12/25
s/p Left lower extremity arteriogram, drug-coated balloon and standard balloon angioplasty of in-stent restenosis SFA/popliteal artery 03/16/25
Anemia, mild likely postop
Conditions present [employer]
Severe PAD s/p Left lower extremity angiogram, [employer] common iliac, external iliac, SFA, popliteal-stent placement to common iliac, external iliac, SFA, and above-knee popliteal 03/16/24
Fall with acute left proximal humerus fracture with comminution and mild displacement with no dislocation 04/2025
Hypothyroidism on supplemental levothyroxine now with undetectable TSH with free T4: 1.85 (via TFTs on 04/07/2025)
Hx of COPD with paraseptal emphysema (seen on CT cervical spine 04/07/2025)
Former tobacco smoker
Hypertension
Hyperlipidemia
Chronic left foot/ankle ulcer
CAD s/p stents x 2
Paroxysmal A-fib on Eliquis with multiple cardioversions
History of PVCs
Celiac disease
Pulmonary nodules
Hypothyroidism
Depression
Osteoporosis
Restless leg syndrome
Chronic ambulatory dysfunction
Dementia
Plan
Patient is s/p Left profunda thrombectomy/Left Profunda to AT bypass with spliced transposed GSV/Bilateral GSV harvest by vascular surgery service, POD #0
Continue observation following procedure
Follow neurovascular checks per protocol
Follow BP monitoring and parameters as set by primary team
Cardiac history noted--severe PAD/numerous interventions in past, CAD/PAF
Monitor on telemetry
Pain control per protocol
RASS goal 0
Prior history of pulmonary disease--COPD, former smoker
CXR reviewed indicating no acute disease
Resume on home inhalers, not in AE COPD--no role for steroids
No prior PFTs for review
Encouraged IS
Diet advancement per protocol
Aspiration precautions
GI prophylaxis if indicated for stress ulcer prevention in the critically ill
Creat at baseline, follow UO
Critical I/Os
Void trials
Replete electrolytes as needed
No signs/symptoms suspicious for infectious etiology at this time
Will observe off antibiotics for now
Follow temperatures/CBC
Hb and platelets postoperatively stable
DVT prophylaxis recommended if not contraindicated based on procedural history -- heparin SQ and mechanical SCDs
Encouraged OOB/PT/OT/ambulation once cleared by surgical team
We will follow
Diagnostic Data
CXR 04/13/2025: No evidence of active cardiopulmonary disease.
CT AP 07/03/25- 1. Interval femoral-popliteal graft placement with occlusion of the graft and [facility] superficial femoral artery.
2. Additional scattered areas of arterial narrowing in the lower extremities bilaterally as detailed.
CTA abdominal aorta with runoff 04/11/2025:
1. LEFT LOWER EXTREMITY: Left external iliac artery stent is patent, less than 50% stenosis. Left SFA is stented along its length, and is occluded along its length. Left distal popliteal artery is reconstituted via branches of the profunda femoris
artery, and a small in size. Left posterior tibial artery is occluded near its origin.
2. RIGHT LOWER EXTREMITY: Multifocal 50-75% stenoses within the right external iliac artery, and right SFA. Heavily calcified plaque within the right popliteal artery, associated with greater than 75% stenosis. Single-vessel runoff to the right foot
via the anterior tibial artery.
Left shoulder XR 04/07/2025: Acute fracture of the surgical neck of the left proximal humerus with comminution and mild displacement. No dislocation.
Transthoracic echocardiogram 01/25/2024: 1. Normal left ventricular size and wall thickness with low normal or mild globally reduced systolic function, EF 50-55%
2. Mitral annular calcification, thickened mitral leaflets, trace mitral regurgitation and dilated left atrium
3. Aortic sclerosis without stenosis or regurgitation
4. Normal right heart with moderate tricuspid regurgitation and pulmonary artery systolic pressure 35-38 mmHg
A transesophageal echo at [facility] in 2020 showed low normal systolic function with evidence of a right to left shunt consistent with patent foramen ovale.
Reports and relevant images were personally reviewed.
Critical Care time 50 mins -- this includes review of history, physical exam, medications, hemodynamic/O2 parameters, laboratory data, imaging and discussions with care team, pharmacy, nursing and patient.
[2025-07-03] MEDS: CARDIZEM CD 120 MG PO ×2 (10:30→20:26)
[2025-07-03] MEDS: SYNTHROID 112 MCG PO (10:30)
[2025-07-03] MEDS: ZOLOFT 100 MG PO (10:30)
[2025-07-03] MEDS: D5LR 1000 IV (10:30)
[2025-07-03] MEDS: PLAVIX 75 MG PO (10:30)
[2025-07-03] MEDS: LANOXIN 125 MCG PO (10:30)
[2025-07-03] MEDS: VENTOLIN NEBULES INH (10:51)
--- NOTE | 2025-07-03 11:00 | PTCARENOTE ---
Pt arrived from PACU s/p LLE bypass fem pop with thrombectomy. Complete assessment done, Pt awake and alert, originally stating pain level +1. Pt is afib 105, BP stable. Pt 96% sat on R/A, lobes clear but diminished at bases bilat. +BSs. Post op
drsgs on L groin and R groin, L inner upper leg to knee, and lower L anterior leg. All marked from PACU with drainage outline. All minimal spots, except L groin with sl more drainage, 2x2 drsgs placed at site. + bilat DP pulses present with doppler.
L PT intermittently present with doppler, no R PT pulse noted. Feet warm, pink bilat, + sensation. Soria cath intact, draining mod amt yellow urine. All post op orders reviewed from Dr Krishnan. Complete CHG bath, mouth care and soria care given.
Pt's daughter to room and updated. Pt very pleasant, and states pain level minimal, +1-+3, does not want pain medication at this time. IVF D5LR @ 60 ml/hr infusing. Call pack at pt's side.
[2025-07-03] MEDS: VENTOLIN NEBULES 1.25 MG INH ×3 (11:21→19:49)
[2025-07-03] MEDS: NSS IV (11:57)
[2025-07-03] MEDS: ROXICODONE 5 MG PO ×2 (13:43→20:26)
--- NOTE | 2025-07-03 16:40 | PTCARENOTE ---
Pt was given roxicodone 5 mg po for L groin pain at 1345. Pt now is without pain, sleeping intermittently. + doppler pulses present R and L DPs and L PT. Pt turned and made comfortable. Pt ate 100% of her cl liq lunch.
[2025-07-03] MEDS: LIPITOR 40 MG PO (18:50)
[2025-07-03] MEDS: NSS 1000 IV (20:19)
[2025-07-03] MEDS: LR 1000 IV (20:19)
[2025-07-03] MEDS: ABILIFY 5 MG PO (20:26)
--- NOTE | 2025-07-03 20:52 | PTCARENOTE ---
ICU PROOF CARRIER made aware of SBP 80-90s and UOP 25ml for 1899 and 1999. 1L LR bolus ordered and infusing. NS rate adjusted to 100ml/hr. neurovascular checks continue, PRN pain meds given for moderate LLE pain, see DEC. call pack in reach.
[2025-07-04] VITALS (35 sets, daily range): BP systolic 95–139; BP diastolic 57–88; BMI 17.6
[2025-07-04] MEDS: ROXICODONE 5 MG PO ×3 (02:56→14:38)
[2025-07-04 04:10] LABS: INR 1.02; PT 13.7 Sec (11.4-14.6)
[2025-07-04 04:11] LABS: APTT 26.5 Sec (23.4-35.0)
[2025-07-04] MEDS: SYNTHROID 112 MCG PO (04:15)
[2025-07-04 04:20] LABS: Hematocrit 21.3 % (37.0-47.0); Hemoglobin 7.2 g/dL (12.0-16.0); Mean Corp Hgb Conc. 33.8 g/dL (33.0-37.0); Mean Corpuscular Volume 85.5 fL (81.0-99.0); Platelet Count 237 10^3/uL (130-400); Red Cell Dist. Width 16.0 % (11.5-14.5)
--- NOTE | 2025-07-04 04:32 | PTCARENOTE ---
AM labs sent. neurovascular checks unchanged, + B/L DP pulse and L PT pulse via Doppler. no R PT pulse noted throughout shift. IVF continue. L groin dressing - bleeding noted from dressing and reinforced. UOP improved overnight, see flowsheet. call
pack in reach.
[2025-07-04 04:44] LABS: Blood Urea Nitrogen 15 mg/dl (7-17); Calcium 7.5 mg/dl (8.4-10.2); Carbon Dioxide 25 mmol/L (22-30); Chloride 106 mmol/L (98-107); Estimated Creatinine Clearance 48 ml/min; Glucose 111 mg/dl (70-99); Potassium 4.9 mmol/L (3.5-5.1); Sodium 136 mmol/L (135-145); eGFR > 60.00
--- NOTE | 2025-07-04 07:31 | W.PN.INTV ---
Today's Communication / Plan
Recommendations
Neurovascular checks
Transfuse
Assessment
-
Patient is a 85 year old F with extensive PAD history, recently admitted for elective vascular procedure on 06/29/25 presenting with acute onset of left lower extremity pain. CT angio of the abdomen which showed a new clot in the profunda on the
left. She underwent emergent intervention on 07/03/25 and admitted to ICU for further postop care 07/03/25.
Chronic left lower extremity limb threatening ischemia with significant PAD s/p Left profunda thrombectomy/Left Profunda to AT bypass with spliced transposed GSV/Bilateral GSV harvest 07/03/25
s/p Left femoral and profunda endarterectomy and LLE profunda to below knee popliteal artery bypass with Propaten graft 04/12/25
s/p Left lower extremity arteriogram, drug-coated balloon and standard balloon angioplasty of in-stent restenosis SFA/popliteal artery 03/16/25
Anemia, mild likely postop
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
Fall with acute left proximal humerus fracture with comminution and mild displacement with no dislocation 04/2025
Hypothyroidism on supplemental levothyroxine now with undetectable TSH with free T4: 1.85 (via TFTs on 04/07/2025)
Hx of COPD with paraseptal emphysema (seen on CT cervical spine 04/07/2025)
Former tobacco smoker
Hypertension
Hyperlipidemia
Chronic left foot/ankle ulcer
CAD s/p stents x 2
Paroxysmal A-fib on Eliquis with multiple cardioversions
History of PVCs
Celiac disease
Pulmonary nodules
Hypothyroidism
Depression
Osteoporosis
Restless leg syndrome
Chronic ambulatory dysfunction
Dementia
DNR
Plan
Hemodynamically and neurovascularly intact
Wean supplemental oxygen
Incentive spirometry encourage
Aspiration precautions
Monitor hemoglobin
Transfuse today for ongoing anemia
Monitor blood sugars
Insulin supplementation if needed
Neuro and vascular checks per protocol also continue
Vascular surgery closely-correspondence reviewed
Discontinue Pérez catheter
DVT prophylaxis recommended
Nutrition
Increase activity/physical therapy
Patient can be transferred out of ICU-call pulmonary if respiratory issues arise
Reviewed the patient�s pertinent medical records including radiographs, microbiology, laboratory evaluations, and��discussion with primary team, consultants, pharmacy, nutrition, physical therapy, case management, charge nurse, critical care
nursing, and respiratory therapy.
Diagnostic Data
CXR 04/13/2025: No evidence of active cardiopulmonary disease.
CT AP 07/03/25- 1. Interval femoral-popliteal graft placement with occlusion of the graft and gambell superficial femoral artery.
2. Additional scattered areas of arterial narrowing in the lower extremities bilaterally as detailed.
CTA abdominal aorta with runoff 04/11/2025:
1. LEFT LOWER EXTREMITY: Left external iliac artery stent is patent, less than 50% stenosis. Left SFA is stented along its length, and is occluded along its length. Left distal popliteal artery is reconstituted via branches of the profunda femoris
artery, and a small in size. Left posterior tibial artery is occluded near its origin.
2. RIGHT LOWER EXTREMITY: Multifocal 50-75% stenoses within the right external iliac artery, and right SFA. Heavily calcified plaque within the right popliteal artery, associated with greater than 75% stenosis. Single-vessel runoff to the right foot
via the anterior tibial artery.
Left shoulder XR 04/07/2025: Acute fracture of the surgical neck of the left proximal humerus with comminution and mild displacement. No dislocation.
Transthoracic echocardiogram 01/25/2024: 1. Normal left ventricular size and wall thickness with low normal or mild globally reduced systolic function, EF 50-55%
2. Mitral annular calcification, thickened mitral leaflets, trace mitral regurgitation and dilated left atrium
3. Aortic sclerosis without stenosis or regurgitation
4. Normal right heart with moderate tricuspid regurgitation and pulmonary artery systolic pressure 35-38 mmHg
A transesophageal echo at [facility] in 2020 showed low normal systolic function with evidence of a right to left shunt consistent with patent foramen ovale.
Reports and relevant images were personally reviewed.
Critical Care time 50 mins -- this includes review of history, physical exam, medications, hemodynamic/O2 parameters, laboratory data, imaging and discussions with care team, pharmacy, nursing and patient.
Subjective Dataa
Subjective Data
Date of Service:
Date of Service: July 04, 2025
Chief Complaint: Single End Sewer Follow Up and Pulmonary Follow Up
Subjective:
Feels better, no complaints of shortness of breath, chest pain abdominal pain, or leg pain
Review of Systems
General: Other ( per HPI)
Objective Data
Data Reviewed
Vital Signs / I&O / Oxygen:
Vital Signs
Temp Pulse Resp BP Pulse Ox
98.5 F 74 15 113/72 94
07/04/25 04:13 07/04/25 05:00 07/04/25 05:00 07/04/25 06:00 07/04/25 05:00
Intake and Output
07/03/25 07/04/25 07/05/25
06:59 06:59 06:59
Intake Total 3250 / 3250
Output Total 550 / 550 1764 / 1764
Balance -550 / -550 1486 / 1486
SaO2 94
Nasal Cannula flow liters per 95
minute
Physical Exam
General: Respiratory Distress (n) and Comfortable
HEENT: Normocephalic, Anicteric and Moist Mucous Membranes
Cardiovascular: Regular Rhythm and Murmur
Respiratory: Wheeze (n), Crackles (n), Rhonchi (n), Non-Labored Respirations, Accessory Resp Muscle Use (n) and Stridor (n)
GI: Soft, Non Distended and Non Tender
Neurology: Awake, Alert and No Motor Deficits
Skin: Warm, Good Color, Cyanosis (n) and Jaundice (n)
Labs/Micro/Reports
Lab Data
07/04/25 03:49
07/04/25 03:49
Laboratory Results
07/04/25
03:49
PT 13.7
INR 1.02
APTT 26.5
[2025-07-04] MEDS: VENTOLIN NEBULES 1.25 MG INH ×4 (07:36→20:29)
[2025-07-04] MEDS: SPIRIVA RESPIMAT 2.5 MCG 2 PUFF INH (07:36)
--- NOTE | 2025-07-04 07:45 | PTCARENOTE ---
Assumed care of patient. Pt rec'd A&Ox3. Pleasant. Mild left leg discomfort 1-12/12...will monitor. S1 S2 irregular w/ afib on monitor. Bilateral DP's by doppler. Left PT by doppler. NO doppler pulse on right PT. No edema. Heels elevated on
pillows. On R/A...sats 96%. Lungs clear. Abdomen round...+BS. Diet advanced...gluten free. Takes po meds w/o issue. Pérez draining yellow urine. Pérez care done. Skin warm and dry except bilateral groins and left leg incisional sites covered
in aquacell dressings. Original dressings noted to have drainage and shadowing. Sacrum w/ protective optifoam. Left heel w/ foam covering non healing ulcer. Wound care aware. 18P RFA w/ IVF's infusing. 2 units PRBC's ordered for hgb of 7.2.
VS documented. Call pack within reach. Will continue to monitor closely.
[2025-07-04] MEDS: NSS IV (07:54)
--- NOTE | 2025-07-04 08:09 | W.PN.VS ---
Addendum entered and electronically signed by Pancho Pérez III, MD 07/04/25 21:01:
This patient was seen and examined in collaboration with GAIL Velazquez. I agree with the history and physical exam as well as the assessment and plan. I have the following additions:
Doing well this morning no significant complaints
Robust pulsatile Doppler signal over the dorsalis pedis artery in the left foot
Transfuse 2 units
If bumps appropriately we will plan to restart systemic anticoagulation this afternoon with heparin drip
Diet
Out of bed
Signed:
Pancho Pérez III, MD
Vascular Surgery
[facility]
Original Note:
Today's Communication / Plan
-
Plan reviewed with attending Dr. Pancho Pérez
Assessment/Plan
-
Assessment: 85-year-old female with peripheral arterial disease presented to ED on 07/03/2025 with ischemic left leg, confirmed by CTA reviewed - occluded profunda origin. POD #1 Left redo groin cutdown. Left profunda femoral artery thrombectomy.
Bilateral greater saphenous vein harvest. Left profunda to anterior tibial artery bypass with transposed, spliced greater saphenous vein.
Plan:
Discontinue Pérez catheter
Agree with transfusion of 2 units PRBC, suspect anemia is related to acute blood loss intraoperatively and contribution of hemodilution, recheck H&H at 1500 today, if stable will likely initiate heparin fusion for anticoagulation
Out of bed to chair, nonweightbearing to left heel
Continue neurovascular checks
Continue ICU level care today
Subjective Data
-
Date of Service: July 04, 2025
Patient seen and examined at bedside, reports well-managed postoperative pain. Denies nausea, vomiting, fever, and chills. Tolerating p.o. diet. Reports left lower extremity ischemic/rest pain that brought patient in now resolved.
Objective Data
-
Vital Signs
Temp Pulse Resp BP Pulse Ox
97.8 F 78 22 109/68 98
07/04/25 07:56 07/04/25 07:56 07/04/25 07:56 07/04/25 07:56 07/04/25 07:39
Intake and Output
07/03/25 07/04/25 07/05/25
06:59 06:59 06:59
Intake Total 3250 / 3350 100 / 100
Output Total 550 / 550 1763 35
Balance -550 / -550 1486 / 1551 65 / 65
Intake:
Oral fluids 730 / 730
IV fluids (Total) 1520 / 1620 100 / 100
D5lr 1,000 ml @ 60 mls/hr IV . 540 / 540
Q43V16E IGOR Rx#:[id number]
NS 900 / 1000 100 / 100
Nss 1,000 ml @ 100 mls/hr IV . 80 / 80
Q10H IGOR Rx#:[id number]
IV piggybacks 1000 / 1000
Blood Product Amount Infused ( 0 / 0
mL)
Packed Rbc Leukoreduced Unit 0 / 0
[id number]
Output:
Urine, Pérez 1763
Urine, Voided 550 / 550
Lab Results
07/04/25 03:49
07/04/25 03:49
Calcium 7.5 mg/dl (8.4-10.2) L D 07/04/25 03:49
Total Bilirubin 0.5 mg/dl (0.2-1.3) 07/03/25 01:14
AST 48 U/L (14-36) H 07/03/25 01:14
ALT 37 U/L (0-35) H 07/03/25 01:14
Alkaline Phosphatase 81 U/L (38-126) 07/03/25 01:14
Total Protein 7.5 g/dl (6.3-8.2) 07/03/25 01:14
Albumin 4.1 g/dl (3.5-5.0) 07/03/25 01:14
Physical Exam
-
No apparent distress, resting in bed comfortably
No tachycardia on monitor
No dyspnea on 2 L nasal cannula
ABD flat, nontender, nondistended
Left lower extremity soft, dressing dry and intact, no evidence of hematoma or edema, left DP Doppler signal present, left foot warm
Pérez draining clear urine
--- NOTE | 2025-07-04 09:07 | VNURNOTE ---
Chart reviewed. Patient is current with [facility]. Will continue to follow hospital course and DC plans.
--- NOTE | 2025-07-04 09:11 | W.PN.HOSP.TC ---
Addendum entered and electronically signed by Vivi Stanley MD 07/04/25 16:21:
Addendum
Patient is taking oxycodone for pain. Will schedule 1 gm of Tylenol as TID, reduce dose of oxy to avoid side effects/ confusion/ drug interaction.
End
Original Note:
Today's Communication/Plan
-
.
Assessment / Plan
Assessment / Plan
Physical Exam
General: Comfortable and Conversant; No Slurred Speech
HEENT: NormoCephalic, Anicteric, Moist mucous membranes, PERRLA, [place] Conjunctivae, No Ptosis and Neck Nontender; No Pharyngeal Erythema
Cardiac: S1/S2 and Irregular Rhythm (Rapid A-fib 133 bpm); No Murmur, Rub, Gallop or Peripheral Edema
GI: Soft, Non Tender, Non Distended, Normal Bowel Sounds and No Hepatosplenomegaly
Genito-urinary: Deferred by me
Musculoskeletal: No Clubbing, No Cyanosis, No Edema and Other (non-palpable or dopplable DP pulse on the left)
Skin: Warm, Dry and Ulcers (left Achilles currently open has been present x 1 year); No Rash
Neuro: AO x 3 (However changes her story several times), Nonfocal/grossly intact, Cranial Nerves Intact, No Sensory Deficits and Other (Left shoulder limited range of motion secondary to left humeral head fracture); No DTR's Intact & Symmetrical,
Slurred Speech, Facial Droop, Tremors or Sedated
Psych: Calm
85 y.o female with h/o PAD, AFIB, hypothyroid, COPD coming to ED after development of numbness, pain and pallor in the left lower extremity. CT showing new L profunda thrombus not seen 3 days ago.
#Acute ischemic left leg,- occluded profunda origin
s/p Left redo groin cutdown. Left profunda femoral artery thrombectomy. Bilateral greater saphenous vein harvest. Left profunda to anterior tibial artery bypass with transposed, spliced greater saphenous vein on 07/03/25.
Pain control with Tylenol & Oxycodone
Continue neurovascular checks
On Aspirin & Plavix.
Holding Eliquis
Appreciate vascular & ICU help
# Lactic acidosis
# Leukocytosis
Afebrile
#Hypocalcemia
Replace
#Permanent atrial fibrillation/ CAD
No chest pain
continue diltiazem, digoxin
# Acute on Chronic multifactorial anemia
Acute blood loss anemia
Goal HGB > 8
To give 2 units 07/04
#Moderate protein calorie malnutrition
#Stage II left ankle pressure injury, POA
Hypothyroid
- Continue Synthroid
#Osteoporosis
-Home regimen includes Prolia every 6-month
#Bipolar disorder
-Remains on home Abilify regimen
COPD - stable
No wheezes on exam
- continue breathing treatments.
- prn nebs
Total time spent to see the patient, examine the patient, review data lab result, discuss treatment plan with patient, nursing staff around 55 minutes
Anticipated Discharge: > 48 hours
Subjective/Interval History
-
Date of Service: July 04, 2025
She reports pain in both feet but oxycodone is helping
No chest pain or sob
Objective Data
-
Labs:
Laboratory Results
07/04/25 07/04/25
03:49 15:00
WBC 11.1 H
Hgb 7.2 L D Pending
Hct 21.3 L Pending
Plt Count 237 D
PT 13.7
INR 1.02
APTT 26.5
Sodium 136
Potassium 4.9
Chloride 106
Carbon Dioxide 25
BUN 15
Creatinine 0.5 L
Glucose 111 H
Calcium 7.5 L D
Vital Signs:
Vital Signs
Temp Pulse Resp BP Pulse Ox
98.0 F 80 17 114/73 98
07/04/25 08:15 07/04/25 08:15 07/04/25 08:15 07/04/25 08:15 07/04/25 07:39
I&O
07/03/25 07/04/25 07/05/25
06:59 06:59 06:59
Intake Total 3250 / 3350 100 / 100
Output Total 550 / 550 1764 / 1799 35 / 35
Balance -550 / -550 1486 / 1551 65 / 65
[2025-07-04] MEDS: CARDIZEM CD 120 MG PO ×2 (09:41→20:11)
[2025-07-04] MEDS: ZOLOFT 100 MG PO (09:41)
[2025-07-04] MEDS: LANOXIN 125 MCG PO (09:41)
[2025-07-04] MEDS: PLAVIX 75 MG PO (09:41)
[2025-07-04] MEDS: PROTONIX 40 MG PO (09:41)
[2025-07-04] MEDS: CALCIUM GLUCONATE 100 IV (10:53)
--- NOTE | 2025-07-04 11:26 | CM ---
Initial assessment completed with patient who lives alone in an 8th floor apartment in elevator building [facility], no stairs to enter. 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 She can drive but recently sold
her car. In the home is a RW, SC, BSC and grab bars in the . She does have HH services for RN, PT/OT. Does not have HC-POA. No VA benefits. Did have a psychiatric hospitalization approximately 15 years ago for a 'nervous breakdown'. PCP is
Jie Us in [place] and Pharmacy is [facility] on [facility] in . Discharge POC: Anticipate home with resumption of HH RN, PT/OT.
--- NOTE | 2025-07-04 11:55 | PTCARENOTE ---
No major changes in physical assessment. Rec'ing 2nd unit of PRBC w/o issue. Rec'd ca+gluc rider. MARVIN staley for pain...see MAR. Call pack in reach. Pt sleeping comfortably at present.
--- NOTE | 2025-07-04 14:39 | WOUNDNOTE ---
L LATERAL 5TH TOE
--- NOTE | 2025-07-04 14:41 | WOUNDNOTE ---
[facility] RN note: Patient admitted with Thrombus to L leg.
See H&P for complete history.
PMH: ED Past Medical History: Arrthythmia (Atrial fibrillation), CAD, COPD, HTN and Other (Severe peripheral vascular disease. Chronic wound left ankle/left foot.)
ED Past Surgical History: Appendectomy, Cardiac (PTCA with stent 2019), Gynecological (Hysterectomy), Orthopedic (Right toe amputation 2022) and Other (Multiple angioplasty procedures bilateral lower extremities.)
Wound Location and type/assessment: Patient admitted with: Chronic L Achilles/heel ulcer, PAD and pressure unstageable. Goes to [facility], reviewed current treatment. S/P L thrombectomy for acute arterial occlusion. Patient turned
with assist of nurse, Sacrum is intact and R heel. Patient states she uses soft offloading heel boot when in bed, she will ask family to bring in. L heel offloaded with pillow under calves.
Appetite: Good.
Pressure redistribution devices in place: Air mattress.
Plan: Santyl, adaptic and dry dressing daily to L Achilles/heel.
Will confirm orders with hospitalist and update nurse.
Updated care plan and will follow as needed.
Note to case management of equipment requested for discharge:
Recommend follow up at wound care center upon discharge.
--- NOTE | 2025-07-04 14:45 | WOUNDNOTE ---
[facility] RN note: Patient admitted with Thrombus to L leg.
See H&P for complete history.
PMH: ED Past Medical History: Arrthythmia (Atrial fibrillation), CAD, COPD, HTN and Other (Severe peripheral vascular disease. Chronic wound left ankle/left foot.)
ED Past Surgical History: Appendectomy, Cardiac (PTCA with stent 2019), Gynecological (Hysterectomy), Orthopedic (Right toe amputation 2022) and Other (Multiple angioplasty procedures bilateral lower extremities.)
Wound Location and type/assessment: Patient admitted with: Chronic L Achilles/heel ulcer, PAD and pressure injury, was unstageable in past now appears to be a stage 3 PI. Goes to [facility], reviewed current treatment. S/P L
thrombectomy for acute arterial occlusion. Patient turned with assist of nurse, Sacrum is intact and R heel. Patient states she uses soft offloading heel boot when in bed, she will ask family to bring in. L heel offloaded with pillow under calves.
Appetite: Good.
Pressure redistribution devices in place: Air mattress. Offloading heel boot when obtained from family. Pillow under calves until then.
Plan: Santyl, adaptic and dry dressing daily to L Achilles/heel.
Will confirm orders with hospitalist and update nurse.
Updated care plan and will follow as needed.
Note to case management of equipment requested for discharge:
Recommend follow up at wound care center upon discharge.
[2025-07-04 15:05] LABS: Hematocrit 31.3 % (37.0-47.0); Hemoglobin 10.6 g/dL (12.0-16.0)
[2025-07-04 15:55] LABS: Hematocrit 32.4 % (37.0-47.0); Hemoglobin 11.0 g/dL (12.0-16.0); Mean Corp Hgb Conc. 34.0 g/dL (33.0-37.0); Mean Corpuscular Volume 84.6 fL (81.0-99.0); Platelet Count 237 10^3/uL (130-400); Red Cell Dist. Width 15.7 % (11.5-14.5)
--- NOTE | 2025-07-04 16:00 | PTCARENOTE ---
OOB to chair w/ assist x 2 for approximately 1.5 hrs. PRN rebeka provided for pain. Heparin gtt initiated @ 800 units/hr. Recheck PTT due @ 2200. Q4H neurovascular checks. No changes in physical assessment. Will continue to monitor.
[2025-07-04] MEDS: HEPARIN 25000 UNITS/250 ML IV (16:11)
[2025-07-04] MEDS: SANTYL OINTMENT 1 APPLIC TOPICAL (16:12)
[2025-07-04] MEDS: LIPITOR 40 MG PO (17:25)
[2025-07-04] MEDS: TYLENOL 1000 MG PO (20:11)
[2025-07-04] MEDS: ABILIFY 5 MG PO (20:12)
[2025-07-04] MEDS: DILAUDID 0.5 MG IV (20:12)
--- NOTE | 2025-07-04 20:46 | PTCARENOTE ---
Patient aao x3, affect pleasant, afebrile. Patient c/o pain / to LLE, prn medication administered per orders. Remains in afib, Heparin gtt continues at 800u/8ml/hr. Pulses present to b/l LEs with use of doppler, however absent to right PT.
Patient has crackles to b/l LLs, pox 96-98% on RA. BS active x4. Assisted patient with bedpan, UO 50ml. Bladder scanned post void for 208ml. RN instructed patient to call when she feels urge to urinate again. Understanding verbalized. L heel
dressing remains c/d/i. Call pack within reach, will continue to monitor patient closely.
[2025-07-04 22:07] LABS: APTT 48.2 Sec (23.4-35.0)
[2025-07-05] VITALS (19 sets, daily range): BP systolic 94–136; BP diastolic 61–104; PULSE 61–68; BMI 19.4
--- NOTE | 2025-07-05 00:21 | PTCARENOTE ---
Patient urinated 275ml of clear, yellow urine in bedpan. Bladder scanned for 160ml post void. Patient denies pain at this time. Call pack within reach, will continue to monitor.
[2025-07-05] MEDS: SYNTHROID 112 MCG PO (05:15)
--- NOTE | 2025-07-05 05:33 | PTCARENOTE ---
Patient assisted with use of bedpan, 325ml clear, yellow urine noted. Bladder scanned, 140ml post void residual noted. Assisted with CHG cloth bath this am, patient able to assist with upper body. Call pack within reach, patient using call pack
appropriately. Will continue to monitor patient closely.
[2025-07-05 05:47] LABS: Hematocrit 29.4 % (37.0-47.0); Hemoglobin 10.0 g/dL (12.0-16.0); Mean Corp Hgb Conc. 34.0 g/dL (33.0-37.0); Mean Corpuscular Volume 84.7 fL (81.0-99.0); Platelet Count 241 10^3/uL (130-400); Red Cell Dist. Width 15.8 % (11.5-14.5)
[2025-07-05 06:00] LABS: APTT 64.9 Sec (23.4-35.0)
[2025-07-05 06:21] LABS: Blood Urea Nitrogen 15 mg/dl (7-17); Calcium 8.5 mg/dl (8.4-10.2); Carbon Dioxide 24 mmol/L (22-30); Chloride 104 mmol/L (98-107); Estimated Creatinine Clearance 47 ml/min; Glucose 98 mg/dl (70-99); Magnesium 1.5 mg/dl (1.6-2.3); Potassium 4.3 mmol/L (3.5-5.1); Sodium 134 mmol/L (135-145); eGFR > 60.00
[2025-07-05] MEDS: ROXICODONE 2.5 MG PO ×2 (07:09→21:27)
[2025-07-05] MEDS: LANOXIN 125 MCG PO (07:38)
[2025-07-05] MEDS: TYLENOL 1000 MG PO ×3 (07:38→22:55)
[2025-07-05] MEDS: PROTONIX 40 MG PO (07:38)
[2025-07-05] MEDS: LOW STRENGTH ASPIRIN 81 MG PO (07:38)
[2025-07-05] MEDS: ZOLOFT 100 MG PO (07:38)
[2025-07-05] MEDS: SANTYL OINTMENT 1 APPLIC TOPICAL (07:39)
[2025-07-05] MEDS: PLAVIX 75 MG PO (07:39)
[2025-07-05] MEDS: CARDIZEM CD 120 MG PO ×2 (07:39→20:05)
[2025-07-05] MEDS: MAGNESIUM SULFATE 100 IV (07:40)
--- NOTE | 2025-07-05 07:47 | W.PN.INTV ---
Today's Communication / Plan
Recommendations
Neurovascularly intact
Wean FiO2
Increase activity
Follow hemoglobin
Stable for transfer out of ICU-call pulmonary if respiratory issues arise
Follow-up outpatient with local pulmonary
Assessment
-
Patient is a 85 year old F with extensive PAD history, recently admitted for elective vascular procedure on 06/29/25 presenting with acute onset of left lower extremity pain. CT angio of the abdomen which showed a new clot in the profunda on the
left. She underwent emergent intervention on 07/03/25 and admitted to ICU for further postop care 07/03/25.
Chronic left lower extremity limb threatening ischemia with significant PAD s/p Left profunda thrombectomy/Left Profunda to AT bypass with spliced transposed GSV/Bilateral GSV harvest 07/03/25
s/p Left femoral and profunda endarterectomy and LLE profunda to below knee popliteal artery bypass with Propaten graft 04/12/25
s/p Left lower extremity arteriogram, drug-coated balloon and standard balloon angioplasty of in-stent restenosis SFA/popliteal artery 03/16/25
Anemia, mild likely postop
Conditions present POST OFFICE MANAGER:
Severe PAD s/p Left lower extremity angiogram, POST OFFICE MANAGER common iliac, external iliac, SFA, popliteal-stent placement to common iliac, external iliac, SFA, and above-knee popliteal 03/16/24
Fall with acute left proximal humerus fracture with comminution and mild displacement with no dislocation 04/2025
Hypothyroidism on supplemental levothyroxine now with undetectable TSH with free T4: 1.85 (via TFTs on 04/07/2025)
Hx of COPD with paraseptal emphysema (seen on CT cervical spine 04/07/2025)
Former tobacco smoker
Hypertension
Hyperlipidemia
Chronic left foot/ankle ulcer
CAD s/p stents x 2
Paroxysmal A-fib on Eliquis with multiple cardioversions
History of PVCs
Celiac disease
Pulmonary nodules
Hypothyroidism
Depression
Osteoporosis
Restless leg syndrome
Chronic ambulatory dysfunction
Dementia
DNR
Plan
Hemodynamically and neurovascularly intact
Wean supplemental oxygen-currently 94% on room air
Incentive spirometry encouraged
Aspiration precautions
Follow hemoglobin
Transfused 07/04/2025 for ongoing anemia-hemoglobin now stable at 10
Anticoagulation on heparin continues
Monitor blood sugars
Insulin supplementation if needed
Neuro and vascular checks per protocol also continue
Vascular surgery closely-correspondence reviewed
Discontinue Pérez catheter
DVT prophylaxis recommended
Nutrition
Increase activity/physical therapy
Patient can be transferred out of ICU-call pulmonary if respiratory issues arise
The patient would like to follow-up locally with pulmonary-used to follow Dr. Olson-we will provide our local contact information
Reviewed the patient�s pertinent medical records including radiographs, microbiology, laboratory evaluations, and��discussion with primary team, consultants, pharmacy, nutrition, physical therapy, case management, charge nurse, critical care
nursing, and respiratory therapy.
Diagnostic Data
CXR 04/13/2025: No evidence of active cardiopulmonary disease.
CT AP 07/03/25- 1. Interval femoral-popliteal graft placement with occlusion of the graft and iliamna superficial femoral artery.
2. Additional scattered areas of arterial narrowing in the lower extremities bilaterally as detailed.
CTA abdominal aorta with runoff 04/11/2025:
1. LEFT LOWER EXTREMITY: Left external iliac artery stent is patent, less than 50% stenosis. Left SFA is stented along its length, and is occluded along its length. Left distal popliteal artery is reconstituted via branches of the profunda femoris
artery, and a small in size. Left posterior tibial artery is occluded near its origin.
2. RIGHT LOWER EXTREMITY: Multifocal 50-75% stenoses within the right external iliac artery, and right SFA. Heavily calcified plaque within the right popliteal artery, associated with greater than 75% stenosis. Single-vessel runoff to the right foot
via the anterior tibial artery.
Left shoulder XR 04/07/2025: Acute fracture of the surgical neck of the left proximal humerus with comminution and mild displacement. No dislocation.
Transthoracic echocardiogram 01/25/2024: 1. Normal left ventricular size and wall thickness with low normal or mild globally reduced systolic function, EF 50-55%
2. Mitral annular calcification, thickened mitral leaflets, trace mitral regurgitation and dilated left atrium
3. Aortic sclerosis without stenosis or regurgitation
4. Normal right heart with moderate tricuspid regurgitation and pulmonary artery systolic pressure 35-38 mmHg
A transesophageal echo at [facility] in 2020 showed low normal systolic function with evidence of a right to left shunt consistent with patent foramen ovale.
Reports and relevant images were personally reviewed.
Subjective Dataa
Subjective Data
Date of Service:
Date of Service: July 05, 2025
Chief Complaint: Survey Party Chief Follow Up and Pulmonary Follow Up
Subjective:
No complaints of shortness of breath, chest pain or abdominal pain
Review of Systems
General: Other (Per HPI)
Objective Data
Data Reviewed
Vital Signs / I&O / Oxygen:
Vital Signs
Temp Pulse Resp BP Pulse Ox
99.2 F 79 18 130/82 95
07/05/25 07:39 07/05/25 07:38 07/05/25 04:00 07/05/25 04:00 07/04/25 23:00
Intake and Output
07/04/25 07/05/25 07/06/25
06:59 06:59 06:59
Intake Total 3250 / 3350 2041 / 2041
Output Total 1764 / 1799 2465 / 2465
Balance 1486 / 1551 -423 / -423
SaO2 95
Nasal Cannula flow liters per 95
minute
Physical Exam
General: Respiratory Distress (n) and Comfortable
HEENT: Normocephalic, Anicteric and Moist Mucous Membranes
Cardiovascular: Regular Rhythm and Murmur
Respiratory: Wheeze (n), Crackles (n), Rhonchi (n), Non-Labored Respirations, Accessory Resp Muscle Use (n) and Stridor (n)
GI: Soft, Non Distended and Non Tender
Neurology: Awake, Alert and No Motor Deficits
Skin: Warm, Good Color, Cyanosis (n) and Jaundice (n)
Labs/Micro/Reports
Lab Data
07/05/25 05:10
07/05/25 05:10
Laboratory Results
07/04/25 07/04/25 07/04/25
15:38 16:09 21:46
APTT Cancelled Cancelled 48.2 H
07/05/25
05:10
APTT 64.9 H
[2025-07-05] MEDS: VENTOLIN NEBULES 1.25 MG INH ×3 (07:48→17:22)
[2025-07-05] MEDS: SPIRIVA RESPIMAT 2.5 MCG 2 PUFF INH (07:48)
--- NOTE | 2025-07-05 07:59 | W.PN.VS ---
Addendum entered and electronically signed by Yash Aaron MD 07/05/25 15:33:
Seen and examined earlier this a.m. With PLUMBER SUPERVISOR's. Agree with findings as noted below. Incisions all clean dry and intact. Old blood staining the left groin, but no active bleeding. Thigh and calf are soft. Left foot warm with palpable DP pulse.
Plan/as discussed and noted below.
Original Note:
Today's Communication / Plan
-
Patient seen and evaluated at bedside with Dr. Yash Aaron M.D., below plan reviewed with attending
Assessment/Plan
-
Assessment: 85-year-old female with peripheral arterial disease presented to ED on 07/03/2025 with ischemic left leg, confirmed by CTA reviewed - occluded profunda origin. POD #2 Left redo groin cutdown. Left profunda femoral artery thrombectomy.
Bilateral greater saphenous vein harvest. Left profunda to anterior tibial artery bypass with transposed, spliced greater saphenous vein.
Plan:
Post transfusion hemoglobin remains stable at 10, continue anticoagulation of heparin infusion, goal therapeutic
PT/OT, can continue to progress ambulation as tolerated
Continue neurovascular checks
From a vascular surgical perspective stable for downgrade to telemetry
Subjective Data
-
Date of Service: July 05, 2025
Patient seen examined at bedside, reports vastly proved pain at left foot. Denies nausea, vomiting, fever, and chills. Reports well-managed postoperative pain.
Objective Data
-
Vital Signs
Temp Pulse Resp BP Pulse Ox
99.2 F 72 15 130/82 100
07/05/25 07:39 07/05/25 07:53 07/05/25 07:53 07/05/25 04:00 07/05/25 07:53
Intake and Output
07/04/25 07/05/25 07/06/25
06:59 06:59 06:59
Intake Total 3250 / 3350 2041 / 2041
Output Total 1764 / 1799 2465 / 2465
Balance 1486 / 1551 -423 / -423
Intake:
Oral fluids 730 / 730 720 / 720
IV fluids (Total) 1520 / 1620 222 / 222
D5lr 1,000 ml @ 60 mls/hr IV . 540 / 540
[id number] IGOR Rx#:[id number]
Heparin gtt 122 / 122
NS 900 / 1000 100 / 100
Nss 1,000 ml @ 100 mls/hr IV . 80 / 80
Q10H IGOR Rx#:[id number]
IV piggybacks 1000 / 1000 100 / 100
Blood Products 500 / 500
Packed red blood cells 500 / 500
Blood Product Amount Infused ( 500 / 500
mL)
Packed Rbc Leukoreduced Unit 250 / 250
[id number]
Packed Rbc Leukoreduced Unit 250 / 250
[id number]
Output:
Urine, Pérez 1764 / 1799 1105 / 1105
Urine, Voided 1200 / 1200
Straight cath output 160 / 160
Lab Results
07/05/25 05:10
07/05/25 05:10
Calcium 8.5 mg/dl (8.4-10.2) 07/05/25 05:10
Magnesium 1.5 mg/dl (1.6-2.3) L 07/05/25 05:10
Total Bilirubin 0.5 mg/dl (0.2-1.3) 07/03/25 01:14
AST 48 U/L (14-36) H 07/03/25 01:14
ALT 37 U/L (0-35) H 07/03/25 01:14
Alkaline Phosphatase 81 U/L (38-126) 07/03/25 01:14
Total Protein 7.5 g/dl (6.3-8.2) 07/03/25 01:14
Albumin 4.1 g/dl (3.5-5.0) 07/03/25 01:14
Physical Exam
-
No apparent distress, resting in bed comfortably
No tachycardia on monitor
No dyspnea on room air
ABD flat, nontender, nondistended
Left lower extremity soft, dressing removed no evidence of hematoma or edema, left DP Doppler signal present, left foot warm
--- NOTE | 2025-07-05 08:39 | PTCARENOTE ---
Received pt awake and alert.Speech is appropriate.+WALSH.Minimal assistance to turn.c/o 5/10 left leg and arm pain.Received Oxycodone with good relief.A Fib noted.Heparin gtt and Magnesium rider infusing as ordered.Fine bibasilar crackles noted.POX
94%+ flatus. No BM.Voiding yellow urine.Left leg dressings removed by MD.Left leg,left groin and right groin incisions well approximated.Small amount oozing from left groin noted.Dr Aaron aware.Plan of care discussed with pt.
--- NOTE | 2025-07-05 10:13 | W.PN.HOSP.TC ---
Addendum entered and electronically signed by Vivi Stanley MD 07/05/25 15:37:
Addendum
Correction
Left lower extremity pressure injury stage III, present on admission
End
Original Note:
Today's Communication/Plan
-
.
Assessment / Plan
Assessment / Plan
Physical Exam
General: Comfortable and Conversant; No Slurred Speech
HEENT: NormoCephalic, Anicteric, Moist mucous membranes, PERRLA, [place] Conjunctivae, No Ptosis and Neck Nontender; No Pharyngeal Erythema
Cardiac: S1/S2 and Irregular Rhythm (Rapid A-fib 133 bpm); No Murmur, Rub, Gallop or Peripheral Edema
GI: Soft, Non Tender, Non Distended, Normal Bowel Sounds and No Hepatosplenomegaly
Genito-urinary: Deferred by me
Musculoskeletal: No Clubbing, No Cyanosis, No Edema and Other (non-palpable or dopplable DP pulse on the left)
Skin: Warm, Dry and Ulcers (left Achilles currently open has been present x 1 year); No Rash
Neuro: AO x 3 (However changes her story several times), Nonfocal/grossly intact, Cranial Nerves Intact, No Sensory Deficits and Other (Left shoulder limited range of motion secondary to left humeral head fracture); No DTR's Intact & Symmetrical,
Slurred Speech, Facial Droop, Tremors or Sedated
Psych: Calm
85 y.o female with h/o PAD, AFIB, hypothyroid, COPD coming to ED after development of numbness, pain and pallor in the left lower extremity. CT showing new L profunda thrombus not seen 3 days ago.
#Acute ischemic left leg,- occluded profunda origin
s/p Left redo groin cutdown. Left profunda femoral artery thrombectomy. Bilateral greater saphenous vein harvest. Left profunda to anterior tibial artery bypass with transposed, spliced greater saphenous vein on 07/03/25.
Pain control with Tylenol & Oxycodone
Continue neurovascular checks
On Aspirin & Plavix. Started IV Heparin gtt on 07/04.
Holding Eliquis for now
Ok to transfer to Tele
Appreciate vascular & ICU help
# Lactic acidosis
# Leukocytosis
Afebrile
# hyponatremia
#Hypocalcemia
# Hypomagnesemia
#Permanent atrial fibrillation/ CAD
No chest pain
continue diltiazem, digoxin
# Acute on Chronic multifactorial anemia
Acute blood loss anemia
Goal HGB > 8
s/p total 3 units of RBCs,
#Moderate protein calorie malnutrition
# Chronic left Achilles/heel ulcer secondary to peripheral arterial disease and a pressure, unstageable.
Hypothyroid
- Continue Synthroid
#Osteoporosis
-Home regimen includes Prolia every 6-month
#Bipolar disorder
-Remains on home Abilify regimen
COPD - stable
No wheezes on exam
- continue breathing treatments.
- prn nebs
Total time spent to see the patient, examine the patient, review data lab result, discuss treatment plan with patient, nursing staff around 55 minutes
Anticipated Discharge: > 48 hours
Subjective/Interval History
-
Date of Service: July 05, 2025
She reports less pain in her feet
Objective Data
-
Labs:
Laboratory Results
07/05/25 07/05/25
05:10 12:00
WBC 10.5
Hgb 10.0 L
Hct 29.4 L
Plt Count 241
APTT 64.9 H Pending
Sodium 134 L
Potassium 4.3
Chloride 104
Carbon Dioxide 24
BUN 15
Creatinine 0.5 L
Glucose 98
Calcium 8.5
Vital Signs:
Vital Signs
Temp Pulse Resp BP Pulse Ox
99.2 F 82 19 135/71 94
07/05/25 07:39 07/05/25 08:00 07/05/25 08:00 07/05/25 08:00 07/05/25 08:00
I&O
07/04/25 07/05/25 07/06/25
06:59 06:59 06:59
Intake Total 3250 / 3350 2041 / 2051 480 / 480
Output Total 1764 / 1799 2465 / 2615 300 / 300
Balance 1486 / 1551 -423 / -563 180 / 180
[2025-07-05 12:43] LABS: APTT 80.5 Sec (23.4-35.0)
[2025-07-05] MEDS: MAGNESIUM OXIDE 400 MG PO (13:10)
--- NOTE | 2025-07-05 13:21 | PTCARENOTE ---
Pt assessed.No change in assessment noted.
--- NOTE | 2025-07-05 16:20 | PTCARENOTE ---
Pt assessed.No change in assessment noted.
[2025-07-05] MEDS: HEPARIN 25000 UNITS/250 ML IV (18:34)
[2025-07-05] MEDS: LIPITOR 40 MG PO (18:34)
[2025-07-05 20:20] LABS: APTT > 200 Sec (23.4-35.0)
[2025-07-05] MEDS: ABILIFY 5 MG PO (21:13)
[2025-07-06] VITALS (8 sets, daily range): BP systolic 102–144; BP diastolic 54–74; PULSE 60; O2SAT 100
[2025-07-06 05:22] LABS: APTT 78.7 Sec (23.4-35.0)
[2025-07-06] MEDS: SYNTHROID 112 MCG PO (06:20)
[2025-07-06 06:21] LABS: Hematocrit 28.7 % (37.0-47.0); Hemoglobin 9.8 g/dL (12.0-16.0); Mean Corp Hgb Conc. 34.1 g/dL (33.0-37.0); Mean Corpuscular Volume 84.2 fL (81.0-99.0); Platelet Count 254 10^3/uL (130-400); Red Cell Dist. Width 15.8 % (11.5-14.5)
[2025-07-06 06:42] LABS: Blood Urea Nitrogen 14 mg/dl (7-17); Calcium 8.4 mg/dl (8.4-10.2); Carbon Dioxide 25 mmol/L (22-30); Chloride 103 mmol/L (98-107); Estimated Creatinine Clearance 52 ml/min; Glucose 88 mg/dl (70-99); Potassium 3.9 mmol/L (3.5-5.1); Sodium 131 mmol/L (135-145); eGFR > 60.00
[2025-07-06 06:54] LABS: Digoxin 0.4 ng/ml (0.8-2.0)
[2025-07-06] MEDS: SPIRIVA RESPIMAT 2.5 MCG 2 PUFF INH (07:16)
--- NOTE | 2025-07-06 07:52 | W.PN.VS ---
Addendum entered and electronically signed by Yash Aaron MD 07/06/25 13:18:
Seen and examined with JUICE PACKAGING MACHINES SETTER. Agree with findings as noted below. Left lower extremity incisions all clean dry and intact. Mild drainage/blood staining proximal thigh incision area, but not actively draining now. Thigh and calf are soft. Foot is
warm with palpable DP pulse. Palpable graft pulse as well. Plan/as discussed and noted below.
Original Note:
Today's Communication / Plan
-
Seen and assessed with Dr Aaron
Assessment/Plan
-
Assessment: 85-year-old female with peripheral arterial disease presented to ED on 07/03/2025 with ischemic left leg, confirmed by CTA reviewed - occluded profunda origin. POD #3 Left redo groin cutdown. Left profunda femoral artery thrombectomy.
Bilateral greater saphenous vein harvest. Left profunda to anterior tibial artery bypass with transposed, spliced greater saphenous vein.
Plan:
Hemoglobin remains stable
PT/OT, can continue to progress ambulation as tolerated
CM for dispo
Convert heparin to home Eliquis
Subjective Data
-
Date of Service: July 06, 2025
Pt seen at bedside this am with Dr Aaron. Pt offers no complaints at this time. No events overnight.
Objective Data
-
Vital Signs
Temp Pulse Resp BP Pulse Ox
97.5 F 68 18 129/73 98
07/06/25 04:06 07/06/25 07:21 07/06/25 07:21 07/06/25 04:06 07/06/25 07:21
Intake and Output
07/05/25 07/06/25 07/07/25
06:59 06:59 06:59
Intake Total 2041 910 / 910
Output Total 2465 / 2615 1083 / 1083
Balance -423 / -563 -173 / -173
Intake:
Oral fluids 720 / 720 700 / 700
Amount of oral supplement(s) 0 / 0
consumed
IV fluids (Total) 222 / 232 110 / 110
Heparin gtt 122 / 132 110 / 110
NS 100 / 100
IV piggybacks 100 / 100 100 / 100
Blood Products 500 / 500
Packed red blood cells 500 / 500
Blood Product Amount Infused ( 500 / 500
mL)
Packed Rbc Leukoreduced Unit 250 / 250
[id number]
Packed Rbc Leukoreduced Unit 250 / 250
[id number]
Output:
Urine, Pérez 1105 / 1105
Urine, Voided 1200 / 1350 1083 / 1083
Straight cath output 160 / 160
Other:
Number of unmeasured liquid
stools
Rectum 4
Lab Results
07/06/25 05:57
07/06/25 05:57
Calcium 8.4 mg/dl (8.4-10.2) 07/06/25 05:57
Magnesium 1.5 mg/dl (1.6-2.3) L 07/05/25 05:10
Total Bilirubin 0.5 mg/dl (0.2-1.3) 07/03/25 01:14
AST 48 U/L (14-36) H 07/03/25 01:14
ALT 37 U/L (0-35) H 07/03/25 01:14
Alkaline Phosphatase 81 U/L (38-126) 07/03/25 01:14
Total Protein 7.5 g/dl (6.3-8.2) 07/03/25 01:14
Albumin 4.1 g/dl (3.5-5.0) 07/03/25 01:14
Physical Exam
-
No apparent distress, resting in bed comfortably
No tachycardia on monitor
No dyspnea on room air
ABD flat, nontender, nondistended
Left lower extremity soft, dressing removed no evidence of hematoma or edema, left DP Doppler signal present, left foot warm
Redressed with ABD for scant serous drainage
[2025-07-06] MEDS: PLAVIX 75 MG PO (08:31)
[2025-07-06] MEDS: TYLENOL 1000 MG PO ×3 (08:31→21:45)
[2025-07-06] MEDS: LANOXIN 125 MCG PO (08:31)
[2025-07-06] MEDS: CARDIZEM CD 120 MG PO ×2 (08:31→20:12)
[2025-07-06] MEDS: ZOLOFT 100 MG PO (08:31)
[2025-07-06] MEDS: PROTONIX 40 MG PO (08:31)
[2025-07-06] MEDS: LOW STRENGTH ASPIRIN 81 MG PO (08:32)
[2025-07-06] MEDS: ELIQUIS 2.5 MG PO ×2 (08:34→20:12)
--- NOTE | 2025-07-06 09:35 | W.PN.HOSP.TC ---
Today's Communication/Plan
-
.
Assessment / Plan
Assessment / Plan
Physical Exam
General: Comfortable and Conversant; No Slurred Speech
HEENT: NormoCephalic, Anicteric, Moist mucous membranes, PERRLA, [place] Conjunctivae, No Ptosis and Neck Nontender; No Pharyngeal Erythema
Cardiac: S1/S2 and Irregular Rhythm (Rapid A-fib 133 bpm); No Murmur, Rub, Gallop or Peripheral Edema
GI: Soft, Non Tender, Non Distended, Normal Bowel Sounds and No Hepatosplenomegaly
Genito-urinary: Deferred by me
Musculoskeletal: No Clubbing, No Cyanosis, No Edema and Other (non-palpable or dopplable DP pulse on the left)
Skin: Warm, Dry and Ulcers (left Achilles currently open has been present x 1 year); No Rash
Neuro: AO x 3 (However changes her story several times), Nonfocal/grossly intact, Cranial Nerves Intact, No Sensory Deficits and Other (Left shoulder limited range of motion secondary to left humeral head fracture); No DTR's Intact & Symmetrical,
Slurred Speech, Facial Droop, Tremors or Sedated
Psych: Calm
85 y.o female with h/o PAD, AFIB, hypothyroid, COPD coming to ED after development of numbness, pain and pallor in the left lower extremity. CT showing new L profunda thrombus not seen 3 days ago.
#Acute ischemic left leg,- occluded profunda origin
s/p Left redo groin cutdown. Left profunda femoral artery thrombectomy. Bilateral greater saphenous vein harvest. Left profunda to anterior tibial artery bypass with transposed, spliced greater saphenous vein on 07/03/25.
Pain control with Tylenol & Oxycodone
Continue neurovascular checks
On Aspirin & Plavix. S/p IV Heparin gtt.
Resumed Eliquis for now
Ok to transfer to Tele
Appreciate vascular & ICU help
# Lactic acidosis
# Leukocytosis
Afebrile
# hyponatremia
#Hypocalcemia
# Hypomagnesemia
#Permanent atrial fibrillation/ CAD
No chest pain
continue diltiazem, digoxin
# Acute on Chronic multifactorial anemia
Acute blood loss anemia
Goal HGB > 8
s/p total 3 units of RBCs,
#Moderate protein calorie malnutrition
# Chronic left Achilles/heel ulcer secondary to peripheral arterial disease and a pressure, unstageable.
Hypothyroid
- Continue Synthroid
#Osteoporosis
-Home regimen includes Prolia every 6-month
#Bipolar disorder
-Remains on home Abilify regimen
COPD - stable
No wheezes on exam
- continue breathing treatments.
- prn nebs
Total time spent to see the patient, examine the patient, review data lab result, discuss treatment plan with patient, nursing staff around 55 minutes
Anticipated Discharge: Within 24 hours
Subjective/Interval History
-
Date of Service: July 06, 2025
Pain is less in her feet
Objective Data
-
Labs:
Laboratory Results
07/06/25 07/06/25 07/06/25
04:56 05:57 11:00
WBC 8.9
Hgb 9.8 L
Hct 28.7 L
Plt Count 254
APTT 78.7 H Pending
Sodium 131 L
Potassium 3.9
Chloride 103
Carbon Dioxide 25
BUN 14
Creatinine 0.4 L
Glucose 88
Calcium 8.4
Vital Signs:
Vital Signs
Temp Pulse Resp BP Pulse Ox
98.2 F 80 18 144/70 98
07/06/25 07:00 07/06/25 08:31 07/06/25 07:21 07/06/25 07:00 07/06/25 07:21
I&O
07/05/25 07/06/2507/07/25
06:59 06:59 06:59
Intake Total 2041 910 / 910
Output Total 6665 / 2615 1083 / 1083
Balance -423 / -563 -173 / -173
[2025-07-06] MEDS: SANTYL OINTMENT 1 APPLIC TOPICAL (11:20)
--- NOTE | 2025-07-06 11:41 | CM ---
patient seen at bedside
PT rec HH - Current with [facility]
PLAN: home with [facility] when stable
[2025-07-06 11:43] LABS: APTT 83.6 Sec (23.4-35.0)
[2025-07-06] MEDS: VENTOLIN NEBULES 1.25 MG INH (12:36)
[2025-07-06] MEDS: FEOSOL 325 MG PO (14:46)
[2025-07-06] MEDS: LIPITOR 40 MG PO (17:28)
[2025-07-06] MEDS: ABILIFY 5 MG PO (21:45)
[2025-07-07 03:00] VITALS: BP 105/61
[2025-07-07] MEDS: SYNTHROID 112 MCG PO (05:41)
[2025-07-07 06:48] LABS: Hematocrit 29.1 % (37.0-47.0); Hemoglobin 9.8 g/dL (12.0-16.0); Mean Corp Hgb Conc. 33.7 g/dL (33.0-37.0); Mean Corpuscular Volume 84.8 fL (81.0-99.0); Platelet Count 329 10^3/uL (130-400); Red Cell Dist. Width 15.7 % (11.5-14.5)
[2025-07-07 06:52] LABS: APTT 39.7 Sec (23.4-35.0)
[2025-07-07 07:00] VITALS: BP 138/72
[2025-07-07] MEDS: SPIRIVA RESPIMAT 2.5 MCG 2 PUFF INH (08:00)
[2025-07-07] MEDS: LANOXIN 125 MCG PO (09:04)
[2025-07-07] MEDS: CARDIZEM CD 120 MG PO (09:04)
[2025-07-07] MEDS: ZOLOFT 100 MG PO (09:04)
[2025-07-07] MEDS: FEOSOL 325 MG PO (09:05)
[2025-07-07] MEDS: ELIQUIS 2.5 MG PO (09:05)
[2025-07-07] MEDS: PROTONIX 40 MG PO (09:05)
[2025-07-07] MEDS: PLAVIX 75 MG PO (09:05)
[2025-07-07] MEDS: TYLENOL 1000 MG PO ×2 (09:05→16:16)
[2025-07-07] MEDS: SANTYL OINTMENT 1 APPLIC TOPICAL (09:05)
--- NOTE | 2025-07-07 09:39 | W.PN.HOSP.TC ---
Today's Communication/Plan
-
discharge
She is going to stay at her daughter's house
Assessment / Plan
Assessment / Plan
Physical Exam
General: Comfortable and Conversant; No Slurred Speech
HEENT: NormoCephalic, Anicteric, Moist mucous membranes, PERRLA, [place] Conjunctivae, No Ptosis and Neck Nontender; No Pharyngeal Erythema
Cardiac: S1/S2 and Irregular Rhythm (Rapid A-fib 133 bpm); No Murmur, Rub, Gallop or Peripheral Edema
GI: Soft, Non Tender, Non Distended, Normal Bowel Sounds and No Hepatosplenomegaly
Genito-urinary: Deferred by me
Musculoskeletal: No Clubbing, No Cyanosis, No Edema and Other (non-palpable or dopplable DP pulse on the left)
Skin: Warm, Dry and Ulcers (left Achilles currently open has been present x 1 year); No Rash
Neuro: AO x 3 (However changes her story several times), Nonfocal/grossly intact, Cranial Nerves Intact, No Sensory Deficits and Other (Left shoulder limited range of motion secondary to left humeral head fracture); No DTR's Intact & Symmetrical,
Slurred Speech, Facial Droop, Tremors or Sedated
Psych: Calm
85 y.o female with h/o PAD, AFIB, hypothyroid, COPD coming to ED after development of numbness, pain and pallor in the left lower extremity. CT showing new L profunda thrombus not seen 3 days ago.
#Acute ischemic left leg,- occluded profunda origin
s/p Left redo groin cutdown. Left profunda femoral artery thrombectomy. Bilateral greater saphenous vein harvest. Left profunda to anterior tibial artery bypass with transposed, spliced greater saphenous vein on 07/03/25.
Pain control with Tylenol & Oxycodone
Continue neurovascular checks
On Aspirin & Plavix. S/p IV Heparin gtt.
Resumed Eliquis for now
d/w vascular, ok to go home
Appreciate vascular & ICU help
# Lactic acidosis
# Leukocytosis
Afebrile
# hyponatremia
#Hypocalcemia
# Hypomagnesemia
#Permanent atrial fibrillation/ CAD
No chest pain
continue diltiazem, digoxin
# Acute on Chronic multifactorial anemia
Acute blood loss anemia
Goal HGB > 8
s/p total 3 units of RBCs,
#Moderate protein calorie malnutrition
# Chronic left Achilles/heel ulcer secondary to peripheral arterial disease and a pressure, unstageable.
Hypothyroid
- Continue Synthroid
#Osteoporosis
-Home regimen includes Prolia every 6-month
#Bipolar disorder
-Remains on home Abilify regimen
COPD - stable
No wheezes on exam
- continue breathing treatments.
- prn nebs
Total discharge time spent to see the patient, examine the patient, review data lab result, discuss discharge plan with patient, nursing staff around 67 minutes
Anticipated Discharge: Today
Subjective/Interval History
-
Date of Service: July 07, 2025
Pain is mild in left groin area
No chest pain and no sob
Requesting discharge, she is going to her daughter's house
Objective Data
-
Labs:
Laboratory Results
07/07/25
06:27
WBC 9.0
Hgb 9.8 L
Hct 29.1 L
Plt Count 329 D
APTT 39.7 H
Vital Signs:
Vital Signs
Temp Pulse Resp BP Pulse Ox
98.3 F 70 16 105/61 96
07/07/25 03:00 07/07/25 09:04 07/07/25 08:03 07/07/25 03:00 07/07/25 08:03
I&O
07/06/25 07/07/25 07/08/25
06:59 06:59 06:59
Intake Total 910 / 910 1257 / 1257
Output Total 1083 / 1083
Balance -173 / -173 1257 / 1257
--- NOTE | 2025-07-07 10:06 | CM ---
Addendum entered by Suzy Russ RN 07/07/25 15:35:
[facility]
Call report to: [phone]
Fax report to: [phone]
Addendum entered by Suzy Russ RN 07/07/25 15:00:
Auth approved 5 days; 07/07-07/11; [facility] 07/11 call [phone]; Auth # [id number]; dtr will transport.
Addendum entered by Suzy Russ RN 07/07/25 14:37:
[facility] NPI# [id number]
Dr. Agarwal NPI# [id number]
Auth started. Await call back with approval.
Original Note:
Reviewed the chart notes and spoke with RN. Family wanting SNF/rehab prior to transitioning home. Patient's daughter plans on moving in with the patient, but not until mid August. Family requested referral be sent to [facility]. Referral sent via [facility] continues to be available to patient/family and is monitoring medical plan for needs at discharge.
Plan: Discharge to SNF/rehab once bed secured and auth obtained.
[2025-07-07 11:20] VITALS: BP 108/70
[2025-07-07 15:00] VITALS: BP 102/69
[2025-07-07 15:11] VITALS: BP 118/61; PULSE 91; O2SAT 100
--- NOTE | 2025-07-07 15:48 | W.DCSUMMARY ---
Discharge Summary
Discharge Data
Date of Admission: 07/03/25
Date of Discharge: 07/07/25
-
Pending Results: No
Hospital Course
85 years old female presented to the hospital with left leg and foot pain. Patient had known history of extensive vascular disease. CTA showed occlusion profunda artery origin. Patient was evaluated by vascular surgery and decision to go to the
OR for thrombectomy. Patient underwent Left redo groin cutdown. Left profunda femoral artery thrombectomy. Bilateral greater saphenous vein harvest. Left profunda to anterior tibial artery bypass with transposed, spliced greater saphenous vein on
07/03/[address] Edgar Krishnan with no complications. Patient was monitored in ICU and was followed by intensive care doctor. She was started on dual antiplatelet therapy with neurovascular checks. She was given blood transfusion with a goal of
hemoglobin more than 8 frequent checks of hemoglobin showed stabilizing with no bleeding. Patient was started on intravenous heparin. She subsequently remained on Plavix and Eliquis with stable blood count, hemoglobin 9.8. Patient was given
Tylenol with pain medication to help with pain that subsequently subsided. Vascular surgery recommended outpatient follow-up. She was evaluated by physical therapy. Patient remained hemodynamically stable [facility].
Discharge Plan
-
Patient Disposition: Home with Home Care
Discharge Diagnosis/Procedures: Peripheral arterial disease presented to ED on 07/03/2025 with ischemic left leg, confirmed by CTA reviewed - occluded profunda origin. Status post : Left redo groin cutdown. Left profunda femoral artery thrombectomy,
bilateral greater saphenous vein harvest, left profunda to anterior tibial artery bypass with transposed, spliced greater saphenous vein by Dr. Edgar Krishnan on 07/03/25.
Diet: As tolerated
Blood Work: CBC and BMP
Activity Restrictions/Additional Instructions:
Wound Care Instructions
L heel/Achilles: clean with saline, Santyl, adaptic and dry dressing daily
offloading heel boot when in bed
Follow up at wound care center call for an appointment.
Referrals:
Namrata Crowder PA-C [Specified Professional Personl, Vascular Surgery] - 07/21/25 1:30 pm
Referral Note: Vascular surgery office follow-up
Lamont Ramirez MD [Active, Pulmonary Medicine] - in three to four weeks
UNKNOWN - PT DOES,NOT KNOW [Family Provider]
Prescriptions:
New
ferrous sulfate [FeroSul] 325 mg (65 mg iron) Tablet
325 mg PO DAILY Qty: 30 0RF
acetaminophen [Tylenol Extra Strength] 500 mg Tablet
1,000 mg PO TID Qty: 30 0RF
tramadol 50 mg tablet
50 mg PO BID PRN (Reason: severe pain) Qty: 10 0RF
Continued
aripiprazole [Abilify] 5 mg Tablet
5 mg PO HS
sertraline 100 mg tablet
100 mg PO DAILY
multivitamin Tablet
1 tab PO DAILY
apixaban 2.5 mg Tablet
2.5 mg PO BID
clopidogrel 75 mg Tablet
75 mg PO DAILY Qty: 30 0RF
digoxin 125 mcg (0.125 mg) tablet
125 mcg PO DAILY
midodrine 5 mg Tablet
5 mg PO TID PRN (Reason: Hypotension)
Patient Comments:
Hold if SBP> 110
Santyl 250 unit/gram Ointment
1 applic TOPICAL DAILY
calcium carbonate-vitamin D3 600 mg-5 mcg (200 unit) Tablet
1 tab PO DAILY
tiotropium bromide 18 mcg Capsule, W/Inhalation Device
1 cap INHALATION DAILY PRN (Reason: Lung/Breathing Issues)
Patient Comments:
Unsure of dose
atorvastatin 40 mg Tablet
40 mg PO QPM 30 Days Qty: 30 0RF
diltiazem HCl 120 mg Capsule,Extended Release 24hr
120 mg PO BID 30 Days Qty: 60 0RF
levothyroxine 112 mcg tablet
112 mcg PO DAILY @ 0600
albuterol sulfate 1.25 mg/3 mL Solution For Nebulization
1.25 mg INHALATION QID PRN (Reason: sob)
mirtazapine 7.5 mg Tablet
7.5 mg PO HS
Prolia 60 mg/mL Syringe
60 mg SC [id number]
Rx Instructions:
pt states almost a year ago
Incruse Ellipta 62.5 mcg/actuation Blister With Device
1 inh INHALATION DAILY
Discontinued
acetaminophen 325 mg Tablet
650 mg PO Q6H PRN (Reason: pain)
Rx Instructions:
1, 000 mg dose
Discharge Orders:
Discharge Patient (As Directed); Ordered 07/07/25
Ordered By: Vivi Stanley
Discharge Date and Time
Print Language: MALAY
== END 2025-07-07 16:55 | DRG 252 ==
LOC: 2 SOUTH 03:58
PROVIDERS: Nurse Practitioner; Nurse Practitioner Acute Care; Surgery; ADMITTING PHYSICIAN Internal Medicine; ATTENDING PHYSICIAN Internal Medicine; CONSULT PHYSICIAN Internal Medicine; EMERGENCY PHYSICIAN Emergency Medicine
PROC: 06BQ0ZZ Excision of Left Saphenous Vein, Open Approach (ICD-10-PCS; 2025-07-03)
PROC: 041L09Q Bypass Left Femoral Artery to Lower Extremity Artery with Autologous Venous Tissue, Open Approach (ICD-10-PCS; 2025-07-03)
PROC: 06BP0ZZ Excision of Right Saphenous Vein, Open Approach (ICD-10-PCS; 2025-07-03)
PROC: 30233N1 Transfusion of Nonautologous Red Blood Cells into Peripheral Vein, Percutaneous Approach (ICD-10-PCS; 2025-07-03)
PROC: 04CL0ZZ Extirpation of Matter from Left Femoral Artery, Open Approach (ICD-10-PCS; 2025-07-03)
DX: I82.412 Acute embolism and thrombosis of left femoral vein (principal); L89.893 Pressure ulcer of other site, stage 3; D62 Acute posthemorrhagic anemia; E87.1 Hypo-osmolality and hyponatremia; I48.21 Permanent atrial fibrillation; E44.0 Moderate protein-calorie malnutrition; Z68.1 Body mass index [BMI] 19.9 or less, adult; F03.93 Unspecified dementia, unspecified severity, with mood disturbance; I73.9 Peripheral vascular disease, unspecified; Z79.01 Long term (current) use of anticoagulants; Z79.890 Hormone replacement therapy; Z86.718 Personal history of other venous thrombosis and embolism; E03.9 Hypothyroidism, unspecified; I48.0 Paroxysmal atrial fibrillation; Z87.891 Personal history of nicotine dependence; I10 Essential (primary) hypertension; I25.10 Atherosclerotic heart disease of native coronary artery without angina pectoris; Z95.5 Presence of coronary angioplasty implant and graft; Z96.1 Presence of intraocular lens; Z98.41 Cataract extraction status, right eye; Z98.42 Cataract extraction status, left eye; Z88.1 Allergy status to other antibiotic agents; E78.00 Pure hypercholesterolemia, unspecified; Z79.899 Other long term (current) drug therapy; Z90.710 Acquired absence of both cervix and uterus; Z89.421 Acquired absence of other right toe(s); E83.51 Hypocalcemia; E83.42 Hypomagnesemia; M81.0 Age-related osteoporosis without current pathological fracture; F32.A Depression, unspecified; G25.81 Restless legs syndrome; J43.8 Other emphysema
CPT/HCPCS: 35566; 71045; 75635; 80048; 80053; 80162; 82962; 83605; 83735; 85014; 85018; 85025; 85027; 85610; 85730; 86850; 86900; 86901; 86920; 88304; 93005; 94640; 96374; 97116; 97163; 97167; 97530; 97535; 99291; C1757; P9016; Q9967

== ENCOUNTER → 2025-07-11 09:36 | Outpatient (REF) | payer OTHER, SELFPAY ==
[2025-07-11 10:03] LABS: Hematocrit 31.2 % (37.0-47.0); Hemoglobin 10.0 g/dL (12.0-16.0); Mean Corp Hgb Conc. 32.1 g/dL (33.0-37.0); Mean Corpuscular Volume 89.4 fL (81.0-99.0); Platelet Count 515 10^3/uL (130-400); Red Cell Dist. Width 16.3 % (11.5-14.5)
[2025-07-11 13:49] LABS: ALT (SGPT) 39 U/L (0-35); AST (SGOT) 42 U/L (14-36); Albumin 3.4 g/dl (3.5-5.0); Alkaline Phosphatase 128 U/L (38-126); Blood Urea Nitrogen 25 mg/dl (7-17); Calcium 9.0 mg/dl (8.4-10.2); Carbon Dioxide 22 mmol/L (22-30); Chloride 107 mmol/L (98-107); Glucose 91 mg/dl (70-99); Magnesium 1.8 mg/dl (1.6-2.3); Potassium 4.7 mmol/L (3.5-5.1); Sodium 135 mmol/L (135-145); Total Protein 6.4 g/dl (6.3-8.2); eGFR > 60.00
== END ==
LOC: OLABWHC 09:36
PROVIDERS: ATTENDING PHYSICIAN Family Medicine
DX: I10 Essential (primary) hypertension (principal); J44.9 Chronic obstructive pulmonary disease, unspecified
CPT/HCPCS: 36415; 80053; 83735; 85027

== ENCOUNTER → 2025-07-14 10:24 | Outpatient (REF) | payer OTHER, SELFPAY ==
[2025-07-14 11:04] LABS: Hematocrit 29.6 % (37.0-47.0); Hemoglobin 9.5 g/dL (12.0-16.0); Mean Corp Hgb Conc. 32.1 g/dL (33.0-37.0); Mean Corpuscular Volume 89.2 fL (81.0-99.0); Platelet Count 569 10^3/uL (130-400); Red Cell Dist. Width 16.6 % (11.5-14.5)
[2025-07-14 11:29] LABS: Urine Character Cloudy (Clear)
[2025-07-14 11:35] LABS: ALT (SGPT) 57 U/L (0-35); AST (SGOT) 66 U/L (14-36); Albumin 3.4 g/dl (3.5-5.0); Alkaline Phosphatase 111 U/L (38-126); Blood Urea Nitrogen 27 mg/dl (7-17); Calcium 8.5 mg/dl (8.4-10.2); Carbon Dioxide 21 mmol/L (22-30); Chloride 110 mmol/L (98-107); Glucose 54 mg/dl (70-99); Potassium 4.1 mmol/L (3.5-5.1); Sodium 138 mmol/L (135-145); Total Protein 6.4 g/dl (6.3-8.2); eGFR > 60.00
[2025-07-14 11:48] LABS: Urine Squamous Cell 0-2 /LPF (Few)
[2025-07-14 12:04] LABS: Urine White Cell 16-20 /HPF (0-5)
== END ==
LOC: OLABWHC 10:24
PROVIDERS: ATTENDING PHYSICIAN Family Medicine
DX: D62 Acute posthemorrhagic anemia (principal)
CPT/HCPCS: 36415; 80053; 81003; 81015; 85027; 87077; 87086; 87186

== ENCOUNTER → 2025-07-25 13:15 | Outpatient (REF) | payer OTHER, SELFPAY | LOC: RAD 13:15 | PROVIDERS: ATTENDING PHYSICIAN Registered Nurse; FAMILY PHYSICIAN Family Medicine | DX: I73.9 Peripheral vascular disease, unspecified (principal) | CPT/HCPCS: 75635; Q9967 ==

== ENCOUNTER → 2025-07-27 11:29 | Outpatient (REF) | payer OTHER, SELFPAY ==
[2025-07-27 12:09] LABS: Hematocrit 31.4 % (37.0-47.0); Hemoglobin 10.2 g/dL (12.0-16.0); Mean Corp Hgb Conc. 32.5 g/dL (33.0-37.0); Mean Corpuscular Volume 92.4 fL (81.0-99.0); Nucleated Red Blood Cells % 0 %; Platelet Count 377 10^3/uL (130-400); Red Cell Dist. Width 18.3 % (11.5-14.5)
[2025-07-27 12:13] LABS: Blood Urea Nitrogen 16 mg/dl (7-17); Calcium 8.7 mg/dl (8.4-10.2); Carbon Dioxide 24 mmol/L (22-30); Chloride 109 mmol/L (98-107); Glucose 84 mg/dl (70-99); Potassium 4.3 mmol/L (3.5-5.1); Sodium 138 mmol/L (135-145); eGFR > 60.00
== END ==
LOC: OLABWHC 11:29
PROVIDERS: ATTENDING PHYSICIAN Family Medicine
DX: I10 Essential (primary) hypertension (principal); J44.9 Chronic obstructive pulmonary disease, unspecified
CPT/HCPCS: 36415; 80048; 85025

== ENCOUNTER → 2025-08-22 14:56 | Outpatient (REF) | payer OTHER, SELFPAY | LOC: DHVS 14:56 | PROVIDERS: ATTENDING PHYSICIAN Registered Nurse; FAMILY PHYSICIAN Family Medicine | DX: I73.9 Peripheral vascular disease, unspecified (principal) | CPT/HCPCS: 93922; 93925 ==

== ENCOUNTER → 2025-08-24 16:11 | Outpatient (REF) | payer OTHER, SELFPAY | LOC: RCS 16:11 | PROVIDERS: ATTENDING PHYSICIAN Internal Medicine Cardiovascular Disease; FAMILY PHYSICIAN Family Medicine | DX: I25.10 Atherosclerotic heart disease of native coronary artery without angina pectoris (principal) | CPT/HCPCS: 93306 ==

== ENCOUNTER 2025-08-29 09:52 | Outpatient (REF) | payer OTHER, SELFPAY | END 2025-08-29 23:59 | disposition home or self-care (01) | LOC: WOUND 09:52 | PROVIDERS: ATTENDING PHYSICIAN Surgery; FAMILY PHYSICIAN Family Medicine | DX: L97.323 Non-pressure chronic ulcer of left ankle with necrosis of muscle (principal); L97.122 Non-pressure chronic ulcer of left thigh with fat layer exposed; I70.244 Atherosclerosis of native arteries of left leg with ulceration of heel and midfoot; I70.245 Atherosclerosis of native arteries of left leg with ulceration of other part of foot; F17.200 Nicotine dependence, unspecified, uncomplicated; I10 Essential (primary) hypertension; T81.31XA Disruption of external operation (surgical) wound, not elsewhere classified, initial encounter; Y83.8 Other surgical procedures as the cause of abnormal reaction of the patient, or of later complication, without mention of misadventure at the time of the procedure | CPT/HCPCS: 99213 ==

== ENCOUNTER 2025-09-19 10:54 | Outpatient (REF) | payer OTHER, SELFPAY | END 2025-09-19 23:59 | disposition home or self-care (01) | LOC: WOUND 10:54 | PROVIDERS: ATTENDING PHYSICIAN Surgery; FAMILY PHYSICIAN Family Medicine | DX: L97.323 Non-pressure chronic ulcer of left ankle with necrosis of muscle (principal); L97.122 Non-pressure chronic ulcer of left thigh with fat layer exposed; I70.244 Atherosclerosis of native arteries of left leg with ulceration of heel and midfoot; I70.245 Atherosclerosis of native arteries of left leg with ulceration of other part of foot; F17.200 Nicotine dependence, unspecified, uncomplicated; I10 Essential (primary) hypertension; T81.31XA Disruption of external operation (surgical) wound, not elsewhere classified, initial encounter; Y83.8 Other surgical procedures as the cause of abnormal reaction of the patient, or of later complication, without mention of misadventure at the time of the procedure | CPT/HCPCS: 11042 ==

== ENCOUNTER 2025-10-03 18:07 | Inpatient (IN) | payer OTHER, SELFPAY ==
[2025-10-03] VITALS (9 sets, daily range): BP systolic 106–150; BP diastolic 70–118; BMI 18.4; BMI 20.8
[2025-10-03 12:55] LABS: Hematocrit 33.6 % (37.0-47.0); Hemoglobin 11.2 g/dL (12.0-16.0); Mean Corp Hgb Conc. 33.3 g/dL (33.0-37.0); Mean Corpuscular Volume 93.6 fL (81.0-99.0); Nucleated Red Blood Cells % 0 %; Platelet Count 342 10^3/uL (130-400); Red Cell Dist. Width 16.7 % (11.5-14.5)
[2025-10-03 13:24] LABS: ALT (SGPT) 32 U/L (0-35); AST (SGOT) 41 U/L (14-36); Albumin 4.5 g/dl (3.5-5.0); Alkaline Phosphatase 117 U/L (38-126); Blood Urea Nitrogen 16 mg/dl (7-17); Calcium 8.8 mg/dl (8.4-10.2); Carbon Dioxide 23 mmol/L (22-30); Chloride 99 mmol/L (98-107); Glucose 130 mg/dl (70-99); Potassium 4.0 mmol/L (3.5-5.1); Sodium 130 mmol/L (135-145); Total Protein 7.9 g/dl (6.3-8.2); eGFR > 60.00
--- NOTE | 2025-10-03 14:48 | ED.GENMED ---
History of Present Illness
General
Chief Complaint: Abdominal Pain
Source: patient
Exam Limitations: none
Time Seen by Provider: 10/03/25 14:47
Nursing documentation reviewed up to this point in time: agreed with
History of Present Illness
History of Present Illness:
85-year-old female with history of COPD, A-fib on Eliquis, HTN, HLD, PVD, diverticulitis, hypothyroid, anemia, anxiety/depression, cardiac stents 2019, arthritis both legs, 20/11/24 she had ischemic left lower extremity with bypass by Dr. Krishnan.
She is here today with abdominal pain localized to the left side, which began at approximately 3:00 AM, the pain awakened her from sleep. The patient describes the pain as constant, crampy and rated it as a 5/10 on pain scale. The patient
additionally mentions difficulty with urination occurring overnight. She has a history of kidney stones from approximately 10 years ago and reports no relief from Tylenol taken at 10:00 AM. She also describes feeling nauseous and experiencing dry
heaves this morning. She denies chest pain or difficulty breathing. The patient has a history of diverticulosis and had a partial hysterectomy.
Past History
Past History
ED Past Medical History: Arrthythmia (Atrial fibrillation), CAD, COPD, HTN and Other (Severe peripheral vascular disease. Chronic wound left ankle/left foot.)
ED Past Surgical History: Appendectomy, Cardiac (PTCA with stent 2019), Gynecological (Hysterectomy), Orthopedic (Right toe amputation 2022) and Other (Multiple angioplasty procedures bilateral lower extremities.)
Social History
Tobacco: Non-smoker
Alcohol: None
Drug: None
Personal:
Living: alone
Employment: Retired
Family History
Family History: Other (Noncontributory)
Review of Systems
Review of Systems
Allergies reviewed?: Yes
All Other Systems: ROS reviewed and negative except as documented in HPI and ROS
Phy Exam
Physical Exam
Physical Exam:
GENERAL: No acute distress. A&Ox3.
CONSTITUTIONAL: Afebrile.
EYES: clear, conjunctivae normal
ENMT: moist mucus membranes, Pharynx nl
RESPIRATORY: Regular respirations, nonlabored, lungs clear.
CARDIOVASCULAR: Regular rate and rhythm, no murmurs, no rubs.
GI: Soft, tender to palpate left abdomen, normal BS
MUSCULOSKELETAL: Moves with ease. Well perfused.
SKIN: Warm, dry, pink
PSYCH: Normal mood and affect. Well kept, interactive and appropriate
NEUROLOGIC: Awake, alert and oriented. No focal neurological deficits
Course
Orders/Labs/Results
Orders:
Orders
10/03/25 Lunch
Cholesterol Lowering
At Your Request: Limited Participation
Does patient need a safe tray?: No
Cholesterol Lowering: Sodium, 2 Gram
Gluten Free
10/03/25 12:43
Complete Blood Count/With Diff Urgent
Comprehensive Metabolic Panel Urgent
10/03/25 15:11
HYDROmorphone [Dilaudid] 0.25 mg IV NOW STA
Ondansetron Injectable [Zofran] 4 mg IV NOW STA
10/03/25 15:12
0.9% Sodium Chloride 500 ml [Nss] 500 ml IV BOLUS
10/03/25 15:32
Urinalysis Reflex To Culture Urgent
Date Specimen was Collected: 10/03/25
Time Specimen was Collected: 15:31
Urine Microscopic Reflex Cult Urgent
Urine Culture Urgent
DEMETRA Source: U
Specimen Description:
Date Specimen was Collected: 10/03/25
Time Specimen was Collected: 15:31
10/03/25 15:43
CT Abd/Pel (IV only)-DH only Urgent
Comment:
Reason For Exam: L abd pain
10/03/25 16:34
Morphine Sulfate 4 mg IV NOW STA
Tamsulosin [Flomax] 0.4 mg PO NOW STA
10/03/25 16:54
CefTRIAXone [Rocephin] 1,000 mg IV NOW STA
10/03/25 17:11
DX Deep Vein Thrombosis Video Routine
10/03/25 17:[address] Non Medication Order As Directed
Physician Order: please complete home med list. Patient/Family has a list in the room.
Above order entered?: Yes
10/03/25 17:40
Admit/Transfer Patient As Directed
Co-Sign Provider:
Level of Care: Inpatient admission
Assign to:: Telemetry
Physician / Group: Sera Finney - [facility]
Diagnosis: UTI, renal stone
Reason for Telemetry: Arrhythmia
Date to Stop Telemetry: 10/06/25
Time to Stop Telemetry: 11:00
Reason for Hospitalization: UTI, renal stone - IVF, IV Abx, Urology procedure
Expected length of stay greater than two midnights?: Yes
ELOS- Estimated Length of Stay in days: 3
I certify the patient meets the requirements for IP care: Yes
10/03/25 17:41
PRN Pain Medication Management As Directed
May give lesser potent ordered pain med per pt: Yes
preference::
Protocol:: Medication orders for pain may be administered in a
manner that supports deferring to patient preference
when the pt is:
- Requesting an ordered lesser potent pain medication.
Least to most potent pain medications are defined
as: acetaminophen < NSAID < tramadol < opioids
(morphine, oxycodone, hydromorphone).
- Requesting a lesser dose of the same medication IF
ORDERED.
- Requesting a less intrusive route of administration
if both routes are prescribed by the provider (PO <
IV).
10/03/25 17:43
Code Status As Directed
Resuscitation Status: Do not resuscitate
Reached after discussion with pt or family/Healthcare POA: Yes
DNR Bracelet Application ONCE
10/03/25 17:55
Blood Culture Q30M
DEMETRA Source: Blood/Venous
Specimen Description:
Blood Culture Q30M
DEMETRA Source: Blood/Venous
Specimen Description:
10/03/25 20:11
0.9% Sodium Chloride 1000 ml [Nss] 1,000 ml IV 100 mls/hr
Acetaminophen [Tylenol] 650 mg PO Q4HPRN PRN
Atorvastatin [Lipitor] 40 mg PO QPM
Bisacodyl [Dulcolax] 10 mg RECTAL [id number] PRN
Diltiazem Extended Release [Cardizem Cd] 120 mg PO BID
Docusate W/Senna [Senokot-S] 1 tablet PO BIDPRN PRN
Ipratropium/Albuterol Sulfate [Duoneb] 3 ml INH R Q4HPRN PRN
Morphine Sulfate 2 mg IV Q4HPRN PRN
Ondansetron Injectable [Zofran] 4 mg IV Q6HPRN PRN
Polyethylene Glycol Powder [Miralax] 17 grams PO DAILYPRN PRN
Tramadol HCl [Ultram] 50 mg PO Q6HPRN PRN
10/03/25 20:11
UROLOGY CONSULT Routine
Consulting Provider: Ronny Kenyon
Was physician already notified: Yes
Activity As Directed
Activity Level: As Tolerated
Vital Signs As Directed
Frequency: Per unit guidelines
10/03/25 22:00
ARIPiprazole [Abilify] 5 mg PO HS
Mirtazapine [Remeron] 7.5 mg PO HS
10/04/25 Breakfast
NPO
Allow oral meds: Yes
Allow clear liquids: 4hrs prior to procedure
NPO with Ice Chips: Yes
NPO for procedure after (time): 0600
Comment: may have unrestricted clear liquid up to 4 hrs prior to scheduled procedure
Levothyroxine [Synthroid] 112 mcg PO DAILY @ 0600
10/04/25 07:19
Basic Metabolic Panel IN AM
Complete Blood Count/No Diff IN AM
10/04/25 08:00
CefTRIAXone [Rocephin] 1,000 mg IV Q24H
Sertraline HCl [Zoloft] 100 mg PO DAILY
Tiotropium [place] 2.5 Mcg [Spiriva Respimat 2.5 Mcg] 2 puff INH R DAILY
10/04/25 12:00
Digoxin [Lanoxin] 125 mcg PO NOON
10/04/25 17:10
Sequential Compression Device [Pneumatic Compression Sleeves] As Directed
Type: Thigh high
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
10/05/25 06:00
Basic Metabolic Panel IN AM
Complete Blood Count/No Diff IN AM
10/06/25 06:00
Basic Metabolic Panel IN AM
Complete Blood Count/No Diff IN AM
10/06/25 11:00
DC Protocol for Telemetry ONCE
10/07/25 06:00
Basic Metabolic Panel IN AM
Complete Blood Count/No Diff IN AM
Abnormal Lab Results
10/03/25 10/03/25
12:43 15:32
WBC 15.3 H 10^3/uL
(4.8-10.8)
RBC 3.59 L 10^6/uL
(4.20-5.40)
Hgb 11.2 L g/dL
(12.0-16.0)
Hct 33.6 L %
(37.0-47.0)
MCH 31.2 H pg
(27.0-31.0)
RDW 16.7 H %
(11.5-14.5)
Abs Immat Gran (auto) 0.1 H 10^3/uL
(0-0.05)
Absolute Neuts (auto) 13.8 H 10^3/uL
(1.4-6.5)
Absolute Lymphs (auto) 0.6 L 10^3/uL
(1.2-3.4)
Absolute Monos (auto) 0.7 H 10^3/uL
(0.1-0.6)
Neutrophils % 90.3 H %
(42.2-75.2)
Lymphocytes % 4.1 L %
(20.5-51.1)
Sodium 130 L mmol/L
(135-145)
Glucose 130 H mg/dl
(70-99)
AST 41 H U/L
(14-36)
Ur Occult Blood Reflex 2+ A
(Negative)
Leukocyte Esterase Rfl 2+ A
(Negative)
Urine RBC 11-15 A /HPF
(0-2)
Urine WBC (Reflex) 50-60 A /HPF
(0-5)
Urine Bacteria (Reflex) Moderate A
(Negative)
Urine Albumin (Reflex) 2+ A
(Neg - Trace)
10/03/25 12:43
10/03/25 12:43
Vital Signs
Initial and Last Documented VS:
Initial Vital Signs
Temp Pulse Resp BP Pulse Ox
99.0 F 78 17 123/83 99
10/03/25 12:35 10/03/25 12:35 10/03/25 12:35 10/03/25 12:35 10/03/25 12:35
Last Documented Vital Signs
Temp Pulse Resp BP Pulse Ox
98.2 F 85 16 100/59 94
10/04/25 07:41 10/04/25 08:48 10/04/25 08:48 10/04/25 07:41 10/04/25 08:48
MDM/Problems Addressed
Differential Diagnosis Includes:
diverticulitis, kidney stone, pyelonephritis
MDM/Problems Addressed:
85-year-old female with history of COPD, A-fib on Eliquis, HTN, HLD, PVD, diverticulitis, hypothyroid, anemia, anxiety/depression, cardiac stents 2019, arthritis both legs, 20/11/24 she had ischemic left lower extremity with bypass by Dr. Krishnan.
She is here today with abdominal pain localized to the left side, which began at approximately 3:00 AM, the pain awakened her from sleep. The patient describes the pain as constant, crampy and rated it as a 5/10 on pain scale. The patient
additionally mentions difficulty with urination occurring overnight. She has a history of kidney stones from approximately 10 years ago and reports no relief from Tylenol taken at 10:00 AM. She also describes feeling nauseous and experiencing dry
heaves this morning. She denies chest pain or difficulty breathing. The patient has a history of diverticulosis and had a partial hysterectomy.
CBC: WBC 15.3 w shift
CMP:Mild hyponatremia otherwise unremarkable.
U/A: RBC 11-15, WBC 50-60, 2+leukocytes, neg nitrites, moderate bacteria
4:[address] abd/pelvis with IV contrast radiology report read:
IMPRESSION:
Delayed left renal excretion with mild left renal collecting system and likely mild left ureteral dilatation, probable partially obstructing 4 mm calculus along the course of the distal left ureter, just proximal to the left ureterovesical junction.
Small nonobstructing left renal calculus.
In to re evaluate pt. Informed of findings, states Dilaudid pain medication did not help, pain remains 5/10 will try Morphine, Flomax ordered. On Eliquis so no Toradol.
Dr. Kenyon in to see another pt and case discussed with him, he evaluated pt and recommends admission to Medicine, IV antibiotics and if needed with take to O.R tomorrow for stent. NPO after midnight
Hospitalist notified of admission.
Cultures pending
*Pulse Oximetry
SaO2: 99
Oxygen Mode of Delivery: Room air
Patient hypoxic: no
*Critical Care Note
Total Time (30-74mins, 75-104mins- exclusive of procedures): Not Applicable
ED Attending Note
-
Portions of this chart may have been created with voice recognition software.� Occasional wrong word or��sound alike� substitutions may have occurred due to the inherent limitations of voice recognition software.
Discharge Plan
Departure
Patient Disposition: Admit
Date of Disposition: 10/03/25
Time of Disposition: 16:55
Admit to: Med/Surg
Presentation/result/management discussed w/ accepting MD/DO: Hospitalist
Patient with high blood pressure during this ER visit?: No
Condition: Fair
Discharge Problem:
Calculus of distal left ureter, Intractable abdominal pain, Acute UTI
Interventions
Interventions:
*Risk Screen - Suicide Last Done: 10/03/25 20:30
*General Assessment Last Done: 10/03/25 12:38
*Neglect/Abuse Screening Last Done: 10/03/25 12:38
*ED COVID-19 Vaccine History Last Done: 10/03/25 12:38
*ED Influenza Vaccine History Last Done: 10/03/25 12:38
[facility] Fall Risk Assessment Tool Last Done: 10/03/25 14:53
*Nursing Disposition Last Done: 10/03/25 20:25
FA-Shvjqi-Lexblgylgv Assessment Last Done: 10/03/25 14:55
Discharge Date and Time
Discharge Date/Time: 10/03/25 20:25
[2025-10-03] MEDS: ZOFRAN 4 MG IV (15:27)
[2025-10-03] MEDS: DILAUDID 0.25 MG IV (15:28)
[2025-10-03] MEDS: NSS 500 IV (15:28)
[2025-10-03 15:40] LABS: Urine Character Clear (Clear)
[2025-10-03 15:47] LABS: Urine White Cell 50-60 /HPF (0-5)
--- NOTE | 2025-10-03 17:11 | W.PN.URO.CBU ---
Today's Communication / Plan
-
casll uro,ogy if fevr over 101.5 or hemodynamic instabilty
Assessment / Plan
-
passabe stone but bacteruria wbc 15 k temp 99 will obaserve over evemning if fever chilld then stent tonight if stable will reevaluate in am and possible stent stone anipulation
Diagnosis
-
Date of Service: October 03, 2025
-
Patient Diagnosis:
4 mm stone distal left ureter pt feels [poorly no fever no chills no rigors feels cold urine reveaeld nitrate negative but elevate wbc and leuk and bactreuria
Post Op Day:
Subjective
-
colic
Objective
-
Vital Signs
Temp Pulse Resp BP Pulse Ox
99.0 F 78 17 123/83 99
10/03/25 12:35 10/03/25 12:35 10/03/25 12:35 10/03/25 12:35 10/03/25 15:17
Laboratory Results
10/03/25 12:43
10/03/25 12:43
Review of Systems
-
Abdomen/GI: Nausea
: Flank Pain
Physical Exam
-
General - well developed, well nourished, no acute distress non toxic
Chest - clear bilaterally
Abdomen - soft, non-tender, positive bowel sounds, mild CVAT, no incisional pain or distention
Genitalia - normal
Rectal - normal
Skin - warm & dry with no rash
Neuro - AOx3, no motor deficits
Extremities - no clubbing, no cyanosis, no edema
Incision - clean, dry
Dressing - clean, dry, intact
Counseling
-
possoible op room wed if stil in pin
Care Review
Data Reviewed
Discussed with: Hospitalist, Nursing and Family
CT Scan: Image Pers Reviewed
--- NOTE | 2025-10-03 17:27 | HPS.HSE ---
Family Physician
-
Family Physician: Jie Us
Chief Complaint
-
Flank pain
History of Present Illness
85 y/o F, hx of COPD, Bipolar d/o, hypothyroidism, Chronic anemia, Perm A. Fib, CAD s/p stents, PAD, HTN presents to ER with L flank pain. Patient reports waking at 3 AM. She reports pain as constant, crampy and 5/10 on pain scale. She also mentions
difficulty with urinartion and also hematuria. She reports some nausea but otherwise no other complaints. Trialed Tylenol without relief. No other complaints.
Medical History
Past Medical History
Past Medical History: Reports Other (hx of COPD, Bipolar d/o, hypothyroidism, Chronic anemia, Perm A. Fib, CAD s/p stents, PAD, HTN)
Past Surgical History: Reports Appendectomy and Cardiac
Social History
Tobacco: Non-smoker
Alcohol: None
Drug: None
Personal:
Living: Alone
Employment: Retired
Family History
Family History: Not pertinent
Allergies / Home Medications
Allergies reflects when Allergies were last updated in [employer].
Home Medications with original date entered in [employer]
Allergy/Medication List:
Allergies
Allergy/AdvReac Type Severity Reaction Status Date / Time
cephalexin (From Keflex) Allergy diarrhea Verified 10/03/25 12:37
gluten Allergy diarrhea Verified 10/03/25 12:37
tetracycline Allergy Itching-'it Verified 10/03/25 12:37
gives me
white
itchy
spots'
Home Medications
aripiprazole 5 mg tablet (Abilify) 5 mg PO HS Bipolar 11/05/23
sertraline 100 mg tablet 100 mg PO DAILY Depression 03/02/24
apixaban 2.5 mg tablet 2.5 mg PO BID atrial fibrilation 03/16/24
clopidogrel 75 mg tablet 75 mg PO DAILY #30 tabs 03/16/24
multivitamin 1 tab PO DAILY Supplement 03/16/24
digoxin 125 mcg (0.125 mg) tablet 125 mcg PO DAILY Heart Failure 12/06/24
collagenase clostridium histo. 250 unit/gram topical ointment (Santyl) 1 applic topical DAILY Left Heel Wound 03/14/25
midodrine 5 mg tablet 5 mg PO TID PRN Hypotension 03/14/25
calcium 600 mg (as carbonate)-vitamin D3 5 mcg (200 unit) tablet 1 tab PO DAILY Supplement 03/16/25
tiotropium bromide 18 mcg capsule with inhalation device 1 cap inhalation DAILY PRN Lung/Breathing Issues 03/16/25
atorvastatin 40 mg tablet 40 mg PO QPM High cholesterol 1 month #30 tabs 04/15/25
diltiazem HCl 120 mg capsule,extended release 24 hr 120 mg PO BID Arrhythmia 1 month #60 caps 04/15/25
levothyroxine 112 mcg tablet 112 mcg PO DAILY @ 0600 Thyroid 06/26/25
albuterol sulfate 1.25 mg/3 mL solution for nebulization 1.25 mg inhalation QID PRN sob 06/29/25
denosumab 60 mg/mL subcutaneous syringe (Prolia) 60 mg SC [id number] BONE 06/29/25
mirtazapine 7.5 mg tablet 7.5 mg PO HS Mental Health/Anxiety 06/29/25
umeclidinium 62.5 mcg/actuation blister powder for inhalation (Incruse Ellipta) 1 inh inhalation DAILY Lung/Breathing Issues 06/29/25
acetaminophen 500 mg tablet (Tylenol Extra Strength) 1,000 mg (2 x 500 mg) PO TID #30 tabs 07/07/25
ferrous sulfate 325 mg (65 mg iron) tablet (FeroSul) 325 mg PO DAILY #30 tabs 07/07/25
tramadol 50 mg tablet 50 mg PO BID PRN severe pain #10 tabs 07/07/25
Review of Systems
-
A 12 point ROS was completed and negative except as noted: Yes
Physical Exam
Vital Signs
Vital Signs
Temp Pulse Resp BP Pulse Ox
99.0 F 78 17 123/83 99
10/03/25 12:35 10/03/25 12:35 10/03/25 12:35 10/03/25 12:35 10/03/25 15:17
Physical Exam
General: Pain
HEENT: NormoCephalic and Anicteric
Respiratory: Clear; No Wheezes
Cardiac: Irregular Rhythm
GI: Tender (L flank, L abdomen)
Neuro: AO x 3
Psych: Calm
Laboratory Results
-
10/03/25 12:43
10/03/25 12:43
Laboratory Results
Total Bilirubin 0.4 mg/dl (0.2-1.3) 10/03/25 12:43
AST 41 U/L (14-36) H 10/03/25 12:43
ALT 32 U/L (0-35) 10/03/25 12:43
Alkaline Phosphatase 117 U/L (38-126) 10/03/25 12:43
Data Reviewed
-
CT Scan: Report Reviewed by me
Lab Data: Labs Reviewed by me
Impression/Plan
-
Assessment:
complicated UTI
- CT: partially obstructing 4 mm calculus along the course of the distal left ureter, just proximal to the left ureterovesical junction.
- Urology consulted; NPO for stent in AM
- IVF
- pain control, anti-emetics
- empiric Rocephin, day 1 pending cultures (blood, urine)
hx of COPD
ILD
- continue Incruse
- prn nebs
Bipolar d/o
- continue Abilify/Remeron/Zoloft
hypothyroidism
- continue replacement
chronic anemia
Perm A. Fib
CAD s/p stents
PAD
Essential HTN
- hold Plavix/Eliquis for Urological procedure
- continue Digoxin/Cardizem
- continue Statin
Celiac disease
- GF diet
DVT ppx: SCDs
Code: DNR/DNI - confirmed with family/patient
pending home med rec - essential meds continued except thinners
[2025-10-03] MEDS: FLOMAX 0.4 MG PO (17:46)
[2025-10-03] MEDS: MORPHINE SULFATE 4 MG IV (17:47)
[2025-10-03] MEDS: ROCEPHIN 1000 MG IV (18:05)
--- NOTE | 2025-10-03 18:18 | EDCM ---
Reviewed chart and met with pt bedside in ED. Lives alone in second floor apartment at [facility], [address]. No [place] building, has elevator access.
Needs assistance with ADLs and personal care, has [employer] that comes several days a week, pt unsure of agency name.
Ambulates with RW, also has shower chair, commode, and gra bars in bathroom.
Confirms prescription coverage.
[facility], went to [facility] after admission in July.
PCP: Jie Us
Pharmacy: [facility]
CM will continue to follow for all discharge planning needs.
[2025-10-03] MEDS: MORPHINE SULFATE 2 MG IV (20:57)
[2025-10-03] MEDS: REMERON 7.5 MG PO (20:58)
[2025-10-03] MEDS: CARDIZEM CD 120 MG PO (20:58)
[2025-10-03] MEDS: ABILIFY 5 MG PO (20:58)
[2025-10-03] MEDS: LIPITOR 40 MG PO (20:58)
[2025-10-03] MEDS: NSS 1000 IV (21:01)
[2025-10-03] MEDS: LANOXIN 125 MCG PO (23:41)
[2025-10-04] VITALS (14 sets, daily range): BP systolic 73–115; BP diastolic 48–75
[2025-10-04] MEDS: SYNTHROID 112 MCG PO (06:17)
[2025-10-04] MEDS: MORPHINE SULFATE 2 MG IV (06:21)
[2025-10-04 08:09] LABS: Hematocrit 31.3 % (37.0-47.0); Hemoglobin 10.5 g/dL (12.0-16.0); Mean Corp Hgb Conc. 33.5 g/dL (33.0-37.0); Mean Corpuscular Volume 93.2 fL (81.0-99.0); Platelet Count 273 10^3/uL (130-400); Red Cell Dist. Width 16.8 % (11.5-14.5)
[2025-10-04] MEDS: CARDIZEM CD 120 MG PO ×2 (08:28→19:48)
[2025-10-04] MEDS: ZOLOFT 100 MG PO (08:28)
[2025-10-04] MEDS: SPIRIVA RESPIMAT 2.5 MCG 2 PUFF INH (08:40)
[2025-10-04 08:44] LABS: Blood Urea Nitrogen 21 mg/dl (7-17); Calcium 7.7 mg/dl (8.4-10.2); Carbon Dioxide 20 mmol/L (22-30); Chloride 101 mmol/L (98-107); Estimated Creatinine Clearance 32 ml/min; Glucose 98 mg/dl (70-99); Potassium 4.6 mmol/L (3.5-5.1); Sodium 130 mmol/L (135-145); eGFR 55.90
--- NOTE | 2025-10-04 08:48 | PTCARENOTE ---
Assumed care at 0700. AOx3 but forgetful to detail at times. On bed alarm. Afib on tele, HR 120-130s, given scheduled PO diltiazem. SaO2 on room air in low-mid 80s. Placed on 2L. Crackles noted to b/l bases. Does not appear in acute distress. Placed
on 2L O2, SaO2 now 91-92%. Received critical notification from lab of positive preliminary blood cultures. Dr. Finney made aware of all the above.
--- NOTE | 2025-10-04 09:13 | VNURNOTE ---
Addendum entered by Rianna Gates RN 10/04/25 13:23:
[facility] Resumption referral placed in [facility].
Original Note:
Chart reviewed. Patient is current with [facility]. Will continue to follow hospital course and DC plans.
--- NOTE | 2025-10-04 09:42 | W.PN.HOSP.TC ---
Today's Communication/Plan
-
OR for stent procedure today
Adjust antibiotics to Cefepime; repeat blood culture in AM
cap IVF
Assessment / Plan
Assessment / Plan
Assessment:
complicated UTI
Proteus bacteremia
- CT: partially obstructing 4 mm calculus along the course of the distal left ureter, just proximal to the left ureterovesical junction.
- Urology consulted; NPO for stent procedure today
- cap IVF
- pain control, anti-emetics
- Adjust antibiotics to Cefepime, day 1, pending cultures
hx of COPD
ILD
- continue Incruse
- prn nebs
Bipolar d/o
- continue Abilify/Remeron/Zoloft
hypothyroidism
- continue replacement
chronic anemia
Perm A. Fib
CAD s/p stents
PAD
Essential HTN
- hold Plavix/Eliquis for Urological procedure
- continue Cardizem
- Digoxin previoulsy stopped in July for bradycardia
- continue Statin
Celiac disease
- GF diet
DVT ppx: SCDs
Code: DNR/DNI - confirmed with family/patient
Anticipated Discharge: > 48 hours
Subjective/Interval History
-
Date of Service: October 04, 2025
no fever or chills
Gram negative bacteremia discovered
Objective Data
-
Labs:
Laboratory Results
10/04/25
07:19
WBC 15.6 H
Hgb 10.5 L
Hct 31.3 L
Plt Count 273 D
Sodium 130 L
Potassium 4.6
Chloride 101
Carbon Dioxide 20 L
BUN 21 H
Creatinine 1.0
Glucose 98
Calcium 7.7 L
Vital Signs:
Vital Signs
Temp Pulse Resp BP Pulse Ox
98.4 F 85 16 115/66 94
10/04/25 03:39 10/04/25 08:48 10/04/25 08:48 10/04/25 03:39 10/04/25 08:48
Physical Exam
-
General: No Apparent Distress
HEENT: Normocephalic and Atraumatic
Respiratory: Negative Wheezes
Cardiac: Regular Rhythm and S1/S2
GI: Soft and Nontender
Neuro: AO x 3
Psych: Calm
Data Reviewed
-
Total Time Spent with Patient (in minutes): 45
Labs: Labs Reviewed by me
[2025-10-04] MEDS: STERILE WATER FOR INJECTION 10 ML IV ×3 (10:26→23:29)
[2025-10-04] MEDS: MAXIPIME 1000 MG IV ×3 (10:26→23:29)
--- NOTE | 2025-10-04 12:26 | PTCARENOTE ---
BP 86/60, MAP 69, HR 100-120s. Patient alert, conversant. Dr. Finney aware, ordered midodrine PRN, given. Plan and assessment ongoing.
--- NOTE | 2025-10-04 12:43 | W.PN.URO.CBU ---
Today's Communication / Plan
-
to op room
Assessment / Plan
-
POS BLOOD CXS AND WBC UP WILL NEED STANT POSSIBE REMVAL STONE IF STABLE OTHER WI PT AWARE THt objective is to release ostructio pt voiced underatnding decsion fr surgery ptconseted yestaerday
Diagnosis
-
Date of Service: October 04, 2025
-
Patient Diagnosis:
Post Op Day:
Patient Diagnosis:
4 mm stone distal left ureter pt feels [poorly no fever no chills no rigors feels cold urine reveaeld nitrate negative but elevate wbc and leuk and bactreuria oVERNGH T HAD POS BLOOD CX ALTHOUGH PT FEELS BETTER. STONE DID NOT PASS
Post Op Day:
Subjective
-
BETER STIL PRESSURE TO VOID
Objective
-
Vital Signs
Temp Pulse Resp BP Pulse Ox
99.6 F 100 16 86/60 92
10/04/25 11:14 10/04/25 11:14 10/04/25 11:14 10/04/25 11:14 10/04/25 11:14
Intake and Output
10/03/25 10/04/25 10/05/25
06:59 06:59 06:59
Other:
Number of approximated SMALL 1
amounts of urine
Number of approximated MODERATE 1
amounts of urine
Number of approximated LARGE 1
amounts of urine
Laboratory Results
10/04/25 07:19
10/04/25 07:19
Review of Systems
-
: Frequency, Flank Pain and Urgency
Physical Exam
-
General - well developed, well nourished, no acute distress
Chest - clear bilaterally
Abdomen - soft, non-tender, positive bowel sounds, no CVAT, no incisional pain or distention
Genitalia - normal
Rectal - normal
Skin - warm & dry with no rash
Neuro - AOx3, no motor deficits
Extremities - no clubbing, no cyanosis, no edema
Incision - clean, dry
Dressing - clean, dry, intact
Counseling
-
to op room
Care Review
Data Reviewed
Discussed with: Hospitalist and Nursing
CT Scan: Image Pers Reviewed
--- NOTE | 2025-10-04 14:50 | PTCARENOTE ---
Dr. Finney made aware of BP 80/53(62). Patient only offers complaint of feeling 'tired.' WIRELESS CONSULTANT called for report, also made aware of BP. Patient transported to OR at this time.
--- NOTE | 2025-10-04 15:41 | W.SUR.PREOP ---
Pre-Operative Surgical Note
-
I have examined this patient prior to the performance of the scheduled procedure.
All requisite paperwork signed.
CT scan reviewed: 4 mm distal left ureteral stone.
--- NOTE | 2025-10-04 17:01 | W.IMMPOSTOP ---
Surgical Immed Post Op Note
-
Primary Surgeon: Ashu
Pre-op Diagnosis: Left ureteral stone; UTI
Post-op Diagnosis: same
Procedure Performed: Left Ureteroscopy, basket extraction of stone; stenting
Anesthesia Type: gen
Specimen / Cultures: left ureteral stone, intact
Estimated Blood Loss: negligible
Complications: none
Operative Findings: 3 mm brown, irregularly-shaped distal left ureteral stone, impacted; purulent urine upon relief of obstruction
6 fr 22 cm JJ right ureteral stent placed
[2025-10-04] MEDS: MAXIPIME IV (17:48)
[2025-10-04] MEDS: STERILE WATER FOR INJECTION IV (17:48)
[2025-10-04] MEDS: LIPITOR 40 MG PO (18:31)
[2025-10-04] MEDS: TYLENOL 650 MG PO ×2 (19:48→23:47)
[2025-10-04] MEDS: ABILIFY 5 MG PO (21:10)
[2025-10-04] MEDS: REMERON 7.5 MG PO (21:10)
[2025-10-04] MEDS: LR 1000 IV (22:19)
[2025-10-05] VITALS (51 sets, daily range): BP systolic 71–116; BP diastolic 48–83; PULSE 85–93; O2SAT 95; BMI 21.3
[2025-10-05 00:30] LABS: Hematocrit 25.3 % (37.0-47.0); Hemoglobin 8.9 g/dL (12.0-16.0); Mean Corp Hgb Conc. 35.2 g/dL (33.0-37.0); Mean Corpuscular Volume 91.0 fL (81.0-99.0); Red Cell Dist. Width 16.5 % (11.5-14.5)
--- NOTE | 2025-10-05 00:30 | W.PN.UPDATE ---
Update Note
Progress Note Update
2200 RN reports pt bp 79/52 Hr low 100s low grade temp 100.3
At start of shift bp was 109/75, was given her pm dose of cardizem and bp then 90/56. Pt also had some low bp during day and was started on midodrine prn.
Pt admitted 10/04/25 with uti and left renal stone for which she had cysto and stent placement and removal of stone (found purulent urine after obstruction released).
Plan: IVF, midodrine and reassess
2330 BP still low 76/49 and 73/43. Pt pale but mentating well. Just feels tired. Will transfer to IMU for closer onitoring and pressors. Temp recheck 101.3 rectal (wasn't able to obtain oral or axillary).
check cbc,bmp and lactic.
[2025-10-05 00:40] LABS: Blood Urea Nitrogen 39 mg/dl (7-17); Calcium 7.4 mg/dl (8.4-10.2); Carbon Dioxide 18 mmol/L (22-30); Chloride 101 mmol/L (98-107); Estimated Creatinine Clearance 32 ml/min; Glucose 94 mg/dl (70-99); Potassium 4.2 mmol/L (3.5-5.1); Sodium 128 mmol/L (135-145); eGFR 55.90
[2025-10-05] MEDS: LEVOPHED 250 IV ×2 (00:40→12:30)
--- NOTE | 2025-10-05 00:45 | PTCARENOTE ---
Pt bp 79/52 (was previously 109/75 then 90/56) temp 100.3 rectal (unable to get oral or axilary) tylenol given. pulse ox 92-93% on 3L. Mile REYNOLDS notified and ordered one time dose 10 mg midodrine and IVF LR @ 100. Recheck at 2300 still low
76/49 , pt AAOX3 but drowsy. Labs ordered and drawn. temp re check also still high 101.3. tylenol given again. Orders in for transfer to IMU. Pt transferred to [id number] with all belongings.
[2025-10-05 01:48] LABS: Nucleated Red Blood Cells % 0 %; Platelet Count 206 10^3/uL (130-400)
--- NOTE | 2025-10-05 01:54 | PTCARENOTE ---
Assume care from 4W RN. Pt AAOX3, pleasant, forgetful at times w/ periods of drowsiness. Afib in the monitor. Pt started on Levo gtt for MAP >65. Pt lungs are diminished w/ crackles at the bases, SaO2 87% 3L. Pt was increase to 6L. Pt is a mouth
breather. Dyspneic w/ exertion. Call within reach and will cont. w/ tx plan.
[2025-10-05] MEDS: SYNTHROID 112 MCG PO (04:30)
[2025-10-05 04:58] LABS: Hematocrit 27.2 % (37.0-47.0); Hemoglobin 9.3 g/dL (12.0-16.0); Mean Corp Hgb Conc. 34.2 g/dL (33.0-37.0); Mean Corpuscular Volume 92.2 fL (81.0-99.0); Platelet Count 239 10^3/uL (130-400); Red Cell Dist. Width 16.7 % (11.5-14.5)
[2025-10-05 05:18] LABS: Blood Urea Nitrogen 38 mg/dl (7-17); Calcium 7.8 mg/dl (8.4-10.2); Carbon Dioxide 20 mmol/L (22-30); Chloride 100 mmol/L (98-107); Estimated Creatinine Clearance 36 ml/min; Glucose 114 mg/dl (70-99); Potassium 4.4 mmol/L (3.5-5.1); Sodium 127 mmol/L (135-145); eGFR > 60.00
[2025-10-05] MEDS: SPIRIVA RESPIMAT 2.5 MCG 2 PUFF INH (07:45)
[2025-10-05] MEDS: CARDIZEM CD 120 MG PO ×2 (07:59→20:38)
[2025-10-05] MEDS: MAXIPIME 1000 MG IV ×2 (07:59→15:00)
[2025-10-05] MEDS: STERILE WATER FOR INJECTION 10 ML IV ×2 (07:59→15:00)
[2025-10-05] MEDS: ZOLOFT 100 MG PO (07:59)
[2025-10-05] MEDS: TUMS CHEWABLE TABLET 400 MG PO (10:22)
--- NOTE | 2025-10-05 10:30 | PTCARENOTE ---
Pt c/o of heat burn, TT to , order for Tums, see MAR.
--- NOTE | 2025-10-05 10:39 | PTCARENOTE ---
Patient taken to and from XR with volunteer and RN. Levo gtt still infusing, see flowsheet.
--- NOTE | 2025-10-05 12:06 | WOUNDNOTE ---
[facility] RN note: Patient admitted with UTI
See H&P for complete history.
PMH: 85 y/o F, hx of COPD, Bipolar d/o, hypothyroidism, Chronic anemia, Perm A. Fib, CAD s/p stents, PAD, HTN presents to ER with L flank pain.
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 Patient follows at [facility]. Patient reports having left heel wound for over a year and reports it is improving with off-loading and
use of Santyl. Left donor site is clean, approximated. Sacrum is intact. Right heel with stage 1 PI. Patient demonstrates ability to turn in bed.
Appetite: Fair
Pressure redistribution devices in place:Centrella Max Air, fiber filled boot ordered for left foot (patient states she wears at home).
Plan: Will recommend continuing Santyl and off-loading with boot to left heel. Off-loading and adhesive foam to right heel. Can continue with adaptic and adhesive foam to left thigh. Will confirm orders with hospitalist and update nurse.
Updated care plan and will follow as needed.
Note to case management of equipment requested for discharge:
Recommend follow up at wound care center upon discharge.
--- NOTE | 2025-10-05 12:26 | W.PN.URO.CBU ---
Today's Communication / Plan
-
abx
supportive care
Assessment / Plan
-
Proteus Urosepsis
LEft Ureteral Stone s/p removal and stenting
Diagnosis
-
Date of Service: October 05, 2025
-
Patient Diagnosis:
Proteus Urosepsis
4 mm stone distal left ureter s/p ureteroscopy, stone removal, stentin 10/04/2025
Post Op Day: 1
Objective
-
Vital Signs
Temp Pulse Resp BP Pulse Ox
97.8 F 87 31 108/74 92
10/05/25 11:50 10/05/25 10:30 10/05/25 10:30 10/05/25 10:30 10/05/25 10:50
Intake and Output
10/04/25 10/05/25 10/06/25
06:59 06:59 06:59
Intake Total 1190 / 1190
Balance 1190 / 1190
Intake:
Oral fluids 240 / 240
IV fluids (Total) 950 / 950
normosol 150 / 150
Other:
How many times incontinent 1
SMALL amount urine
How many times incontinent 1
MODERATE amount urine
How many times incontinent 2
SATURATED amount urine
Number of approximated SMALL 1
amounts of urine
Number of approximated MODERATE 1
amounts of urine
Number of approximated LARGE 1 1
amounts of urine
Laboratory Results
10/05/25 04:42
10/05/25 04:42
proteus in blood and urine
Physical Exam
-
General - well developed, well nourished, no acute distress
Chest - clear bilaterally
Abdomen - soft, non-tender, positive bowel sounds, no CVAT, no incisional pain or distention
Genitalia - normal
Rectal - normal
Skin - warm & dry with no rash
Neuro - AOx3, no motor deficits
Extremities - no clubbing, no cyanosis, no edema
Incision - clean, dry
Dressing - clean, dry, intact
[2025-10-05] MEDS: SANTYL OINTMENT TOPICAL (12:32)
[2025-10-05] MEDS: LASIX 20 MG IV (12:36)
--- NOTE | 2025-10-05 12:36 | WOUNDNOTE ---
LEFT THIGH DONOR SITE
--- NOTE | 2025-10-05 14:03 | W.PN.HOSP.TC ---
Today's Communication/Plan
-
wean pressors as able
wean O2 as able
IV Lasix; Cards consulted
resume Eliquis/Plavix; ok per Urology
PT/OT
Continue IV Cefepime, f/u cultures and WBC
Assessment / Plan
Assessment / Plan
Assessment:
complicated UTI
Proteus bacteremia with septic shock
- CT: partially obstructing 4 mm calculus along the course of the distal left ureter, just proximal to the left ureterovesical junction.
- Urology following; s/p Left Ureteroscopy, basket extraction of stone; stenting. Urine with pus noted.
- s/p sepsis protocol IVF; now capped with development of CHF
- on low dose Levophed maintaining MAP >65
- pain control, anti-emetics
- continue Cefepime, day 2/14. Follow repeat Blood cultures to assess for clearance.
Acute CHF, possibly iatrogenic in setting of sepsis protocol IVF and acute illness
- CXR: Mild to moderate CHF with small bilateral effusions
- IV Lasix; requires intensive monitoring of I/Os, weights, lytes
- Cards consulted
hx of COPD
ILD
- continue Incruse
- prn nebs
Bipolar d/o
- continue Abilify/Remeron/Zoloft
hypothyroidism
- continue replacement
chronic anemia
Perm A. Fib
CAD s/p stents
PAD
Essential HTN
- resume Plavix/Eliquis; cleared by Urology for resumption
- continue Cardizem
- Digoxin previously stopped in July for bradycardia
- continue Statin
Celiac disease
- GF diet
DVT ppx: Eliquis
Code: DNR/DNI - confirmed with family/patient
Total Critical Care Time 41 minutes. I was immediately available to the patient and staff. I personally examined, reviewed labs, diagnostic images/reports, interpretations, treatment plans, discussed patient care with other providers and family
or caregivers (if patient is unable to make decisions), entered orders as appropriate and documented the medical record.
Anticipated Discharge: > 48 hours
Subjective/Interval History
-
Date of Service: October 05, 2025
s/p stenting and hypotension post-procedure requiring IMU and pressors
at present on 2 of Levophed
reports more SOB, now up 6L NC, CXR with CHF/effusions
denies chest pain
no fever/chills
WBC 27
Objective Data
-
Labs:
Laboratory Results
10/05/25
04:42
WBC 27.0 H
Hgb 9.3 L
Hct 27.2 L
Plt Count 239
Sodium 127 L
Potassium 4.4
Chloride 100
Carbon Dioxide 20 L
BUN 38 H
Creatinine 0.9
Glucose 114 H
Calcium 7.8 L
Vital Signs:
Vital Signs
Temp Pulse Resp BP Pulse Ox
97.8 F 84 35 110/74 91
10/05/25 11:50 10/05/25 13:00 10/05/25 13:00 10/05/25 13:00 10/05/25 12:00
I&O
10/04/25 10/05/25 10/06/25
06:59 06:59 06:59
Intake Total 1190 / 1190
Balance 1190 / 1190
Physical Exam
-
General: No Apparent Distress
HEENT: Normocephalic and Atraumatic
Respiratory: Crackles
Cardiac: Regular Rhythm and S1/S2
GI: Soft
Neuro: AO x 3
Psych: Calm
Data Reviewed
-
Critical Care Time (in minutes): 41
Labs: Labs Reviewed by me
[2025-10-05] MEDS: PLAVIX 75 MG PO (14:48)
[2025-10-05] MEDS: CALCIUM GLUCONATE 100 IV (14:48)
--- NOTE | 2025-10-05 15:35 | CM ---
CHF, septic/UTI, IV/Cefepime/Lasix/Levophed. Cardio consult. Discharge POC: Therapy rec for SNF vs HH PT/OT. Will await further evals for definitive plan.
--- NOTE | 2025-10-05 16:04 | CON.CAR ---
Addendum entered and electronically signed by Melchor Duran MD 10/05/25 19:04:
85-year-old woman admitted with left L ureteral calculus s/p basket extraction and stent and complicated by Proteus UTI/bacteremia, now with newly diagnosed acute HFpEF
PMH/PSH: Permanent A-fib, orthostasis, CAD with circumflex PCI 2018, peripheral arterial disease with left iliac, SFA, popliteal stent placement March 2025, right iliac and SFA stents, hypertension, hyperlipidemia, hypothyroidism, COPD, PVCs, bipolar
disorder
Current meds: Abilify 5 mg at bedtime, atorvastatin 40 mg at bedtime, diltiazem CD2 120 mg twice daily, levothyroxine 112 mcg daily, mirtazapine 7.5 mg at bedtime, Zoloft 100 mg a day, Spiriva, Maxipime, Levophed, furosemide 20 mg IV daily, apixaban
2.5 mg twice daily, clopidogrel 75 mg a day
110/74, pulse 84, respiratory rate 35, sats are 91%, appears fatigued chronically ill, diminished breath sounds in bases, irregular rate and rhythm, no obvious murmurs, JVD elevated abdomen benign, right foot in boot, compression on left, some edema
ECG: Pending
White count is 27, hemoglobin is 9.3, sodium is 127, BUN and creatinine are 38 and 0.9, lactic acid 1.6 proBNP is 8700
Echocardiogram August 2025: EF 55-60%, normal RV, severely dilated left atrium, normal right atrium, mild aortic leaflet thickening no stenosis or regurgitation, trace MR, pulmonary artery systolic pressure 33 mmHg
Impression:
Complicated left ureteral calculus with Proteus bacteremia and sepsis
Acute HFpEF
Orthostasis, now on norepinephrine
Permanent atrial fibrillation
CAD status post remote circumflex PCI
PAD with multiple bilateral iliac and SFA/popliteal interventions
Hyponatremia
Hypertension, hyperlipidemia, hypothyroidism, COPD, PVCs, bipolar disorder
Plan:
Continue supportive care
IV Lasix as needed, assess regarding need for oral furosemide as she recovers from urosepsis
Restart of midodrine
Possible transition to beta-cheryle from diltiazem given onset of HFpEF
Spironolactone possibly problematic given hypotension, avoid SGLT2 antagonist given urosepsis
Fluid restriction, follow sodium, may need renal consultation, Samsca if hyponatremia worsens
Original Note:
Consultation
Consultation Request
Date/Time Consultation Requested: 10/05/2025
Date/Time Consultation Performed: 10/05/2025
Requesting Provider: Dr. Finney
Performing Provider: Dr. DIDIER Duran
Reason for Consultation: Acute HF in the setting of sepsis
Medical History
-
History of Present Illness:
Patient came to the hospital on Thursday with complaints of left flank pain and was admitted with evidence of UTI and left ureteral calculi, cardiology is now consulted for evidence of acute HF. Patient says that she was awakened repeatedly on
Thursday night into Thursday with left flank pain and she had her daughter take her to a local urgent care and then came to the ER. Patient was admitted with UTI and then later treated with sepsis protocol. Patient remains on Levophed running at 1.
Patient received a total of 2.5 L IVF's. Patient had a successful left ureteral stone removal and stent placement with urology in the OR on 10/04/2025. Cardiology is now consulted for acute HFpEF due to hypoxia and an elevated proBNP at 8700. CXR
today also reviewed by me showed small B/L pleural effusions and evidence of acute HF. Patient reports overall feeling much improved compared to admission, but is more short of breath in the last 24 hours and is now on oxygen at 5 L NC. Patient
does not use supplemental oxygen at home. Patient has known permanent A-fib and her usual dose of Cardizem CD 120 mg BID has been continued this admission despite intermittent hypotension. Outpatient dose of Eliquis was initially held, but is
scheduled to be restarted tonight.
PMH:
Permanent A-fib
Chronic Eliquis OAC
CAD
s/p LCx PCI 2018
Peripheral vascular disease
s/p prior angioplasty/stenting left iliac and SFA/popliteal with extensive SFA/popliteal stent placement 03/16/2025
s/p stenting of bilateral SFA/iliac arteries
Hypertension
Hyperlipidemia
Hypothyroidism
COPD
PVCs
Past Medical History
Past Medical History: Other (In HPI)
Past Surgical History: Cardiac (PCI of LCx 2018) and Other (Left toe amputation 01/19/2023, bilateral lower extremity iliac/SFA stents)
Social History
Tobacco: Smoker
Alcohol: None
Drug: None
Personal:
Living: Alone (Independent living apartment at [facility])
Employment: Retired
Family History
Family History: CAD
Allergies / Home Medications
Allergy/AdvReac Type Severity Reaction Status Date / Time
cephalexin (From Keflex) Allergy diarrhea Verified 10/03/25 12:37
gluten Allergy diarrhea Verified 10/03/25 12:37
tetracycline Allergy Itching-'it Verified 10/03/25 12:37
gives me
white
itchy
spots'
�Medication �Instructions �Recorded �Confirmed �Type
aripiprazole 5 mg tablet (Abilify) 5 mg PO HS Bipolar 11/05/23 10/03/25 History
sertraline 100 mg tablet 100 mg PO DAILY Depression 03/02/24 10/03/25 History
apixaban 2.5 mg tablet 2.5 mg PO BID atrial fibrilation 03/16/24 10/03/25 History
clopidogrel 75 mg tablet 75 mg PO DAILY #30 tabs 03/16/24 10/03/25 Rx
multivitamin 1 tab PO DAILY Supplement 03/16/24 10/03/25 History
digoxin 125 mcg (0.125 mg) tablet 125 mcg PO DAILY Heart Failure 12/06/24 07/05/25 History
collagenase clostridium histo. 250 1 applic topical DAILY Left Heel 03/14/25 07/05/25 History
unit/gram topical ointment (Santyl) Wound
midodrine 5 mg tablet 5 mg PO TID PRN Hypotension 03/14/25 10/03/25 History
calcium 600 mg (as 1 tab PO DAILY Supplement 03/16/25 10/03/25 History
carbonate)-vitamin D3 5 mcg (200
unit) tablet
tiotropium bromide 18 mcg capsule 1 cap inhalation DAILY PRN 03/16/25 07/05/25 History
with inhalation device Lung/Breathing Issues
atorvastatin 40 mg tablet 40 mg PO QPM High cholesterol 1 04/15/25 10/03/25 Rx
month #30 tabs
diltiazem HCl 120 mg 120 mg PO BID Arrhythmia 1 month 04/15/25 10/03/25 Rx
capsule,extended release 24 hr #60 caps
levothyroxine 112 mcg tablet 112 mcg PO DAILY @ 0600 Thyroid 06/26/25 10/03/25 History
albuterol sulfate 1.25 mg/3 mL 1.25 mg inhalation QID PRN sob 06/29/25 10/03/25 History
solution for nebulization
denosumab 60 mg/mL subcutaneous 60 mg SC [id number] BONE 06/29/25 07/05/25 History
syringe (Prolia)
mirtazapine 7.5 mg tablet 15 mg PO HS Mental Health/Anxiety 06/29/25 10/03/25 History
umeclidinium 62.5 mcg/actuation 1 inh inhalation DAILY 06/29/25 07/05/25 History
blister powder for inhalation Lung/Breathing Issues
(Incruse Ellipta)
acetaminophen 500 mg tablet 1,000 mg (2 x 500 mg) PO TID #30 07/07/25 10/03/25 Rx
(Tylenol Extra Strength) tabs
ferrous sulfate 325 mg (65 mg 325 mg PO DAILY #30 tabs 07/07/25 10/03/25 Rx
iron) tablet (FeroSul)
tramadol 50 mg tablet 50 mg PO BID PRN severe pain #10 07/07/25 10/03/25 Rx
tabs
PureVita Vitamin B12 1,000 mcg PO DAILY Supplement 10/03/25 10/03/25 History
ascorbic acid (vitamin C) 500 mg 500 mg PO DAILY Supplement 10/03/25 10/03/25 History
chewable tablet
potassium gluconate 550 mg (90 mg) 90 mg PO DAILY Supplement 10/03/25 10/03/25 History
tablet
zinc 30 tab PO DAILY Supplement 10/03/25 10/03/25 History
Review of Systems
-
History Source: Patient
All other systems: Negative unless noted
Physical Exam
Vital Signs
Temp Pulse Resp BP Pulse Ox
97.8 F 84 35 110/74 91
10/05/25 11:50 10/05/25 13:00 10/05/25 13:00 10/05/25 13:00 10/05/25 12:00
GEN: NAD, AAO x 3
HEENT: EOMI, MMM
LUNGS: 5 L NC. Bibasilar rales without wheeze.
CV: A-fib on telemetry. Irreg, S1/S2, 11/07 syst LSB murmur
ABD: ND
EXT: No edema B/L LE
NEURO: Gross non-focal
SKIN: No rash, warm, dry, pink
Lab Results
10/05/25 04:42
10/05/25 04:42
Oeh-H-[id number] Pept 8700 pg/ml 10/05/25 14:22
Impression / Plan
-
PCP: Alea REYNOLDS
Cardiology: Dr. Melchor Duran
Impression:
Admitted with UTI, left flank pain and left ureteral calculi
Sepsis
Complicated UTI
Left ureteral calculi s/p stone extraction and left ureteral stenting by urology 10/04/2025
Acute HFpEF
Permanent A-fib
Chronic Eliquis OAC
CAD
s/p LCx PCI 2018
Peripheral vascular disease
s/p prior angioplasty/stenting left iliac and SFA/popliteal with extensive SFA/popliteal stent placement 03/16/2025
s/p stenting of bilateral SFA/iliac arteries
h/o HTN
Hyperlipidemia
Hypothyroidism
COPD
PVCs
CHON 04/11/2021([facility] study): Low normal EF, right to left shunt with agitated saline consistent with PFO, no evidence of thrombus in LARA, trace MR
Echo 01/25/2024: EF 50 to 55%. Moderate TR with PAP 35 to 38 mmHg. Patent PFO with [id number] flow/shunt
Echo 08/24/2025: EF 55 to 60%, mild TR, compared to echo from 01/2024 the findings are similar
Plan:
-Patient came to the hospital on Thursday with complaints of left flank pain and was admitted with evidence of UTI and left ureteral calculi, cardiology is now consulted for evidence of acute HF. Patient says that she was awakened repeatedly on
Thursday night into Thursday with left flank pain and she had her daughter take her to a local urgent care and then came to the ER. Patient was admitted with UTI and then later treated with sepsis protocol. Patient remains on Levophed running at 1.
Patient received a total of 2.5 L IVF's. Patient had a successful left ureteral stone removal and stent placement with urology in the OR on 10/04/2025. Cardiology is now consulted for acute HFpEF due to hypoxia and an elevated proBNP at 8700. CXR
today also reviewed by me showed small B/L pleural effusions and evidence of acute HF. Patient reports overall feeling much improved compared to admission, but is more short of breath in the last 24 hours and is now on oxygen at 5 L NC. Patient
does not use supplemental oxygen at home. Patient has known permanent A-fib and her usual dose of Cardizem CD 120 mg BID has been continued this admission despite intermittent hypotension. Outpatient dose of Eliquis was initially held, but is
scheduled to be restarted tonight.
-ECG not checked yet this admission, order placed by me 10/05/2025.
-Telemetry reviewed by me shows A-fib with overall controlled ventricular response
-Levophed is running at 1 mcg/min
-Agree with attempts at Lasix 20 mg IV daily diuresis in the setting of acute HFpEF. Patient was not taking a diuretic prior to admission
-Last echo was 08/24/2025 and EF was 55 to 60% without significant valvular disease.
-Patient is not chronically on a beta-cheryle due to a history of paroxysmal and then permanent A-fib with rates trending towards bradycardia most recently and acute HF being a new diagnosis. Could consider changing outpatient dose of Cardizem CD
120 mg BID to Toprol-XL.
-Patient was not taking RHINA/ARB/ARNI prior to admission.
-Patient was not taking aldosterone antagonist prior to admission, could consider adding once patient no longer requiring support of Levophed.
-Patient has known permanent A-fib. Digoxin was stopped at her cardiology visit on 07/27/2025.
-Outpatient dose of Cardizem CD has been continued and there is consideration for changing to Toprol-XL as noted above.
-Outpatient dose of Eliquis 2.5 mg BID (age 85, Cre 0.9, wt 51.1 kg) was held initially, but is scheduled to restart on 10/05/2025 PM.
[2025-10-05] MEDS: LIPITOR 40 MG PO (17:36)
[2025-10-05] MEDS: ELIQUIS 2.5 MG PO (20:38)
[2025-10-05] MEDS: DUONEB 3 ML INH (21:21)
--- NOTE | 2025-10-05 21:31 | PTCARENOTE ---
Patient continues to complain of SOB, respiratory notified, neb treatment given, placed on midflow 10L,
[2025-10-05] MEDS: REMERON 7.5 MG PO (22:09)
[2025-10-05] MEDS: ABILIFY 5 MG PO (22:09)
--- NOTE | 2025-10-05 23:48 | PTCARENOTE ---
Patient received in bed, AAOx3. Afib on monitor, blood pressure as documented. levophed gtt off. no edema noted. Lungs with crackles bibasilar, pulse ox 89-90% on 6L. + tachypnea, + dyspnea. Abdomen soft. Voiding jeremiah urine on bed sneed.
Bilateral heel dressings and left thigh dressing intact. Right upper arm midline, #20 g in RAC flushed and patent. Call pack within reach
[2025-10-06] VITALS (17 sets, daily range): BP systolic 88–111; BP diastolic 61–79; PULSE 2–95; BMI 20.9
[2025-10-06] MEDS: MAXIPIME 1000 MG IV ×3 (00:28→16:13)
[2025-10-06] MEDS: STERILE WATER FOR INJECTION 10 ML IV ×3 (00:28→16:13)
--- NOTE | 2025-10-06 04:03 | PTCARENOTE ---
Patient maxed out on MFNC, pulse ox 86-88%. Placed on BiPap [id number], pulse ox 98-99%
[2025-10-06 05:02] LABS: Hematocrit 23.2 % (37.0-47.0); Hemoglobin 8.2 g/dL (12.0-16.0); Mean Corp Hgb Conc. 35.3 g/dL (33.0-37.0); Mean Corpuscular Volume 88.5 fL (81.0-99.0); Platelet Count 205 10^3/uL (130-400); Red Cell Dist. Width 16.7 % (11.5-14.5)
[2025-10-06 05:51] LABS: Troponin I 0.040 ng/ml
[2025-10-06 05:53] LABS: Blood Urea Nitrogen 34 mg/dl (7-17); Calcium 8.1 mg/dl (8.4-10.2); Carbon Dioxide 24 mmol/L (22-30); Chloride 102 mmol/L (98-107); Estimated Creatinine Clearance 54 ml/min; Glucose 95 mg/dl (70-99); Potassium 3.7 mmol/L (3.5-5.1); Sodium 128 mmol/L (135-145); eGFR > 60.00
[2025-10-06] MEDS: SYNTHROID 112 MCG PO (06:11)
[2025-10-06] MEDS: SPIRIVA RESPIMAT 2.5 MCG 2 PUFF INH (07:21)
[2025-10-06] MEDS: CARDIZEM CD 120 MG PO (08:04)
[2025-10-06] MEDS: ZOLOFT 100 MG PO (08:04)
[2025-10-06] MEDS: PLAVIX 75 MG PO (08:04)
[2025-10-06] MEDS: SANTYL OINTMENT 1 APPLIC TOPICAL (08:05)
[2025-10-06] MEDS: LASIX 20 MG IV (08:05)
[2025-10-06] MEDS: ELIQUIS 2.5 MG PO ×2 (08:05→21:12)
--- NOTE | 2025-10-06 10:13 | W.PN.CARDCBS ---
Today's Communication / Plan
-
Midodrine 5 mg 3 times daily
Off norepinephrine
Add digoxin
De-escalate diltiazem as possible
Continue IV Lasix
Impression / Plan
-
PCP: Alea REYNOLDS
Cardiology: Dr. Melchor Duran
Impression:
Admitted with UTI, left flank pain and left ureteral calculi
Sepsis
Complicated UTI
Left ureteral calculi s/p stone extraction and left ureteral stenting by urology 10/04/2025
Acute HFpEF
Permanent A-fib
Chronic Eliquis OAC
CAD
s/p LCx PCI 2018
Peripheral vascular disease
s/p prior angioplasty/stenting left iliac and SFA/popliteal with extensive SFA/popliteal stent placement 03/16/2025
s/p stenting of bilateral SFA/iliac arteries
h/o HTN
Hyperlipidemia
Hypothyroidism
COPD
PVCs
CHON 04/11/2021([facility] study): Low normal EF, right to left shunt with agitated saline consistent with PFO, no evidence of thrombus in LARA, trace MR
Echo 01/25/2024: EF 50 to 55%. Moderate TR with PAP 35 to 38 mmHg. Patent PFO with [id number] flow/shunt
Echo 08/24/2025: EF 55 to 60%, mild TR, compared to echo from 01/2024 the findings are similar
Plan:
Overall she is improved, but still on mid flow oxygen.
Rate in atrial fibrillation is reasonably controlled but still somewhat rapid. In July we stopped digoxin because she was relatively bradycardic on diltiazem CD120 mg twice daily. Now that there is a history of HFpEF, it may be better to
reduce diltiazem as possible or consider beta-cheryle. Therefore, we will restart digoxin 125 mcg daily. As heart rate hopefully improves we could perhaps decrease diltiazem to once daily which would also help with hypotension.
Will restart midodrine and patient will hopefully get off norepinephrine.
Continue IV furosemide
We could consider spironolactone, avoid SGLT2 antagonists related to UTI.
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
Subjective
Date of Service: October 06, 2025:
85-year-old woman admitted with left L ureteral calculus s/p basket extraction and stent and complicated by Proteus UTI/bacteremia, now with newly diagnosed acute HFpEF
PMH/PSH: Permanent A-fib, orthostasis, CAD with circumflex PCI 2018, peripheral arterial disease with left iliac, SFA, popliteal stent placement March 2025, right iliac and SFA stents, hypertension, hyperlipidemia, hypothyroidism, COPD, PVCs, bipolar
disorder
Current meds: 6 cefepime, DuoNebs, Abilify 5 mg at bedtime, atorvastatin 40 mg a day, diltiazem CD1 120 mg twice daily, levothyroxine 112 mcg daily, Remeron 7.5 mg at bedtime, Zoloft 100 mg a day, Spiriva, norepinephrine,, furosemide 20 mg IV daily,
clopidogrel 75 mg a day 106/66, pulse 98, respiratory rate 27, afebrile, sats 93%, intake and output -1 L, weight is 50.2 kg, down 0.9 kg, pleasant, thin, chronically ill, left leg in boot not much edema, crackles in lungs, irregular rate and rhythm
without obvious murmurs or gallops JVD modestly elevated, abdomen benign
BUN and creatinine are 34 and 0.6, hemoglobin is 8.2, was 9.3, BUN and creatinine are 34 and 0.6, potassium 3.7, sodium 128, proBNP is 8700,Troponin is 0.040
Chest x-ray, atelectasis, infiltrates in the bases, blunting of CVAs vascular congestion
Objective
Labs:
10/06/25 04:50
10/06/25 04:50
Labs
Hgb 8.2 g/dL (12.0-16.0) L 10/06/25 04:50
Hct 23.2 % (37.0-47.0) L 10/06/25 04:50
Plt Count 205 10^3/uL (130-400) 10/06/25 04:50
Sodium 128 mmol/L (135-145) L 10/06/25 04:50
Potassium 3.7 mmol/L (3.5-5.1) 10/06/25 04:50
BUN 34 mg/dl (7-17) H 10/06/25 04:50
Creatinine 0.6 mg/dL (0.6-1.0) 10/06/25 04:50
Glucose 95 mg/dl (70-99) 10/06/25 04:50
Troponins
10/06/25
04:50
Troponin I 0.040 H*
Vital Signs and I&O:
Vital Signs
Temp Pulse Resp BP Pulse Ox
37.0 C 98 27 106/66 93
10/06/25 07:18 10/06/25 09:00 10/06/25 09:00 10/06/25 08:00 10/06/25 09:00
Vital Signs
Temp Pulse Resp BP Pulse Ox
37.0 C 98 27 106/66 93
10/06/25 07:18 10/06/25 09:00 10/06/25 09:00 10/06/25 08:00 10/06/25 09:00
Intake & Output
10/04/25 10/05/25 10/06/25 10/07/25
07:59 07:59 07:59 07:59
Intake Total 1190 / 1190 240 / 240
Output Total 1200 / 1200
Balance 1190 / 1190 -960 / -960
Physical Exam
Physical Exam
See above
[2025-10-06] MEDS: LANOXIN 250 MCG PO (10:52)
[2025-10-06] MEDS: KCL 40 MEQ PO (10:52)
--- NOTE | 2025-10-06 11:44 | W.PN.URO.CBU ---
Today's Communication / Plan
-
no new input
Assessment / Plan
-
Proteus Urosepsis
Left Ureteral Stone s/p removal and stenting
improving clinically
Diagnosis
-
Date of Service: October 06, 2025
-
Patient Diagnosis:
Proteus Urosepsis
4 mm stone distal left ureter s/p ureteroscopy, stone removal, stentin 10/04/2025
Post Op Day: 2
Subjective
-
'tired, but fine'
Objective
-
Vital Signs
Temp Pulse Resp BP Pulse Ox
98.6 F 98 27 106/66 93
10/06/25 07:18 10/06/25 09:00 10/06/25 09:00 10/06/25 08:00 10/06/25 09:00
Intake and Output
10/05/25 10/06/25 10/07/25
06:59 06:59 06:59
Intake Total 1190 / 1190 240 / 240
Output Total 1100 / 1100 100 / 100
Balance 1190 / 1190 -860 / -860 -100 / -100
Intake:
Oral fluids 240 / 240 240 / 240
IV fluids (Total) 950 / 950
normosol 150 / 150
Output:
Urine, Voided 1100 / 1100 100 / 100
Other:
How many times incontinent 1
SMALL amount urine
How many times incontinent 1 3
MODERATE amount urine
How many times incontinent 2 1 1
SATURATED amount urine
Number of approximated LARGE 1
amounts of urine
Laboratory Results
10/06/25 04:50
10/06/25 04:50
Physical Exam
-
General - elderly female sitting upright in bed
--- NOTE | 2025-10-06 12:11 | PN.CDI ---
CDI
- -
CDI:
Physician Documentation Request
Admit Date: 10/03/25 18:07
Dear Doctor Sharmin,
Patient was admitted with UTI.
10/05 Nursing skin assessment by DEEP, 'Stage 1 right heel pressure injury, POA.'
Physician documentation of the type and location of wounds is required for compliant documentation. Based on the above clinical findings and your assessment, please provide the following in your progress note:
Type (etiology) of ulcer/wound:
- Pressure (decubitus) ulcer
- Other
- Unable to determine
For a pressure ulcer, please also include the stage* of the ulcer:
- Stage 1 - Skin intact, non-blanchable redness
- Stage 2 - Partial thickness loss of dermis, includes intact or open blister
- Stage 3 - Full thickness tissue not including bone, tendon or muscle
- Stage 4 - Full thickness tissue loss, including exposed bone, tendon or muscle
- Unstageable - Full thickness loss in which the base of the ulcer is covered by slough (yellow, cornelius, mascorro, green or brown) and/or eschar (cornelius, brown or black) in the wound bed.
- Unable to determine
Use of terms such as suspected, likely, concern for, or probable (associated with a specific diagnosis that is being evaluated, monitored, or treated as if it exists) are acceptable and can be coded in the inpatient setting, when documented at the
time of discharge.
Thank you,
Rianna PILLAI,RN,CCDS
CDI Specialist
Available via tiger text
Please use your independent medical judgment in providing your response.
*Source: National Pressure Ulcer Advisory Panel (NPUAP)
--- NOTE | 2025-10-06 12:56 | W.PN.HOSP.TC ---
Today's Communication/Plan
-
wean O2 as able
IV Lasix; Cards following
Digoxin
Continue IV Cefepime, f/u cultures and WBC
Midodrine
PT/OT
Assessment / Plan
Assessment / Plan
Assessment:
complicated UTI
Proteus bacteremia with septic shock
- CT: partially obstructing 4 mm calculus along the course of the distal left ureter, just proximal to the left ureterovesical junction.
- Urology following; s/p Left Ureteroscopy, basket extraction of stone; stenting 10/04/25. Urine with pus noted.
- s/p sepsis protocol IVF; now capped with development of CHF
- briefly required low dose Levophed; now on midodrine
- pain control, anti-emetics
- continue Cefepime, day 3/14. repeat Blood cultures NGTD
Acute hypoxic respiratory failure requiring higher settings of mid-flow O2 and BIPAP
- continue HS BIPAP
- wean O2 as able
- encourage IS
Acute new CHF, possibly iatrogenic in setting of sepsis protocol IVF and acute illness
- CXR: Mild to moderate CHF with small bilateral effusions
- IV Lasix; requires intensive monitoring of I/Os, weights, lytes
- Salt and fluid restrictions
- Cards following
Hypervolemic hyponatremia
- monitor BMP with ongoing diuresis
Non-[place] trop elevation likely in setting of acute CHF
- was obtained for baseline purposes per Dr. Duran; no need for trending
hx of COPD
ILD
- continue Incruse
- prn nebs
Bipolar d/o
- continue Abilify/Remeron/Zoloft
hypothyroidism
- continue replacement
chronic anemia
Perm A. Fib
CAD s/p stents
PAD
Essential HTN
- continue Plavix/Eliquis
- restart Digoxin (previously held outpatient with bradycardia)
- titrate down Diltiazem as able with new CHF diagnosis
- consider Beta cheryle addition
- Midodrine for BP as well
- consider Aldactone
- continue Statin
Celiac disease
- GF diet
Stage 1 right heel pressure injury, POA
DVT ppx: Eliquis
Code: DNR/DNI - confirmed with family/patient
Anticipated Discharge: > 48 hours
Subjective/Interval History
-
Date of Service: October 06, 2025
placed on BiPAP overnight for mild respiratory distress, pt tolerated well
on 12L NC and 93%
reports some SOB, denies chest pain
Objective Data
-
Labs:
Laboratory Results
10/06/25
04:50
WBC 14.8 H
Hgb 8.2 L
Hct 23.2 L
Plt Count 205
Sodium 128 L
Potassium 3.7
Chloride 102
Carbon Dioxide 24
BUN 34 H
Creatinine 0.6
Glucose 95
Calcium 8.1 L
Vital Signs:
Vital Signs
Temp Pulse Resp BP Pulse Ox
98.6 F 98 27 106/66 93
10/06/25 11:53 10/06/25 09:00 10/06/25 09:00 10/06/25 08:00 10/06/25 09:00
I&O
10/05/25 10/06/25 10/07/25
06:59 06:59 06:59
Intake Total 1190 / 1190 240 / 240
Output Total 1100 / 1100 325 / 325
Balance 1190 / 1190 -860 / -860 -325 / -325
Physical Exam
-
General: No Apparent Distress
HEENT: Normocephalic and Atraumatic
Respiratory: Crackles; Negative Wheezes
Cardiac: Regular Rhythm and S1/S2
GI: Soft
Neuro: AO x 3
Psych: Calm
Data Reviewed
-
Total Time Spent with Patient (in minutes): 51
Labs: Labs Reviewed by me
--- NOTE | 2025-10-06 15:00 | CM ---
F/U: Patient still being monitored re: cultures and continuing IV Abx. Patient is open to Home VN for new onset of Heart Failure and PT. Patient chose [facility], which she already known to according to [facility]. PLAN: Patient likely clear for Home PT.
[2025-10-06] MEDS: LIPITOR 40 MG PO (16:12)
[2025-10-06] MEDS: TYLENOL 650 MG PO (16:12)
--- NOTE | 2025-10-06 17:36 | PTCARENOTE ---
attempted to wean the O2 down. patient received on mid flow NC @15L. decreased to 12L midflow and when the patient fell asleep sats dropped to to 88/89%. bipap applied for an hour and patient was placed back on 12L midflow. use of incentive
spirometer reinforced
[2025-10-06] MEDS: CARDIZEM CD PO (20:59)
[2025-10-06] MEDS: ABILIFY 5 MG PO (21:12)
[2025-10-06] MEDS: REMERON 7.5 MG PO (21:12)
[2025-10-07] VITALS (13 sets, daily range): BP systolic 103–138; BP diastolic 65–79; PULSE 112; O2SAT 98; BMI 20.1
[2025-10-07] MEDS: MAXIPIME 1000 MG IV ×3 (00:19→16:40)
[2025-10-07] MEDS: STERILE WATER FOR INJECTION 10 ML IV ×3 (00:20→16:40)
[2025-10-07] MEDS: SYNTHROID 112 MCG PO (05:47)
--- NOTE | 2025-10-07 06:35 | W.PN.URO.CBU ---
Today's Communication / Plan
-
no new input
Assessment / Plan
-
Proteus Urosepsis
Left Ureteral Stone s/p removal and stenting
improving clinically
Diagnosis
-
Date of Service: October 07, 2025
-
Patient Diagnosis:
Proteus Urosepsis
4 mm stone distal left ureter s/p ureteroscopy, stone removal, stentin 10/04/2025
Post Op Day: 3
Subjective
-
asleep
Objective
-
Vital Signs
Temp Pulse Resp BP Pulse Ox
97.5 F 98 24 107/71 96
10/07/25 02:44 10/07/25 03:30 10/07/25 03:30 10/07/25 02:00 10/07/25 04:00
Intake and Output
10/05/25 10/06/25 10/07/25
06:59 06:59 06:59
Intake Total 1190 / 1190 240 / 240 100 / 100
Output Total 1100 / 1100 700 / 700
Balance 1190 / 1190 -860 / -860 -600 / -600
Intake:
Oral fluids 240 / 240 240 / 240 100 / 100
IV fluids (Total) 950 / 950
normosol 150 / 150
Output:
Urine, Voided 1100 / 1100 700 / 700
Other:
How many times incontinent 1
SMALL amount urine
How many times incontinent 1 3
MODERATE amount urine
How many times incontinent 2 1 1
SATURATED amount urine
Number of approximated LARGE 1
amounts of urine
Physical Exam
-
General - well developed, well nourished, no acute distress
Chest - clear bilaterally
Abdomen - soft, non-tender, positive bowel sounds, no CVAT, no incisional pain or distention
Genitalia - normal
Rectal - normal
Skin - warm & dry with no rash
Neuro - AOx3, no motor deficits
Extremities - no clubbing, no cyanosis, no edema
Incision - clean, dry
Dressing - clean, dry, intact
[2025-10-07 06:39] LABS: Hematocrit 26.6 % (37.0-47.0); Hemoglobin 9.3 g/dL (12.0-16.0); Mean Corp Hgb Conc. 35.0 g/dL (33.0-37.0); Mean Corpuscular Volume 89.9 fL (81.0-99.0); Platelet Count 265 10^3/uL (130-400); Red Cell Dist. Width 16.6 % (11.5-14.5)
[2025-10-07] MEDS: SPIRIVA RESPIMAT 2.5 MCG 2 PUFF INH (07:24)
[2025-10-07 07:41] LABS: Blood Urea Nitrogen 28 mg/dl (7-17); Calcium 8.1 mg/dl (8.4-10.2); Carbon Dioxide 26 mmol/L (22-30); Chloride 103 mmol/L (98-107); Estimated Creatinine Clearance 54 ml/min; Glucose 91 mg/dl (70-99); Potassium 3.9 mmol/L (3.5-5.1); Sodium 133 mmol/L (135-145); eGFR > 60.00
[2025-10-07] MEDS: KCL 20 MEQ PO (09:30)
[2025-10-07] MEDS: ELIQUIS 2.5 MG PO ×2 (09:30→20:29)
[2025-10-07] MEDS: ZOLOFT 100 MG PO (09:30)
[2025-10-07] MEDS: PLAVIX 75 MG PO (09:31)
[2025-10-07] MEDS: LASIX 20 MG IV (09:32)
[2025-10-07] MEDS: SANTYL OINTMENT 1 APPLIC TOPICAL (09:33)
--- NOTE | 2025-10-07 12:46 | W.PN.HOSP.TC ---
Today's Communication/Plan
-
Continue Cefepime
continue IV Lasix
wean O2
daughter updated
Assessment / Plan
Assessment / Plan
Assessment:
complicated UTI
Proteus bacteremia with septic shock
- CT: partially obstructing 4 mm calculus along the course of the distal left ureter, just proximal to the left ureterovesical junction.
- Urology following; s/p Left Ureteroscopy, basket extraction of stone; stenting 10/04/25. Urine with pus noted.
- s/p sepsis protocol IVF; now capped with development of CHF
- briefly required low dose Levophed; now on midodrine
- pain control, anti-emetics
- continue Cefepime, day 02/13. repeat Blood cultures NGTD
Acute hypoxic respiratory failure requiring higher settings of mid-flow O2 and BIPAP
- continue HS BIPAP
- wean O2 as able; currently 5L NC
- encourage IS
Acute new CHF, possibly iatrogenic in setting of sepsis protocol IVF and acute illness
- CXR: Mild to moderate CHF with small bilateral effusions
- IV Lasix; requires intensive monitoring of I/Os, weights, lytes
- Salt and fluid restrictions
- Cards following
Hypervolemic hyponatremia
- monitor BMP with ongoing diuresis
Non-[place] trop elevation likely in setting of acute CHF
- was obtained for baseline purposes per Dr. Duran; no need for trending
hx of COPD
ILD
- continue Incruse
- prn nebs
Bipolar d/o
- continue Abilify/Remeron/Zoloft
hypothyroidism
- continue replacement
chronic anemia
Perm A. Fib
CAD s/p stents
PAD
Essential HTN
- continue Plavix/Eliquis
- restart Digoxin (previously held outpatient with bradycardia)
- titrate down Diltiazem as able with new CHF diagnosis
- consider Beta cheryle addition
- Midodrine for BP as well
- consider Aldactone
- continue Statin
Celiac disease
- GF diet
Stage 1 right heel pressure injury, POA
DVT ppx: Eliquis
Code: DNR/DNI - confirmed with family/patient
Anticipated Discharge: > 48 hours
Subjective/Interval History
-
Date of Service: October 07, 2025
resting comfortably,
down to 5L NC
Objective Data
-
Labs:
Laboratory Results
10/07/25
05:54
WBC 11.5 H
Hgb 9.3 L
Hct 26.6 L
Plt Count 265 D
Sodium 133 L
Potassium 3.9
Chloride 103
Carbon Dioxide 26
BUN 28 H
Creatinine 0.5 L
Glucose 91
Calcium 8.1 L
Vital Signs:
Vital Signs
Temp Pulse Resp BP Pulse Ox
98.5 F 100 26 103/65 95
10/07/25 11:40 10/07/25 09:00 10/07/25 09:00 10/07/25 08:00 10/07/25 09:00
I&O
10/06/25 10/07/25 10/08/25
06:59 06:59 06:59
Intake Total 240 / 240 100 / 100 120 / 120
Output Total 1100 / 1100 825 / 825 150 / 150
Balance -860 / -860 -725 / -725 -30 / -30
Physical Exam
-
General: No Apparent Distress
HEENT: Normocephalic and Atraumatic
Respiratory: Negative Wheezes
Cardiac: Regular Rhythm and S1/S2
GI: Soft
Musculoskeletal: No Edema
Neuro: AO x 3
Psych: Calm
Data Reviewed
-
Total Time Spent with Patient (in minutes): 51
Labs: Labs Reviewed by me
[2025-10-07] MEDS: CARDIZEM CD PO (13:10)
[2025-10-07] MEDS: LANOXIN 125 MCG PO (13:11)
[2025-10-07 16:07] LABS: Glucose - Point of Care 89 mg/dl (70-99)
[2025-10-07] MEDS: LIPITOR 40 MG PO (16:43)
--- NOTE | 2025-10-07 16:55 | W.PN.CARDCBS ---
Today's Communication / Plan
-
Transition IV Lasix to oral furosemide 20 mg a day
Continue digoxin, midodrine, diltiazem
Discharge planning
Impression / Plan
-
PCP: Alea REYNOLDS
Cardiology: Dr. Melchor Duran
Impression:
Admitted with UTI, left flank pain and left ureteral calculi
Sepsis
Complicated UTI
Left ureteral calculi s/p stone extraction and left ureteral stenting by urology 10/04/2025
Acute HFpEF
Permanent A-fib
Chronic Eliquis OAC
CAD
s/p LCx PCI 2018
Peripheral vascular disease
s/p prior angioplasty/stenting left iliac and SFA/popliteal with extensive SFA/popliteal stent placement 03/16/2025
s/p stenting of bilateral SFA/iliac arteries
h/o HTN
Hyperlipidemia
Hypothyroidism
COPD
PVCs
CHON 04/11/2021([facility] study): Low normal EF, right to left shunt with agitated saline consistent with PFO, no evidence of thrombus in LARA, trace MR
Echo 01/25/2024: EF 50 to 55%. Moderate TR with PAP 35 to 38 mmHg. Patent PFO with qprm-of-urpwa flow/shunt
Echo 08/24/2025: EF 55 to 60%, mild TR, compared to echo from 01/2024 the findings are similar
Plan:
She continues to improve. Volume status looks better. Still requiring oxygen but down to 4 L from mid flow.
Heart rate is still somewhat rapid but reasonably controlled. Continue current regimen of diltiazem and recently started digoxin. As digoxin reaches steady state, suspect heart rate will improve.
Volume status is improved as noted above. Will transition to oral furosemide 20 mg daily from 20 mg IV.
Blood pressure is reasonably controlled on midodrine 5 mg 3 times daily.
Given blood pressure, probably best to avoid spironolactone, and she is a poor SGLT2 candidate for heart failure given UTI/bacteremia from urosepsis
Discharge planning.
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
Subjective
Date of Service: October 07, 2025:
85-year-old woman admitted with left L ureteral calculus s/p basket extraction and stent and complicated by Proteus UTI/bacteremia, now with newly diagnosed acute HFpEF
PMH/PSH: Permanent A-fib, orthostasis, CAD with circumflex PCI 2018, peripheral arterial disease with left iliac, SFA, popliteal stent placement March 2025, right iliac and SFA stents, hypertension, hyperlipidemia, hypothyroidism, COPD, PVCs, bipolar
disorder
Current medications: Abilify 5 mg a day, atorvastatin 40 mg a day, diltiazem CD1 120 mg twice daily, levothyroxine 112 mcg daily, Remeron 7.5 mg at bedtime, sertraline 100 mg a day, Spiriva, cefepime, furosemide 20 mg IV a day, apixaban 2.5 mg twice
daily, clopidogrel 75 mg a day, potassium 20 mEq a day, midodrine 5 mg daily, digoxin 125 mcg daily
110/77, pulse 113, respiratory rate 18, afebrile, saturations 98%, weight is 48.14 kg, if accurate down 2 kg, pleasant, no distress, somewhat tachycardic, lungs with better aeration, still with a few crackles, irregular rate and rhythm, no obvious
murmurs, no edema
Hemoglobin 9.3, white count 11.5, platelets 265, BUN and creatinine are 28 and 0.5
Objective
Labs:
10/07/25 05:54
10/07/25 05:54
Labs
Hgb 9.3 g/dL (12.0-16.0) L 10/07/25 05:54
Hct 26.6 % (37.0-47.0) L 10/07/25 05:54
Plt Count 265 10^3/uL (130-400) D 10/07/25 05:54
Sodium 133 mmol/L (135-145) L 10/07/25 05:54
Potassium 3.9 mmol/L (3.5-5.1) 10/07/25 05:54
BUN 28 mg/dl (7-17) H 10/07/25 05:54
Creatinine 0.5 mg/dL (0.6-1.0) L 10/07/25 05:54
Glucose 91 mg/dl (70-99) 10/07/25 05:54
Troponins
10/06/25
04:50
Troponin I 0.040 H*
Vital Signs and I&O:
Vital Signs
Temp Pulse Resp BP Pulse Ox
37.8 C 113 18 110/77 98
10/07/25 15:00 10/07/25 14:30 10/07/25 14:30 10/07/25 14:00 10/07/25 14:30
Vital Signs
Temp Pulse Resp BP Pulse Ox
37.8 C 113 18 110/77 98
10/07/25 15:00 10/07/25 14:30 10/07/25 14:30 10/07/25 14:00 10/07/25 14:30
Intake & Output
10/05/25 10/06/25 10/07/25 10/08/25
07:59 07:59 07:59 07:59
Intake Total 1190 / 1190 240 / 240 100 / 100 120 / 120
Output Total 1200 / 1200 725 / 725 300 / 300
Balance 1190 / 1190 -960 / -960 -625 / -625 -180 / -180
Physical Exam
Physical Exam
See above
--- NOTE | 2025-10-07 17:30 | PTCARENOTE ---
Patient weaned down to 5L o2 via midflow. Patient SOB on exertion and tachypneic. Afib on monitor HR up 110's. BP's stable with midodrine. Wound care done to left leg and left heel as ordered. Patient denies any pain or discomfort. Had a BM
this AM. Call pack in reach.
[2025-10-07] MEDS: CARDIZEM CD 120 MG PO (20:28)
[2025-10-08] VITALS (14 sets, daily range): BP systolic 100–122; BP diastolic 68–84; PULSE 2–115; O2SAT 98
[2025-10-08] MEDS: ABILIFY 5 MG PO ×2 (00:47→21:10)
[2025-10-08] MEDS: STERILE WATER FOR INJECTION 10 ML IV ×4 (00:48→23:37)
[2025-10-08] MEDS: MAXIPIME 1000 MG IV ×4 (00:48→23:37)
[2025-10-08] MEDS: REMERON 7.5 MG PO ×2 (00:48→21:10)
[2025-10-08 06:06] LABS: Hematocrit 26.8 % (37.0-47.0); Hemoglobin 9.5 g/dL (12.0-16.0); Mean Corp Hgb Conc. 35.4 g/dL (33.0-37.0); Mean Corpuscular Volume 88.2 fL (81.0-99.0); Platelet Count 253 10^3/uL (130-400); Red Cell Dist. Width 15.7 % (11.5-14.5)
[2025-10-08] MEDS: SYNTHROID 112 MCG PO (06:31)
[2025-10-08 06:32] LABS: Blood Urea Nitrogen 27 mg/dl (7-17); Calcium 8.2 mg/dl (8.4-10.2); Carbon Dioxide 22 mmol/L (22-30); Chloride 100 mmol/L (98-107); Estimated Creatinine Clearance 54 ml/min; Glucose 89 mg/dl (70-99); Magnesium 1.7 mg/dl (1.6-2.3); Potassium 3.8 mmol/L (3.5-5.1); Sodium 131 mmol/L (135-145); eGFR > 60.00
[2025-10-08] MEDS: SPIRIVA RESPIMAT 2.5 MCG 2 PUFF INH (07:52)
[2025-10-08] MEDS: KCL 20 MEQ PO (08:31)
[2025-10-08] MEDS: ELIQUIS 2.5 MG PO ×2 (08:31→19:54)
[2025-10-08] MEDS: PLAVIX 75 MG PO (08:31)
[2025-10-08] MEDS: ZOLOFT 100 MG PO (08:31)
[2025-10-08] MEDS: CARDIZEM CD 120 MG PO ×2 (08:31→19:54)
[2025-10-08] MEDS: LASIX 20 MG IV (08:32)
--- NOTE | 2025-10-08 09:20 | W.PN.HOSP.TC ---
Today's Communication/Plan
-
IV Lasix today
wean O2 further
Assessment / Plan
Assessment / Plan
Assessment:
complicated UTI
Proteus bacteremia with septic shock
- CT: partially obstructing 4 mm calculus along the course of the distal left ureter, just proximal to the left ureterovesical junction.
- Urology following; s/p Left Ureteroscopy, basket extraction of stone; stenting 10/04/25. Urine with pus noted.
- s/p sepsis protocol IVF; now capped with development of CHF
- briefly required low dose Levophed; now on midodrine TID
- pain control, anti-emetics
- continue Cefepime, day 5/. repeat Blood cultures NGTD
Acute hypoxic respiratory failure requiring higher settings of mid-flow O2 and BIPAP
- continue HS BIPAP prn
- wean O2 as able; currently 2L NC
- encourage IS
Acute new CHF, possibly iatrogenic in setting of sepsis protocol IVF and acute illness
- CXR: Mild to moderate CHF with small bilateral effusions
- IV Lasix; requires intensive monitoring of I/Os, weights, lytes; at discharge switch to 20mg daily PO
- Salt and fluid restrictions
- CHF education/dietary
- Cards following
Hypervolemic hyponatremia
- monitor BMP with ongoing diuresis
Non-[place] trop elevation likely in setting of acute CHF
- was obtained for baseline purposes per Dr. Duran; no need for trending
hx of COPD
ILD
- continue Incruse
- prn nebs
Bipolar d/o
- continue Abilify/Remeron/Zoloft
hypothyroidism
- continue replacement
chronic anemia
Perm A. Fib
CAD s/p stents
PAD
Essential HTN
- continue Plavix/Eliquis
- restart Digoxin (previously held outpatient with bradycardia)
- continue Diltiazem
- Midodrine for BP as well
- considered Aldactone but limited by BP. considered SGLT2 but has UTI currently
- continue Statin
Celiac disease
- GF diet
Stage 1 right heel pressure injury, POA
DVT ppx: Eliquis
Code: DNR/DNI - confirmed with family/patient
Anticipated Discharge: 24 - 48 hours
Subjective/Interval History
-
Date of Service: October 08, 2025
down to 2L NC
breathing improving
denies SOB
Objective Data
-
Labs:
Laboratory Results
10/08/25
05:52
WBC 9.9
Hgb 9.5 L
Hct 26.8 L
Plt Count 253
Sodium 131 L
Potassium 3.8
Chloride 100
Carbon Dioxide 22
BUN 27 H
Creatinine 0.5 L
Glucose 89
Calcium 8.2 L
Vital Signs:
Vital Signs
Temp Pulse Resp BP Pulse Ox
98.7 F 96 16 107/54 98
10/08/25 08:22 10/08/25 08:32 10/08/25 07:53 10/08/25 08:32 10/08/25 07:53
I&O
10/07/25 10/08/25 10/09/25
06:59 06:59 06:59
Intake Total 100 / 100 1420 / 1420
Output Total 825 / 825 790 / 790
Balance -725 / -725 630 / 630
Physical Exam
-
General: No Apparent Distress
HEENT: Normocephalic and Atraumatic
Respiratory: Crackles (few); Negative Wheezes
Cardiac: Regular Rhythm and S1/S2
GI: Soft and Nontender
Musculoskeletal: No Edema
Neuro: AO x 3
Psych: Calm
Data Reviewed
-
Total Time Spent with Patient (in minutes): 51
Labs: Labs Reviewed by me
--- NOTE | 2025-10-08 12:28 | W.PN.URO.CBU ---
Today's Communication / Plan
-
to f/u as an outpatient in ~2 weeks for removal of ureteral stent
Assessment / Plan
-
Proteus Urosepsis
Left Ureteral Stone s/p removal and stenting
improving clinically
Diagnosis
-
Date of Service: October 08, 2025
-
Patient Diagnosis:
Proteus Urosepsis
4 mm stone distal left ureter s/p ureteroscopy, stone removal, stentin 10/04/2025
Post Op Day: 4
Subjective
-
'fine'
Objective
-
Vital Signs
Temp Pulse Resp BP Pulse Ox
98.7 F 96 16 107/54 98
10/08/25 08:22 10/08/25 08:32 10/08/25 07:53 10/08/25 08:32 10/08/25 07:53
Intake and Output
10/07/25 10/08/25 10/09/25
06:59 06:59 06:59
Intake Total 100 / 100 1420 / 1420
Output Total 825 / 825 790 / 790 400 / 400
Balance -725 / -725 630 / 630 -400 / -400
Intake:
Oral fluids 100 / 100 1420 / 1420
Output:
Urine, Voided 825 / 825 790 / 790 400 / 400
Other:
How many times incontinent 1
MODERATE amount urine
How many times incontinent 1
SATURATED amount urine
Number of approximated MODERATE 1
amounts of urine
Laboratory Results
10/08/25 05:52
10/08/25 05:52
Physical Exam
-
General - well developed, well nourished, no acute distress
[2025-10-08] MEDS: MAGNESIUM OXIDE 400 MG PO (12:36)
[2025-10-08] MEDS: LANOXIN 125 MCG PO (12:37)
--- NOTE | 2025-10-08 13:47 | PTCARENOTE ---
Patient is out of bed to chair, no dizziness today, heart rate did increase to 120s with ambulation however quickly went back to the 90s when sitting. Patient stating that she still has some short of breath with ambulation but improved since
yesterday. Pulse ox is now 95% on room air. Urine is blood tinged, good output with Purewick, Discussed hematuria with Dr. Wakefield.
[2025-10-08] MEDS: SANTYL OINTMENT 1 APPLIC TOPICAL (13:58)
--- NOTE | 2025-10-08 14:35 | W.PN.CARDCBS ---
Today's Communication / Plan
-
Agree with IV Lasix
Impression / Plan
-
PCP: Alea REYNOLDS
Cardiology: Dr. Melchor Duran
Impression:
Admitted with UTI, left flank pain and left ureteral calculi
Sepsis
Complicated UTI
Left ureteral calculi s/p stone extraction and left ureteral stenting by urology 10/04/2025
Acute HFpEF
Permanent A-fib
Chronic Eliquis OAC
CAD
s/p LCx PCI 2018
Peripheral vascular disease
s/p prior angioplasty/stenting left iliac and SFA/popliteal with extensive SFA/popliteal stent placement 03/16/2025
s/p stenting of bilateral SFA/iliac arteries
h/o HTN
Hyperlipidemia
Hypothyroidism
COPD
PVCs
CHON 04/11/2021([facility] study): Low normal EF, right to left shunt with agitated saline consistent with PFO, no evidence of thrombus in LARA, trace MR
Echo 01/25/2024: EF 50 to 55%. Moderate TR with PAP 35 to 38 mmHg. Patent PFO with [id number] flow/shunt
Echo 08/24/2025: EF 55 to 60%, mild TR, compared to echo from 01/2024 the findings are similar
Plan:
On exam and by her numbers, she looks well.
However, she has symptoms of heart failure.
Blood pressure is good, heart rate control is relatively good.
Will give IV Lasix.
Progress Note - Sport Intern
Subjective
Date of Service: October 08, 2025:
85-year-old woman admitted with left L ureteral calculus s/p basket extraction and stent and complicated by Proteus UTI/bacteremia, now with newly diagnosed acute HFpEF
PMH/PSH: Permanent A-fib, orthostasis, CAD with circumflex PCI 2018, peripheral arterial disease with left iliac, SFA, popliteal stent placement March 2025, right iliac and SFA stents, hypertension, hyperlipidemia, hypothyroidism, COPD, PVCs, bipolar
disorder
Current meds: Abilify 5 mg at bedtime, atorvastatin 40 mg a day, diltiazem CD1 120 mg twice daily, levothyroxine, Remeron 7.5 mg at bedtime, sertraline 100 mg a day, Spiriva, cefepime, furosemide 20 mg IV daily, apixaban 2.5 mg twice daily,
clopidogrel 75 mg a day, potassium 20 mill equivalents a day, midodrine 5 mg 3 times daily, digoxin 125 mcg daily, mag oxide
122/68, pulse 98, respiratory rate 26, weight not checked today, patient now with orthopnea again, lungs are relatively clear, JVD not bad, heart rate overall controlled, no obvious murmurs, no edema
she has been anticoagulated, hemoglobin relatively stable,
Hemoglobin is 9.5, BUN and creatinine are 27 and 0.5, potassium is 3.8, sodium is 131, had been 133
Telemetry: Rates controlled in 90s
Objective
Labs:
10/08/25 05:52
10/08/25 05:52
Labs
Hgb 9.5 g/dL (12.0-16.0) L 10/08/25 05:52
Hct 26.8 % (37.0-47.0) L 10/08/25 05:52
Plt Count 253 10^3/uL (130-400) 10/08/25 05:52
Sodium 131 mmol/L (135-145) L 10/08/25 05:52
Potassium 3.8 mmol/L (3.5-5.1) 10/08/25 05:52
BUN 27 mg/dl (7-17) H 10/08/25 05:52
Creatinine 0.5 mg/dL (0.6-1.0) L 10/08/25 05:52
Glucose 89 mg/dl (70-99) 10/08/25 05:52
Troponins
10/06/25
04:50
Troponin I 0.040 H*
Vital Signs and I&O:
Vital Signs
Temp Pulse Resp BP Pulse Ox
37.1 C 90 26 122/68 96
10/08/25 08:22 10/08/25 14:00 10/08/25 14:00 10/08/25 14:00 10/08/25 14:00
Vital Signs
Temp Pulse Resp BP Pulse Ox
37.1 C 90 26 122/68 96
10/08/25 08:22 10/08/25 14:00 10/08/25 14:00 10/08/25 14:00 10/08/25 14:00
Intake & Output
10/06/25 10/07/25 10/08/25 10/09/25
07:59 07:59 07:59 07:59
Intake Total 240 / 240 100 / 100 1420 / 1420 120 / 120
Output Total 1200 / 1200 725 / 725 790 / 790 400 / 400
Balance -960 / -960 -625 / -625 630 / 630 -280 / -280
Physical Exam
Physical Exam
See above
--- NOTE | 2025-10-08 14:57 | PTCARENOTE ---
Addendum entered by Ciara Bautista RN 10/08/25 15:13:
Therapeutic communication provided to patient, discussed feelings of shortness of breath. Patient stated that she is feeling better at this time.
Original Note:
Report given to Bruce for transfer to [place] [id number] bed 1. Patient is on room air at this time, lungs clear, pulse ox 99%. Patient complaining of feelings of shortness of breath at times. Discussed with Dr. Finney and respiratory. BP 117/80. hr 91 afib.
[2025-10-08] MEDS: KCL 40 MEQ PO (16:12)
[2025-10-08] MEDS: LASIX 40 MG IV (16:12)
[2025-10-08] MEDS: LIPITOR 40 MG PO (17:50)
[2025-10-09 01:08] LABS: Stone Analysis Mass 20 mg
[2025-10-09 03:00] VITALS: BP 99/67
[2025-10-09 05:11] LABS: Hematocrit 28.4 % (37.0-47.0); Hemoglobin 10.0 g/dL (12.0-16.0); Mean Corp Hgb Conc. 35.2 g/dL (33.0-37.0); Mean Corpuscular Volume 88.2 fL (81.0-99.0); Platelet Count 294 10^3/uL (130-400); Red Cell Dist. Width 15.6 % (11.5-14.5)
[2025-10-09] MEDS: SYNTHROID 112 MCG PO (05:26)
[2025-10-09 05:42] LABS: Blood Urea Nitrogen 33 mg/dl (7-17); Calcium 9.0 mg/dl (8.4-10.2); Carbon Dioxide 24 mmol/L (22-30); Chloride 101 mmol/L (98-107); Estimated Creatinine Clearance 54 ml/min; Glucose 95 mg/dl (70-99); Potassium 4.5 mmol/L (3.5-5.1); Sodium 131 mmol/L (135-145); eGFR > 60.00
[2025-10-09 06:00] VITALS: BMI 19.5
[2025-10-09] MEDS: SPIRIVA RESPIMAT 2.5 MCG 2 PUFF INH (07:25)
[2025-10-09 07:29] VITALS: BP 161/75
[2025-10-09] MEDS: KCL 20 MEQ PO (07:46)
[2025-10-09] MEDS: ZOLOFT 100 MG PO (07:48)
[2025-10-09] MEDS: MAGNESIUM OXIDE 400 MG PO (07:49)
[2025-10-09] MEDS: ELIQUIS 2.5 MG PO ×2 (07:49→21:20)
[2025-10-09] MEDS: CARDIZEM CD 120 MG PO ×2 (07:49→21:20)
[2025-10-09] MEDS: LASIX 40 MG PO ×2 (07:49→16:41)
[2025-10-09] MEDS: PLAVIX 75 MG PO (07:50)
[2025-10-09] MEDS: MAXIPIME 1000 MG IV (07:50)
[2025-10-09] MEDS: STERILE WATER FOR INJECTION 10 ML IV ×2 (07:50→16:43)
[2025-10-09] MEDS: SANTYL OINTMENT 1 APPLIC TOPICAL (07:54)
--- NOTE | 2025-10-09 08:02 | W.PN.URO.CBU ---
Today's Communication / Plan
-
discharge when medically fit
Assessment / Plan
-
Proteus Urosepsis
Left Ureteral Stone s/p removal and stenting
improving clinically
Diagnosis
-
Date of Service: October 09, 2025
-
Patient Diagnosis:
Proteus Urosepsis
4 mm stone distal left ureter s/p ureteroscopy, stone removal, stentin 10/04/2025
Post Op Day: 5
Subjective
-
asleep
Objective
-
Vital Signs
Temp Pulse Resp BP Pulse Ox
98.1 F 97 17 161/75 97
10/09/25 07:29 10/09/25 07:47 10/09/25 07:29 10/09/25 07:47 10/09/25 07:29
Intake and Output
10/08/25 10/09/25 10/10/25
06:59 06:59 06:59
Intake Total 1420 / 1420 120 / 120
Output Total 790 / 790 500 / 500
Balance 630 / 630 -380 / -380
Intake:
Oral fluids 1420 / 1420 120 / 120
Output:
Urine, Voided 790 / 790 500 / 500
Other:
How many times incontinent 1 2
MODERATE amount urine
How many times incontinent 1
SATURATED amount urine
Number of approximated MODERATE 1
amounts of urine
Laboratory Results
10/09/25 04:49
10/09/25 04:49
Physical Exam
-
General - well developed, well nourished, no acute distress
Chest - clear bilaterally
Abdomen - soft, non-tender, positive bowel sounds, no CVAT, no incisional pain or distention
Genitalia - normal
Rectal - normal
Skin - warm & dry with no rash
Neuro - AOx3, no motor deficits
Extremities - no clubbing, no cyanosis, no edema
Incision - clean, dry
Dressing - clean, dry, intact
[2025-10-09 11:09] VITALS: BP 116/68
[2025-10-09] MEDS: LANOXIN 125 MCG PO (12:24)
--- NOTE | 2025-10-09 14:03 | W.PN.HOSP.TC ---
Today's Communication/Plan
-
Continued antibiotics
Continue with Lasix
Assessment / Plan
Assessment / Plan
Assessment:
complicated UTI
Proteus bacteremia with septic shock
- CT: partially obstructing 4 mm calculus along the course of the distal left ureter, just proximal to the left ureterovesical junction.
- Urology following; s/p Left Ureteroscopy, basket extraction of stone; stenting 10/04/25. Urine with pus noted.
- s/p sepsis protocol IVF; now capped with development of CHF
- briefly required low dose Levophed; now on midodrine TID
- pain control, anti-emetics
- continue Cefepime, day 6/. repeat Blood cultures NGTD
Acute hypoxic respiratory failure requiring higher settings of mid-flow O2 and BIPAP
- continue HS BIPAP prn
- Currently on room air
- encourage IS
Acute new CHF, possibly iatrogenic in setting of sepsis protocol IVF and acute illness
- CXR: Mild to moderate CHF with small bilateral effusions
- On oral Lasix. Patient still feels symptomatic. Will increase it to twice a day for
- Salt and fluid restrictions
- CHF education/dietary
- Cards following
Hypervolemic hyponatremia
- monitor BMP with ongoing diuresis
Non-ME trop elevation likely in setting of acute CHF
- was obtained for baseline purposes per Dr. Duran; no need for trending
hx of COPD
ILD
- continue Incruse
- prn nebs
Bipolar d/o
- continue Abilify/Remeron/Zoloft
hypothyroidism
- continue replacement
chronic anemia
Perm A. Fib
CAD s/p stents
PAD
Essential HTN
- continue Plavix/Eliquis
- restarted Digoxin (previously held outpatient with bradycardia)
- continue Diltiazem
- Midodrine for BP as well
- considered Aldactone but limited by BP. considered SGLT2 but has UTI currently
- continue Statin
Celiac disease
- GF diet
Stage 1 right heel pressure injury, POA
DVT ppx: Eliquis
Code: DNR/DNI - confirmed with family/patient
dw cardiology
Anticipated Discharge: > 48 hours
Subjective/Interval History
-
Date of Service: October 09, 2025
Still feeling short of breath. No chest pain.
No fever or chills.
Denies any dysuria or frequency of urine. No nausea vomiting
Objective Data
-
Labs:
Laboratory Results
10/09/25
04:49
WBC 10.7
Hgb 10.0 L
Hct 28.4 L
Plt Count 294
Sodium 131 L
Potassium 4.5
Chloride 101
Carbon Dioxide 24
BUN 33 H
Creatinine 0.6
Glucose 95
Calcium 9.0
Vital Signs:
Vital Signs
Temp Pulse Resp BP Pulse Ox
98.1 F 89 17 116/68 97
10/09/25 11:09 10/09/25 12:24 10/09/25 11:09 10/09/25 12:21 10/09/25 11:15
I&O
10/08/25 10/09/25 10/10/25
06:59 06:59 06:59
Intake Total 1420 / 1420 120 / 120
Output Total 790 / 790 500 / 500
Balance 630 / 630 -380 / -380
Physical Exam
-
General: No Apparent Distress
Respiratory: Crackles (Bilateral lower zone) and Non Labored Respirations; Negative Wheezes or Accessory Resp Muscle Use
Cardiac: S1/S2, Irregular Rhythm and Tachycardic
GI: Soft, Nontender, Nondistended and Normal Bowel Sounds
Neuro: AO x 3
Psych: Calm
Data Reviewed
-
Labs: Labs Reviewed by me
[2025-10-09 15:00] VITALS: BP 103/67
[2025-10-09] MEDS: ROCEPHIN 1000 MG IV (16:41)
--- NOTE | 2025-10-09 17:17 | W.PN.CARDCBS ---
Today's Communication / Plan
-
-Clinically doing well. No complaints
-No lasix today. Reassess tomorrow
-Afib rates well controlled: Continue apixaban
Impression / Plan
-
PCP: Alea REYNOLDS
Cardiology: Dr. Melchor Duran
Impression:
Admitted with UTI, left flank pain and left ureteral calculi
Sepsis
Complicated UTI
Left ureteral calculi s/p stone extraction and left ureteral stenting by urology 10/04/2025
Acute HFpEF
Permanent A-fib
Chronic Eliquis OAC
CAD
s/p LCx PCI 2018
Peripheral vascular disease
s/p prior angioplasty/stenting left iliac and SFA/popliteal with extensive SFA/popliteal stent placement 03/16/2025
s/p stenting of bilateral SFA/iliac arteries
h/o HTN
Hyperlipidemia
Hypothyroidism
COPD
PVCs
CHON 04/11/2021([facility] study): Low normal EF, right to left shunt with agitated saline consistent with PFO, no evidence of thrombus in LARA, trace MR
Echo 01/25/2024: EF 50 to 55%. Moderate TR with PAP 35 to 38 mmHg. Patent PFO with [id number] flow/shunt
Echo 08/24/2025: EF 55 to 60%, mild TR, compared to echo from 01/2024 the findings are similar
Plan:
-Feeling a little better after furosemide
-She looks and examines reasonably well compensated.
-She is not on furosemide at home. Will hold on further and reassess in am
-Afib rates well controlled: Continue apixaban
Progress Note - Industrial Chemicals Supervisor
Subjective
Date of Service: October 09, 2025
Feeling well. No complaints
Objective
Labs:
10/09/25 04:49
10/09/25 04:49
Labs
Hgb 10.0 g/dL (12.0-16.0) L 10/09/25 04:49
Hct 28.4 % (37.0-47.0) L 10/09/25 04:49
Plt Count 294 10^3/uL (130-400) 10/09/25 04:49
Sodium 131 mmol/L (135-145) L 10/09/25 04:49
Potassium 4.5 mmol/L (3.5-5.1) 10/09/25 04:49
BUN 33 mg/dl (7-17) H 10/09/25 04:49
Creatinine 0.6 mg/dL (0.6-1.0) 10/09/25 04:49
Glucose 95 mg/dl (70-99) 10/09/25 04:49
Vital Signs and I&O:
Vital Signs
Temp Pulse Resp BP Pulse Ox
97.9 F 98 17 103/67 97
10/09/25 15:00 10/09/25 16:41 10/09/25 15:00 10/09/25 16:41 10/09/25 15:00
Vital Signs
Temp Pulse Resp BP Pulse Ox
97.9 F 98 17 103/67 97
10/09/25 15:00 10/09/25 16:41 10/09/25 15:00 10/09/25 16:41 10/09/25 15:00
Intake & Output
10/06/25 10/07/25 10/08/25 10/09/25
23:59 23:59 23:59 23:59
Intake Total 100 / 100 1180 / 1180 360 / 360
Output Total 550 / 550 965 / 965 600 / 600
Balance -450 / -450 215 / 215 -240 / -240
Physical Exam:
Gen: Sitting in bed at 45-degree angle. She is interactive pleasant
HEENT: NC/AT, sclera anicteric
Lungs: No wheezing. Good air movement. Mildly diminished breath sounds at right base.
Abd: soft, bowel ounds present
Ext: No edema
[2025-10-09] MEDS: LIPITOR 40 MG PO (17:54)
[2025-10-09 19:00] VITALS: BP 113/82
[2025-10-09] MEDS: REMERON 7.5 MG PO (21:16)
[2025-10-09] MEDS: ABILIFY 5 MG PO (21:20)
[2025-10-09 23:00] VITALS: BP 120/85
[2025-10-10] VITALS (7 sets, daily range): BP systolic 95–139; BP diastolic 64–79; O2SAT 100; BMI 18.6
[2025-10-10 05:08] LABS: Blood Urea Nitrogen 32 mg/dl (7-17); Calcium 9.0 mg/dl (8.4-10.2); Carbon Dioxide 26 mmol/L (22-30); Chloride 100 mmol/L (98-107); Estimated Creatinine Clearance 45 ml/min; Glucose 95 mg/dl (70-99); Potassium 4.2 mmol/L (3.5-5.1); Sodium 132 mmol/L (135-145); eGFR > 60.00
[2025-10-10] MEDS: SYNTHROID 112 MCG PO (05:50)
[2025-10-10] MEDS: SPIRIVA RESPIMAT 2.5 MCG 2 PUFF INH (07:58)
[2025-10-10] MEDS: ZOLOFT 100 MG PO (08:00)
[2025-10-10] MEDS: KCL 20 MEQ PO (08:00)
[2025-10-10] MEDS: PLAVIX 75 MG PO (08:01)
[2025-10-10] MEDS: ELIQUIS 2.5 MG PO ×2 (08:01→22:18)
[2025-10-10] MEDS: LASIX 40 MG PO ×2 (08:01→15:44)
[2025-10-10] MEDS: MAGNESIUM OXIDE 400 MG PO (08:01)
[2025-10-10] MEDS: SANTYL OINTMENT 1 APPLIC TOPICAL (08:02)
[2025-10-10] MEDS: CARDIZEM CD 120 MG PO (08:02)
--- NOTE | 2025-10-10 10:35 | PN.CDI ---
CDI
- -
CDI:
Physician Documentation Request
Admit Date: 10/03/25 18:07
Dear Doctor Jovan,
Patient admitted with UTI.
Please review the following and provide your response in the progress notes.
Clinical Indicators:
Height: 5'1'
Weight: 98 lb 6 oz
BMI: 18.6
Please provide an associated diagnosis related to the abnormal BMI, such as:
Cachectic
Anorexia
Other
BMI < or = to 19 BMI > or = to 40
Underweight Overweight
Weight Loss Obesity:
Due to excess calories
Drug induced
Due to other cause
Cachectic Severe or morbid obesity:
With alveolar hypoventilation (Obesity hypoventilation syndrome)
Without alveolar hypoventilation
Anorexia
Use of terms such as suspected, likely, concern for, or probable (associated with a specific diagnosis that is being evaluated, monitored, or treated as if it exists) are acceptable and can be coded in the inpatient setting, when documented at the
time of discharge.
Thank you,
Rianna PILLAI,RN,CCDS
CDI Specialist
Available via [place] text
Please use your independent medical judgment in providing your response.
--- NOTE | 2025-10-10 11:25 | W.PN.CARDCBS ---
Addendum entered and electronically signed by Gianfranco Varner MD 10/10/25 15:31:
I saw and examined the patient.
The Golf Cart Maker's note was reviewed and I agree with the note.
Comment: Briefly, 85-year-old woman past medical history of permanent atrial fibrillation presenting with sepsis secondary to lithiasis and subsequently developed acute heart failure for which cardiology is consulted
Patient still reports dyspnea at the time of my evaluation earlier today, but does not appear to be overtly volume overloaded. proBNP trending down. Chest x-ray shows significant improvement in aeration.
Currently on p.o. Lasix 40 mg twice daily. Was not on Lasix prior to admission.
Will give one more dose of 40 mg p.o. Lasix this afternoon
Decrease Lasix to 20 mg once daily starting tomorrow and discharge home on this dose
Atrial fibrillation is permanent.
Continue diltiazem and digoxin for rate control.
Eliquis 2.5 mg twice daily for risk reduction of cardioembolic stroke
We will sign off, please recall as needed
Outpatient follow-up to be arranged
Recommended cardiac meds on discharge:
Lasix 20 mg daily
Diltiazem 120 mg BID
Digoxin 125 mcg daily
Eliquis 2.5 mg BID
Plavix 75 mg daily
Midodrine 5 mg TID as needed
Original Note:
Today's Communication / Plan
-
Patient does not examine in acute HF and proBNP trending down most recently. Recheck CXR, orders placed by me
Decrease Lasix to 20 mg PO daily
Impression / Plan
-
PCP: Alea REYNOLDS
Cardiology: Dr. Melchor Duran
Impression:
Admitted with UTI, left flank pain and left ureteral calculi 10/03/2025
Sepsis
Complicated UTI
Left ureteral calculi s/p stone extraction and left ureteral stenting by urology 10/04/2025
Acute HFpEF
Permanent A-fib
Chronic Eliquis OAC
CAD
s/p LCx PCI 2018
Peripheral vascular disease
s/p prior angioplasty/stenting left iliac and SFA/popliteal with extensive SFA/popliteal stent placement 03/16/2025
s/p stenting of bilateral SFA/iliac arteries
h/o HTN
Hyperlipidemia
Hypothyroidism
COPD
PVCs
CHON 04/11/2021([facility] study): Low normal EF, right to left shunt with agitated saline consistent with PFO, no evidence of thrombus in LARA, trace MR
Echo 01/25/2024: EF 50 to 55%. Moderate TR with PAP 35 to 38 mmHg. Patent PFO with [id number] flow/shunt
Echo 08/24/2025: EF 55 to 60%, mild TR, compared to echo from 01/2024 the findings are similar
Plan:
-Patient initially admitted with sepsis and left ureteral calculi on 10/03/2025. Cardiology later consulted for acute HF.
-Weight as high as 112 lbs on 10/05/2025 in the setting of IVF resuscitation for sepsis. Weight is down to 98 lbs on my review of VS 10/10/2025. Patient was initially diuresed with Lasix 20 mg IV daily and then transition to Lasix PO dosing which is
currently ordered at 40 mg BID. Patient was not taking a diuretic prior to admission. Lasix dose decreased to 20 mg PO daily with orders placed by me on 10/10/2025
-Despite diuresis the patient has ongoing intermittent SOB described as feeling intermittently breathless at rest. CXR report from 10/05/2025 was reviewed by me and there was small B/L pleural effusions at that time. proBNP on 10/05/2025 was 8700
and then down to 2170 on recheck 10/08/2025, labs reviewed by me. Patient does not examine in acute HF and oxygenation is now stable on RA. Recheck CXR, orders placed by me.
-EF was preserved to 55 to 60% by echo 08/24/2025
-Cre stable at 0.7 on my review of labs 10/10/2025
-Patient is not chronically on a beta-cheryle due to a history of paroxysmal and then permanent A-fib with rates trending towards bradycardia most recently and acute HF being a new diagnosis. Could consider changing outpatient dose of Cardizem CD
120 mg BID to Toprol-XL.
-RHINA/ARB/ARNI not started due to hypotension
-Aldosterone antagonist not started due to hypotension
-Patient required Levophed earlier this admission, now transition to midodrine 5 mg TID
-Patient has known permanent A-fib. Digoxin was stopped at her cardiology visit on 07/27/2025, but then restarted by cardiology this admission on 10/06/2025 to help with HR control.
-Outpatient dose of Cardizem CD has been continued and there is consideration for changing to Toprol-XL as noted above.
-Outpatient dose of Eliquis 2.5 mg BID (age 85, Cre 0.9, wt 51.1 kg) was held initially, but is scheduled to restart on 10/05/2025 PM.
HPI: Patient came to the hospital on Thursday with complaints of left flank pain and was admitted with evidence of UTI and left ureteral calculi, cardiology is now consulted for evidence of acute HF. Patient says that she was awakened repeatedly on
Thursday night into Thursday with left flank pain and she had her daughter take her to a local urgent care and then came to the ER. Patient was admitted with UTI and then later treated with sepsis protocol. Patient remains on Levophed running at 1.
Patient received a total of 2.5 L IVF's. Patient had a successful left ureteral stone removal and stent placement with urology in the OR on 10/04/2025. Cardiology is now consulted for acute HFpEF due to hypoxia and an elevated proBNP at 8700. CXR
today also reviewed by me showed small B/L pleural effusions and evidence of acute HF. Patient reports overall feeling much improved compared to admission, but is more short of breath in the last 24 hours and is now on oxygen at 5 L NC. Patient
does not use supplemental oxygen at home. Patient has known permanent A-fib and her usual dose of Cardizem CD 120 mg BID has been continued this admission despite intermittent hypotension. Outpatient dose of Eliquis was initially held, but is
scheduled to be restarted tonight.
Progress Note - Sourcer
Subjective
Date of Service: October 10, 2025
She intermittently feels breathless at rest
Objective
Labs:
10/09/25 04:49
10/10/25 04:30
Labs
Hgb 10.0 g/dL (12.0-16.0) L 10/09/25 04:49
Hct 28.4 % (37.0-47.0) L 10/09/25 04:49
Plt Count 294 10^3/uL (130-400) 10/09/25 04:49
Sodium 132 mmol/L (135-145) L 10/10/25 04:30
Potassium 4.2 mmol/L (3.5-5.1) 10/10/25 04:30
BUN 32 mg/dl (7-17) H 10/10/25 04:30
Creatinine 0.7 mg/dL (0.6-1.0) 10/10/25 04:30
Glucose 95 mg/dl (70-99) 10/10/25 04:30
Vital Signs and I&O:
Vital Signs
Temp Pulse Resp BP Pulse Ox
97.9 F 95 18 101/70 97
10/10/25 11:10/10/25 11:25 10/10/25 11:25 10/10/25 11:10/10/25 11:25
Vital Signs
Temp Pulse Resp BP Pulse Ox
97.9 F 95 18 101/70 97
10/10/25 11:10/10/25 11:10/10/25 11:25 10/10/25 11:25 10/10/25 11:25
Intake & Output
10/08/25 10/09/25 10/10/25 10/11/25
06:59 06:59 06:59 06:59
Intake Total 1420 / 1420 120 / 120 780 / 780
Output Total 790 / 790 500 / 500 350 / 350 550 / 550
Balance 630 / 630 -380 / -380 430 / 430 -550 / -550
Physical Exam
Physical Exam
GEN: NAD, AAO x 3
HEENT: EOMI, MMM
LUNGS: RA. CTA B/L, no wheeze or rales
CV: A-fib on telemetry.
EXT: No edema B/L LE
NEURO: Gross non-focal
SKIN: No rash, warm, dry, pink
[2025-10-10] MEDS: DUONEB 3 ML INH (11:31)
--- NOTE | 2025-10-10 11:39 | W.PN.HOSP.TC ---
Today's Communication/Plan
-
DC to SNF if okay from cardiology standpoint
Assessment / Plan
Assessment / Plan
Assessment:
complicated UTI
Proteus bacteremia with septic shock
- CT: partially obstructing 4 mm calculus along the course of the distal left ureter, just proximal to the left ureterovesical junction.
- Urology following; s/p Left Ureteroscopy, basket extraction of stone; stenting 10/04/25. Urine with pus noted.
- s/p sepsis protocol IVF; now capped with development of CHF
- briefly required low dose Levophed; now on midodrine TID
- pain control, anti-emetics
- continue abx day 05/15; switch to ceftriaxone based on sensitivities. repeat Blood cultures NGTD
-DC home on oral ciprofloxacin.
Acute hypoxic respiratory failure requiring higher settings of mid-flow O2 and BIPAP
- continue HS BIPAP prn
- Currently on room air
- encourage IS
Acute new CHF, possibly iatrogenic in setting of sepsis protocol IVF and acute illness
- CXR: Mild to moderate CHF with small bilateral effusions
- New improved shortness of breath. Improved weight. Diuretics on hold.
- Salt and fluid restrictions
- CHF education/dietary
- Cards following
Hypervolemic hyponatremia
- Improved. Continue to follow.
Non-LA trop elevation likely in setting of acute CHF
- was obtained for baseline purposes per Dr. Duran; no need for trending
hx of COPD
ILD
- continue Incruse
- prn nebs
Bipolar d/o
- continue Abilify/Remeron/Zoloft
hypothyroidism
- continue replacement
chronic anemia
Perm A. Fib
CAD s/p stents
PAD
Essential HTN
- continue Plavix/Eliquis
- restarted Digoxin (previously held outpatient with bradycardia)
- continue Diltiazem
- Midodrine for BP as well
- considered Aldactone but limited by BP. considered SGLT2 but has UTI currently
- continue Statin
Celiac disease
- GF diet
Stage 1 right heel pressure injury, POA
DVT ppx: Eliquis
Code: DNR/DNI - confirmed with family/patient
PT report noted-recommend SNF
Patient is agreeable.
Case management to look into placement.
DC if okay from cardiology standpoint
Anticipated Discharge: Today
Subjective/Interval History
-
Date of Service: October 10, 2025
Feeling much improved.
Denies chest pain or shortness of breath.
Denies any urinary symptoms of dysuria or frequency. No abdominal pain or flank pain.
Tolerating diet.
Objective Data
-
Labs:
Laboratory Results
10/10/25
04:30
Sodium 132 L
Potassium 4.2
Chloride 100
Carbon Dioxide 26
BUN 32 H
Creatinine 0.7
Glucose 95
Calcium 9.0
Vital Signs:
Vital Signs
Temp Pulse Resp BP Pulse Ox
97.9 F 92 16 101/70 99
10/10/25 11:25 10/10/25 11:38 10/10/25 11:38 10/10/25 11:25 10/10/25 11:38
I&O
10/09/25 10/10/25 10/11/25
06:59 06:59 06:59
Intake Total 120 / 120 780 / 780
Output Total 500 / 500 350 / 350 550 / 550
Balance -380 / -380 430 / 430 -550 / -550
Physical Exam
-
General: Comfortable
HEENT: Moist Mucous Membranes
Respiratory: Crackles (Few in left base) and Non Labored Respirations; Negative Wheezes or Accessory Resp Muscle Use
Cardiac: S1/S2, Irregular Rhythm and Tachycardic
GI: Soft and Nontender
Neuro: AO x 3
Psych: Calm
Data Reviewed
-
Labs: Labs Reviewed by me
[2025-10-10] MEDS: LANOXIN 125 MCG PO (12:39)
[2025-10-10] MEDS: ROCEPHIN 1000 MG IV (15:23)
[2025-10-10] MEDS: STERILE WATER FOR INJECTION 10 ML IV (15:24)
[2025-10-10] MEDS: LIPITOR 40 MG PO (17:48)
[2025-10-10] MEDS: REMERON 7.5 MG PO (22:17)
[2025-10-10] MEDS: ABILIFY 5 MG PO (22:17)
[2025-10-10] MEDS: CARDIZEM CD PO (22:18)
[2025-10-11 03:41] VITALS: BP 116/74
[2025-10-11] MEDS: SYNTHROID 112 MCG PO (06:16)
[2025-10-11 07:34] VITALS: BP 95/76
[2025-10-11] MEDS: SPIRIVA RESPIMAT 2.5 MCG 2 PUFF INH (08:01)
[2025-10-11] MEDS: MAGNESIUM OXIDE 400 MG PO (09:24)
[2025-10-11] MEDS: PLAVIX 75 MG PO (09:24)
[2025-10-11] MEDS: ZOLOFT 100 MG PO (09:24)
[2025-10-11] MEDS: ELIQUIS 2.5 MG PO ×2 (09:24→22:06)
[2025-10-11] MEDS: LASIX 20 MG PO (09:25)
[2025-10-11] MEDS: KCL 20 MEQ PO (09:25)
[2025-10-11] MEDS: CARDIZEM CD 120 MG PO ×2 (09:26→22:06)
[2025-10-11] MEDS: SANTYL OINTMENT 1 APPLIC TOPICAL (09:26)
--- NOTE | 2025-10-11 10:59 | W.PN.URO.CBU ---
Today's Communication / Plan
-
no no urology input
Assessment / Plan
-
Proteus Urosepsis
Left Ureteral Stone s/p removal and stenting
improving clinically
Diagnosis
-
Date of Service: October 11, 2025
-
Patient Diagnosis:
Post Op Day:
Patient Diagnosis:
Proteus Urosepsis
4 mm stone distal left ureter s/p ureteroscopy, stone removal, stenting 10/04/2025
Post Op Day: 7
Subjective
-
asleep
Objective
-
Vital Signs
Temp Pulse Resp BP Pulse Ox
98.0 F 91 16 105/63 98
10/11/25 07:34 10/11/25 09:26 10/11/25 08:04 10/11/25 09:26 10/11/25 08:04
Intake and Output
10/10/25 10/11/25 10/12/25
06:59 06:59 06:59
Intake Total 780 / 780 1200 / 1200
Output Total 350 / 350 800 / 800
Balance 430 / 430 400 / 400
Intake:
Oral fluids 780 / 780 1200 / 1200
Output:
Urine, Voided 350 / 350 800 / 800
Other:
How many times incontinent 2 1
MODERATE amount urine
How many times incontinent 1
SATURATED amount urine
Number of approximated SMALL 1
amounts of urine
Number of approximated MODERATE 2
amounts of urine
Number of unmeasured liquid
stools
Rectum 2
Laboratory Results
10/09/25 04:49
10/10/25 04:30
Physical Exam
-
General - well developed, well nourished, no acute distress
Chest - clear bilaterally
Abdomen - soft, non-tender, positive bowel sounds, no CVAT, no incisional pain or distention
Genitalia - normal
Rectal - normal
Skin - warm & dry with no rash
Neuro - AOx3, no motor deficits
Extremities - no clubbing, no cyanosis, no edema
Incision - clean, dry
Dressing - clean, dry, intact
--- NOTE | 2025-10-11 11:03 | W.PN.HOSP.TC ---
Today's Communication/Plan
-
DC to rehab
Assessment / Plan
Assessment / Plan
Assessment:
complicated UTI
Proteus bacteremia with septic shock
- CT: partially obstructing 4 mm calculus along the course of the distal left ureter, just proximal to the left ureterovesical junction.
- Urology following; s/p Left Ureteroscopy, basket extraction of stone; stenting 10/04/25. Urine with pus noted.
- s/p sepsis protocol IVF; now capped with development of CHF
- briefly required low dose Levophed; now on midodrine TID
- pain control, anti-emetics
- continue abx day 06/15; switch to ceftriaxone based on sensitivities. repeat Blood cultures NGTD
-DC home on oral ciprofloxacin.
Acute hypoxic respiratory failure requiring higher settings of mid-flow O2 and BIPAP
- continue HS BIPAP prn
- Currently on room air
- encourage IS
Acute new CHF, possibly iatrogenic in setting of sepsis protocol IVF and acute illness
- CXR: Mild to moderate CHF with small bilateral effusions
- New improved shortness of breath. Improved weight.
- Salt and fluid restrictions
- CHF education/dietary
- Cards following continue with p.o. Lasix per cardiology
Hypervolemic hyponatremia
- Improved. Continue to follow.
Non-[place] trop elevation likely in setting of acute CHF
- was obtained for baseline purposes per Dr. Duran; no need for trending
hx of COPD
ILD
- continue Incruse
- prn nebs
Bipolar d/o
- continue Abilify/Remeron/Zoloft
hypothyroidism
- continue replacement
chronic anemia
Perm A. Fib
CAD s/p stents
PAD
Essential HTN
- continue Plavix/Eliquis
- restarted Digoxin (previously held outpatient with bradycardia)
- continue Diltiazem
- Midodrine for BP as well
- considered Aldactone but limited by BP. considered SGLT2 but has UTI currently
- continue Statin
Celiac disease
- GF diet
Stage 1 right heel pressure injury, POA
DVT ppx: Eliquis
Code: DNR/DNI - confirmed with family/patient
PT report noted-recommend SNF
Patient is agreeable.
Case management to look into placement.
Medically stable for discharge
Anticipated Discharge: Today
Subjective/Interval History
-
Date of Service: October 11, 2025
Voices no specific complaints.
Denies any chest pain or shortness of breath.
No fever or chills.
Tolerating diet.
Objective Data
-
Vital Signs:
Vital Signs
Temp Pulse Resp BP Pulse Ox
98.0 F 91 16 105/63 98
10/11/25 07:34 10/11/25 09:26 10/11/25 08:04 10/11/25 09:26 10/11/25 08:04
I&O
10/10/25 10/11/25 10/12/25
06:59 06:59 06:59
Intake Total 780 / 780 1200 / 1200
Output Total 350 / 350 800 / 800
Balance 430 / 430 400 / 400
Physical Exam
-
General: Comfortable
Respiratory: Clear to Auscultation and Non Labored Respirations; Negative Accessory Resp Muscle Use
Cardiac: S1/S2 and Irregular Rhythm; Negative Tachycardic
GI: Soft and Nontender
Neuro: AO x 3
Psych: Calm; Negative Confused
Data Reviewed
-
Labs: Labs Reviewed by me
[2025-10-11] MEDS: LANOXIN 125 MCG PO (11:56)
[2025-10-11] MEDS: TUMS CHEWABLE TABLET 400 MG PO (11:57)
[2025-10-11 12:03] LABS: Digoxin 0.9 ng/ml (0.8-2.0)
--- NOTE | 2025-10-11 12:49 | CM ---
Addendum entered by Stacey Villalobos 10/11/25 13:06:
CM sent additional referrals to facilities [facility] for consideration.
Original Note:
CM met with Susu who transferred to to discuss discharge planning options. Per Susu, she lives at [facility] and has a home health aid that comes in several days/week. Therapies have evaluated and SNF is recommended. Susu would like to
go to [facility] at discharge if a bed is available. Referral sent to Alea at [facility] to check bed availability. Pt is open to referrals to additional facilities if [facility] does not have a bed available.
Plan: CM to coordinate transfer to SNF when medically ready. Will need authorization for SNF.
[2025-10-11 14:39] VITALS: BP 113/75; BP 122/84; PULSE 96; O2SAT 100
[2025-10-11] MEDS: DUONEB 3 ML INH (14:41)
[2025-10-11 15:18] VITALS: BP 108/73
[2025-10-11 16:52] VITALS: BP 118/76; PULSE 87; O2SAT 96
[2025-10-11] MEDS: LIPITOR 40 MG PO (17:26)
[2025-10-11] MEDS: STERILE WATER FOR INJECTION 10 ML IV (17:27)
[2025-10-11] MEDS: ROCEPHIN 1000 MG IV (17:27)
[2025-10-11] MEDS: ABILIFY 5 MG PO (22:06)
[2025-10-11] MEDS: REMERON 7.5 MG PO (22:06)
[2025-10-12 04:39] VITALS: BMI 18.6
[2025-10-12] MEDS: SYNTHROID 112 MCG PO (06:18)
[2025-10-12] MEDS: SPIRIVA RESPIMAT 2.5 MCG 2 PUFF INH (07:32)
[2025-10-12 07:58] VITALS: BP 101/64
[2025-10-12] MEDS: MAGNESIUM OXIDE 400 MG PO (08:17)
[2025-10-12] MEDS: KCL 20 MEQ PO (08:17)
[2025-10-12] MEDS: ELIQUIS 2.5 MG PO ×2 (08:17→21:04)
[2025-10-12] MEDS: PLAVIX 75 MG PO (08:18)
[2025-10-12] MEDS: ZOLOFT 100 MG PO (08:18)
[2025-10-12] MEDS: CARDIZEM CD PO (08:18)
[2025-10-12] MEDS: LASIX 20 MG PO (08:18)
[2025-10-12] MEDS: SANTYL OINTMENT 1 APPLIC TOPICAL (08:19)
[2025-10-12] MEDS: DUONEB 3 ML INH (10:59)
--- NOTE | 2025-10-12 11:48 | W.PN.HOSP.TC ---
Addendum entered and electronically signed by Anders Aldana MD 10/19/25 14:55:
BMI 18.6 secondary to underweight
Original Note:
Today's Communication/Plan
-
DC to rehab
Assessment / Plan
Assessment / Plan
Assessment:
complicated UTI
Proteus bacteremia with septic shock
- CT: partially obstructing 4 mm calculus along the course of the distal left ureter, just proximal to the left ureterovesical junction.
- Urology following; s/p Left Ureteroscopy, basket extraction of stone; stenting 10/04/25. Urine with pus noted.
- s/p sepsis protocol IVF; now capped with development of CHF
- briefly required low dose Levophed; now on midodrine TID
- pain control, anti-emetics
- continue abx day 07/16; repeat Blood cultures NGTD
- Switch to oral ciprofloxacin.
Acute hypoxic respiratory failure requiring higher settings of mid-flow O2 and BIPAP
- continue HS BIPAP prn
- Currently on room air
- encourage IS
Acute new CHF, possibly iatrogenic in setting of sepsis protocol IVF and acute illness
- CXR: Mild to moderate CHF with small bilateral effusions
- New improved shortness of breath. Improved weight.
- Salt and fluid restrictions
- CHF education/dietary
- Cards following continue with p.o. Lasix per cardiology
Hypervolemic hyponatremia
- Improved. Continue to follow.
Non-PR trop elevation likely in setting of acute CHF
- was obtained for baseline purposes per Dr. Duran; no need for trending
hx of COPD
ILD
- continue Incruse
- prn nebs
Bipolar d/o
- continue Abilify/Remeron/Zoloft
hypothyroidism
- continue replacement
chronic anemia
Perm A. Fib
CAD s/p stents
PAD
Essential HTN
- continue Plavix/Eliquis
- restarted Digoxin (previously held outpatient with bradycardia)
- continue Diltiazem
- Midodrine for BP as well
- considered Aldactone but limited by BP. considered SGLT2 but has UTI currently
- continue Statin
Celiac disease
- GF diet
Stage 1 right heel pressure injury, POA
DVT ppx: Eliquis
Code: DNR/DNI - confirmed with family/patient
PT report noted-recommend SNF
Patient is agreeable.
Case management to look into placement.
Medically stable for discharge
Anticipated Discharge: Today
Subjective/Interval History
-
Date of Service: October 12, 2025
Denies any overnight events.
No urinary symptoms of dysuria frequency or flank pain.
No nausea vomiting. Tolerating diet. Denies any shortness of breath.
Objective Data
-
Vital Signs:
Vital Signs
Temp Pulse Resp BP Pulse Ox
97.4 F 83 16 101/64 99
10/12/25 07:58 10/12/25 11:02 10/12/25 11:02 10/12/25 08:18 10/12/25 11:02
I&O
10/11/25 10/12/25 10/13/25
06:59 06:59 06:59
Intake Total 1200 / 1200 1290 / 1290
Output Total 800 / 800
Balance 400 / 400 1290 / 1290
Physical Exam
-
General: Comfortable
Respiratory: Clear to Auscultation and Non Labored Respirations; Negative Accessory Resp Muscle Use
Cardiac: S1/S2 and Irregular Rhythm; Negative Tachycardic
GI: Soft and Nontender
Neuro: AO x 3
Psych: Calm
[2025-10-12] MEDS: LANOXIN 125 MCG PO (12:31)
[2025-10-12 15:37] VITALS: BP 141/79
[2025-10-12] MEDS: LIPITOR 40 MG PO (17:12)
--- NOTE | 2025-10-12 17:50 | PTCARENOTE ---
Pt noted to have an episode of SOB this shift. PRN duoneb administered with little to no relief. SpO2 levels remain >96%. After a bit of time patient reported feeling better. Md notified. No new orders at this time. VSS. Plan of care ongoing.
[2025-10-12] MEDS: CIPRO 500 MG PO (21:03)
[2025-10-12] MEDS: CARDIZEM CD 120 MG PO (21:03)
[2025-10-12] MEDS: ABILIFY 5 MG PO (21:04)
[2025-10-12] MEDS: REMERON 7.5 MG PO (21:07)
[2025-10-12 23:20] VITALS: BP 128/91
[2025-10-13 06:18] VITALS: BMI 18.1
[2025-10-13 07:05] VITALS: BP 110/73
[2025-10-13] MEDS: SYNTHROID 112 MCG PO (07:16)
[2025-10-13] MEDS: SPIRIVA RESPIMAT 2.5 MCG 2 PUFF INH (07:40)
[2025-10-13] MEDS: KCL 20 MEQ PO (09:40)
[2025-10-13] MEDS: ZOLOFT 100 MG PO (09:40)
[2025-10-13] MEDS: LASIX 20 MG PO (09:40)
[2025-10-13] MEDS: PLAVIX 75 MG PO (09:40)
[2025-10-13] MEDS: ELIQUIS 2.5 MG PO ×2 (09:40→20:39)
[2025-10-13] MEDS: CARDIZEM CD 120 MG PO (09:40)
[2025-10-13] MEDS: MAGNESIUM OXIDE 400 MG PO (09:41)
[2025-10-13] MEDS: SANTYL OINTMENT 1 APPLIC TOPICAL (09:41)
[2025-10-13] MEDS: CIPRO 500 MG PO ×2 (09:41→20:39)
[2025-10-13 09:56] VITALS: BP 111/61; PULSE 74; O2SAT 99
--- NOTE | 2025-10-13 11:30 | W.DCSUMMARY ---
Addendum entered and electronically signed by Anders Aldana MD 10/14/25 12:56:
Date of Discharge : 10/14/25
Pt was discharge today with VN
Original Note:
Discharge Summary
Discharge Data
Date of Admission: 10/03/25
Date of Discharge: 10/13/25
-
Pending Results: No
Hospital Course
Primary diagnosis:
Complicated urinary tract infection
Proteus bacteremia with septic shock
Acute hypoxic respiratory failure secondary to acute CHF
Acute new diastolic CHF
Non-CA troponin elevation secondary to CHF
Secondary diagnosis:
Chronic obstructive pulmonary disease
Patient lung disease
Bipolar disorder
Hypothyroidism
Chronic anemia
Permanent atrial fibrillation
Coronary artery disease status post prior coronary stents
Peripheral arterial disease
Essential hypertension
Celiac disease
Hospital course:
Patient presents with flank pain, difficulty urination, hematuria. CT of the abdomen pelvis showed partially obstructing 4 mm calculus along the course of distal left ureter, just proximal to the left ureterovesical junction. She had a Proteus
mirabilis in the urine and in the blood cultures. He was seen by urology and had cystoscopy which showed 3 mm brown, irregularly-shaped distal left ureteral stone, impacted; purulent urine upon relief of obstruction
6 fr 22 cm JJ right ureteral stent placed.
She was started treated with intravenous ceftriaxone and later switched to oral ciprofloxacin. She cleared of blood cultures.
With above infection she was septic with shock and needed fluid resuscitation along with antibiotic regimen and above procedures. She developed acute new diastolic heart failure causing acute hypoxic respiratory failure. Was suspected may be
secondary to sepsis and fluid resuscitation. Echocardiogram showed EF of 55 to 60%, mild TR. She responded well to diuretics and which was switched to oral Lasix 20 mg p.o. daily on discharge.
She has permanent atrial fibrillation and digoxin was added to Cardizem. She was maintained on Eliquis. Heart rate was well-controlled prior to discharge.
Today she continues to feel well. Denies any shortness of breath. Remains on room air. Afebrile. Pulse was 74 and rate controlled A-fib. Blood pressure 110/73. Chest was clear. No lower extremity edema. She was earlier seen by PT who
recommended rehab but today she did well with the physical therapy and they cleared her for home health. She is medically stable for discharge. Advise follow-up with urology and cardiology as outpatient. Advised to get a repeat BMP, digoxin level
in a week through PCP.
Portions of this chart may have been created with voice recognition software. Occasional wrong word or 'sound alike' substitutions may have occurred due to the inherent limitations of voice recognition software.
Consultants on board:
Cardiology-Dr. Melchor Duran
Urology-Dr. Kyler Wakefield
Discharge Plan
-
Patient Disposition: Home with Home Care
Discharge Diagnosis/Procedures: Complicated UTI, Proteus bacteremia with septic shock
Acute hypoxic respiratory failure secondary to diastolic CHF
Diet: Low Cholesterol
Activity: As tolerated
Driving Restrictions: Not until seen by your Dr
Bathing Restrictions: None
Blood Work: BMP, digoxin level in one week -arrange through your PCP
Other Services: VN
Specialty Instructions: Weigh Daily- Call MD for wt gain/loss 3 lbs overnight/5 lbs in 1 week
Activity Restrictions/Additional Instructions:
Wound Care Instructions Left Heel- Clean with Vashe, apply Santyl to wound bed and cover with adaptic and clean dressing such as silicone border foam. Change daily and PRN drainage.
Left thigh- Clean with Vashe and cover with adaptic. Change Q 48 hours.
Right heel- No-sting barrier and adhesive foam. Change Q 72 hours and PRN drainage.
Fiber filled boot to left heel
Follow up at wound care center call for an appointment.
Referrals:
Ronny Kenyon MD [Active, Urology]
Referral Note: you have a stent rell Dr Kenyon 215 [id number] and request date to remove stent in office. Until then you will experience frequency and urgency and blood in urine and occasional flank pain bladder pain
Jie Us DO [Family Provider, Family Practice] - in less than 1 week
Melchor Duran MD [Active, Cardiology] - in one week
Prescriptions:
New
digoxin 125 mcg (0.125 mg) Tablet
125 mcg PO NOON Qty: 30 0RF
furosemide 20 mg Tablet
20 mg PO DAILY Qty: 30 0RF
ciprofloxacin HCl 500 mg Tablet
500 mg PO BID Qty: 8 0RF
potassium chloride [Klor-Con M20] 20 mEq Tablet,Er Particles/Crystals
20 meq PO DAILY Qty: 30 0RF
Continued
aripiprazole [Abilify] 5 mg Tablet
5 mg PO HS
sertraline 100 mg tablet
100 mg PO DAILY
multivitamin Tablet
1 tab PO DAILY
apixaban 2.5 mg Tablet
2.5 mg PO BID
clopidogrel 75 mg Tablet
75 mg PO DAILY Qty: 30 0RF
digoxin 125 mcg (0.125 mg) tablet
125 mcg PO DAILY
Santyl 250 unit/gram Ointment
1 applic TOPICAL DAILY
calcium carbonate-vitamin D3 600 mg-5 mcg (200 unit) Tablet
1 tab PO DAILY
tiotropium bromide 18 mcg Capsule, W/Inhalation Device
1 cap INHALATION DAILY PRN (Reason: Lung/Breathing Issues)
Patient Comments:
Unsure of dose
atorvastatin 40 mg Tablet
40 mg PO QPM 30 Days Qty: 30 0RF
diltiazem HCl 120 mg Capsule,Extended Release 24hr
120 mg PO BID 30 Days Qty: 60 0RF
levothyroxine 112 mcg tablet
112 mcg PO DAILY @ 0600
albuterol sulfate 1.25 mg/3 mL Solution For Nebulization
1.25 mg INHALATION QID PRN (Reason: sob)
mirtazapine 7.5 mg Tablet
15 mg PO HS
Prolia 60 mg/mL Syringe
60 mg SC [id number]
Rx Instructions:
pt states almost a year ago
Incruse Ellipta 62.5 mcg/actuation Blister With Device
1 inh INHALATION DAILY
ferrous sulfate [FeroSul] 325 mg (65 mg iron) Tablet
325 mg PO DAILY Qty: 30 0RF
tramadol 50 mg tablet
50 mg PO BID PRN (Reason: severe pain) Qty: 10 0RF
ascorbic acid (vitamin C) 500 mg Tablet,Chewable
500 mg PO DAILY
zinc Tablet,Chewable
30 tab PO DAILY
PureVita Vitamin B12
1,000 mcg PO DAILY
Changed
midodrine 5 mg Tablet
5 mg PO TID Qty: 0 0RF
Patient Comments:
Hold if SBP> 110
acetaminophen [Tylenol Extra Strength] 500 mg Tablet
1,000 mg PO TID PRN (Reason: Pain) Qty: 30 0RF
Discontinued
potassium gluconate 550 mg (90 mg) Tablet
90 mg PO DAILY
Discharge Date and Time
Print Language: GERMAN
--- NOTE | 2025-10-13 12:19 | CM ---
CM notified by MD that patient has improved physically and would like to return home today. VN recommended; referral sent to [facility] for consideration.
[2025-10-13] MEDS: LANOXIN 125 MCG PO (13:36)
[2025-10-13 15:15] VITALS: BP 127/68
[2025-10-13] MEDS: LIPITOR 40 MG PO (17:39)
[2025-10-13] MEDS: ABILIFY 5 MG PO (20:38)
[2025-10-13] MEDS: CARDIZEM CD PO (20:38)
[2025-10-13] MEDS: REMERON 7.5 MG PO (20:42)
[2025-10-13 23:32] VITALS: BP 112/64
[2025-10-14] MEDS: SYNTHROID 112 MCG PO (06:03)
[2025-10-14 07:00] VITALS: BP 88/56
[2025-10-14] MEDS: CARDIZEM CD 120 MG PO (07:50)
[2025-10-14] MEDS: KCL 20 MEQ PO (07:51)
[2025-10-14] MEDS: ZOLOFT 100 MG PO (07:51)
[2025-10-14] MEDS: PLAVIX 75 MG PO (07:52)
[2025-10-14] MEDS: CIPRO 500 MG PO (07:52)
[2025-10-14] MEDS: ELIQUIS 2.5 MG PO (07:52)
[2025-10-14] MEDS: MAGNESIUM OXIDE 400 MG PO (07:53)
[2025-10-14] MEDS: LASIX 20 MG PO (07:53)
[2025-10-14] MEDS: SANTYL OINTMENT 1 APPLIC TOPICAL (07:54)
[2025-10-14] MEDS: SPIRIVA RESPIMAT 2.5 MCG 2 PUFF INH (08:02)
[2025-10-14 08:36] VITALS: BP 88/56
[2025-10-14 12:04] VITALS: BP 116/62
--- NOTE | 2025-10-14 12:57 | W.PN.HOSP.TC ---
Today's Communication/Plan
-
DC
Assessment / Plan
Assessment / Plan
Assessment:
complicated UTI
Proteus bacteremia with septic shock
- CT: partially obstructing 4 mm calculus along the course of the distal left ureter, just proximal to the left ureterovesical junction.
- Urology following; s/p Left Ureteroscopy, basket extraction of stone; stenting 10/04/25. Urine with pus noted.
- s/p sepsis protocol IVF; now capped with development of CHF
- briefly required low dose Levophed; now on midodrine TID
- pain control, anti-emetics
- continue abx day 07/16; repeat Blood cultures NGTD
- Switch to oral ciprofloxacin.
Acute hypoxic respiratory failure requiring higher settings of mid-flow O2 and BIPAP
- continue HS BIPAP prn
- Currently on room air
- encourage IS
Acute new CHF, possibly iatrogenic in setting of sepsis protocol IVF and acute illness
- CXR: Mild to moderate CHF with small bilateral effusions
- New improved shortness of breath. Improved weight.
- Salt and fluid restrictions
- CHF education/dietary
- Cards following continue with p.o. Lasix per cardiology
Hypervolemic hyponatremia
- Improved. Continue to follow.
Non-[place] trop elevation likely in setting of acute CHF
- was obtained for baseline purposes per Dr. Duran; no need for trending
hx of COPD
ILD
- continue Incruse
- prn nebs
Bipolar d/o
- continue Abilify/Remeron/Zoloft
hypothyroidism
- continue replacement
chronic anemia
Perm A. Fib
CAD s/p stents
PAD
Essential HTN
- continue Plavix/Eliquis
- restarted Digoxin (previously held outpatient with bradycardia)
- continue Diltiazem
- Midodrine for BP as well
- considered Aldactone but limited by BP. considered SGLT2 but has UTI currently
- continue Statin
Celiac disease
- GF diet
Stage 1 right heel pressure injury, POA
DVT ppx: Eliquis
Code: DNR/DNI - confirmed with family/patient
PT report noted-did well with the PT yesterday and no need for rehab. Recommended home health. Case management arranged for home health.
Medically stable for discharge home.
Discussed with the daughter yesterday regarding readiness of discharge home, the medical conditions, treatments and follow-up plan.
Anticipated Discharge: Today
Subjective/Interval History
-
Date of Service: October 14, 2025
Patient was not discharged yesterday for unclear reasons? For lack of DC order
No overnight events
Denies any shortness of breath. Breathing comfortably.
No urinary symptoms.
No fever or chills.
Objective Data
-
Vital Signs:
Vital Signs
Temp Pulse Resp BP Pulse Ox
98.0 F 76 16 116/62 98
10/14/25 12:04 10/14/25 12:04 10/14/25 12:04 10/14/25 12:04 10/14/25 12:04
I&O
10/13/25 10/14/25 10/15/25
06:59 06:59 06:59
Intake Total 240 / 240 780 / 780
Balance 240 / 240 780 / 780
Physical Exam
-
General: Comfortable
Respiratory: Non Labored Respirations; Negative Accessory Resp Muscle Use
Cardiac: Regular Rhythm and S1/S2
GI: Soft, Nontender and Nondistended; Negative Normal Bowel Sounds
Neuro: AO x 3
Psych: Calm; Negative Confused
== END 2025-10-14 12:06 | disposition home health service (06) | DRG 659 ==
LOC: 3 WEST ACU 18:07
PROVIDERS: Emergency Medicine; Nurse Practitioner Family; Registered Nurse; Specialist; ADMITTING PHYSICIAN Internal Medicine; ATTENDING PHYSICIAN Internal Medicine; CONSULT PHYSICIAN Internal Medicine Cardiovascular Disease; CONSULT PHYSICIAN Specialist; EMERGENCY PHYSICIAN Emergency Medicine; FAMILY PHYSICIAN Family Medicine
PROC: 0T778DZ Dilation of Left Ureter with Intraluminal Device, Via Natural or Artificial Opening Endoscopic (ICD-10-PCS; 2025-10-04)
PROC: 0TC78ZZ Extirpation of Matter from Left Ureter, Via Natural or Artificial Opening Endoscopic (ICD-10-PCS; 2025-10-04)
DX: N20.2 Calculus of kidney with calculus of ureter (principal); A41.9 Sepsis, unspecified organism; I50.31 Acute diastolic (congestive) heart failure; J96.01 Acute respiratory failure with hypoxia; R65.21 Severe sepsis with septic shock; N39.0 Urinary tract infection, site not specified; I48.21 Permanent atrial fibrillation; E87.1 Hypo-osmolality and hyponatremia; J84.9 Interstitial pulmonary disease, unspecified; Q21.12 Patent foramen ovale; I25.10 Atherosclerotic heart disease of native coronary artery without angina pectoris; I73.9 Peripheral vascular disease, unspecified; I11.0 Hypertensive heart disease with heart failure; E03.9 Hypothyroidism, unspecified; F17.200 Nicotine dependence, unspecified, uncomplicated; J44.9 Chronic obstructive pulmonary disease, unspecified; I49.3 Ventricular premature depolarization; F31.9 Bipolar disorder, unspecified; D64.9 Anemia, unspecified; B96.4 Proteus (mirabilis) (morganii) as the cause of diseases classified elsewhere; E78.00 Pure hypercholesterolemia, unspecified; K90.0 Celiac disease; L89.611 Pressure ulcer of right heel, stage 1; Z66 Do not resuscitate; Z79.890 Hormone replacement therapy; Z79.899 Other long term (current) drug therapy; Z79.01 Long term (current) use of anticoagulants; Z87.442 Personal history of urinary calculi; Z95.5 Presence of coronary angioplasty implant and graft
CPT/HCPCS: 71046; 74018; 74177; 76000; 80048; 80053; 80162; 81003; 81015; 82365; 82962; 83605; 83735; 83880; 84484; 85025; 85027; 87040; 87070; 87077; 87086; 87154; 87186; 87205; 93005; 94640; 94660; 96361; 96374; 96375; 97116; 97163; 97167; 97530; 97535; 99285; 99406; Q9967